=== PATIENT | female | born 1980 | race Caucasian/White ===

== ENCOUNTER 2017-10-07 18:41 | Emergency (ER) | payer OTHER, MEDICAID, SELFPAY | END 2017-10-08 01:43 | disposition short-term general hospital (02) | PROVIDERS: Emergency Provider Emergency Medicine; Family Provider Family Medicine; PCP Family Medicine; Visit Provider Emergency Medicine | DX: R56.9 Unspecified convulsions (principal) | CPT/HCPCS: 36415; 70450; 80053; 80305; 80320; 80329; 81003; 81025; 83690; 85025; 96365; 96375; 99058; 99284; G0480; J1953; J2060 ==

== ENCOUNTER 2017-11-05 18:47 | Emergency (ER) | payer OTHER, MEDICAID, SELFPAY ==
[2017-11-05 18:56] VITALS: BP 123/79; PULSE 79; RESP 15; TEMP 37.1; O2SAT 98; BMI 30.9
--- NOTE | 2017-11-05 19:34 | ED.SOB ---
HPI - SOB/Dyspnea General Chief Complaint: Shortness of Breath/Dyspnea Stated Complaint: thinks she has a blood clot Time Seen by Provider: 11/05/17 18:50 Source: patient Mode of arrival: ambulatory Limitations: no limitations History of Present Illness 37-year-old female sent in by her primary care doctor for having an elevated D-dimer. Patient states that she went to go see her primary care doctor because she has had bilateral lower extremity swelling with the right greater than left. She also states that for the past couple days she has felt more ???winded ???than in the past. She does state that she was recently discharged from [facility] where she was diagnosed with ???dystonia ???and is placed on an anti Parkinson's medication. Patient states she did have a airplane ride 2 months ago. Denies any chest pain. States she can take a deep breath but states she feels like she needs to take a breath more often. Has not tried anything at home for it. States she received a phone call from her primary care provider office today with the results of the blood test from yesterday and was told to come to the emergency department. Related Data Home Medications Medication Instructions Recorded Confirmed omeprazole 40 mg PO QDAY #0 10/12/16 11/05/17 clonazepam 1 mg PO BID 11/05/17 11/05/17 trihexyphenidyl 2 mg PO BID 11/05/17 11/05/17 Previous Rx's Medication Instructions Recorded furosemide 20 mg PO DAILY #10 tab 11/05/17 Allergies Allergy/AdvReac Type Severity Reaction Status Date / Time Gadolinium-Containing Allergy Unknown Verified 11/05/17 20:34 Contrast Medi Sulfa (Sulfonamide Allergy Unknown Verified 11/05/17 20:33 Antibiotics) [SULFA (SULFONAMIDE ANTIBIOTICS)] Review of Systems Constitutional Denies chills, Denies fever(s), Denies lethargy and Denies weakness Cardiovascular Denies chest pain, Denies irregular heart rhythm, Denies lightheadedness, Denies palpitations, Reports dyspnea, Reports dyspnea on exertion and Denies orthopnea Respiratory Denies chest congestion, Denies cough, Denies pain on inspiration, Denies pain with cough, Reports dyspnea, Reports dyspnea on exertion and Denies wheezing Gastrointestinal Gastrointestinal: Denies abdominal pain, Denies change in bowel habits, Denies diarrhea, Denies nausea and Denies vomiting Genitourinary Denies hematuria, Denies flank pain, Denies urinary incontinence and Denies urinary urgency Musculoskeletal Denies back pain, Denies joint swelling, Denies muscle cramps, Denies muscle weakness, Denies numbness and Denies tingling Comments: Bilateral lower extremity swelling right greater than left Integumentary/Breasts Denies pruritus, Denies erythema, Denies rash and Denies wounds Neurologic Denies numbness, Denies tingling and Denies weakness Endocrine Denies palpitations Hematologic/Lymphatic Denies easy bruising Allergic/Immunologic Denies wheezing [facility] Social History Smoking Status: Former smoker MDM - SOB/Dyspnea MDM Narrative Medical decision making narrative: Workup here in the emergency department was negative for bilateral DVT and also negative for pulmonary embolism. Patient is not hypoxic. He is in no respiratory distress. I did inform the patient of the incidental findings of lung nodules on her CT scan informed her that she needed to follow with her primary doctor regarding further workup for this. She expressed understanding. Does have of bilateral lower extremity swelling. Will start patient on Lasix to see if this does not improve her symptoms. She was instructed that she needed to follow up with her primary care doctor for further workup and treatment. She was given return precautions. She expressed understanding and agreement with plan Lab Data Attestation: I reviewed the patient's lab results. Result diagrams: 11/05/17 20:11 11/05/17 20:11 Lab Results 11/05/17 11/05/17 11/05/17 Range/Units 20:11 20:11 20:11 WBC 6.3 (4.5-11.0) X10^3/uL RBC 4.18 (4.0-5.2) X10^6/uL Hgb 11.9 L (12.0-16.0) g/dL Hct 34.6 L (36-46) % MCV 82.7 (80-100) fL MCH 28.4 (26-34) PG MCHC 34.3 (30-36) % RDW 16.3 H (11.6-14.8) % Plt Count 276 (150-400) X10^3/uL Neut % (Auto) 63.5 (50-75) % Lymph % (Auto) 27.7 (25-40) % [place] % (Auto) 6.0 (3-14) % Eos % (Auto) 2.2 (2-4) % Baso % (Auto) 0.6 (0-2) % Neut # (Auto) 4000 (6128-5335) /uL PT 10.9 (10.1-12.7) SECONDS INR 1.0 (0.9-1.3) APTT 35 (26.4-36.2) SECONDS Sodium 139 (137-145) mmol/L Potassium 3.6 (3.4-5.1) mmol/L Chloride 103.0 (98-107) mmol/L Carbon Dioxide 25.0 (22-32) mmol/L BUN 6.0 L (7-17) mg/dL Creatinine 0.60 (0.52-1.04) mg/dL Estimated GFR > 60.0 (>60) mL/min BUN/Creatinine Ratio 10.0 (6-22) Glucose 92 (70-100) mg/dL Calcium 9.1 (8.4-10.2) mg/dL Total Bilirubin 0.4 (0.2-1.3) mg/dL AST 60 H (14-36) IU/L ALT 61 H (9-52) IU/L Alkaline Phosphatase 66 (38-126) U/L Total Creatine Kinase 82 (30-135) U/L Troponin I < 0.012 (0.01-0.034) ng/mL B-Natriuretic Peptide 12.2 L (<100) Total Protein 7.6 (6.3-8.2) g/dL Albumin 4.2 (3.5-5.0) g/dL Globulin 3.4 (1.7-4.1) g/dL Albumin/Globulin Ratio 1.2 (1.0-2.8) Lipase 54 (23-300) U/L Imaging Data Lower extremity ultrasound: Radiologist's impression: PROCEDURE: US PERIPH VENOUS LOW EXTREM BI INDICATIONS: 37 year-old female with lower extremity edema. TECHNIQUE: Real-time imaging, as well as color and pulse Doppler interrogation, were performed of the deep veins of both legs from the inguinal ligament to the popliteal fossa. COMPARISON: None. FINDINGS: The deep veins are normally compressible, and free of intraluminal thrombus. Color and pulse Doppler demonstrate normal phasic intravascular flow. There is normal augmentation response to distal compression maneuver. IMPRESSION: No sonographic evidence for lower extremity deep venous thrombosis. Dictated by: Sabino Coreas M.D. on 11/05/2017 at 20:10 CT scan - chest: Radiologist's impression: PROCEDURE: CT ANGIO CHEST PE PROTOCOL INDICATIONS: 37 year-old female with shortness of breath and elevated d-dimer level. TECHNIQUE: After the administration of intravenous contrast, 2 mm thick sections acquired from the pulmonary apices to the posterior costophrenic angles. 3-dimensional maximum intensity projection (MIP) coronal and sagittal reformats were then acquired through the thorax. For radiation dose reduction, the following was used: automated exposure control, adjustment of mA and/or kV according to patient size. COMPARISON: [facility], CT, KUB - CT ([facility]), 01/17/2014, 0:39. FINDINGS: Image quality: Excellent. Pulmonary arteries: Pulmonary arteries are normal in size, and demonstrate no intraluminal filling defects to suggest central pulmonary embolism. Lungs and pleura: No acute airspace opacities. On image 41, 3 mm lateral left lower lobe nodule is unchanged since 2014, reassuring for benignity. On image 36, 3 mm subpleural lingular nodule is also unchanged. On image 29, 6 mm nodule in the superior segment of the left lower lobe is noted. On image 31, 6 mm lateral right lower lobe nodule is also present. No pleural effusions or pneumothorax. Central and peripheral airways are patent. Mediastinum: Heart size is normal, without pericardial effusion. No mediastinal or hilar adenopathy. Thoracic aorta is normal in caliber and enhancement. Esophagus is normal in caliber, without hiatal hernia. Bones and chest wall: No suspicious bony lesions. Ribs and thoracic spine appear intact throughout. Thyroid gland is normal in size. No axillary or supraclavicular adenopathy. Abdomen: Visualized upper abdominal solid organs appear normal in the early arterial phase of enhancement. IMPRESSION: 1. No evidence for central pulmonary embolism. No acute pulmonary disease. 2. Several 3 mm inferior left lung nodules are unchanged since 2013, reassuring for benignity. More superior bilateral 6 mm nodules were not included on prior abdominal scan images for direct comparison, and are therefore indeterminate. Following the revised Fleischner society guidelines outlined below, consider 12 month followup noncontrast chest CT if patient has risk factors for lung neoplasm. Fleischner Society criteria for SOLID lung nodule followup. Nodule size (mm)Low-risk patientHigh-risk patient<6 (single or multiple)No routine followup.Optional CT at 12 months. 6-8 (single or multiple)CT at 6-12 months, then optional CT at 18-24 mo.CT at 6-12 months, then CT at 18-24 months. >8 (single)CT, PET-CT, or biopsy at 3 months. Same as for low-risk pts. >8 (multiple)CT at 3-6 months, then optional CT at 18-24 mo.CT at 3-6 months, then CT at 18-24 months. Dictated by: Sabino Coreas M.D. on 11/05/2017 at 21:51 ECG Data Attestation: I personally reviewed and interpreted this ECG as follows: Prior ECG tracings: not available for review Interpretation: 1932 hr Sinus rhythm Ventricular rate of 70 Normal axis Normal intervals Normal QRS Normal QTC No ST T wave changes Course Orders Ordered: ED Orders 11/05/17 19:32 EKG-12 Lead Stat 11/05/17 19:43 CT angio chest PE protocol Stat US periph venous low extrem bi Stat 11/05/17 20:11 B Type Natriuretic Peptide Stat Complete Blood Count AUTO DIFF Stat Comprehensive Metabolic Panel Stat Lipase Stat Partial Thromboplastin Time Stat Prothrombin Time INR Stat Troponin with CK Cardiac Panel Stat Discontinued Medications Sodium Chloride (Normal Saline 0.9%) 1,000 mls @ 1,000 mls/hr IV BOLUS ONE Stop: 11/05/17 20:41 Last Infusion: 11/05/17 22:00 Dose: 0 mls/hr Admin: 11/05/17 20:45 Dose: 1,000 mls/hr Last Vital Signs Temp 98.8 F 11/05/17 18:56 Pulse 83 11/05/17 22:46 Resp 16 11/05/17 22:46 BP 117/67 11/05/17 22:46 Pulse Ox 99 11/05/17 22:46 Discharge Plan Departure Patient Disposition: Home, Self-Care Clinical Impression: Bilateral edema of lower extremity, Lung nodule Discharge Date/Time: 11/05/17 22:55 Instructions: DI for Lymphedema Activity Restrictions/Additional Instructions: Recommend that you contact your primary care doctor for a follow-up regarding your symptoms that you had today. You will also need to contact your primary doctor to discuss follow-up of the lung nodule that was seen on the CT scan today. Return to the emergency department for any new or worsening symptoms Prescriptions: New furosemide 20 mg tablet 20 mg PO DAILY Qty: 10 RF: 0 No Action omeprazole 40 MG capsule,delayed release(DR/EC) 40 mg PO QDAY Qty: 0 RF: 0 clonazepam 1 mg Tablet 1 mg PO BID RF: 0 trihexyphenidyl 2 mg Tablet 2 mg PO BID RF: 0
--- NOTE | 2017-11-05 19:43 | DI.CT.S_ITS ---
PROCEDURE: CT ANGIO CHEST PE PROTOCOL INDICATIONS: 37 year-old female with shortness of breath and elevated d-dimer level. TECHNIQUE: After the administration of intravenous contrast, 2 mm thick sections acquired from the pulmonary apices to the posterior costophrenic angles. 3-dimensional maximum intensity projection (MIP) coronal and sagittal reformats were then acquired through the thorax. For radiation dose reduction, the following was used: automated exposure control, adjustment of mA and/or kV according to patient size. COMPARISON: [facility], CT, KUB - CT ([facility]), 01/17/2014, 0:39. FINDINGS: Image quality: Excellent. Pulmonary arteries: Pulmonary arteries are normal in size, and demonstrate no intraluminal filling defects to suggest central pulmonary embolism. Lungs and pleura: No acute airspace opacities. On image 41, 3 mm lateral left lower lobe nodule is unchanged since 2013, reassuring for benignity. On image 36, 3 mm subpleural lingular nodule is also unchanged. On image 29, 6 mm nodule in the superior segment of the left lower lobe is noted. On image 31, 6 mm lateral right lower lobe nodule is also present. No pleural effusions or pneumothorax. Central and peripheral airways are patent. Mediastinum: Heart size is normal, without pericardial effusion. No mediastinal or hilar adenopathy. Thoracic aorta is normal in caliber and enhancement. Esophagus is normal in caliber, without hiatal hernia. Bones and chest wall: No suspicious bony lesions. Ribs and thoracic spine appear intact throughout. Thyroid gland is normal in size. No axillary or supraclavicular adenopathy. Abdomen: Visualized upper abdominal solid organs appear normal in the early arterial phase of enhancement. IMPRESSION: 1. No evidence for central pulmonary embolism. No acute pulmonary disease. 2. Several 3 mm inferior left lung nodules are unchanged since 2013, reassuring for benignity. More superior bilateral 6 mm nodules were not included on prior abdominal scan images for direct comparison, and are therefore indeterminate. Following the revised Fleischner society guidelines outlined below, consider 12 month followup noncontrast chest CT if patient has risk factors for lung neoplasm. Fleischner Society criteria for SOLID lung nodule followup. Nodule size (mm)Low-risk patientHigh-risk patient<6 (single or multiple)No routine followup.Optional CT at 12 months. 6-8 (single or multiple)CT at 6-12 months, then optional CT at 18-24 mo.CT at 6-12 months, then CT at 18-24 months. >8 (single)CT, PET-CT, or biopsy at 3 months. Same as for low-risk pts. >8 (multiple)CT at 3-6 months, then optional CT at 18-24 mo.CT at 3-6 months, then CT at 18-24 months. Dictated by: Sabino Coreas M.D. on 11/05/2017 at 21:51 Approved by: Sabino Coreas M.D. on 11/05/2017 at 22:02
--- NOTE | 2017-11-05 19:43 | DI.US.S_ITS ---
PROCEDURE: US PERIPH VENOUS LOW EXTREM BI INDICATIONS: 37 year-old female with lower extremity edema. TECHNIQUE: Real-time imaging, as well as color and pulse Doppler interrogation, were performed of the deep veins of both legs from the inguinal ligament to the popliteal fossa. COMPARISON: None. FINDINGS: The deep veins are normally compressible, and free of intraluminal thrombus. Color and pulse Doppler demonstrate normal phasic intravascular flow. There is normal augmentation response to distal compression maneuver. IMPRESSION: No sonographic evidence for lower extremity deep venous thrombosis. Dictated by: Sabino Coreas M.D. on 11/05/2017 at 20:10 Approved by: Sabino Coreas M.D. on 11/05/2017 at 20:11
[2017-11-05 19:51] VITALS: BP 135/81; PULSE 71; O2SAT 98
[2017-11-05 20:30] LABS: Add Manual Diff / Slide Review NO; Basophils Percent Auto 0.6 % (0-2); Eosinophils Percent Auto 2.2 % (2-4); Hematocrit 34.6 % (36-46); Hemoglobin 11.9 g/dL (12.0-16.0); Lymphocytes Percent Auto 27.7 % (25-40); Mean Corpuscular HGB Conc 34.3 % (30-36); Mean Corpuscular Hemoglobin 28.4 PG (26-34); Mean Corpuscular Volume 82.7 fL (80-100); Neutrophils Absolute Auto 4000 /uL (3000-5900); Neutrophils Percent Auto 63.5 % (50-75); Platelet Count 276 X10^3/uL (150-400); Red Blood Cell Count 4.18 X10^6/uL (4.0-5.2); Red Cell Distribution Width 16.3 % (11.6-14.8); White Blood Cell Count 6.3 X10^3/uL (4.5-11.0)
[2017-11-05 20:42] LABS: Prothrombin Time 10.9 SECONDS (10.1-12.7)
[2017-11-05 20:45] LABS: Alanine Aminotransferase 61 IU/L (9-52); Albumin 4.2 g/dL (3.5-5.0); Albumin Globulin Ratio 1.2 (1.0-2.8); Alkaline Phosphatase 66 U/L (38-126); Aspartate Aminotransferase 60 IU/L (14-36); Bilirubin Total 0.4 mg/dL (0.2-1.3); Calcium 9.1 mg/dL (8.4-10.2); Creatine Kinase 82 U/L (30-135); Estimated Glomerular Filt Rate > 60.0 mL/min (>60); Globulin 3.4 g/dL (1.7-4.1); Glucose 92 mg/dL (70-100); HEMOLYSIS < 15 (0-50); Lipase 54 U/L (23-300); Potassium 3.6 mmol/L (3.4-5.1); Sodium 139 mmol/L (137-145); Total Protein 7.6 g/dL (6.3-8.2)
[2017-11-05] MEDS: SODIUM CHLORIDE 0.9% 1,000 ML 1000 ML IV (20:45)
[2017-11-05 20:49] LABS: PTT Partial Thromboplastin Tim 35 SECONDS (26.4-36.2)
[2017-11-05 20:50] LABS: B Type Natriuretic Peptide 12.2 (<100)
[2017-11-05 20:57] LABS: Troponin I < 0.012 ng/mL (0.01-0.034)
[2017-11-05 21:49] VITALS: BP 109/65; PULSE 89; RESP 16; O2SAT 100
[2017-11-05 22:46] VITALS: BP 117/67; PULSE 83; RESP 16; O2SAT 99
== END 2017-11-05 22:55 | disposition home or self-care (01) ==
PROVIDERS: Emergency Provider Emergency Medicine; Family Provider Family Medicine; PCP Family Medicine
DX: R60.0 Localized edema (principal); R91.1 Solitary pulmonary nodule
CPT/HCPCS: 36591; 71275; 80053; 81003; 81025; 82550; 82553; 83690; 83880; 84484; 85025; 85610; 85730; 93005; 93970; 99283; 99285

== ENCOUNTER 2018-01-13 10:45 | Emergency (ER) | payer OTHER, MEDICAID, SELFPAY ==
[2018-01-13 10:52] VITALS: BP 132/83; PULSE 85; RESP 15; TEMP 36.7; O2SAT 99; BMI 34.3
[2018-01-13 11:05] VITALS: BP 138/96; PULSE 83; RESP 16; O2SAT 99
--- NOTE | 2018-01-13 11:13 | ED.FEVER ---
HPI - Fever General Chief Complaint: Chest Pain Stated Complaint: fever for a month Time Seen by Provider: 01/13/18 11:06 Source: patient Mode of arrival: ambulatory Limitations: no limitations History of Present Illness HPI Narrative: Patient is a 37-year-old female with multiple vague complaints. She says that she has had fever off and on for the last 1 month. She was diagnosed with Parkinson's she was started on Trihexyphenidyl, she was doing well then her neurologist increase her dose to double. At which point she started having low-grade fevers initially of 100 but they have spiked to 104. She is currently afebrile in the ED. She has just weakness. She denies cough she denies abdominal pain nausea vomiting sore throat headache neck pain a or urinary symptoms MD complaint: fever Onset (ago): month(s) (1) Related Data Home Medications Medication Instructions Recorded Confirmed omeprazole 40 mg PO QDAY #0 10/12/16 01/13/18 clonazepam 1 mg PO BID 11/05/17 01/13/18 trihexyphenidyl 2 mg PO TID 11/05/17 01/13/18 diclofenac sodium 20 mg 01/13/18 Previous Rx's Medication Instructions Recorded furosemide 20 mg PO DAILY #10 tab 11/05/17 Allergies Allergy/AdvReac Type Severity Reaction Status Date / Time Gadolinium-Containing Allergy Unknown Verified 01/13/18 10:51 Contrast Medi Sulfa (Sulfonamide Allergy Unknown Verified 01/13/18 10:51 Antibiotics) [SULFA (SULFONAMIDE ANTIBIOTICS)] Review of Systems Review of Systems All systems reviewed & are unremarkable except as noted in HPI and below Constitutional Denies body ache(s), Reports fatigue, Reports fever(s) and Denies headache(s) Eyes Denies itchy eyes and Denies eye pain ENT Ears, Nose, Mouth, and Throat: Denies headache(s) and Reports hoarseness (For 1 year after EGD unchanged today) Cardiovascular Denies chest pain, Denies irregular heart rhythm, Denies lightheadedness, Denies palpitations, Denies dyspnea, Denies dyspnea on exertion and Denies orthopnea Respiratory Denies cough, Denies dyspnea, Denies dyspnea on exertion and Denies wheezing Gastrointestinal Gastrointestinal: Denies abdominal pain, Denies change in bowel habits, Denies diarrhea, Denies nausea and Denies vomiting Musculoskeletal Denies back pain, Denies muscle weakness, Denies numbness and Denies tingling Integumentary/Breasts Denies pruritus, Denies erythema, Denies rash and Denies wounds Neurologic Denies headache(s), Denies numbness and Denies tingling Endocrine Reports fatigue and Denies palpitations Allergic/Immunologic Denies itchy eyes and Denies wheezing [facility] Medical History Parkinsons disease (Acute) Social History Smoking Status: Former smoker Exam Initial Vital Signs Initial Vital Signs: Vital Signs Temperature 98.1 F 01/13/18 10:52 Pulse Rate 85 01/13/18 10:52 Respiratory Rate 15 01/13/18 10:52 Blood Pressure 132/83 H 01/13/18 10:52 Pulse Oximetry 99 01/13/18 10:52 GENERAL: [Well-appearing, well-nourished] and in [no acute] distress. HEENT: Head atraumatic,EOMI, pupils reactive, face symmetric, [moist] mucous membranes CARDIOVASCULAR: Regular rate and rhythm without murmurs, rubs or gallops. RESPIRATORY: Breath sounds equal bilaterally, no wheezes rales or rhonchi. ABDOMEN: Soft, nontender. Normoactive bowel sounds all 4 quadrants. No guarding or rebound. : No CVA tenderness EXTREMITIES: Normal range of motion, no clubbing or edema. Neurovascularly intact. Left leg is noted to be weak he says this is also chronic she walks with a cane. Is not any worse today. NEUROLOGICAL: Alert and oriented x4.Normal gait and speech. Cranial nerves II through XII grossly intact. SKIN: Warm, dry, no laceration, no petechiae, no rashes or lesions. Course Orders Ordered: ED Orders 01/13/18 11:00 Complete Blood Count AUTO DIFF Stat Comprehensive Metabolic Panel Stat Lactate (Lactic Acid) Stat Procalcitonin Stat 01/13/18 11:15 XR chest 2V Stat 01/13/18 11:21 D Dimer Stat 01/13/18 11:50 Blood Culture Stat Discontinued Medications Sodium Chloride (Normal Saline 0.9%) 1,000 mls @ 1,000 mls/hr IV CONT ADE Last Infusion: 01/13/18 13:45 Dose: 0 mls/hr Admin: 01/13/18 11:40 Dose: 1,000 mls/hr Vital Signs - 8 hr 01/13/18 10:52 01/13/18 11:05 01/13/18 12:00 Temperature 98.1 F Pulse Rate 85 83 78 Respiratory Rate 15 16 15 Blood Pressure 132/83 H Blood Pressure [Left Arm] 138/96 H 125/72 H Pulse Oximetry 99 99 100 01/13/18 12:39 01/13/18 13:00 01/13/18 14:04 Temperature Pulse Rate 67 73 74 Respiratory Rate 16 17 17 Blood Pressure 124/64 H Blood Pressure [Left Arm] 124/74 H 128/66 H 124/64 H Pulse Oximetry 98 100 100 MDM - Fever Medical Records Attestation: I reviewed the patient's medical records. Lab Data Attestation: I reviewed the patient's lab results. Result diagrams: 01/13/18 11:00 01/13/18 11:00 Lab Results 01/13/18 01/13/18 01/13/18 Range/Units 11:00 11:00 11:00 WBC 6.1 (4.5-11.0) X10^3/uL RBC 4.27 (4.0-5.2) X10^6/uL Hgb 12.5 (12.0-16.0) g/dL Hct 36.1 (36-46) % MCV 84.5 (80-100) fL MCH 29.2 (26-34) PG MCHC 34.5 (30-36) % RDW 14.5 (11.6-14.8) % Plt Count 311 (150-400) X10^3/uL Neut % (Auto) 69.5 (50-75) % Lymph % (Auto) 24.5 L (25-40) % [place] % (Auto) 4.7 (3-14) % Eos % (Auto) 0.8 L (2-4) % Baso % (Auto) 0.5 (0-2) % Neut # (Auto) 4300 (8136-3265) /uL D-Dimer (<230) ng/mL Sodium 144 (137-145) mmol/L Potassium 3.4 (3.4-5.1) mmol/L Chloride 105 (98-107) mmol/L Carbon Dioxide 27 (22-32) mmol/L BUN 8 (7-17) mg/dL Creatinine 0.60 (0.52-1.04) mg/dL Estimated GFR > 60.0 (>60) mL/min BUN/Creatinine Ratio 13.3 (6-22) Glucose 94 (70-100) mg/dL Lactate (0.7-2.1) mmol/L Calcium 9.3 (8.4-10.2) mg/dL Total Bilirubin 0.4 (0.2-1.3) mg/dL AST 20 (14-36) IU/L ALT 17 (9-52) IU/L Alkaline Phosphatase 64 (38-126) U/L Total Protein 7.5 (6.3-8.2) g/dL Albumin 4.3 (3.5-5.0) g/dL Globulin 3.2 (1.7-4.1) g/dL Albumin/Globulin Ratio 1.3 (1.0-2.8) Procalcitonin < 0.05 (<0.5) ng/mL 01/13/18 01/13/18 Range/Units 11:00 11:21 WBC (4.5-11.0) X10^3/uL RBC (4.0-5.2) X10^6/uL Hgb (12.0-16.0) g/dL Hct (36-46) % MCV (80-100) fL MCH (26-34) PG MCHC (30-36) % RDW (11.6-14.8) % Plt Count (150-400) X10^3/uL Neut % (Auto) (50-75) % Lymph % (Auto) (25-40) % [place] % (Auto) (3-14) % Eos % (Auto) (2-4) % Baso % (Auto) (0-2) % Neut # (Auto) (5232-2738) /uL D-Dimer 201 (<230) ng/mL Sodium (137-145) mmol/L Potassium (3.4-5.1) mmol/L Chloride (98-107) mmol/L Carbon Dioxide (22-32) mmol/L BUN (7-17) mg/dL Creatinine (0.52-1.04) mg/dL Estimated GFR (>60) mL/min BUN/Creatinine Ratio (6-22) Glucose (70-100) mg/dL Lactate 0.8 (0.7-2.1) mmol/L Calcium (8.4-10.2) mg/dL Total Bilirubin (0.2-1.3) mg/dL AST (14-36) IU/L ALT (9-52) IU/L Alkaline Phosphatase (38-126) U/L Total Protein (6.3-8.2) g/dL Albumin (3.5-5.0) g/dL Globulin (1.7-4.1) g/dL Albumin/Globulin Ratio (1.0-2.8) Procalcitonin (<0.5) ng/mL POC negative POC UA-negative MDM Narrative Medical decision making narrative: No source of infection has been found. She was actually seen and worked up for C back in October. Her D-dimer today is negative I do not think DVT or PE is the cause of her ongoing fever. This is a possible drug fever. Trihexyphenidyl can cause hyperthermia. She says that her symptoms started as soon as her dose was increased. This clinically make sense. I recommend that she decrease her dose back to 1 pill twice a day and see if that helps her fevers. We also discussed how to taper off a if she feels the need but is not recommended at this time. I discussed all findings with the patient, Education has been performed regarding treatment plan, diagnosis, warning signs and symptoms and all concerns have been addressed. Verbally agree with and understood all of the above. Discharge Plan Departure Patient Disposition: Home, Self-Care Clinical Impression: Fever Discharge Date/Time: 01/13/18 14:05 Interventions: ED Discharge Assessment Last Done: 01/13/18 14:04 Instructions: DI for Adverse Drug Reaction -- Other Activity Restrictions/Additional Instructions: *You have been diagnosed with fever *What to do: No infectious source is found. This is possibly related to her medication *Continue to take medications as directed Trihexphenidyl 2mg twice a day, do not stop abruptly *Follow up with your primary care provider in 2-3 days *Return to ER if you should have persistent fever more than 100.4, or any new, worsening or concerning symptoms Prescriptions: No Action omeprazole 40 MG capsule,delayed release(DR/EC) 40 mg PO QDAY Qty: 0 RF: 0 clonazepam 1 mg Tablet 1 mg PO BID RF: 0 trihexyphenidyl 2 mg Tablet 2 mg PO TID RF: 0 furosemide 20 mg tablet 20 mg PO DAILY Qty: 10 RF: 0 diclofenac sodium 20 mg RF: 0 Referrals: Ignacio Stern MD [Primary Care Provider] -
--- NOTE | 2018-01-13 11:15 | DI.RAD.S_ITS ---
PROCEDURE: XR CHEST 2V INDICATIONS: fever for 1 month TECHNIQUE: 2 views of the chest were acquired. COMPARISON: [facility], , CHEST 1 VIEW, 06/07/2017, 9:05. [facility], , CHEST FOR PICC PLACEMENT, 03/10/2017, 15:01. CT from 11/05/2017. FINDINGS: Surgical changes and devices: Right PICC has been removed. Lungs and pleura: No pleural effusions or pneumothorax. Lungs are clear. Mediastinum: Mediastinal contours are normal. Heart size is normal. Bones and chest wall: No suspicious bony abnormalities. Soft tissues appear unremarkable. IMPRESSION: No radiographic evidence of acute cardiopulmonary pathology. Dictated by: Anderson Whiteside M.D. on 01/13/2018 at 11:53 Approved by: Anderson Whiteside M.D. on 01/13/2018 at 11:54
[2018-01-13 11:27] LABS: Add Manual Diff / Slide Review NO; Basophils Percent Auto 0.5 % (0-2); Eosinophils Percent Auto 0.8 % (2-4); Hematocrit 36.1 % (36-46); Hemoglobin 12.5 g/dL (12.0-16.0); Lymphocytes Percent Auto 24.5 % (25-40); Mean Corpuscular HGB Conc 34.5 % (30-36); Mean Corpuscular Hemoglobin 29.2 PG (26-34); Mean Corpuscular Volume 84.5 fL (80-100); Monocytes Percent Auto 4.7 % (3-14); Neutrophils Absolute Auto 4300 /uL (3000-5900); Neutrophils Percent Auto 69.5 % (50-75); Platelet Count 311 X10^3/uL (150-400); Red Blood Cell Count 4.27 X10^6/uL (4.0-5.2); Red Cell Distribution Width 14.5 % (11.6-14.8); White Blood Cell Count 6.1 X10^3/uL (4.5-11.0)
[2018-01-13 11:33] LABS: Alanine Aminotransferase 17 IU/L (9-52); Albumin 4.3 g/dL (3.5-5.0); Albumin Globulin Ratio 1.3 (1.0-2.8); Alkaline Phosphatase 64 U/L (38-126); Aspartate Aminotransferase 20 IU/L (14-36); BUN Creatinine Ratio 13.3 (6-22); Bilirubin Total 0.4 mg/dL (0.2-1.3); Blood Urea Nitrogen 8 mg/dL (7-17); Calcium 9.3 mg/dL (8.4-10.2); Carbon Dioxide 27 mmol/L (22-32); Chloride 105 mmol/L (98-107); Estimated Glomerular Filt Rate > 60.0 mL/min (>60); Globulin 3.2 g/dL (1.7-4.1); Glucose 94 mg/dL (70-100); HEMOLYSIS < 15 (0-50); Lactate (Lactic Acid) 0.8 mmol/L (0.7-2.1); Potassium 3.4 mmol/L (3.4-5.1); Sodium 144 mmol/L (137-145); Total Protein 7.5 g/dL (6.3-8.2)
[2018-01-13] MEDS: SODIUM CHLORIDE 0.9% 1,000 ML 1000 ML IV (11:40)
[2018-01-13 12:00] VITALS: BP 125/72; PULSE 78; RESP 15; O2SAT 100
[2018-01-13 12:00] LABS: Procalcitonin < 0.05 ng/mL (<0.5)
[2018-01-13 12:39] VITALS: BP 124/74; PULSE 67; RESP 16; O2SAT 98
[2018-01-13 12:41] LABS: D Dimer 201 ng/mL (<230)
[2018-01-13 13:00] VITALS: BP 128/66; PULSE 73; RESP 17; O2SAT 100
[2018-01-13 14:04] VITALS: BP 124/64; PULSE 74; PULSE 81; RESP 16; RESP 17; O2SAT 100
== END 2018-01-13 14:05 | disposition home or self-care (01) ==
PROVIDERS: Emergency Provider Emergency Medicine; Family Provider Family Medicine; PCP Family Medicine
DX: R50.9 Fever, unspecified (principal); R07.89 Other chest pain
CPT/HCPCS: 36591; 71046; 80053; 81003; 81025; 83605; 84145; 85025; 85379; 87040; 93005; 96360; 96361; 99284; 99285

== ENCOUNTER 2018-06-09 18:28 | Emergency (ER) | payer OTHER, MEDICAID, SELFPAY ==
[2018-06-09 18:39] VITALS: BP 157/87; PULSE 90; RESP 20; TEMP 36.8; O2SAT 100; BMI 37.8
--- NOTE | 2018-06-09 18:50 | DI.CT.S_ITS ---
PROCEDURE: CT SOFT TISSUE NECK W CON INDICATIONS: R. maxillary, mastoid, facial pain s/p tooth extractions TECHNIQUE: After the administration of intravenous contrast, 3.0 mm axial sections acquired from the sella to the aortic arch. Additional oblique axial 3.0 mm sections acquired through the pharynx. 3 mm thick coronal and sagittal reformats were generated. For radiation dose reduction, the following was used: automated exposure control. COMPARISON: [facility], CT, HEAD WITHOUT CONTRAST, 10/07/2017, 19:07. FINDINGS: Image quality: Excellent. Lymph nodes: No enlarged lymph nodes seen throughout the neck. Vessels: Visualized vasculature appears patent. Neck spaces: The oropharynx, nasopharynx, and pharynx demonstrate no mucosal lesions. The vocal cords, false vocal cords, pyriform sinuses, epiglottis, vallecula, and tongue base all appear normal. Extramucosal spaces appear unremarkable. Glands: The parotid and submandibular glands appear normal. Thyroid gland is normal. Miscellaneous: Visualized brain and orbits appear normal. Lung apices appear clear. Superficial soft tissues appear normal. Bones: Mild cortical lucency in the maxilla on the right. There is mild to moderate degenerative disc disease in cervical spine. Mastoids appear unremarkable. There is complete opacification of the right maxillary sinus. There is marked mucosal thickening in the right maxillary sinus and abnormal enhancement in the maxillary sinus. IMPRESSION: 1. Mild cortical lucency in the maxilla on the right. Cannot rule out osteomyelitis. 2. Complete opacification of the right maxillary sinus with abnormal enhancement which could represent severe sinusitis or abscess. Recommend ENT consultation. Dictated by: Sarah Kirby M.D. on 06/09/2018 at 20:18 Approved by: Sarah Kirby M.D. on 06/09/2018 at 20:25
--- NOTE | 2018-06-09 19:01 | ED.DENTAL ---
HPI - Dental/Oral <Liudmila Hope PA-C - Last Filed: 06/09/18 22:17> General Chief complaint: Dental/Oral Stated complaint: STATES INFECTION Time Seen by Provider: 06/09/18 18:32 Source: patient Mode of arrival: ambulatory Limitations: no limitations History of Present Illness HPI Narrative: this 38-year-old female states she was sent over by her dentist due to worsening facial pain, swelling and fevers following dental extractions. She had 7 teeth extracted 12 days ago. She states that a few days later, she began developing jaw pain and fevers. highest temperature at home was 102 yesterday. She states that today she has been taking acetaminophen consistently and fever is staying down. She states that she has been on 2 antibiotics including amoxicillin and azithromycin most recently without improvement. She states no specific abscess was found, and she had facial x-rays apparently that were normal. She states that her face has been puffy on the right side and felt tingly on and off. She States that she had some right earache and also sinus pain. The earache was worse yesterday, sinus and ear symptoms are better after she used a nasal rinse yesterday. She states that she has been unable to fully open her mouth since the procedure. She is tolerating fluids cannot chew normal foods. She apparently had some lab work by EMS including a lactate that was 2.9, so was sent here. She has not had any recent cold symptoms or cough. She denies any dyspnea for wheeze. She has not had any GI symptoms. 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 She takes medication regularly for this. Related Data Home Medications Medication Instructions Recorded Confirmed omeprazole 40 mg PO QDAY #0 10/12/16 01/13/18 clonazepam 1 mg PO BID 11/05/17 01/13/18 trihexyphenidyl 2 mg PO TID 11/05/17 01/13/18 diclofenac sodium 20 mg 01/13/18 Previous Rx's Medication Instructions Recorded furosemide 20 mg PO DAILY #10 tab 11/05/17 amoxicillin-pot clavulanate 1 tab PO Q12H #20 tab 12/13/18 meloxicam 7.5 mg PO DAILY #20 tab 06/09/18 Allergies Allergy/AdvReac Type Severity Reaction Status Date / Time Gadolinium-Containing Allergy Unknown Verified 01/13/18 10:51 Contrast Medi Sulfa (Sulfonamide Allergy Unknown Verified 01/13/18 10:51 Antibiotics) [SULFA (SULFONAMIDE ANTIBIOTICS)] Review of Systems <Liudmila Hope PA-C - Last Filed: 06/09/18 22:17> Review of Systems All systems reviewed & are unremarkable except as noted in HPI and below Exam <Liudmila Hope PA-C - Last Filed: 06/09/18 22:17> Narrative Exam Narrative: GENERAL APPEARANCE: Patient sitting comfortably, in no distress. voice is hoarse HEAD: Moderate right maxillary tenderness, minimal over the mandible and frontal areas. Perhaps slight effusion over the right side of the face versus left. EYES: PERRL, EOMI. EARS: Normal auditory canals, TMS intact with normal light reflexes. Tender over the right mastoid ORAL CAVITY: Normal oropharynx, gums and dental extraction area are not erythematous, edematous or draining. THROAT: Clear. NECK/THYROID: Neck supple, full range of motion, no cervical lymphadenopathy. LUNGS: Clear to auscultation bilaterally, no cough on exam. HEART: RRR without murmur, nl S1, S2, no S3 or S4. NEUROLOGIC: The patient is alert and oriented, facial sensation to touch is grossly intact MUSCULOSKELETAL: Unable to fully extend the jaw secondary to tenderness Initial Vital Signs Initial Vital Signs: Vital Signs Temperature 98.3 F 06/09/18 18:39 Pulse Rate 90 06/09/18 18:39 Respiratory Rate 20 06/09/18 18:39 Blood Pressure 157/87 H 06/09/18 18:39 Pulse Oximetry 100 06/09/18 18:39 <Chriss Kearns DO - Last Filed: 06/09/18 22:44> Initial Vital Signs Initial Vital Signs: Vital Signs Temperature 98.3 F 06/09/18 18:39 Pulse Rate 90 06/09/18 18:39 Respiratory Rate 20 06/09/18 18:39 Blood Pressure 157/87 H 06/09/18 18:39 Pulse Oximetry 100 06/09/18 18:39 Course <CIRILO Nichols Last Filed: 06/09/18 22:17> Additional Information: patient is feeling significantly improved after Toradol. Lab findings reviewed, no elevated white count or elevated lactate. Her tooth extraction site do not appear infected currently. CT findings are consistent with maxillary sinusitis. Discussed certainly she could have a bone or other more serious infection related to recent dental work, however the antibiotics that she has taken also would likely not treat sinus infection. Reviewed evaluation and findings with Dr. Kearns who agrees a trial of Augmentin is reasonable. Advised patient that she needs close follow-up, and if worse or not improving may need repeat testing and Ear Nose and Throat evaluation. She is agreeable and will call her PCP 1st thing in the morning to arrange recheck, preferably by Wednesday. 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 She has to stay here for the evening due to no ferries running and was also given her routine doses of muscle relaxants and clonazepam that she takes for her movement disorder prior to departure. Orders Ordered: ED Orders 06/09/18 18:50 CT soft tissue neck w con Stat 06/09/18 19:01 Blood Culture Stat Complete Blood Count AUTO DIFF Stat Comprehensive Metabolic Panel Stat Lactate (Lactic Acid) Stat Discontinued Medications Amoxicillin/Clavulanate Potassium (Augmentin 875-125 Mg) 1 tab PO NOW ONE Stop: 06/09/18 20:37 Last Admin: 06/09/18 21:03 Dose: 1 tab Baclofen (Lioresal) 20 mg PO NOW ONE Stop: 06/09/18 20:42 Last Admin: 06/09/18 21:03 Dose: 20 mg Clonazepam (Klonopin) 1 mg PO NOW ONE Stop: 06/09/18 20:42 Last Admin: 06/09/18 21:03 Dose: 1 mg Sodium Chloride (Normal Saline 0.9%) 1,000 mls @ 1,000 mls/hr IV BOLUS ONE Stop: 06/09/18 19:49 Last Infusion: 06/09/18 20:31 Dose: 0 mls/hr Admin: 06/09/18 19:27 Dose: 1,000 mls/hr Ketorolac Tromethamine (Toradol) 30 mg IV NOW ONE Stop: 06/09/18 18:51 Last Admin: 06/09/18 19:27 Dose: 30 mg Methocarbamol (Robaxin) 1,000 mg PO NOW ONE Stop: 06/09/18 20:42 Last Admin: 06/09/18 21:03 Dose: 1,000 mg Vital Signs - 8 hr 06/09/18 18:39 06/09/18 21:03 Temperature 98.3 F Pulse Rate 90 68 Respiratory Rate 20 15 Blood Pressure 157/87 H Blood Pressure [Left Arm] 127/84 Pulse Oximetry 100 100 <Chriss Kearns DO - Last Filed: 06/09/18 22:44> Orders Ordered: ED Orders 06/09/18 18:50 CT soft tissue neck w con Stat 06/09/18 19:01 Blood Culture Stat Complete Blood Count AUTO DIFF Stat Comprehensive Metabolic Panel Stat Lactate (Lactic Acid) Stat Discontinued Medications Amoxicillin/Clavulanate Potassium (Augmentin 875-125 Mg) 1 tab PO NOW ONE Stop: 06/09/18 20:37 Last Admin: 06/09/18 21:03 Dose: 1 tab Baclofen (Lioresal) 20 mg PO NOW ONE Stop: 06/09/18 20:42 Last Admin: 06/09/18 21:03 Dose: 20 mg Clonazepam (Klonopin) 1 mg PO NOW ONE Stop: 06/09/18 20:42 Last Admin: 06/09/18 21:03 Dose: 1 mg Sodium Chloride (Normal Saline 0.9%) 1,000 mls @ 1,000 mls/hr IV BOLUS ONE Stop: 06/09/18 19:49 Last Infusion: 06/09/18 20:31 Dose: 0 mls/hr Admin: 06/09/18 19:27 Dose: 1,000 mls/hr Ketorolac Tromethamine (Toradol) 30 mg IV NOW ONE Stop: 06/09/18 18:51 Last Admin: 06/09/18 19:27 Dose: 30 mg Methocarbamol (Robaxin) 1,000 mg PO NOW ONE Stop: 06/09/18 20:42 Last Admin: 06/09/18 21:03 Dose: 1,000 mg Vital Signs - 8 hr 06/09/18 18:39 06/09/18 21:03 Temperature 98.3 F Pulse Rate 90 68 Respiratory Rate 20 15 Blood Pressure 157/87 H Blood Pressure [Left Arm] 127/84 Pulse Oximetry 100 100 MDM - Dental/Oral <Liudmila Hope PA-C - Last Filed: 06/09/18 22:17> Lab Data Attestation: I reviewed the patient's lab results. Result diagrams: 06/09/18 19:06/09/18 19:01 Lab Results 06/09/18 06/09/18 06/09/18 Range/Units 19: 19: 19:01 WBC 8.5 (4.5-11.0) X10^3/uL RBC 4.60 (4.0-5.2) X10^6/uL Hgb 12.7 (12.0-16.0) g/dL Hct 37.5 (36-46) % MCV 81.5 (80-100) fL MCH 27.5 (26-34) PG MCHC 33.8 (30-36) % RDW 15.1 H (11.6-14.8) % Plt Count 333 (150-400) X10^3/uL Neut % (Auto) 74.0 (50-75) % Lymph % (Auto) 20.4 L (25-40) % Wood % (Auto) 4.1 (3-14) % Eos % (Auto) 0.8 L (2-4) % Baso % (Auto) 0.7 (0-2) % Neut # (Auto) 6300 (9347-3307) /uL Sodium 144 (137-145) mmol/L Potassium 3.4 (3.4-5.1) mmol/L Chloride 103 (98-107) mmol/L Carbon Dioxide 26 (22-32) mmol/L BUN 8 (7-17) mg/dL Creatinine 0.60 (0.52-1.04) mg/dL Estimated GFR > 60.0 (>60) mL/min BUN/Creatinine Ratio 13.3 (6-22) Glucose 103 H (70-100) mg/dL Lactate 1.3 (0.7-2.1) mmol/L Calcium 9.5 (8.4-10.2) mg/dL Total Bilirubin 0.2 (0.2-1.3) mg/dL AST 23 (14-36) IU/L ALT 25 (9-52) IU/L Alkaline Phosphatase 62 (38-126) U/L Total Protein 8.4 H (6.3-8.2) g/dL Albumin 4.7 (3.5-5.0) g/dL Globulin 3.7 (1.7-4.1) g/dL Albumin/Globulin Ratio 1.3 (1.0-2.8) Imaging Data neck CT: Radiologist's impression: [address] [address] [address] Scan Report Signed Patient: Janki Man LMR#: [id number] : 1980Acct:[id number] Age/Sex: 38 / FDate of Service: 06/09/18 Loc: ED Accession Number: [id number] Procedure: CT soft tissue neck w con Ordering Provider: Liudmila Hope P.A-C PROCEDURE: CT SOFT TISSUE NECK W CON INDICATIONS: R. maxillary, mastoid, facial pain s/p tooth extractions TECHNIQUE: After the administration of intravenous contrast, 3.0 mm axial sections acquired from the sella to the aortic arch. Additional oblique axial 3.0 mm sections acquired through the pharynx. 3 mm thick coronal and sagittal reformats were generated. For radiation dose reduction, the following was used: automated exposure control. COMPARISON: [facility], CT, HEAD WITHOUT CONTRAST, 10/07/2017, 19:07. FINDINGS: Image quality: Excellent. Lymph nodes: No enlarged lymph nodes seen throughout the neck. Vessels: Visualized vasculature appears patent. Neck spaces: The oropharynx, nasopharynx, and pharynx demonstrate no mucosal lesions. The vocal cords, false vocal cords, pyriform sinuses, epiglottis, vallecula, and tongue base all appear normal. Extramucosal spaces appear unremarkable. Glands: The parotid and submandibular glands appear normal. Thyroid gland is normal. Miscellaneous: Visualized brain and orbits appear normal. Lung apices appear clear. Superficial soft tissues appear normal. Bones: Mild cortical lucency in the maxilla on the right. There is mild to moderate degenerative disc disease in cervical spine. Mastoids appear unremarkable. There is complete opacification of the right maxillary sinus. There is marked mucosal thickening in the right maxillary sinus and abnormal enhancement in the maxillary sinus. IMPRESSION: 1. Mild cortical lucency in the maxilla on the right. Cannot rule out osteomyelitis. 2. Complete opacification of the right maxillary sinus with abnormal enhancement which could represent severe sinusitis or abscess. Recommend ENT consultation. Dictated by: Sarah Kirby M.D. on 06/09/2018 at 20:18 Approved by: Sarah Kirby M.D. on 06/09/2018 at 20:25 <Chriss Kearns DO - Last Filed: 06/09/18 22:44> Lab Data Lab Results 06/09/18 06/09/18 06/09/18 Range/Units 19:01 19:01 19:01 WBC 8.5 (4.5-11.0) X10^3/uL RBC 4.60 (4.0-5.2) X10^6/uL Hgb 12.7 (12.0-16.0) g/dL Hct 37.5 (36-46) % MCV 81.5 (80-100) fL MCH 27.5 (26-34) PG MCHC 33.8 (30-36) % RDW 15.1 H (11.6-14.8) % Plt Count 333 (150-400) X10^3/uL Neut % (Auto) 74.0 (50-75) % Lymph % (Auto) 20.4 L (25-40) % Wood % (Auto) 4.1 (3-14) % Eos % (Auto) 0.8 L (2-4) % Baso % (Auto) 0.7 (0-2) % Neut # (Auto) 6300 (8006-3208) /uL Sodium 144 (137-145) mmol/L Potassium 3.4 (3.4-5.1) mmol/L Chloride 103 (98-107) mmol/L Carbon Dioxide 26 (22-32) mmol/L BUN 8 (7-17) mg/dL Creatinine 0.60 (0.52-1.04) mg/dL Estimated GFR > 60.0 (>60) mL/min BUN/Creatinine Ratio 13.3 (6-22) Glucose 103 H (70-100) mg/dL Lactate 1.3 (0.7-2.1) mmol/L Calcium 9.5 (8.4-10.2) mg/dL Total Bilirubin 0.2 (0.2-1.3) mg/dL AST 23 (14-36) IU/L ALT 25 (9-52) IU/L Alkaline Phosphatase 62 (38-126) U/L Total Protein 8.4 H (6.3-8.2) g/dL Albumin 4.7 (3.5-5.0) g/dL Globulin 3.7 (1.7-4.1) g/dL Albumin/Globulin Ratio 1.3 (1.0-2.8) Discharge Plan Departure Patient Disposition: Home Clinical Impression: Sinusitis Discharge Date/Time: 06/09/18 21:42 Interventions: ED Discharge Assessment Last Done: 06/09/18 21:29 Instructions: DI for Sinusitis Activity Restrictions/Additional Instructions: Please return as we talked about if you have acutely worsening symptoms. Your labwork does not show any abnormality today (your white count and lactate are normal here), but your CT scan shows what is most likely a severe sinus infection in the right cheek area (maxilla) where you are hurting and swollen. On your exam today your tooth socket and gums actually do not look inflamed. This infection may or may not be related to the dental work you had, however the antibiotics that you had taken previously would not typically treat a sinus infection, so we have changed to Augmentin tonight. Please day habilitation supervisor your prescription when the pharmacy opens tomorrow and take the 2nd dose. I have also sent in a once daily anti-inflammatory, meloxicam for you to try, as this may cause less stomach upset than ibuprofen. You can continue Tylenol and your other pain medicine as needed with this. Please be sure to call Dr. Zapien's office 1st thing in the morning and let them know that you were seen here and we want you to follow up closely to make sure that you are getting better and make sure that you do not need further testing for a more severe infection such as a bone infection. You may need a referral to an distance learning administrator if you are not improving Prescriptions: New meloxicam 7.5 mg tablet 7.5 mg PO DAILY Qty: 20 RF: 0 amoxicillin-pot clavulanate 875-125 mg tablet 1 tab PO Q12H Qty: 20 RF: 0 No Action omeprazole 40 MG capsule,delayed release(DR/EC) 40 mg PO QDAY Qty: 0 RF: 0 clonazepam 1 mg Tablet 1 mg PO BID RF: 0 trihexyphenidyl 2 mg Tablet 2 mg PO TID RF: 0 furosemide 20 mg tablet 20 mg PO DAILY Qty: 10 RF: 0 diclofenac sodium 20 mg RF: 0 Referrals: Eliseo Zapien MD [Physician] - <Chriss Kearns DO - Last Filed: 06/09/18 22:44> Cosign ED Attending Marcio Attestation: I was available for consultation during this patient's emergency department encounter
[2018-06-09 19:09] LABS: Add Manual Diff / Slide Review NO; Basophils Percent Auto 0.7 % (0-2); Eosinophils Percent Auto 0.8 % (2-4); Hematocrit 37.5 % (36-46); Hemoglobin 12.7 g/dL (12.0-16.0); Lymphocytes Percent Auto 20.4 % (25-40); Mean Corpuscular HGB Conc 33.8 % (30-36); Mean Corpuscular Hemoglobin 27.5 PG (26-34); Mean Corpuscular Volume 81.5 fL (80-100); Monocytes Percent Auto 4.1 % (3-14); Neutrophils Absolute Auto 6300 /uL (1500-7000); Platelet Count 333 X10^3/uL (150-400); Red Cell Distribution Width 15.1 % (11.6-14.8); White Blood Cell Count 8.5 X10^3/uL (4.5-11.0)
--- NOTE | 2018-06-09 19:09 | ED_ITS ---
HPI - Dental/Oral <Liudmila Hope PA-C - Last Filed: 06/09/18 22:17> General Chief complaint: Dental/Oral Stated complaint: STATES INFECTION Time Seen by Provider: 06/09/18 18:32 Source: patient Mode of arrival: ambulatory Limitations: no limitations History of Present Illness HPI Narrative: this 38-year-old female states she was sent over by her dentist due to worsening facial pain, swelling and fevers following dental extractions. She had 7 teeth extracted 12 days ago. She states that a few days later, she began developing jaw pain and fevers. highest temperature at home was 102 yesterday. She states that today she has been taking acetaminophen consistently and fever is staying down. She states that she has been on 2 antibiotics including amoxicillin and azithromycin most recently without improvement. She states no specific abscess was found, and she had facial x- rays apparently that were normal. She states that her face has been puffy on the right side and felt tingly on and off. She States that she had some right earache and also sinus pain. The earache was worse yesterday, sinus and ear symptoms are better after she used a nasal rinse yesterday. She states that she has been unable to fully open her mouth since the procedure. She is tolerating fluids cannot chew normal foods. She apparently had some lab work by EMS including a lactate that was 2.9, so was sent here. She has not had any recent cold symptoms or cough. She denies any dyspnea for wheeze. She has not had any GI symptoms. 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 She takes medication regularly for this. Related Data Home Medications Medication Instructions Recorded Confirmed omeprazole 40 mg PO QDAY #0 10/12/16 01/13/18 clonazepam 1 mg PO BID 11/05/17 01/13/18 trihexyphenidyl 2 mg PO TID 11/05/17 01/13/18 diclofenac sodium 20 mg 01/13/18 Previous Rx's Medication Instructions Recorded furosemide 20 mg PO DAILY #10 tab 11/05/17 amoxicillin-pot clavulanate 1 tab PO Q12H #20 tab 12/13/18 meloxicam 7.5 mg PO DAILY #20 tab 06/09/18 Allergies Allergy/AdvReac Type Severity Reaction Status Date / Time Gadolinium-Containing Allergy Unknown Verified 01/13/18 10:51 Contrast Medi Sulfa (Sulfonamide Allergy Unknown Verified 01/13/18 10:51 Antibiotics) [SULFA (SULFONAMIDE ANTIBIOTICS)] Review of Systems <Liudmila Hope PA-C - Last Filed: 06/09/18 22:17> Review of Systems All systems reviewed & are unremarkable except as noted in HPI and below Exam <Liudmila Hope PA-C - Last Filed: 06/09/18 22:17> Narrative Exam Narrative: GENERAL APPEARANCE: Patient sitting comfortably, in no distress. voice is hoarse HEAD: Moderate right maxillary tenderness, minimal over the mandible and frontal areas. Perhaps slight effusion over the right side of the face versus left. EYES: PERRL, EOMI. EARS: Normal auditory canals, TMS intact with normal light reflexes. Tender over the right mastoid ORAL CAVITY: Normal oropharynx, gums and dental extraction area are not erythematous, edematous or draining. THROAT: Clear. NECK/THYROID: Neck supple, full range of motion, no cervical lymphadenopathy. LUNGS: Clear to auscultation bilaterally, no cough on exam. HEART: RRR without murmur, nl S1, S2, no S3 or S4. NEUROLOGIC: The patient is alert and oriented, facial sensation to touch is grossly intact MUSCULOSKELETAL: Unable to fully extend the jaw secondary to tenderness Initial Vital Signs Initial Vital Signs: Vital Signs Temperature 98.3 F 06/09/18 18:39 Pulse Rate 90 06/09/18 18:39 Respiratory Rate 20 06/09/18 18:39 Blood Pressure 157/87 H 06/09/18 18:39 Pulse Oximetry 100 06/09/18 18:39 <Chriss Kearns DO - Last Filed: 06/09/18 22:44> Initial Vital Signs Initial Vital Signs: Vital Signs Temperature 98.3 F 06/09/18 18:39 Pulse Rate 90 06/09/18 18:39 Respiratory Rate 20 06/09/18 18:39 Blood Pressure 157/87 H 06/09/18 18:39 Pulse Oximetry 100 06/09/18 18:39 Course <CIRILO Nichols Last Filed: 06/09/18 22:17> Additional Information: patient is feeling significantly improved after Toradol. Lab findings reviewed, no elevated white count or elevated lactate. Her tooth extraction site do not appear infected currently. CT findings are consistent with maxillary sinusitis. Discussed certainly she could have a bone or other more serious infection related to recent dental work, however the antibiotics that she has taken also would likely not treat sinus infection. Reviewed evaluation and findings with Dr. Kearns who agrees a trial of Augmentin is reasonable. Advised patient that she needs close follow-up, and if worse or not improving may need repeat testing and Ear Nose and Throat evaluation. She is agreeable and will call her PCP 1st thing in the morning to arrange recheck, preferably by Wednesday. She was given 1st dose of antibiotic tonight and will cook pickled meat prescription in the morning. She has to stay here for the evening due to no ferries running and was also given her routine doses of muscle relaxants and clonazepam that she takes for her movement disorder prior to departure. Orders Ordered: ED Orders 06/09/18 18:50 CT soft tissue neck w con Stat 06/09/18 19:01 Blood Culture Stat Complete Blood Count AUTO DIFF Stat Comprehensive Metabolic Panel Stat Lactate (Lactic Acid) Stat Discontinued Medications Amoxicillin/Clavulanate Potassium (Augmentin 875-125 Mg) 1 tab PO NOW ONE Stop: 06/09/18 20:37 Last Admin: 06/09/18 21:03 Dose: 1 tab Baclofen (Lioresal) 20 mg PO NOW ONE Stop: 06/09/18 20:42 Last Admin: 06/09/18 21:03 Dose: 20 mg Clonazepam (Klonopin) 1 mg PO NOW ONE Stop: 06/09/18 20:42 Last Admin: 06/09/18 21:03 Dose: 1 mg Sodium Chloride (Normal Saline 0.9%) 1,000 mls @ 1,000 mls/hr IV BOLUS ONE Stop: 06/09/18 19:49 Last Infusion: 06/09/18 20:31 Dose: 0 mls/hr Admin: 06/09/18 19:27 Dose: 1,000 mls/hr Ketorolac Tromethamine (Toradol) 30 mg IV NOW ONE Stop: 06/09/18 18:51 Last Admin: 06/09/18 19:27 Dose: 30 mg Methocarbamol (Robaxin) 1,000 mg PO NOW ONE Stop: 06/09/18 20:42 Last Admin: 06/09/18 21:03 Dose: 1,000 mg Vital Signs - 8 hr 06/09/18 18:39 06/09/18 21:03 Temperature 98.3 F Pulse Rate 90 68 Respiratory Rate 20 15 Blood Pressure 157/87 H Blood Pressure [Left Arm] 127/84 Pulse Oximetry 100 100 <Chriss Kearns DO - Last Filed: 06/09/18 22:44> Orders Ordered: ED Orders 06/09/18 18:50 CT soft tissue neck w con Stat 06/09/18 19:01 Blood Culture Stat Complete Blood Count AUTO DIFF Stat Comprehensive Metabolic Panel Stat Lactate (Lactic Acid) Stat Discontinued Medications Amoxicillin/Clavulanate Potassium (Augmentin 875-125 Mg) 1 tab PO NOW ONE Stop: 06/09/18 20:37 Last Admin: 06/09/18 21:03 Dose: 1 tab Baclofen (Lioresal) 20 mg PO NOW ONE Stop: 06/09/18 20:42 Last Admin: 06/09/18 21:03 Dose: 20 mg Clonazepam (Klonopin) 1 mg PO NOW ONE Stop: 06/09/18 20:42 Last Admin: 06/09/18 21:03 Dose: 1 mg Sodium Chloride (Normal Saline 0.9%) 1,000 mls @ 1,000 mls/hr IV BOLUS ONE Stop: 06/09/18 19:49 Last Infusion: 06/09/18 20:31 Dose: 0 mls/hr Admin: 06/09/18 19:27 Dose: 1,000 mls/hr Ketorolac Tromethamine (Toradol) 30 mg IV NOW ONE Stop: 06/09/18 18:51 Last Admin: 06/09/18 19:27 Dose: 30 mg Methocarbamol (Robaxin) 1,000 mg PO NOW ONE Stop: 06/09/18 20:42 Last Admin: 06/09/18 21:03 Dose: 1,000 mg Vital Signs - 8 hr 06/09/18 18:39 06/09/18 21:03 Temperature 98.3 F Pulse Rate 90 68 Respiratory Rate 20 15 Blood Pressure 157/87 H Blood Pressure [Left Arm] 127/84 Pulse Oximetry 100 100 MDM - Dental/Oral <Liudmila Hope PA-C - Last Filed: 06/09/18 22:17> Lab Data Attestation: I reviewed the patient's lab results. Result diagrams: 06/09/18 19:06/09/18 19:01 Lab Results 06/09/18 06/09/18 06/09/18 Range/Units 19: 19: 19:01 WBC 8.5 (4.5-11.0) X10^3/uL RBC 4.60 (4.0-5.2) X10^6/uL Hgb 12.7 (12.0-16.0) g/dL Hct 37.5 (36-46) % MCV 81.5 (80-100) fL MCH 27.5 (26-34) PG MCHC 33.8 (30-36) % RDW 15.1 H (11.6-14.8) % Plt Count 333 (150-400) X10^3/uL Neut % (Auto) 74.0 (50-75) % Lymph % (Auto) 20.4 L (25-40) % Bent % (Auto) 4.1 (3-14) % Eos % (Auto) 0.8 L (2-4) % Baso % (Auto) 0.7 (0-2) % Neut # (Auto) 6300 (2633-0715) /uL Sodium 144 (137-145) mmol/L Potassium 3.4 (3.4-5.1) mmol/L Chloride 103 (98-107) mmol/L Carbon Dioxide 26 (22-32) mmol/L BUN 8 (7-17) mg/dL Creatinine 0.60 (0.52-1.04) mg/dL Estimated GFR > 60.0 (>60) mL/min BUN/Creatinine Ratio 13.3 (6-22) Glucose 103 H (70-100) mg/dL Lactate 1.3 (0.7-2.1) mmol/L Calcium 9.5 (8.4-10.2) mg/dL Total Bilirubin 0.2 (0.2-1.3) mg/dL AST 23 (14-36) IU/L ALT 25 (9-52) IU/L Alkaline Phosphatase 62 (38-126) U/L Total Protein 8.4 H (6.3-8.2) g/dL Albumin 4.7 (3.5-5.0) g/dL Globulin 3.7 (1.7-4.1) g/dL Albumin/Globulin Ratio 1.3 (1.0-2.8) Imaging Data neck CT: Radiologist's impression: [address] [address] [address] Scan Report Signed Patient: Janki Man LMR#: [id number] : 1980Acct:[id number] Age/Sex: 38 / FDate of Service: 06/09/18 Loc: ED Accession Number: [id number] Procedure: CT soft tissue neck w con Ordering Provider: Liudmila Hope P.A-C PROCEDURE: CT SOFT TISSUE NECK W CON INDICATIONS: R. maxillary, mastoid, facial pain s/p tooth extractions TECHNIQUE: After the administration of intravenous contrast, 3.0 mm axial sections acquired from the sella to the aortic arch. Additional oblique axial 3.0 mm sections acquired through the pharynx. 3 mm thick coronal and sagittal reformats were generated. For radiation dose reduction, the following was used: automated exposure control. COMPARISON: [facility], CT, HEAD WITHOUT CONTRAST, 10/07/2017, 19:07. FINDINGS: Image quality: Excellent. Lymph nodes: No enlarged lymph nodes seen throughout the neck. Vessels: Visualized vasculature appears patent. Neck spaces: The oropharynx, nasopharynx, and pharynx demonstrate no mucosal lesions. The vocal cords, false vocal cords, pyriform sinuses, epiglottis, vallecula, and tongue base all appear normal. Extramucosal spaces appear unremarkable. Glands: The parotid and submandibular glands appear normal. Thyroid gland is normal. Miscellaneous: Visualized brain and orbits appear normal. Lung apices appear clear. Superficial soft tissues appear normal. Bones: Mild cortical lucency in the maxilla on the right. There is mild to moderate degenerative disc disease in cervical spine. Mastoids appear unremarkable. There is complete opacification of the right maxillary sinus. There is marked mucosal thickening in the right maxillary sinus and abnormal enhancement in the maxillary sinus. IMPRESSION: 1. Mild cortical lucency in the maxilla on the right. Cannot rule out osteomyelitis. 2. Complete opacification of the right maxillary sinus with abnormal enhancement which could represent severe sinusitis or abscess. Recommend ENT consultation. Dictated by: Sarah Kirby M.D. on 06/09/2018 at 20:18 Approved by: Sarah Kirby M.D. on 06/09/2018 at 20:25 <Chriss Kearns DO - Last Filed: 06/09/18 22:44> Lab Data Lab Results 06/09/18 06/09/18 06/09/18 Range/Units 19:01 19:01 19:01 WBC 8.5 (4.5-11.0) X10^3/uL RBC 4.60 (4.0-5.2) X10^6/uL Hgb 12.7 (12.0-16.0) g/dL Hct 37.5 (36-46) % MCV 81.5 (80-100) fL MCH 27.5 (26-34) PG MCHC 33.8 (30-36) % RDW 15.1 H (11.6-14.8) % Plt Count 333 (150-400) X10^3/uL Neut % (Auto) 74.0 (50-75) % Lymph % (Auto) 20.4 L (25-40) % Bent % (Auto) 4.1 (3-14) % Eos % (Auto) 0.8 L (2-4) % Baso % (Auto) 0.7 (0-2) % Neut # (Auto) 6300 (3651-2333) /uL Sodium 144 (137-145) mmol/L Potassium 3.4 (3.4-5.1) mmol/L Chloride 103 (98-107) mmol/L Carbon Dioxide 26 (22-32) mmol/L BUN 8 (7-17) mg/dL Creatinine 0.60 (0.52-1.04) mg/dL Estimated GFR > 60.0 (>60) mL/min BUN/Creatinine Ratio 13.3 (6-22) Glucose 103 H (70-100) mg/dL Lactate 1.3 (0.7-2.1) mmol/L Calcium 9.5 (8.4-10.2) mg/dL Total Bilirubin 0.2 (0.2-1.3) mg/dL AST 23 (14-36) IU/L ALT 25 (9-52) IU/L Alkaline Phosphatase 62 (38-126) U/L Total Protein 8.4 H (6.3-8.2) g/dL Albumin 4.7 (3.5-5.0) g/dL Globulin 3.7 (1.7-4.1) g/dL Albumin/Globulin Ratio 1.3 (1.0-2.8) Discharge Plan Departure Patient Disposition: Home Clinical Impression: Sinusitis Discharge Date/Time: 06/09/18 21:42 Interventions: ED Discharge Assessment Last Done: 06/09/18 21:29 Instructions: DI for Sinusitis Activity Restrictions/Additional Instructions: Please return as we talked about if you have acutely worsening symptoms. Your labwork does not show any abnormality today (your white count and lactate are normal here), but your CT scan shows what is most likely a severe sinus infection in the right cheek area (maxilla) where you are hurting and swollen. On your exam today your tooth socket and gums actually do not look inflamed. This infection may or may not be related to the dental work you had, however the antibiotics that you had taken previously would not typically treat a sinus infection, so we have changed to Augmentin tonight. Please cook pickled meat your prescription when the pharmacy opens tomorrow and take the 2nd dose. I have also sent in a once daily anti-inflammatory, meloxicam for you to try, as this may cause less stomach upset than ibuprofen. You can continue Tylenol and your other pain medicine as needed with this. Please be sure to call Dr. Zapien's office 1st thing in the morning and let them know that you were seen here and we want you to follow up closely to make sure that you are getting better and make sure that you do not need further testing for a more severe infection such as a bone infection. You may need a referral to an research neuropsychologist if you are not improving Prescriptions: New meloxicam 7.5 mg tablet 7.5 mg PO DAILY Qty: 20 RF: 0 amoxicillin-pot clavulanate 875-125 mg tablet 1 tab PO Q12H Qty: 20 RF: 0 No Action omeprazole 40 MG capsule,delayed release(DR/EC) 40 mg PO QDAY Qty: 0 RF: 0 clonazepam 1 mg Tablet 1 mg PO BID RF: 0 trihexyphenidyl 2 mg Tablet 2 mg PO TID RF: 0 furosemide 20 mg tablet 20 mg PO DAILY Qty: 10 RF: 0 diclofenac sodium 20 mg RF: 0 Referrals: Eliseo Zapien MD [Physician] - <Chriss Kearns DO - Last Filed: 06/09/18 22:44> Cosign ED Attending Marcio Attestation: I was available for consultation during this patient's emergency department encounter
[2018-06-09 19:20] LABS: Lactate (Lactic Acid) 1.3 mmol/L (0.7-2.1)
[2018-06-09] MEDS: SODIUM CHLORIDE 0.9% 1,000 ML 1000 ML IV (19:27)
[2018-06-09] MEDS: KETOROLAC 60 MG/2 ML VIAL 30 MG IV (19:27)
[2018-06-09 19:31] LABS: Alanine Aminotransferase 25 IU/L (9-52); Albumin 4.7 g/dL (3.5-5.0); Albumin Globulin Ratio 1.3 (1.0-2.8); Alkaline Phosphatase 62 U/L (38-126); Aspartate Aminotransferase 23 IU/L (14-36); BUN Creatinine Ratio 13.3 (6-22); Bilirubin Total 0.2 mg/dL (0.2-1.3); Blood Urea Nitrogen 8 mg/dL (7-17); Calcium 9.5 mg/dL (8.4-10.2); Carbon Dioxide 26 mmol/L (22-32); Chloride 103 mmol/L (98-107); Estimated Glomerular Filt Rate > 60.0 mL/min (>60); Globulin 3.7 g/dL (1.7-4.1); Glucose 103 mg/dL (70-100); HEMOLYSIS < 15 (0-50); Potassium 3.4 mmol/L (3.4-5.1); Sodium 144 mmol/L (137-145); Total Protein 8.4 g/dL (6.3-8.2)
[2018-06-09 21:03] VITALS: BP 127/84; PULSE 68; RESP 15; O2SAT 100
[2018-06-09] MEDS: METHOCARBAMOL 500 MG TABLET 1000 MG PO (21:03)
[2018-06-09] MEDS: clonazePAM 0.5 MG TABLET 1 MG PO (21:03)
[2018-06-09] MEDS: AMOXICILLIN/CLAV 875/125 MG 1 TAB PO (21:03)
[2018-06-09] MEDS: BACLOFEN 10 MG TABLET 20 MG PO (21:03)
== END 2018-06-09 21:42 | disposition home or self-care (01) ==
PROVIDERS: Emergency Provider Internal Medicine; Family Provider Family Medicine; PCP Family Medicine
DX: J32.9 Chronic sinusitis, unspecified (principal)
CPT/HCPCS: 36591; 70491; 80053; 83605; 85025; 87040; 96361; 96374; 99283; 99285; J1885; Q9967

== ENCOUNTER 2019-02-13 16:36 | Emergency (ER) | payer OTHER, MEDICAID, SELFPAY ==
[2019-02-13 16:59] VITALS: BP 131/80; PULSE 113; RESP 16; TEMP 36.5; O2SAT 97
--- NOTE | 2019-02-13 18:44 | DI.RAD.S_ITS ---
PROCEDURE: XR LUMBAR SPINE 2-3V INDICATIONS: pain TECHNIQUE: 3 views of the lumbar spine were acquired. COMPARISON: [facility], , L-SPINE MINIMUM 4 VIEWS, 09/17/2011, 13:45. FINDINGS: Bones: 5 [id number] vertebrae are present. Moderate L4-L5 degenerative disc disease. Mild L1-L2, L2-L3, L3-L4 and L5-S1 degenerative disc disease. Mild convex left curvature. There is normal bony alignment. No vertebral body compression fractures. No suspicious bony lesions. Soft tissues: Overlying bowel gas pattern is normal. No suspicious soft tissue calcifications. IMPRESSION: No fracture. No acute osseous lesion. If symptoms and/or clinical suspicion for pathology persists, evaluation with MRI may be helpful for further assessment. Dictated by: Karina Sanabria MD, PhD on 02/13/2019 at 19:50 Approved by: Karina Sanabria MD, PhD on 02/13/2019 at 19:51
--- NOTE | 2019-02-13 18:44 | DI.RAD.S_ITS ---
PROCEDURE: XR THORACIC SPINE 3V INDICATIONS: pain TECHNIQUE: 3 views of the thoracic spine were acquired. COMPARISON: None. FINDINGS: Bones: No fractures or dislocations mild multilevel degenerative disc disease.. No suspicious bony lesions. 12 pairs of ribs are noted, and appear intact where visualized. Soft tissues: No paravertebral stripe thickening. IMPRESSION: No fracture. No acute osseous lesion. If symptoms and/or clinical suspicion for pathology persists, evaluation with MRI may be helpful for further assessment. Dictated by: Karina Sanabria MD, PhD on 02/13/2019 at 19:48 Approved by: Karnia Sanabria MD, PhD on 02/13/2019 at 19:50
[2019-02-13 18:45] VITALS: BP 127/53; PULSE 108; RESP 22; TEMP 36.6; O2SAT 99
[2019-02-13] MEDS: HYDROCODONE/ACET 5/325 TABLET 1 TAB PO ×2 (19:16→20:47)
[2019-02-13] MEDS: KETOROLAC 60 MG/2 ML VIAL IM (19:18)
[2019-02-13] MEDS: CYCLOBENZAPRINE 10 MG TABLET PO (19:20)
[2019-02-13] MEDS: LIDOCAINE PATCH 1 EACH ADH..PATCH TOP (20:48)
--- NOTE | 2019-02-13 21:11 | ED.BACK ---
HPI - Back Pain/Injury <LORRI Lyles - Last Filed: 02/13/19 21:28> General Chief Complaint: Back Pain/Injury Stated Complaint: SENT BY DOCTOR POSSIBLE COMP FRACTURE OF SPINE Time Seen by Provider: 02/13/19 18:33 Source: patient Mode of arrival: ambulatory Limitations: no limitations History of Present Illness HPI Narrative: The patient is a 38-year-old female former smoker with history of movement disorder who presents with a chief complaint of back pain. She states it started she was standing and turned to 1 side. She felt sudden onset of back pain and spasms at her bra line. She states her PCP was concerned about a compression fracture. She denies any trauma, falls. She denies any incontinence of bowel, incontinence of bladder, numbness tingling or saddle anesthesia. She denies any fevers or personal history of cancer. She has not taken anything today for the pain. She states yesterday she took Robaxin. . She also tried ibuprofen. This was not helpful. She denies any dysuria urgency or frequency. She states that the pain stays at her bra line. Related Data Home Medications Medication Instructions Recorded Confirmed omeprazole 40 mg PO QDAY #0 10/12/16 01/13/18 clonazepam 1 mg PO BID 11/05/17 01/13/18 trihexyphenidyl 2 mg PO TID 11/05/17 01/13/18 diclofenac sodium 20 mg 01/13/18 Previous Rx's Medication Instructions Recorded furosemide 20 mg PO DAILY #10 tab 11/05/17 amoxicillin-pot clavulanate 1 tab PO Q12H #20 tab 06/09/18 meloxicam 7.5 mg PO DAILY #20 tab 06/09/18 cyclobenzaprine 10 mg PO TID PRN #30 tab 02/13/19 hydrocodone-acetaminophen 1 tab PO Q4-6H PRN #7 tab 02/13/19 ketorolac 10 mg PO TID #14 tab 02/13/19 Allergies Allergy/AdvReac Type Severity Reaction Status Date / Time Gadolinium-Containing Allergy Unknown Verified 01/13/18 10:51 Contrast Medi Sulfa (Sulfonamide Allergy Unknown Verified 01/13/18 10:51 Antibiotics) [SULFA (SULFONAMIDE ANTIBIOTICS)] Review of Systems <LORRI Lyles - Last Filed: 02/13/19 21:28> Review of Systems GENERAL: Denies chills, fatigue, malaise, fever, sweats. HEENT: Denies sinus pain, ear pain, sore throat, difficulty swallowing, dizziness. RESPIRATORY: Denies dyspnea, cough, wheezing, hemoptysis, sputum. CARDIOVASCULAR: Denies chest pain, palpitations, orthopnea, edema, GASTROINTESTINAL: Denies nausea, vomiting, abdominal pain, diarrhea, constipation, melena. : Denies dysuria, frequency, incontinence, hematuria, urinary retention. MUSCULOSKELETAL: See HPI SKIN: Denies rash, skin lesions, or other NEUROLOGIC: Denies weakness, headache, numbness, change in speech, confusion, seizures, incoordination. PSYCHIATRIC: No concerning psychosocial issues. 12 point review of systems is negative except for those stated above PFSH <LORRI Lyles - Last Filed: 02/13/19 21:28> Medical History Movement disorder (Chronic) Vocal cord paralysis (Chronic) Social History Smoking Status: Former smoker Social History Smoking Status: Former smoker Exam <LORRI Lyles - Last Filed: 02/13/19 21:28> Narrative Exam Narrative: GENERAL: This is a well-nourished, well-developed patient, appears uncomfortable. Stiff gait. HEAD: Atraumatic. Normocephalic. No temporal or scalp tenderness. EYES: Pupils equal round and reactive. Extraocular motions intact. No scleral icterus. No injection or drainage. ENT: Nose without bleeding, purulent drainage or septal hematoma. Throat without erythema, tonsillar hypertrophy or exudate. Uvula midline. Airway patent. NECK: Trachea midline. No JVD or lymphadenopathy. Supple, nontender, no meningeal signs. CARDIOVASCULAR: Regular rate and rhythm RESPIRATORY: Clear to auscultation. Breath sounds equal bilaterally. No wheezes, rales, or rhonchi. No cough. No increased respiratory effort. No accessory muscle use. GASTROINTESTINAL: Abdomen soft, non-tender, nondistended. No hepato-splenomegaly, or palpable masses. No guarding. Active bowel sounds all 4 quadrants. EXTREMITIES: No clubbing, cyanosis, or edema. No joint tenderness, effusion, or edema noted. BACK: no pain to C-spine palpation. Pain to T and L-spine palpation of midline. Pain to bilateral paraspinal muscle palpation of thoracic spine. NEURO: AOx3. Stable gait. Strength is equal upper and lower extremities bilaterally. No gross cranial nerve deficit. SKIN: No visible rash erythema ecchymosis on back. Initial Vital Signs Initial Vital Signs: Vital Signs Temperature 97.7 F 02/13/19 16:59 Pulse Rate 113 H 02/13/19 16:59 Respiratory Rate 16 02/13/19 16:59 Blood Pressure 131/80 02/13/19 16:59 Pulse Oximetry 97 02/13/19 16:59 <Arash Zhang DO - Last Filed: 02/14/19 01:15> Initial Vital Signs Initial Vital Signs: Vital Signs Temperature 97.7 F 02/13/19 16:59 Pulse Rate 113 H 02/13/19 16:59 Respiratory Rate 16 02/13/19 16:59 Blood Pressure 131/80 02/13/19 16:59 Pulse Oximetry 97 02/13/19 16:59 Course <LORRI Lyles - Last Filed: 02/13/19 21:28> Orders Ordered: ED Orders 02/13/19 18:44 XR lumbar spine 2-3V Stat XR thoracic spine 3V Stat Discontinued Medications Hydrocodone Bitart/Acetaminophen (Tyrone 5/325) 1 tab PO NOW ONE Stop: 02/13/19 18:56 Last Admin: 02/13/19 19:16 Dose: 1 tab Hydrocodone Bitart/Acetaminophen (Tyrone 5/325) 1 tab PO NOW ONE Stop: 02/13/19 20:29 Last Admin: 02/13/19 20:47 Dose: 1 tab Hydrocodone Bitart/Acetaminophen (Vicodin Prepack) 1 bottle MISC SEEINSTR ONE Stop: 02/13/19 21:24 Last Admin: 02/13/19 21:45 Dose: 1 bottle Cyclobenzaprine HCl (Flexeril) 10 mg PO NOW ONE Stop: 02/13/19 18:45 Last Admin: 02/13/19 19:20 Dose: 10 mg Cyclobenzaprine HCl (Flexeril 10 Mg Prepack) 1 bottle MISC SEEINSTR ONE Stop: 02/13/19 21:24 Last Admin: 02/13/19 21:45 Dose: 1 bottle Ketorolac Tromethamine (Toradol) 60 mg IM NOW ONE Stop: 02/13/19 18:45 Last Admin: 02/13/19 19:18 Dose: 60 mg Lidocaine (Lidoderm) 1 each TOP NOW ONE Stop: 02/13/19 20:29 Last Admin: 02/13/19 20:48 Dose: 1 each Vital Signs - 8 hr 02/13/19 18:45 02/13/19 22:02 Temperature 97.9 F 98.7 F Pulse Rate 108 H 79 Respiratory Rate 22 18 Blood Pressure 138/80 Blood Pressure [Right Arm] 127/53 L Pulse Oximetry 99 99 <Arash Zhang DO - Last Filed: 02/14/19 01:15> Orders Ordered: ED Orders 02/13/19 18:44 XR lumbar spine 2-3V Stat XR thoracic spine 3V Stat Discontinued Medications Hydrocodone Bitart/Acetaminophen (Tyrone 5/325) 1 tab PO NOW ONE Stop: 02/13/19 18:56 Last Admin: 02/13/19 19:16 Dose: 1 tab Hydrocodone Bitart/Acetaminophen (Tyrone 5/325) 1 tab PO NOW ONE Stop: 02/13/19 20:29 Last Admin: 02/13/19 20:47 Dose: 1 tab Hydrocodone Bitart/Acetaminophen (Vicodin Prepack) 1 bottle MISC SEEINSTR ONE Stop: 02/13/19 21:24 Last Admin: 02/13/19 21:45 Dose: 1 bottle Cyclobenzaprine HCl (Flexeril) 10 mg PO NOW ONE Stop: 02/13/19 18:45 Last Admin: 02/13/19 19:20 Dose: 10 mg Cyclobenzaprine HCl (Flexeril 10 Mg Prepack) 1 bottle MISC SEEINSTR ONE Stop: 02/13/19 21:24 Last Admin: 02/13/19 21:45 Dose: 1 bottle Ketorolac Tromethamine (Toradol) 60 mg IM NOW ONE Stop: 02/13/19 18:45 Last Admin: 02/13/19 19:18 Dose: 60 mg Lidocaine (Lidoderm) 1 each TOP NOW ONE Stop: 02/13/19 20:29 Last Admin: 02/13/19 20:48 Dose: 1 each Vital Signs - 8 hr 02/13/19 18:45 02/13/19 22:02 Temperature 97.9 F 98.7 F Pulse Rate 108 H 79 Respiratory Rate 22 18 Blood Pressure 138/80 Blood Pressure [Right Arm] 127/53 L Pulse Oximetry 99 99 MDM - Back Pain/Injury <LORRI Lyles - Last Filed: 02/13/19 21:28> Lab Data Point of Care Testing Test Results Negative Urine Dip Bedside Urine Glucose Negative Bedside Urine Bilirubin - Negative Bedside Urine Ketone +/- 5 Urine Specific [place] 1.025 Bedside Urine Occult Blood - Negative Bedside Urine pH 6.0 Bedside Urine Protein +/- 15 Bedside Urine Urobilinogen - Negative Bedside Urine Nitrite - Negative Bedside Urine Leukocytes - Negative Esterase Imaging Data Lumbar spine x-ray: Radiologist's impression: [address] [address] XRay Report Signed Patient: Janki Man LMR#: [id number] : 1980Acct:[id number] Age/Sex: 38 / FDate of Service: 02/13/19 Loc: ED Accession Number: [id number] Procedure: XR lumbar spine 2-3V Ordering Provider: Alisha Rucker PROCEDURE: XR LUMBAR SPINE 2-3V INDICATIONS: pain TECHNIQUE: 3 views of the lumbar spine were acquired. COMPARISON: [facility], , L-SPINE MINIMUM 4 VIEWS, 09/17/2011, 13:45. FINDINGS: Bones: 5 [id number] vertebrae are present. Moderate L4-L5 degenerative disc disease. Mild L1-L2, L2-L3, L3-L4 and L5-S1 degenerative disc disease. Mild convex left curvature. There is normal bony alignment. No vertebral body compression fractures. No suspicious bony lesions. Soft tissues: Overlying bowel gas pattern is normal. No suspicious soft tissue calcifications. IMPRESSION: No fracture. No acute osseous lesion. If symptoms and/or clinical suspicion for pathology persists, evaluation with MRI may be helpful for further assessment. Dictated by: Karina Sanabria MD, PhD on 02/13/2019 at 19:50 Approved by: Karina Sanabria MD, PhD on 02/13/2019 at 19:51 Thoracic spine x-ray: Radiologist's impression: Janki Man 38 F [address] [address] XRay Report Signed Patient: Janki Man LMR#: [id number] : 1980Acct:[id number] Age/Sex: 38 / FDate of Service: 02/13/19 Loc: ED Accession Number: [id number] Procedure: XR thoracic spine 3V Ordering Provider: Alisha Rucker- PROCEDURE: XR THORACIC SPINE 3V INDICATIONS: pain TECHNIQUE: 3 views of the thoracic spine were acquired. COMPARISON: None. FINDINGS: Bones: No fractures or dislocations mild multilevel degenerative disc disease.. No suspicious bony lesions. 12 pairs of ribs are noted, and appear intact where visualized. Soft tissues: No paravertebral stripe thickening. IMPRESSION: No fracture. No acute osseous lesion. If symptoms and/or clinical suspicion for pathology persists, evaluation with MRI may be helpful for further assessment. Dictated by: Karina Sanabria MD, PhD on 02/13/2019 at 19:48 Approved by: Karina Sanabria MD, PhD on 02/13/2019 at 19:50 [facility] Narrative Medical decision making narrative: The patient is a 38-year-old female who presents with chief complaint of sudden onset back pain. It is worsened by movement. Her PCP was reportedly concerned about compression fracture, but she has benign lumbar and thoracic spinal x-rays. She has no acute neurological compromise with no reported incontinence bowel, incontinence of bladder saddle anesthesia. She is stable gait. She was given pain medications in the emergency department including Toradol, lidocaine patch, cyclobenzaprine and Tyrone. She has a negative urinalysis. She has a negative test. The patient feels much improved throughout her stay in the emergency department. I discharged her prescriptions of Tyrone, Flexeril and Toradol. We discussed at length that Tyrone can be constipating and sedating. Discussed Flexeril can be sedating. Did discuss not combining ketorolac with any other anti-inflammatory such as Aleve ibuprofen etc. Patient states understanding of return precautions including incontinence of bowel, incontinence of bladder saddle anesthesia. Discussed follow-up with PCP as well. No questions or concerns upon discharge. <Arash Zhang DO - Last Filed: 02/14/19 01:15> Lab Data Point of Care Testing Test Results Negative Urine Dip Bedside Urine Glucose Negative Bedside Urine Bilirubin - Negative Bedside Urine Ketone +/- 5 Urine Specific [place] 1.025 Bedside Urine Occult Blood - Negative Bedside Urine pH 6.0 Bedside Urine Protein +/- 15 Bedside Urine Urobilinogen - Negative Bedside Urine Nitrite - Negative Bedside Urine Leukocytes - Negative Esterase Discharge Plan Departure Patient Disposition: Home Clinical Impression: Acute thoracic back pain Qualifiers: Back pain laterality: bilateral Qualified Code(s): M54.6 - Pain in thoracic spine Discharge Date/Time: 02/13/19 22:03 Interventions: ED Discharge Assessment Last Done: 02/13/19 22:02 Instructions: DI for Back Spasm, DI for Back Strain or Sprain, DI for Thoracic Back Pain Activity Restrictions/Additional Instructions: Your x-rays show no acute fractures. I have given you pain medications as well as muscle relaxers. Do not combine the cyclobenzaprine with your methocarbamol. Be aware that Tyrone can be constipating and sedating. Do not combine sedating agents such as clonazepam, Tyrone etc. Monitor for any acute neurological changes such as incontinence of bowel, incontinence of bladder or groin numbness. Please be evaluated in the emergency department if these occur. Please come back to the ER if you have any acute concerns. Prescriptions: New cyclobenzaprine 10 mg tablet 10 mg PO TID PRN (Reason: muscle spasm) Qty: 30 RF: 0 hydrocodone-acetaminophen 5-325 mg tablet 1 tab PO Q4-6H PRN (Reason: pain) Qty: 7 RF: 0 ketorolac 10 mg tablet 10 mg PO TID Qty: 14 RF: 0 No Action omeprazole 40 MG capsule,delayed release(DR/EC) 40 mg PO QDAY Qty: 0 RF: 0 clonazepam 1 mg Tablet 1 mg PO BID RF: 0 trihexyphenidyl 2 mg Tablet 2 mg PO TID RF: 0 furosemide 20 mg tablet 20 mg PO DAILY Qty: 10 RF: 0 diclofenac sodium 20 mg RF: 0 meloxicam 7.5 mg tablet 7.5 mg PO DAILY Qty: 20 RF: 0 amoxicillin-pot clavulanate 875-125 mg tablet 1 tab PO Q12H Qty: 20 RF: 0 Referrals: Ignacio Stern MD [Primary Care Provider] - <DO Silvia Avila Last Filed: 02/14/19 01:15> Cosign ED Attending Cosignature Attestation: I was immediately available in the department for consultation. Documentation has been reviewed. I agree with assessment and plan.
--- NOTE | 2019-02-13 21:15 | ED_ITS ---
HPI - Back Pain/Injury <LORRI Lyles - Last Filed: 02/13/19 21:28> General Chief Complaint: Back Pain/Injury Stated Complaint: SENT BY DOCTOR POSSIBLE COMP FRACTURE OF SPINE Time Seen by Provider: 02/13/19 18:33 Source: patient Mode of arrival: ambulatory Limitations: no limitations History of Present Illness HPI Narrative: The patient is a 38-year-old female former smoker with history of movement disorder who presents with a chief complaint of back pain. She states it started she was standing and turned to 1 side. She felt sudden onset of back pain and spasms at her bra line. She states her PCP was concerned about a compression fracture. She denies any trauma, falls. She denies any incontinence of bowel, incontinence of bladder, numbness tingling or saddle anesthesia. She denies any fevers or personal history of cancer. She has not taken anything today for the pain. She states yesterday she took Robaxin. . She also tried ibuprofen. This was not helpful. She denies any dysuria urgency or frequency. She states that the pain stays at her bra line. Related Data Home Medications Medication Instructions Recorded Confirmed omeprazole 40 mg PO QDAY #0 10/12/16 01/13/18 clonazepam 1 mg PO BID 11/05/17 01/13/18 trihexyphenidyl 2 mg PO TID 11/05/17 01/13/18 diclofenac sodium 20 mg 01/13/18 Previous Rx's Medication Instructions Recorded furosemide 20 mg PO DAILY #10 tab 11/05/17 amoxicillin-pot clavulanate 1 tab PO Q12H #20 tab 06/09/18 meloxicam 7.5 mg PO DAILY #20 tab 06/09/18 cyclobenzaprine 10 mg PO TID PRN #30 tab 02/13/19 hydrocodone-acetaminophen 1 tab PO Q4-6H PRN #7 tab 02/13/19 ketorolac 10 mg PO TID #14 tab 02/13/19 Allergies Allergy/AdvReac Type Severity Reaction Status Date / Time Gadolinium-Containing Allergy Unknown Verified 01/13/18 10:51 Contrast Medi Sulfa (Sulfonamide Allergy Unknown Verified 01/13/18 10:51 Antibiotics) [SULFA (SULFONAMIDE ANTIBIOTICS)] Review of Systems <LORRI Lyles - Last Filed: 02/13/19 21:28> Review of Systems GENERAL: Denies chills, fatigue, malaise, fever, sweats. HEENT: Denies sinus pain, ear pain, sore throat, difficulty swallowing, dizziness. RESPIRATORY: Denies dyspnea, cough, wheezing, hemoptysis, sputum. CARDIOVASCULAR: Denies chest pain, palpitations, orthopnea, edema, GASTROINTESTINAL: Denies nausea, vomiting, abdominal pain, diarrhea, constipation, melena. : Denies dysuria, frequency, incontinence, hematuria, urinary retention. MUSCULOSKELETAL: See HPI SKIN: Denies rash, skin lesions, or other NEUROLOGIC: Denies weakness, headache, numbness, change in speech, confusion, seizures, incoordination. PSYCHIATRIC: No concerning psychosocial issues. 12 point review of systems is negative except for those stated above PFSH <LORRI Lyles - Last Filed: 02/13/19 21:28> Medical History Movement disorder (Chronic) Vocal cord paralysis (Chronic) Social History Smoking Status: Former smoker Social History Smoking Status: Former smoker Exam <LORRI Lyles - Last Filed: 02/13/19 21:28> Narrative Exam Narrative: GENERAL: This is a well-nourished, well-developed patient, appears uncomfortable. Stiff gait. HEAD: Atraumatic. Normocephalic. No temporal or scalp tenderness. EYES: Pupils equal round and reactive. Extraocular motions intact. No scleral icterus. No injection or drainage. ENT: Nose without bleeding, purulent drainage or septal hematoma. Throat without erythema, tonsillar hypertrophy or exudate. Uvula midline. Airway patent. NECK: Trachea midline. No JVD or lymphadenopathy. Supple, nontender, no meningeal signs. CARDIOVASCULAR: Regular rate and rhythm RESPIRATORY: Clear to auscultation. Breath sounds equal bilaterally. No wheezes, rales, or rhonchi. No cough. No increased respiratory effort. No accessory muscle use. GASTROINTESTINAL: Abdomen soft, non-tender, nondistended. No hepato- splenomegaly, or palpable masses. No guarding. Active bowel sounds all 4 quadrants. EXTREMITIES: No clubbing, cyanosis, or edema. No joint tenderness, effusion, or edema noted. BACK: no pain to C-spine palpation. Pain to T and L-spine palpation of midline. Pain to bilateral paraspinal muscle palpation of thoracic spine. NEURO: AOx3. Stable gait. Strength is equal upper and lower extremities bilaterally. No gross cranial nerve deficit. SKIN: No visible rash erythema ecchymosis on back. Initial Vital Signs Initial Vital Signs: Vital Signs Temperature 97.7 F 02/13/19 16:59 Pulse Rate 113 H 02/13/19 16:59 Respiratory Rate 16 02/13/19 16:59 Blood Pressure 131/80 02/13/19 16:59 Pulse Oximetry 97 02/13/19 16:59 <Arash Zhang DO - Last Filed: 02/14/19 01:15> Initial Vital Signs Initial Vital Signs: Vital Signs Temperature 97.7 F 02/13/19 16:59 Pulse Rate 113 H 02/13/19 16:59 Respiratory Rate 16 02/13/19 16:59 Blood Pressure 131/80 02/13/19 16:59 Pulse Oximetry 97 02/13/19 16:59 Course <LORRI Lyles - Last Filed: 02/13/19 21:28> Orders Ordered: ED Orders 02/13/19 18:44 XR lumbar spine 2-3V Stat XR thoracic spine 3V Stat Discontinued Medications Hydrocodone Bitart/Acetaminophen (Morrison 5/325) 1 tab PO NOW ONE Stop: 02/13/19 18:56 Last Admin: 02/13/19 19:16 Dose: 1 tab Hydrocodone Bitart/Acetaminophen (Morrison 5/325) 1 tab PO NOW ONE Stop: 02/13/19 20:29 Last Admin: 02/13/19 20:47 Dose: 1 tab Hydrocodone Bitart/Acetaminophen (Vicodin Prepack) 1 bottle MISC SEEINSTR ONE Stop: 02/13/19 21:24 Last Admin: 02/13/19 21:45 Dose: 1 bottle Cyclobenzaprine HCl (Flexeril) 10 mg PO NOW ONE Stop: 02/13/19 18:45 Last Admin: 02/13/19 19:20 Dose: 10 mg Cyclobenzaprine HCl (Flexeril 10 Mg Prepack) 1 bottle MISC SEEINSTR ONE Stop: 02/13/19 21:24 Last Admin: 02/13/19 21:45 Dose: 1 bottle Ketorolac Tromethamine (Toradol) 60 mg IM NOW ONE Stop: 02/13/19 18:45 Last Admin: 02/13/19 19:18 Dose: 60 mg Lidocaine (Lidoderm) 1 each TOP NOW ONE Stop: 02/13/19 20:29 Last Admin: 02/13/19 20:48 Dose: 1 each Vital Signs - 8 hr 02/13/19 18:45 02/13/19 22:02 Temperature 97.9 F 98.7 F Pulse Rate 108 H 79 Respiratory Rate 22 18 Blood Pressure 138/80 Blood Pressure [Right Arm] 127/53 L Pulse Oximetry 99 99 <Arash Zhang DO - Last Filed: 02/14/19 01:15> Orders Ordered: ED Orders 02/13/19 18:44 XR lumbar spine 2-3V Stat XR thoracic spine 3V Stat Discontinued Medications Hydrocodone Bitart/Acetaminophen (Morrison 5/325) 1 tab PO NOW ONE Stop: 02/13/19 18:56 Last Admin: 02/13/19 19:16 Dose: 1 tab Hydrocodone Bitart/Acetaminophen (Morrison 5/325) 1 tab PO NOW ONE Stop: 02/13/19 20:29 Last Admin: 02/13/19 20:47 Dose: 1 tab Hydrocodone Bitart/Acetaminophen (Vicodin Prepack) 1 bottle MISC SEEINSTR ONE Stop: 02/13/19 21:24 Last Admin: 02/13/19 21:45 Dose: 1 bottle Cyclobenzaprine HCl (Flexeril) 10 mg PO NOW ONE Stop: 02/13/19 18:45 Last Admin: 02/13/19 19:20 Dose: 10 mg Cyclobenzaprine HCl (Flexeril 10 Mg Prepack) 1 bottle MISC SEEINSTR ONE Stop: 02/13/19 21:24 Last Admin: 02/13/19 21:45 Dose: 1 bottle Ketorolac Tromethamine (Toradol) 60 mg IM NOW ONE Stop: 02/13/19 18:45 Last Admin: 02/13/19 19:18 Dose: 60 mg Lidocaine (Lidoderm) 1 each TOP NOW ONE Stop: 02/13/19 20:29 Last Admin: 02/13/19 20:48 Dose: 1 each Vital Signs - 8 hr 02/13/19 18:45 02/13/19 22:02 Temperature 97.9 F 98.7 F Pulse Rate 108 H 79 Respiratory Rate 22 18 Blood Pressure 138/80 Blood Pressure [Right Arm] 127/53 L Pulse Oximetry 99 99 MDM - Back Pain/Injury <LORRI Lyles - Last Filed: 02/13/19 21:28> Lab Data Point of Care Testing Test Results Negative Urine Dip Bedside Urine Glucose Negative Bedside Urine Bilirubin - Negative Bedside Urine Ketone +/- 5 Urine Specific [place] 1.025 Bedside Urine Occult Blood - Negative Bedside Urine pH 6.0 Bedside Urine Protein +/- 15 Bedside Urine Urobilinogen - Negative Bedside Urine Nitrite - Negative Bedside Urine Leukocytes - Negative Esterase Imaging Data Lumbar spine x-ray: Radiologist's impression: [address] [address] XRay Report Signed Patient: Janki Man LMR#: [id number] : 1980Acct:[id number] Age/Sex: 38 / FDate of Service: 02/13/19 Loc: ED Accession Number: [id number] Procedure: XR lumbar spine 2-3V Ordering Provider: Alisha Rucker PROCEDURE: XR LUMBAR SPINE 2-3V INDICATIONS: pain TECHNIQUE: 3 views of the lumbar spine were acquired. COMPARISON: [facility], , L-SPINE MINIMUM 4 VIEWS, 09/17/2011, 13:45. FINDINGS: Bones: 5 [id number] vertebrae are present. Moderate L4-L5 degenerative disc disease. Mild L1-L2, L2-L3, L3-L4 and L5-S1 degenerative disc disease. Mild convex left curvature. There is normal bony alignment. No vertebral body compression fractures. No suspicious bony lesions. Soft tissues: Overlying bowel gas pattern is normal. No suspicious soft tissue calcifications. IMPRESSION: No fracture. No acute osseous lesion. If symptoms and/or clinical suspicion for pathology persists, evaluation with MRI may be helpful for further assessment. Dictated by: Karina Sanabria MD, PhD on 02/13/2019 at 19:50 Approved by: Karina Sanabria MD, PhD on 02/13/2019 at 19:51 Thoracic spine x-ray: Radiologist's impression: Janki Man 38 F [address] [address] XRay Report Signed Patient: Janki Man LMR#: [id number] : 1980Acct:[id number] Age/Sex: 38 / FDate of Service: 02/13/19 Loc: ED Accession Number: [id number] Procedure: XR thoracic spine 3V Ordering Provider: Alisha Rucker- PROCEDURE: XR THORACIC SPINE 3V INDICATIONS: pain TECHNIQUE: 3 views of the thoracic spine were acquired. COMPARISON: None. FINDINGS: Bones: No fractures or dislocations mild multilevel degenerative disc disease.. No suspicious bony lesions. 12 pairs of ribs are noted, and appear intact where visualized. Soft tissues: No paravertebral stripe thickening. IMPRESSION: No fracture. No acute osseous lesion. If symptoms and/or clinical suspicion for pathology persists, evaluation with MRI may be helpful for further assessment. Dictated by: Karina Sanabria MD, PhD on 02/13/2019 at 19:48 Approved by: Karina Sanabria MD, PhD on 02/13/2019 at 19:50 [facility] Narrative Medical decision making narrative: The patient is a 38-year-old female who presents with chief complaint of sudden onset back pain. It is worsened by movement. Her PCP was reportedly concerned about compression fracture, but she has benign lumbar and thoracic spinal x-rays. She has no acute neurological compromise with no reported incontinence bowel, incontinence of bladder saddle anesthesia. She is stable gait. She was given pain medications in the emergency department including Toradol, lidocaine patch, cyclobenzaprine and Morrison. She has a negative urinalysis. She has a negative test. The patient feels much improved throughout her stay in the emergency department. I discharged her prescriptions of Morrison, Flexeril and Toradol. We discussed at length that Morrison can be constipating and sedating. Discussed Flexeril can be sedating. Did discuss not combining ketorolac with any other anti-inflammatory such as Aleve ibuprofen etc. Patient states understanding of return precautions including incontinence of bowel, incontinence of bladder saddle anesthesia. Discussed follow-up with PCP as well. No questions or concerns upon discharge. <Arash Zhang DO - Last Filed: 02/14/19 01:15> Lab Data Point of Care Testing Test Results Negative Urine Dip Bedside Urine Glucose Negative Bedside Urine Bilirubin - Negative Bedside Urine Ketone +/- 5 Urine Specific [place] 1.025 Bedside Urine Occult Blood - Negative Bedside Urine pH 6.0 Bedside Urine Protein +/- 15 Bedside Urine Urobilinogen - Negative Bedside Urine Nitrite - Negative Bedside Urine Leukocytes - Negative Esterase Discharge Plan Departure Patient Disposition: Home Clinical Impression: Acute thoracic back pain Qualifiers: Back pain laterality: bilateral Qualified Code(s): M54.6 - Pain in thoracic spine Discharge Date/Time: 02/13/19 22:03 Interventions: ED Discharge Assessment Last Done: 02/13/19 22:02 Instructions: DI for Back Spasm, DI for Back Strain or Sprain, DI for Thoracic Back Pain Activity Restrictions/Additional Instructions: Your x-rays show no acute fractures. I have given you pain medications as well as muscle relaxers. Do not combine the cyclobenzaprine with your methocarbamol. Be aware that Morrison can be constipating and sedating. Do not combine sedating agents such as clonazepam, Morrison etc. Monitor for any acute neurological changes such as incontinence of bowel, incontinence of bladder or groin numbness. Please be evaluated in the emergency department if these occur. Please come back to the ER if you have any acute concerns. Prescriptions: New cyclobenzaprine 10 mg tablet 10 mg PO TID PRN (Reason: muscle spasm) Qty: 30 RF: 0 hydrocodone-acetaminophen 5-325 mg tablet 1 tab PO Q4-6H PRN (Reason: pain) Qty: 7 RF: 0 ketorolac 10 mg tablet 10 mg PO TID Qty: 14 RF: 0 No Action omeprazole 40 MG capsule,delayed release(DR/EC) 40 mg PO QDAY Qty: 0 RF: 0 clonazepam 1 mg Tablet 1 mg PO BID RF: 0 trihexyphenidyl 2 mg Tablet 2 mg PO TID RF: 0 furosemide 20 mg tablet 20 mg PO DAILY Qty: 10 RF: 0 diclofenac sodium 20 mg RF: 0 meloxicam 7.5 mg tablet 7.5 mg PO DAILY Qty: 20 RF: 0 amoxicillin-pot clavulanate 875-125 mg tablet 1 tab PO Q12H Qty: 20 RF: 0 Referrals: Ignacio Stern MD [Primary Care Provider] - <DO Silvia Avila Last Filed: 02/14/19 01:15> Cosign ED Attending Cosignature Attestation: I was immediately available in the department for consultation. Documentation has been reviewed. I agree with ass essment and plan.
[2019-02-13] MEDS: CYCLOBENZAPRINE 10 MG PREPACK 1 BOTTLE MISC (21:45)
[2019-02-13] MEDS: HYDROCODONE/ACET 5/325 PREPACK 1 BOTTLE MISC (21:45)
[2019-02-13 22:02] VITALS: BP 138/80; PULSE 79; RESP 18; TEMP 37.1; O2SAT 99
== END 2019-02-13 22:03 | disposition home or self-care (01) ==
PROVIDERS: Emergency Provider Nurse Practitioner Family; Family Provider Family Medicine; PCP Family Medicine
DX: M54.6 Pain in thoracic spine (principal)
CPT/HCPCS: 72072; 72100; 81003; 81025; 96372; 99283; 99284; J1885

== ENCOUNTER 2019-03-17 09:06 | Observation (INO) | payer OTHER, MEDICAID, SELFPAY ==
[2019-03-17] VITALS (7 sets, daily range): BP systolic 114–133; BP diastolic 64–85; PULSE 72–102; RESP 16–20; TEMP 36.4–36.9; O2SAT 98–100; BMI 18.0
--- NOTE | 2019-03-17 09:56 | ED.URI ---
HPI - URI/Sore Throat General Chief Complaint: Upper Respiratory Symptoms Stated Complaint: cant swallow/drink water Time Seen by Provider: 03/17/19 09:11 Source: patient Mode of arrival: Ambulatory Limitations: no limitations History of Present Illness HPI Narrative: 38-year-old female smoker with complicated medical history presents with difficulty swallowing liquids for about the past week or so. She states that she has developed complex neurologic symptoms in the aftermath of a surgical procedure in November of 2016. She was sedated and had an endoscopy and upon waking she initially was told that she just had a paralyzed vocal cord but then developed other neurologic symptoms including occasional difficulty with swallowing and initially some difficulty with ambulation. She has been referred to, and continues to see a neurologist at [facility] and is on anti Parkinson's meds. She denies fever or chills nor pain with swallowing. She has had no runny nose or cough. She denies any other neurologic symptoms such as blurred vision, new trouble with speech or weakness of her extremities. MD Complaint: other Onset (ago): day(s) Duration: constant Severity: mild Relieving factors: nothing Exacerbating factors: nothing Associated symptoms: denies other symptoms Related Data Home Medications Medication Instructions Recorded Confirmed clonazepam 1 mg PO TID 11/05/17 03/17/19 carbidopa-levodopa 1 tab PO QID 03/17/19 03/17/19 carbidopa-levodopa 1 tab PO TID 03/17/19 03/17/19 fluconazole 150 mg PO Q OTHER DAY 03/17/19 03/17/19 Allergies Allergy/AdvReac Type Severity Reaction Status Date / Time Gadolinium-Containing Allergy Unknown Verified 01/13/18 10:51 Contrast Medi Sulfa (Sulfonamide Allergy Unknown Verified 01/13/18 10:51 Antibiotics) [SULFA (SULFONAMIDE ANTIBIOTICS)] Review of Systems Constitutional Constitutional: Denies chills, Denies fatigue, Denies fever(s), Denies frequent falls, Denies lethargy and Denies weakness Eyes Eyes: Denies change in vision, Denies eye discharge, Denies irritation and Denies loss of vision ENT Ears, Nose, Mouth, and Throat: Denies change in voice, Denies dizziness, Denies neck pain, Denies sore throat and Denies throat swelling Cardiovascular Cardiovascular: Denies chest pain, Denies irregular heart rhythm, Denies lightheadedness, Denies palpitations, Denies dyspnea, Denies dyspnea on exertion and Denies orthopnea Respiratory Respiratory: Denies cough, Denies dyspnea, Denies dyspnea on exertion and Denies wheezing Gastrointestinal Gastrointestinal: Denies abdominal pain, Denies change in bowel habits, Denies diarrhea, Denies nausea and Denies vomiting Genitourinary Genitourinary: Denies hematuria, Denies flank pain, Denies urinary incontinence and Denies urinary urgency Musculoskeletal Musculoskeletal: Denies back pain, Denies muscle weakness, Denies neck pain, Denies numbness and Denies tingling Integumentary/Breasts Skin/Breast: Denies pruritus, Denies erythema, Denies rash and Denies wounds Neurologic Neurologic: Denies behavioral changes, Denies confusion, Denies dizziness, Denies frequent falls, Denies loss of vision, Denies numbness, Denies tingling and Denies weakness Comments: trouble swallowing liquids Psychiatric Psychiatric: Denies anxiety, Denies behavioral changes, Denies confusion, Denies depression, Denies homicidal ideation and Denies suicidal ideation Endocrine Endocrine: Denies fatigue, Denies flushing and Denies palpitations Hematologic/Lymphatic Hematologic/Lymphatic: Denies easy bruising Allergic/Immunologic Allergic/Immunologic: Denies urticaria, Denies throat swelling and Denies wheezing [facility] Medical History Movement disorder (Chronic) Vocal cord paralysis (Chronic) Social History Smoking Status: Former smoker Social History Smoking Status: Former smoker Exam Narrative Exam Narrative: [id number] old patient appears stated age. Well-nourished, well-developed patient, in mild distress. GCS 15, weak voice is chronic for her HEAD: Atraumatic. Normocephalic. EYES: Pupils equal round and reactive. Extraocular motions intact. No scleral icterus. No injection or drainage. ENT: Nose without bleeding, purulent drainage. Throat without erythema, tonsillar hypertrophy or exudate. Airway patent. NECK: Trachea midline. Non tender CARDIOVASCULAR: Regular rate and rhythm without murmurs, gallops, or rubs. RESPIRATORY: Clear to auscultation. Breath sounds equal bilaterally. No wheezes, rales, or rhonchi. GASTROINTESTINAL: Abdomen soft, non-tender, nondistended. EXTREMITIES: No edema or joint tenderness. BACK: Nontender without deformity or crepitance. No flank tenderness. NEURO: AOx3. SKIN: No rash or erythema of visible areas NIH Stroke Scale 1a. LOC: Patient is alert and keenly responsive (0) 1b. LOC Questions: Patient answers both LOC questions accurately (0) 1c. LOC Commands: Patient performs both tasks correctly (0) 2. Best Gaze: Normal (0) 3. Visual: No visual loss (0) 4. Facial palsy: Normal symmetrical movements (0) 5. Motor arm: No drift (0) 6. Motor leg: No drift (0) 7. Limb ataxia: Absent (0) 8. Sensory: Normal (0) 9. Best language: No aphasia; normal (0) 10. Dysarthria: Normal (0) 11. Extinction and inattention: No abnormality (0) NIHSS: 0 Initial Vital Signs Initial Vital Signs: Vital Signs Temperature 97.6 F 03/17/19 09:21 Pulse Rate 102 H 03/17/19 09:21 Respiratory Rate 16 03/17/19 09:21 Blood Pressure 133/80 03/17/19 09:21 Pulse Oximetry 99 03/17/19 09:21 Course Orders Ordered: ED Orders 03/17/19 08:50 Basic Metabolic Panel Stat Complete Blood Count AUTO DIFF Stat Discontinued Medications Sodium Chloride (Normal Saline 0.9%) 1,000 mls @ 1,000 mls/hr IV BOLUS ONE Stop: 03/17/19 10:22 Last Infusion: 03/17/19 11:47 Dose: 0 mls/hr Documented by: Admin: 03/17/19 10:24 Dose: 1,000 mls/hr Documented by: DEBBIE Consultations Consultation #1: call to neurology at , no significant concern from neuro perspective, no recommended therapies call to ENT (David) whom will see patient and likely scope - no significant findings. Would recommend swallow study by speech call to hospitalist whom will see patient Time: 09:29 Vital Signs Vital signs: Vital Signs - 8 hr 03/17/19 09:21 03/17/19 10:28 03/17/19 10:35 Temperature 97.6 F Pulse Rate 102 H 73 72 Respiratory Rate 16 20 16 Blood Pressure 133/80 Blood Pressure [Right Arm] 117/81 114/64 Pulse Oximetry 99 100 100 03/17/19 11:00 03/17/19 11:58 Temperature Pulse Rate 78 82 Respiratory Rate 16 18 Blood Pressure Blood Pressure [Right Arm] 121/78 117/71 Pulse Oximetry 100 100 MDM - URI/Sore Throat Lab Data Result diagrams: 03/17/19 08:50 03/17/19 08:50 Labs: Lab Results 03/17/19 03/17/19 Range/Units 08:50 08:50 WBC 6.7 (4.5-11.0) X10^3/uL RBC 4.35 (4.0-5.2) X10^6/uL Hgb 12.7 (12.0-16.0) g/dL Hct 36.3 (36-46) % MCV 83.4 (80-100) fL MCH 29.1 (26-34) PG MCHC 34.9 (30-36) % RDW 15.4 H (11.6-14.8) % Plt Count 299 (150-400) X10^3/uL Neut % (Auto) 65.6 (50-75) % Lymph % (Auto) 27.7 (25-40) % Baxter % (Auto) 4.7 (3-14) % Eos % (Auto) 0.8 L (2-4) % Baso % (Auto) 1.2 (0-2) % Neut # (Auto) 4400 (4918-3434) /uL Lymph # (Auto) 1900 (1534-9397) /uL Baxter # (Auto) 300 (0-900) /uL Eos # (Auto) 100 (0-450) /uL Baso # (Auto) 100 (0-100) /uL Sodium 139 (137-145) mmol/L Potassium 3.9 (3.4-5.1) mmol/L Chloride 105 (98-107) mmol/L Carbon Dioxide 24 (22-32) mmol/L BUN 10 (7-17) mg/dL Creatinine 0.60 (0.52-1.04) mg/dL Estimated GFR > 60.0 (>60) mL/min BUN/Creatinine Ratio 16.7 (6-22) Glucose 93 (70-100) mg/dL Calcium 9.3 (8.4-10.2) mg/dL Point of Care Testing Rapid Strep A Negative Urine Dip Bedside Urine Glucose Negative Bedside Urine Bilirubin - Negative Bedside Urine Ketone - Negative Urine Specific [place] 1.010 Bedside Urine Occult Blood +/- Bedside Urine pH 7.0 Bedside Urine Protein - Negative Bedside Urine Urobilinogen - Negative Bedside Urine Nitrite - Negative Bedside Urine Leukocytes - Negative Esterase MDM Narrative Medical decision making narrative: 38F with history of neurologic problems since a surgery a few years ago. She's had a history of vocal cord paralysis and 1-2 episodes of trouble swallowing which required intellectual property paralegal IV and even TPN once. Symptoms started 1 week ago and are in the absence of other neurologic symptoms. Patient will require hospitalization for further evaluation and stabilization of her condition, IV hydration and long-term plan. There is no indication for transfer at this point in time. Discharge Plan Departure Patient Disposition: Admitted as Observation Clinical Impression: Acute dehydration Dysphagia Qualifiers: Dysphagia type: unspecified Qualified Code(s): R13.10 - Dysphagia, unspecified Admit Date/Time: 03/17/19 12:42 Admit Provider: Mg Alfred
[2019-03-17 10:02] LABS: Add Manual Diff / Slide Review NO; Basophils Absolute Auto 100 /uL (0-100); Basophils Percent Auto 1.2 % (0-2); Eosinophils Absolute Auto 100 /uL (0-450); Eosinophils Percent Auto 0.8 % (2-4); Hematocrit 36.3 % (36-46); Hemoglobin 12.7 g/dL (12.0-16.0); Lymphocytes Absolute Auto 1900 /uL (1100-4500); Lymphocytes Percent Auto 27.7 % (25-40); Mean Corpuscular HGB Conc 34.9 % (30-36); Mean Corpuscular Hemoglobin 29.1 PG (26-34); Mean Corpuscular Volume 83.4 fL (80-100); Monocytes Absolute Auto 300 /uL (0-900); Monocytes Percent Auto 4.7 % (3-14); Neutrophils Absolute Auto 4400 /uL (1500-7000); Neutrophils Percent Auto 65.6 % (50-75); Platelet Count 299 X10^3/uL (150-400); Red Blood Cell Count 4.35 X10^6/uL (4.0-5.2); Red Cell Distribution Width 15.4 % (11.6-14.8); White Blood Cell Count 6.7 X10^3/uL (4.5-11.0)
[2019-03-17 10:08] LABS: BUN Creatinine Ratio 16.7 (6-22); Blood Urea Nitrogen 10 mg/dL (7-17); Calcium 9.3 mg/dL (8.4-10.2); Carbon Dioxide 24 mmol/L (22-32); Chloride 105 mmol/L (98-107); Estimated Glomerular Filt Rate > 60.0 mL/min (>60); Glucose 93 mg/dL (70-100); HEMOLYSIS < 15 (0-50); Potassium 3.9 mmol/L (3.4-5.1); Sodium 139 mmol/L (137-145)
[2019-03-17] MEDS: SODIUM CHLORIDE 0.9% 1,000 ML 1000 ML IV (10:24)
--- NOTE | 2019-03-17 12:13 | PC.NURSE ---
used elastic cling due to pt adhesive allergy.
--- NOTE | 2019-03-17 12:29 | PC.NURSE ---
Dr. Hernandez at bedside. Pt had a scope. swallow study not complete. pt is npo
--- NOTE | 2019-03-17 15:28 | PC.NURSE ---
Admission Pt admitted to hospital. Admission diagnosis is inability to swallow water. Throughout admission, she was able to swallow her saliva, did not need to spit throughout entire admission process. PIV in [facility]. Pt has belongings with her. Has wallet, phone, keys and a bracelet. Declines to put anything in the safe.
--- NOTE | 2019-03-17 15:59 | ST.IPCSEOM ---
Visit Care Team Role Provider Type Eliseo Zapien MD Primary Care Provider Physician Specialty: Family Practice Address: [address] [place] [address], [id number] Email: formerly [email or web address] Arash Zhang DO Emergency Provider Physician Specialty: Emergency Medicine Address: [address] [place] [address], [id number] Email: [email or web address] Alfred DO Admit Provider Physician Attending Provider Specialty: Internal Medicine Address: [address] [place] [address], [id number] Email: [email or web address] Past Medical History (Last Reviewed 03/17/19 @ 09:58 by Arash Zhang DO) Movement disorder (Chronic Medical) Vocal cord paralysis (Chronic Medical) 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 She reports she has had difficulty swallowing for the last few days. She also has a medical history significant for other neuro symptoms which she says began following an edoscopy a few years ago. These include aphonia, throat spasms, difficulty ambulating. She is followed by a neurologist at [facility] and is on anti-parkinson's meds. She also reports a history significant for aspiration pneumonia and placement of a PICC line with TPN for 7 months. She was not able to recall any previous recommendations from speech therapist related to swallowing impairments. Patient was seen by ENT prior to this. No notes available at this time, but patient reports told her that her vocal cords are not paralyzed (as she has been told previously), but do not fully adduct. Subjective Observations Alert, oriented, cooperative. No family members present in room. Voice is aphonic, speaking in whisper. Evaluation Liquids Trialed Ice Chips,Thin Solids Trialed Puree,Dysphagia Mechanical Administration Type Tea Spoon Oral Impairment WNL Oral Phase Comments Patient wears dentures. Oral mucosa moist and oral cavity clean of debris. Education provided regarding oral care to decrease risk of aspiration pneumonia. No oral phase impairments observed. Pharyngeal Phase Comments Patient was able to perform saliva swallow without difficulty. Hyolaryngeal elevation present on palpation . Velum elevates on phonation. Able to clear her throat on command. Cough is weak, consistent with aphonia. Patient consumed multiple ice chips, sips of water, apple sauce and diced peaches without overt signs of aspiration. No coughing observed. Patient made occasional grimacing faces and stated it feels stuck once while pointing to her chest, but later saying the sensation passed. She is currently on medication for GERD. Findings Impressions No overt s/sx of dysphagia observed during clinical swallow evaluation. Patient is a good candidate for an outpatient Modified Barium Swallow Study. She presents with concern for developing aspiration pneumonia given she has experienced this in the past; however, at the present time, her swallowing impairments do not urgently warrant instrumental assessment. She verbalized understanding of my recommendations to consume soft diet with thin liquids and implement safe swallow strategies - one sip/bite at a time, upright posture, double swallow as needed. She verbalized agreement with the plan to resume oral intake for nutrition/hydration and follow-up as an outpatient for MBSS as soon as possible to guide plan of care. Diet Recommendations Liquids Order Thin Diet Order Dysphagia Mechanical Medication Recommendations As Tolerated Aspiration Precautions Recommended Precautions Upright at 90 Degrees,Small Bites/Sips,Double Swallow Treatment Plan Placement Recommendations after Home Discharge Therapy Recommendations Outpatient MBSS upon d/c
[2019-03-17] MEDS: DEXTROSE 5%-0.45% NS 1,000 ML 50 ML IV (16:10)
[2019-03-17] MEDS: CARBIDOPA-LEVODOPA 25/100 TABLET 1 EACH PO (16:14)
[2019-03-17] MEDS: CARBIDOPA-LEVODOPA ER 50/200 TABLET 1 EACH PO (16:14)
[2019-03-17] MEDS: clonazePAM 0.5 MG TABLET 1 MG PO (16:16)
--- NOTE | 2019-03-17 16:44 | P.HP_ITS ---
History of Present Illness History of Present Illness Date Patient Seen: 03/17/19 Time Patient Seen: 13:30 Chief complaint: cant swallow/drink water Narrative: Ms Man is a 38-year-old female with past medical history vocal cord paralysis after upper endoscopy reported in November 2016, she has a complex neurological history and was started on Sinemet for possible dopamine responsive symptoms. She follows with a neurologist at [facility]. She reported to the emergency room today with difficulty swallowing liquids for the past week. In the past she was made NPO and was on parenteral nutrition for a period of time until her symptoms improved. She reports her symptoms are previous but less severe than before. She reports a sensation of food getting stuck in the middle of her throat approximately, eventually after a few seconds the food will pass however it seems to be stuck there for a brief period of time. She denies any recent fevers, chills, nasal congestion, runny nose, cough, chest pain, shortness of breath. In the emergency room ENT was consulted who performed an endoscopy which revealed no acute findings except for mild vocal cord dysf unction. Patient was admitted to observation status for possible speech eval and swallow study. Patient History Medical History Movement disorder (Chronic) Vocal cord paralysis (Chronic) Social History (Reviewed 02/13/19 @ 21:12 by MARILYN [facility]EN[facility]) Smoking Status: Former smoker Family & Social History Social History: household members significant other,children Prior Living Arrangements House Safety & Behavioral: Feels Safe in Current Yes Environment Been Physically Hurt or No Threatened By a Person Suicidal Ideation Description None Tobacco & Substance use: Tobacco type cigarettes Smoking Status Former smoker alcohol intake current alcohol intake frequency holiday/special occasion Substance Use Type other Meds Home Medications and Allergies Home Medications Medication Instructions Recorded Confirmed Type clonazepam 1 mg PO TID 11/05/17 03/17/19 History carbidopa-levodopa 1 tab PO QID 03/17/19 03/17/19 History carbidopa-levodopa 1 tab PO TID 03/17/19 03/17/19 History fluconazole 150 mg PO Q OTHER DAY 03/17/19 03/17/19 History omeprazole 60 mg PO QPM 03/17/19 03/17/19 History Allergies Allergy/AdvReac Type Severity Reaction Status Date / Time Gadolinium-Containing Allergy Unknown Verified 01/13/18 10:51 Contrast Medi Sulfa (Sulfonamide Allergy Unknown Verified 01/13/18 10:51 Antibiotics) [SULFA (SULFONAMIDE ANTIBIOTICS)] Review of Systems Review of Systems Narrative: All other systems reviewed with the patient and are negative unless otherwise stated. Exam Vital Signs (past 8 hours): - 03/17/19 09:21 03/17/19 10:28 03/17/19 10:35 Temperature 97.6 F Pulse Rate 102 H 73 72 Respiratory Rate 16 20 16 Blood Pressure 133/80 Blood Pressure [Right Arm] 117/81 114/64 Pulse Oximetry 99 100 100 03/17/19 11:00 03/17/19 11:58 03/17/19 13:50 Temperature 98.5 F Pulse Rate 78 82 77 Respiratory Rate 16 18 16 Blood Pressure 119/85 Blood Pressure [Right Arm] 121/78 117/71 Pulse Oximetry 100 100 100 03/17/19 16:36 Temperature Pulse Rate Respiratory Rate Blood Pressure Blood Pressure [Right Arm] Pulse Oximetry 98 Oxygen Delivery Method Room Air Oxygen Flow Rate 0 Narrative Exam Narrative: GENERAL APPEARANCE: Well developed, well nourished, in no acute distress. Hoarse voice. SKIN: Inspection of the skin reveals no rashes, ulcerations or petechiae. HEENT: The sclerae were anicteric and conjunctivae were pink and moist. Extraocular movements were intact and pupils were equal, round with normal accommodation. External inspection of the ears and nose showed no scars, lesions, or masses. Lips, teeth, and gums showed normal mucosa. The oral mucosa, hard and soft palate, tongue and posterior pharynx were unremarkable. NECK: Supple and symmetric. There was no thyroid enlargement, and no tenderness, or masses were felt. CHEST: Normal AP diameter and normal contour without any kyphoscoliosis. LUNGS: Auscultation of the lungs revealed no wheezes, rhonchi, or rales. CARDIOVASCULAR: There was a regular rate and rhythm without any murmurs, gallops, rubs. Peripheral pulses were 2+ and symmetric. ABDOMEN: Soft and nontender with normal bowel sounds. No ascites was noted. MUSCULOSKELETAL: There was no tenderness or effusions noted. Muscle strength and tone were normal. EXTREMITIES: No cyanosis, clubbing or edema. NEUROLOGIC: Alert and oriented x 3. Normal affect. Gait was normal. Strength is +5/5 in the Upper Extremities and Lower Extremities Bilaterally. Sensation to touch was normal. Objective Labs Result Diagrams: 03/17/19 08:50 03/17/19 08:50 Labs: Laboratory Results - last 24 hr 03/17/19 03/17/19 08:50 08:50 WBC 6.7 RBC 4.35 Hgb 12.7 Hct 36.3 MCV 83.4 MCH 29.1 MCHC 34.9 RDW 15.4 H Plt Count 299 Neut % (Auto) 65.6 Lymph % (Auto) 27.7 [place] % (Auto) 4.7 Eos % (Auto) 0.8 L Baso % (Auto) 1.2 Neut # (Auto) 4400 Lymph # (Auto) 1900 [place] # (Auto) 300 Eos # (Auto) 100 Baso # (Auto) 100 Sodium 139 Potassium 3.9 Chloride 105 Carbon Dioxide 24 BUN 10 Creatinine 0.60 Estimated GFR > 60.0 BUN/Creatinine Ratio 16.7 Glucose 93 Calcium 9.3 Assessment & Plan Assessment & Plan narrative: Ms Man is a 38-year-old female with past medical history vocal cord paralysis after upper endoscopy reported in November 2016, she has a complex neurological history and was started on Sinemet for possible dopamine responsive symptoms who was admitted for dysphagia. She is tolerating her secretions well, and we will have a speech therapist evaluate her today for further recommendations. 1. Dysphagia -may be related to her dopamine responsive condition as treated by neurologist. I am unclear as to what this condition exactly is, however we will continue her Sinemet at this time. I will attempt to reach her neurologist at [facility] if possible on the weekend. -speech eval and treat -NPO pending above evaluation -continue Sinemet if able -follow-up further ENT recommendations - continue home omeprazole Dispo: admit to observation Code: full DVT: ambulatory, order HSQ
--- NOTE | 2019-03-17 20:26 | P.DS_ITS ---
History of Present Illness History of Present Illness Chief complaint: cant swallow/drink water Narrative: Ms Man is a 38-year-old female with past medical history vocal cord paralysis after upper endoscopy reported in November 2016, she has a complex neurological history and was started on Sinemet for possible dopamine responsive symptoms. She follows with a neurologist at [facility]. She reported to the emergency room today with difficulty swallowing liquids for the past week. In the past she was made NPO and was on parenteral nutrition for a period of time until her symptoms improved. She reports her symptoms are previous but less severe than before. She reports a sensation of food getting stuck in the middle of her throat approximately, eventually after a few seconds the food will pass however it seems to be stuck there for a brief period of time. She denies any recent fevers, chills, nasal congestion, runny nose, cough, chest pain, shortness of breath. In the emergency room ENT was consulted who performed an endoscopy which revealed no acute findings except for mild vocal cord dysfu nction. Patient was admitted to observation status for possible speech eval and swallow study. Discharge Providers Provider Date of admission: 03/17/19 12:42 Discharge Date: 03/17/19 Primary care physician: Eliseo Zapien MD Consults: 03/17/19 14:20 Consult to Speech Therapy Evaluate & Treat Comment: Physician Instructions: Evaluate and treat 03/17/19 14:32 Consult to Dietitian, Adult Routine Comment: Reason For Exam: trouble swallowing, poor PO intake for last few da Discharge provider: Mg Alfred DO Summary Hospital Course Hospital Course: Ms Man is a 38-year-old female with past medical history vocal cord paralysis after upper endoscopy reported in November 2016, she has a complex neurological history and was started on Sinemet for possible dopamine responsive symptoms who was admitted for dysphagia. She is tolerating her secretions well. She had a speech therapy evaluation shortly after admission and she tolerated p.o. intake at bedside. Her electrolytes were grossly unremar kable and she was tolerating some p.o. intake so she was discharged home. She was ordered for a modified barium swallow per speech therapy recommendations which can be done as an outpatient given the fact that she is tolerating p.o. intake at this time. I recommend that she follow up with her neurologist at [facility] and with ENT as an outpatient. 1. Dysphagia -may be related to her dopamine responsive condition as treated by neurologist. I am unclear as to what this condition exactly is, however we will continue her Sinemet at this time. She was able to tolerate thin liquids and a p.o. diet after speech evaluation. 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 She should follow up with her neurologist at [facility] as noted above. Status at Discharge Cognitive/behavioral status at discharge: oriented Functional status at discharge: independent ambulation Overall status at discharge: patient is progressing back to baseline Exam Vital Signs (past 8 hours): - 03/17/19 13:50 03/17/19 16:36 Temperature 98.5 F Pulse Rate 77 Respiratory Rate 16 Blood Pressure 119/85 Pulse Oximetry 100 98 Oxygen Delivery Method Room Air Oxygen Flow Rate 0 Narrative Exam Narrative: GENERAL APPEARANCE: Well developed, well nourished, in no acute distress. SKIN: Inspection of the skin reveals no rashes, ulcerations or petechiae. HEENT: The sclerae were anicteric and conjunctivae were pink and moist. Extraocular movements were intact and pupils were equal, round with normal accommodation. External inspection of the ears and nose showed no scars, lesions, or masses. Lips, teeth, and gums showed normal mucosa. The oral mucosa, hard and soft palate, tongue and posterior pharynx were unremarkable. NECK: Supple and symmetric. There was no thyroid enlargement, and no tenderness, or masses were felt. CHEST: Normal AP diameter and normal contour without any kyphoscoliosis. LUNGS: Auscultation of the lungs revealed no wheezes, rhonchi, or rales. CARDIOVASCULAR: There was a regular rate and rhythm without any murmurs, gallops, rubs. Peripheral pulses were 2+ and symmetric. ABDOMEN: Soft and nontender with normal bowel sounds. No ascites was noted. MUSCULOSKELETAL: There was no tenderness or effusions noted. Muscle strength and tone were normal. EXTREMITIES: No cyanosis, clubbing or edema. NEUROLOGIC: Alert and oriented x 3. Normal affect. Gait was normal. Strength is +5/5 in the Upper Extremities and Lower Extremities Bilaterally. Sensation to touch was normal. Objective Labs Result Diagrams: 03/17/19 08:50 03/17/19 08:50 Labs: Laboratory Results - last 24 hr 03/17/19 03/17/19 08:50 08:50 WBC 6.7 RBC 4.35 Hgb 12.7 Hct 36.3 MCV 83.4 MCH 29.1 MCHC 34.9 RDW 15.4 H Plt Count 299 Neut % (Auto) 65.6 Lymph % (Auto) 27.7 [place] % (Auto) 4.7 Eos % (Auto) 0.8 L Baso % (Auto) 1.2 Neut # (Auto) 4400 Lymph # (Auto) 1900 [place] # (Auto) 300 Eos # (Auto) 100 Baso # (Auto) 100 Sodium 139 Potassium 3.9 Chloride 105 Carbon Dioxide 24 BUN 10 Creatinine 0.60 Estimated GFR > 60.0 BUN/Creatinine Ratio 16.7 Glucose 93 Calcium 9.3 Discharge Plan Discharge Plan Patient Disposition: Home Discharge comment: You were briefly admitted to the hospital for trouble swallowing. Your evaluated by speech therapist and tolerated a modified diet. I have ordered an outpatient swallow evaluation. You should follow up with your primary care provider as well as your neurologist at [facility] for possible further management. Discharge Med Rec/Prescriptions Prescriptions: Continued clonazepam 1 mg Tablet 1 mg PO TID RF: 0 carbidopa-levodopa 50-200 mg tablet extended release 1 tab PO QID RF: 0 carbidopa-levodopa 25-100 mg tablet 1 tab PO TID RF: 0 fluconazole 150 mg tablet 150 mg PO Q OTHER DAY RF: 0 omeprazole 20 mg Tablet,Delayed Release (Dr/Ec) 60 mg PO QPM RF: 0 Other Ambulatory Orders: [place] barium swallow modified (Routine) Timeframe: 3 Days Facility: [facility] - Location: Radiology Ordered By: Mg Alfred Follow up/Referrals: Neel Hernandez MD [Physician] - (seen inpatient, passed swallow eval as inpatient. For outpatient MBS) Eliseo Zapien MD [Primary Care Provider] - Provider Discharge Instructions Diet comment: Dysphagia mechanical, thin liquids Activity: As tolerated Discharge Data Primary Care Provider: Eliseo Zapien Attending Provider: Mg Alfred Admit Date/Time: 03/17/19 12:42 Discharges patient from system. Discharge Date/Time: 03/17/19 17:51
--- NOTE | 2019-03-17 22:10 | CONS_ITS ---
DATE OF SERVICE: 03/17/2019 OTOLARYNGOLOGY CONSULTATION/PROCEDURE NOTE CHIEF COMPLAINT: Acute dysphagia. HISTORY OF PRESENT ILLNESS: A 38-year-old female with a history of indistinct neurologic injury versus disorder beginning following, possibly, EGD to evaluate reflux in 2017. Evidently vocal cord paralysis identified at some point, or possibly intermittently. Evidently has been seen by Dr. Chacorta Brown with [facility] and then followed more long-term with Dr. Goldy Andrea at [facility]. No surgical intervention offered for the voice. She has been maintained on parkinsonian medications, with some benefit. Voice has remained hoarse, but over the last 1-2 weeks, she has had several episodes of acute dysphagia, with solids or liquids, where it seems to hang up at the base of her throat/upper chest, and eventually pass after 30 seconds or more. In between, she has been able to swallow liquids and solids, no pain at any point, no airway issues at any point. No laryngoscopy over the past year, perhaps, but no outside records are available. There is a history of right maxillary sinus disease, confirmed by neck CT scan 06/09/2018; some intermittent right cheek discomfort, she feels less important than her other issues. Past Medical History, Medications, Allergies, Social History, Review of Systems, Family History, reviewed in the nursing notes and from the ER physician's History and Physical. PHYSICAL EXAMINATION: VITAL SIGNS: On the chart. GENERAL APPEARANCE: Well-developed, well-nourished female in no acute distress, with significantly hoarse voice, somewhat breathy, but no stridor. She is tolerating secretions well. HEAD: Normocephalic, atraumatic. EARS: External ears are normal. Ear canals are clear. Normal tympanic membrane, and clear middle ears. NOSE: External nose is normal. Nose is patent bilaterally, healthy mucosa. No masses, no inflammation. ORAL CAVITY/OROPHARYNX: Normal tongue, soft palate and posterior pharynx, hyperactive gag reflex, unable to perform indirect nasopharyngoscopy or laryngoscopy. NECK: Soft and nontender. No masses. No obvious thyroid hypertrophy. PROCEDURE: Flexible laryngoscopy. INDICATIONS: As above, intolerant of mirror examination. FINDINGS: A normal right nasal cavity, nasopharynx status post adenoidectomy, normal base of tongue and vallecula. Vocal cords are symmetrically mobile, excellent ABduction, adequate ADduction, but cords seem to shorten symmetrically with speech, and there is an obvious glottic gap. No inflammation, no pooling of secretions, no masses. COMPLICATIONS: None. ASSESSMENT: 1. Acute episodic dysphagia, in light of neurologic disorder, seemingly beginning following EGD, 2016. 2. Bilateral vocal cord paresis, but definite symmetric mobility, most difficulty with effective ADduction, but no masses, no pooling of secretions. PLAN: As discussed with the patient and ER physician, Dr. Arash Zhang, I recommend swallow study, with Speech Therapy present, to assess her current swallowing ability, as there is the possibility that muscle spasm or intermittent weakness is at fault; however, she has evidently required long-term IV fluids in the past for dysphagia that progressed. I do not see an obvious anatomic issue, at least from the level of the cords superiorly. The patient and Dr. Zhang agree with the plan, understand, and are appreciative. Janki Man - CHRIS/eliel/bertha doc#: [id number]/job#: [id number] dd: 03/17/2019 15:46:00 dt: 03/17/2019 21:22:00 DICTATING MD/COPIES TO: Neel Hernandez MD; GOLDY ANDREA MD; Eliseo Zapien MD COPIES MNE: FELECIA SHARMA
--- NOTE | 2019-03-24 12:37 | PC.NURSE ---
late entry: dextrose stop time 03/17 2016
== END 2019-03-17 17:51 | disposition home or self-care (01) ==
LOC: ED 12:37 → AC 12:43
PROVIDERS: Admitting Provider Internal Medicine; Emergency Provider Emergency Medicine; PCP Family Medicine; Visit Provider Internal Medicine
DX: R13.10 Dysphagia, unspecified (principal); J38.00 Paralysis of vocal cords and larynx, unspecified
CPT/HCPCS: 36591; 80048; 81003; 85025; 87880; 92610; 96360; 96361; 99283; 99284; G0378

== ENCOUNTER → 2019-03-24 09:42 | Outpatient (CLI) | payer OTHER, MEDICAID, SELFPAY ==
[2019-03-17 14:00] VITALS: BMI 18.0
--- NOTE | 2019-03-24 | DI.RAD.S_ITS ---
PROCEDURE: XR THORACIC SPINE 3V INDICATIONS: ACUTE MIDLINE THORACIC BACK PAIN TECHNIQUE: 3 views of the thoracic spine were acquired. COMPARISON: [facility], , XR THORACIC SPINE 3V, 02/13/2019, 19:08. FINDINGS: Bones: No fracture. Multilevel degenerative endplate sclerosis and spurring. Diffuse facet arthropathy. Soft tissues: No paravertebral stripe thickening. IMPRESSION: No fracture Dictated by: Cody Patten M.D. on 03/24/2019 at 17:21 Approved by: Cody Patten M.D. on 03/24/2019 at 17:22
== END ==
PROVIDERS: PCP Family Medicine; Visit Provider Family Medicine
DX: M54.6 Pain in thoracic spine (principal)
CPT/HCPCS: 72072

== ENCOUNTER 2019-03-27 17:35 | Emergency (ER) | payer OTHER, MEDICAID, SELFPAY ==
[2019-03-17 14:00] VITALS: BMI 18.0
[2019-03-27 17:50] VITALS: BP 127/84; PULSE 98; RESP 22; TEMP 36.7; O2SAT 100
[2019-03-27 19:16] LABS: Add Manual Diff / Slide Review NO; Basophils Absolute Auto 0 /uL (0-100); Basophils Percent Auto 0.7 % (0-2); Eosinophils Absolute Auto 100 /uL (0-450); Eosinophils Percent Auto 0.8 % (2-4); Hematocrit 40.5 % (36-46); Hemoglobin 13.6 g/dL (12.0-16.0); Lymphocytes Absolute Auto 2100 /uL (1100-4500); Lymphocytes Percent Auto 31.1 % (25-40); Mean Corpuscular HGB Conc 33.4 % (30-36); Mean Corpuscular Hemoglobin 28.5 PG (26-34); Mean Corpuscular Volume 85.4 fL (80-100); Monocytes Absolute Auto 400 /uL (0-900); Monocytes Percent Auto 5.5 % (3-14); Neutrophils Absolute Auto 4200 /uL (1500-7000); Neutrophils Percent Auto 61.9 % (50-75); Platelet Count 321 X10^3/uL (150-400); Red Blood Cell Count 4.75 X10^6/uL (4.0-5.2); Red Cell Distribution Width 15.6 % (11.6-14.8); White Blood Cell Count 6.9 X10^3/uL (4.5-11.0)
[2019-03-27 19:29] LABS: BUN Creatinine Ratio 11.4 (6-22); Blood Urea Nitrogen 8 mg/dL (7-17); Calcium 9.6 mg/dL (8.4-10.2); Carbon Dioxide 28 mmol/L (22-32); Chloride 102 mmol/L (98-107); Estimated Glomerular Filt Rate > 60.0 mL/min (>60); Glucose 86 mg/dL (70-100); HEMOLYSIS < 15 (0-50); Potassium 3.6 mmol/L (3.4-5.1); Sodium 138 mmol/L (137-145)
[2019-03-27 19:31] LABS: Ketones (Beta-Hydroxybutyrate) 0.48 mmol/L (<0.27)
--- NOTE | 2019-03-27 19:45 | PC.NURSE ---
swallow study done, no issues with apple sauce, scant cough with water
--- NOTE | 2019-03-27 20:05 | ED_ITS ---
HPI - Recheck/Abnormal Lab/Rx General Chief Complaint: Recheck/Abnormal Lab/Rx Stated Complaint: Dehydration Time Seen by Provider: 03/27/19 17:59 Source: patient Mode of arrival: Ambulatory Limitations: no limitations History of Present Illness HPI narrative: 38-year-old female former smoker with extensive, difficult to diagnose episodes of dysphagia over the past few years. She has seen multiple specialists in [facility] as well as [place] and is currently being cared for by Neurology and ENT at the . Patient was sent to us at the request of her primary care provider for evaluation and the possibility of a PICC line for ongoing hydration and swallow study. Patient was recently admitted under very similar circumstances and after a short stay was able to tolerate oral hydration without difficulty, she had evaluation by ENT which was unremarkable and an extensive evaluation by speech with a plan for how to eat and drink. She states she has had difficulty with water, but can tolerate apple sauce ok. She states she hasn't urinated in days. Related Data Home Medications Medication Instructions Recorded Confirmed clonazepam 1 mg PO TID 11/05/17 03/27/19 carbidopa-levodopa 1 tab PO QID 03/17/19 03/27/19 carbidopa-levodopa 1 tab PO TID 03/17/19 03/27/19 omeprazole 60 mg PO QPM 03/17/19 03/17/19 Allergies Allergy/AdvReac Type Severity Reaction Status Date / Time Gadolinium-Containing Allergy Unknown Verified 03/27/19 17:54 Contrast Medi Sulfa (Sulfonamide Allergy Unknown Verified 03/27/19 17:54 Antibiotics) [SULFA (SULFONAMIDE ANTIBIOTICS)] adhesive AdvReac Intermediate Blister Verified 03/27/19 17:54 Review of Systems Constitutional Constitutional: Denies chills, Denies fatigue, Denies fever(s), Denies frequent falls, Denies lethargy and Reports weakness Eyes Eyes: Denies change in vision, Denies eye discharge, Denies irritation and Denies loss of vision ENT Ears, Nose, Mouth, and Throat: Denies change in voice, Denies dizziness, Reports dry mouth, Denies neck pain, Denies sore throat and Denies throat swelling Cardiovascular Cardiovascular: Denies chest pain, Denies irregular heart rhythm, Denies lightheadedness, Denies palpitations, Denies dyspnea, Denies dyspnea on exertion and Denies orthopnea Respiratory Respiratory: Denies cough, Denies dyspnea, Denies dyspnea on exertion and Denies wheezing Gastrointestinal Gastrointestinal: Denies abdominal pain, Denies change in bowel habits, Denies diarrhea, Denies nausea and Denies vomiting Genitourinary Genitourinary: Denies hematuria, Denies flank pain, Denies urinary incontinence and Denies urinary urgency Musculoskeletal Musculoskeletal: Denies back pain, Denies muscle weakness, Denies neck pain, Denies numbness and Denies tingling Integumentary/Breasts Skin/Breast: Denies pruritus, Denies erythema, Denies rash and Denies wounds Neurologic Neurologic: Denies behavioral changes, Denies confusion, Denies dizziness, Denies frequent falls, Denies loss of vision, Denies numbness, Denies tingling and Reports weakness Psychiatric Psychiatric: Denies anxiety, Denies behavioral changes, Denies confusion, Denies depression, Denies homicidal ideation and Denies suicidal ideation Endocrine Endocrine: Denies fatigue, Denies flushing and Denies palpitations Hematologic/Lymphatic Hematologic/Lymphatic: Denies easy bruising Allergic/Immunologic Allergic/Immunologic: Denies urticaria, Denies throat swelling and Denies wheezing [facility] Social History household members: significant other and children Smoking Status: Former smoker alcohol intake: current Exam Narrative Exam Narrative: GENERAL: [38] year old patient appears stated age. Well- nourished, well-developed patient, in mild distress. Hoarse voice is her baseline HEAD: Atraumatic. Normocephalic. EYES: Pupils equal round and reactive. Extraocular motions intact. No scleral icterus. No injection or drainage. ENT: Moist mucous membranes Nose without bleeding, purulent drainage. Throat without erythema, tonsillar hypertrophy or exudate. Airway patent. NECK: Trachea midline. Non tender CARDIOVASCULAR: Regular rate and rhythm without murmurs, gallops, or rubs. RESPIRATORY: Clear to auscultation. Breath sounds equal bilaterally. No wheezes, rales, or rhonchi. GASTROINTESTINAL: Abdomen soft, non-tender, nondistended. EXTREMITIES: No edema or joint tenderness. BACK: Nontender without deformity or crepitance. No flank tenderness. NEURO: AOx3. SKIN: No rash or erythema of visible areas Initial Vital Signs Initial Vital Signs: Vital Signs Temperature 98.1 F 03/27/19 17:50 Pulse Rate 98 H 03/27/19 17:50 Respiratory Rate 22 03/27/19 17:50 Blood Pressure 127/84 03/27/19 17:50 Pulse Oximetry 100 03/27/19 17:50 Course Orders Ordered: ED Orders 03/27/19 19:00 Basic Metabolic Panel Stat Complete Blood Count AUTO DIFF Stat Ketones (Beta-Hydroxybutyrate) Stat Reevaluation(s) Reevaluation #1: patient able to drink water with bedside swallow screen. 200mL urine in bladder on bladder scan. Vital Signs Vital signs: Vital Signs - 8 hr 03/27/19 17:50 Temperature 98.1 F Pulse Rate 98 H Respiratory Rate 22 Blood Pressure 127/84 Pulse Oximetry 100 MDM - Recheck/Abnormal Lab/Rx Lab Data Result diagrams: 03/27/19 19:00 03/27/19 19:00 Labs: Lab Results 03/27/19 03/27/19 Range/Units 19:00 19:00 WBC 6.9 (4.5-11.0) X10^3/uL RBC 4.75 (4.0-5.2) X10^6/uL Hgb 13.6 (12.0-16.0) g/dL Hct 40.5 (36-46) % MCV 85.4 (80-100) fL MCH 28.5 (26-34) PG MCHC 33.4 (30-36) % RDW 15.6 H (11.6-14.8) % Plt Count 321 (150-400) X10^3/uL Neut % (Auto) 61.9 (50-75) % Lymph % (Auto) 31.1 (25-40) % [place] % (Auto) 5.5 (3-14) % Eos % (Auto) 0.8 L (2-4) % Baso % (Auto) 0.7 (0-2) % Neut # (Auto) 4200 (8531-6701) /uL Lymph # (Auto) 2100 (8688-2012) /uL [place] # (Auto) 400 (0-900) /uL Eos # (Auto) 100 (0-450) /uL Baso # (Auto) 0 (0-100) /uL Sodium 138 (137-145) mmol/L Potassium 3.6 (3.4-5.1) mmol/L Chloride 102 (98-107) mmol/L Carbon Dioxide 28 (22-32) mmol/L BUN 8 (7-17) mg/dL Creatinine 0.70 (0.52-1.04) mg/dL Estimated GFR > 60.0 (>60) mL/min BUN/Creatinine Ratio 11.4 (6-22) Glucose 86 (70-100) mg/dL Calcium 9.6 (8.4-10.2) mg/dL Ketones 0.48 H (<0.27) mmol/L MDM Narrative Medical decision making narrative: 38-year-old female with chronic episodes of dysphagia has seen multiple layering allergists and neurologists and is currently managed at the [facility]. She has recently been admitted and had appropriate evaluation by speech therapy and follow-up plan. She was sent here today because she has had increased trouble with swallowing in the absence of fever, chills or pain over the past few days. She is able to keep sips of coconut water down and applesauce. Her primary care provider sent her for evaluation. She has a very reassuring exam with moist mucous membranes, stable vital signs and no significant lab abnormalities. Patient given lilia ssurance and encouragement to follow up with her doctors in [place]. At this point time there is no indication for a PICC line as she can tolerate oral hydration. Discharge Plan Departure Patient Disposition: Home Clinical Impression: Dysphagia Qualifiers: Dysphagia type: unspecified Qualified Code(s): R13.10 - Dysphagia, unspecified Discharge Date/Time: 03/27/19 20:19 Instructions: DI for Esophageal Dysphagia Activity Restrictions/Additional Instructions: *You have been diagnosed with [chronic dysphagia] *What to do: * continue to take medications as directed *Follow up with your primary care provider in 2-3 days, call for an appointment. Let them know you were seen in the Emergency Department and that we ask that you be seen in follow up *Return to ER if you should have any new, worsening or concerning symptoms Prescriptions: No Action clonazepam 1 mg Tablet 1 mg PO TID RF: 0 carbidopa-levodopa 50-200 mg tablet extended release 1 tab PO QID RF: 0 carbidopa-levodopa 25-100 mg tablet 1 tab PO TID RF: 0 omeprazole 20 mg Tablet,Delayed Release (Dr/Ec) 60 mg PO QPM RF: 0 Referrals: Eliseo Zapien MD [Primary Care Provider] -
== END 2019-03-27 20:19 | disposition home or self-care (01) ==
PROVIDERS: Emergency Provider Emergency Medicine; PCP Family Medicine
DX: R13.10 Dysphagia, unspecified (principal)
CPT/HCPCS: 36415; 51798; 80048; 82009; 85025; 99283

== ENCOUNTER → 2019-04-07 10:33 | Outpatient (CLI) | payer OTHER, MEDICAID, SELFPAY ==
[2019-03-17 14:00] VITALS: BMI 18.0
[2019-04-07 11:52] LABS: BUN Creatinine Ratio 21.7 (6-22); Blood Urea Nitrogen 13 mg/dL (7-17); Calcium 9.5 mg/dL (8.4-10.2); Carbon Dioxide 27 mmol/L (22-32); Chloride 103 mmol/L (98-107); Estimated Glomerular Filt Rate > 60.0 mL/min (>60); Glucose 88 mg/dL (70-100); HEMOLYSIS < 15 (0-50); Magnesium 1.9 mg/dL (1.6-2.3); Potassium 3.5 mmol/L (3.4-5.1); Sodium 141 mmol/L (137-145)
== END ==
PROVIDERS: PCP Family Medicine; Visit Provider Surgery
DX: E86.0 Dehydration (principal); R13.10 Dysphagia, unspecified
CPT/HCPCS: 36415; 80048; 83735; 84100

== ENCOUNTER 2019-04-12 10:51 | Inpatient (IN) | payer OTHER, MEDICAID, SELFPAY ==
[2019-03-17 14:00] VITALS: BMI 18.0
[2019-04-12] VITALS (16 sets, daily range): BP systolic 100–150; BP diastolic 61–90; PULSE 76–95; RESP 10–16; TEMP 36.1–36.6; O2SAT 88–100; BMI 36.0
[2019-04-12] MEDS: LACTATED RINGERS 1,000 ML 100 ML IV (11:43)
--- NOTE | 2019-04-12 12:17 | PM.PREOP ---
Pre-operative Note Interval Note History & Physical reviewed/Exam performed by Physician: Yes Changes to H&P: No H&P completed within 30 days and has changed as indicated here:: Risks and benefits of laparoscopic possible open gastrostomy tube placement, possible esophagogastroduodenoscopy. The risks and benefits of the procedure were discussed including risk of airway or esophageal compromise requiring further procedures including possible tracheostomy, possibly EGD. Risk of bleeding, infection, damage to nearby structures, G-tube leak, need for additional procedures, electrolyte disturbances, risk of cardiac arrest, risk of .
[2019-04-12 12:30] LABS: Alanine Aminotransferase 11 IU/L (9-52); Albumin 4.4 g/dL (3.5-5.0); Albumin Globulin Ratio 1.3 (1.0-2.8); Alkaline Phosphatase 65 U/L (38-126); Aspartate Aminotransferase 22 IU/L (14-36); BUN Creatinine Ratio 13.3 (6-22); Bilirubin Total 0.6 mg/dL (0.2-1.3); Blood Urea Nitrogen 8 mg/dL (7-17); Calcium 9.3 mg/dL (8.4-10.2); Carbon Dioxide 27 mmol/L (22-32); Chloride 103 mmol/L (98-107); Estimated Glomerular Filt Rate > 60.0 mL/min (>60); Globulin 3.3 g/dL (1.7-4.1); Glucose 92 mg/dL (70-100); HEMOLYSIS < 15 (0-50); Magnesium 1.9 mg/dL (1.6-2.3); Phosphorous 2.5 mg/dL (2.5-4.5); Potassium 3.4 mmol/L (3.4-5.1); Sodium 138 mmol/L (137-145); Total Protein 7.7 g/dL (6.3-8.2)
[2019-04-12] MEDS: PIPERACILLIN-TAZO 3.375 GM/50 ML FROZ.PIGGY IV (12:50)
--- NOTE | 2019-04-12 13:20 | SUR.OPER ---
Prone on padded OR bed, head in foam head support, gel chest rolls, gel pad under knees, pillow under lower legs, toes free of pressure, arms secured on padded arm boards at <90 degrees abduction. Safety belt at thigh.
[2019-04-12] MEDS: BUPIVACAINE 0.25% W/ EPI 30 ML VIAL INJ (13:36)
[2019-04-12] MEDS: LACTATED RINGERS 1,000 ML 42 ML IV (14:42)
--- NOTE | 2019-04-12 15:17 | SUR.PHASEI ---
Rx given for pain by Dr. Jha upon arrival to PACU; facial grimace, moving in bed, very drowsy, doesn't open eyes to voice. O2 sats went down to 88%, put on O2 at 3LNP.
--- NOTE | 2019-04-12 15:30 | SUR.PHASEI ---
Sleeping, stirring intermittently; no grimace, occasional slight cough. O2 decreased to 1LNP.
--- NOTE | 2019-04-12 15:38 | SUR.PHASEI ---
Arousing intermittently, mostly sleeping. Report called to floor. Resp unlabored, skin warm and dry
[2019-04-12] MEDS: fentaNYL 100 MCG/2 ML INJ 50 MCG IV ×2 (15:45→16:02)
--- NOTE | 2019-04-12 15:53 | P.OP_ITS ---
Operative Date/Time/Diagnoses Date of procedure: 04/12/19 Time of procedure: 15:53 Pre-op diagnosis: Malnutrition, dysphagia, need for feeding access Post-op diagnosis: same Procedure & Clinicians Procedure: Laparoscopic gastrostomy tube placement Same procedure as scheduled: Yes Indications: Malnutrition secondary to dysphagia Surgeon: Tika Newby It Help Desk Associate: Howard Manzo Anesthesia Type: General Operative Notes Findings: Good apposition of stomach to abdominal wall; no leak on insufflation of stomach through G tube at end of case Closure Type: primary Specimen(s): none sent Prosthetic devices, grafts, tissues, transplants, or devices: JULIO Gastrostomy tube Estimated Blood Loss (mL): 5 Blood products transfused: none Procedure in detail: The patient was brought into the operating room, placed supine on the operating table, and sequential compression devices were placed on both legs and turned on. Appropriate perioperative antibiotics were given. General anesthesia was induced and the patient was intubated without incident. The abdomen was prepped and draped in sterile fashion. Time-out was conducted. The abdominal wall was marked for an appropriate position for the G-tube away f rom the ribs on the left upper abdominal wall. Local anesthetic was injected just superior to the umbilicus using 0.25% Marcaine with epi. A 1cm vertical incision was made just superior to the umbilicus. The umbilical stalk was grasped and elevated. A Veress needle was then placed through the fascia at this site. Position of the Veress needle was verified using a saline drop test. The abdomen was then insufflated to 15 mm Hg. A 5 mm optical port was then placed at this site, and the Veress needle was removed. I put a 5 mm camera in and took a look around. There was no injury from port placement. Two additional ports under direct vision were then placed in the right mid abdomen after injection of local anesthetic. The stomach was then evaluated, and an appropriate position along the greater curve toward the antrum was chosen. Stomach was elevated towards the abdominal wall, and with desufflation down to 4 mm Hg were able to get good apposition of the stomach up to the abdominal wall at the proposed site of the G-tube. I then placed 4 Prolene stay sutures at this site by pushing a 1. Prolene suture on a CTX needle through the abdominal wall and then passing it through the muscular layers of the stomach and then passing the needle back through the anterior abdominal wall at the G-tube site. Each of the 4 stay sutures was pulled through the abdominal wall the appropriate position for the G-tube. A 3 0 PDS suture was used to make a pursestring at the site of the proposed G-tube position. I then used cautery to make a gastrotomy in the center of the pursestring. I verify the position of the gastrotomy using a Jennifer grasper to show that I was intraluminal. I then made a stab incision at the center of the proposed G-tube site on the abdominal wall and passed a tonsil clamp through the skin and subcutaneous tissue and spread an opening through the abdominal wall for the G-tube to pass. I then passed the G-tube through the abdominal wall at this site and through the gastrotomy into the stomach. 10 cc of sterile saline was used to fill the balloon of the G-tube. The pursestring suture was then tied. The stay sutures were then pulled up and tied with the stomach snugly against the abdominal wall. The flange was then pushed down until the hash joby between 4 and 6 was showing. An 0 silk tie was placed at this site and secured. Steri strips were used to cover each of the suture sites from the trans abdominal wall sutures. The G tube was tested with saline flush and air flush. No bubbling of fluid was seen coming from the gastrotomy. The stomach puffed with air when air insufflation was performed. The G tube was then connected to a Johnson bag for drainage and a 4x4 dressing was applied and secured with tape. The patient was extubated and transferred to PACU in stable condition. Needle sponge and instrument counts were correct x 2 at the end of the case. Complications: none Post-operative Condition: stable Disposition: PACU
--- NOTE | 2019-04-12 15:55 | SUR.PHASEI ---
States I need to cough; pillow given, shown how to splint abdomen. Able to do weak cough, sounds like she needs to clear her throat.
--- NOTE | 2019-04-12 16:09 | SUR.PHASEI ---
3402 Dr. Newby spoke to patient, questions answered.
--- NOTE | 2019-04-12 16:14 | SUR.PHASEI ---
Report given to Keith Ashton RN. VSS, pt resting quietly. Will medicate for pain control
[2019-04-12] MEDS: hydrOXYzine 50 MG/ML INJ 25 MG IM (16:20)
--- NOTE | 2019-04-12 16:54 | DIET.PN ---
Dietary Progress Note Assess: Ms Man is S/P gastrosotmy tube placement r/t severe dysphagia. Her intake has been ~1100 laurie x last 5 d per report. EER: Noted in full dietary note. Nutrition DX: Severe acute PCM r/t dx dysphagia aeb energy intake < 50% EER >5d, weight loss > 5% in 1 mo, dx dysphagia w/ recent feeding tube placement. Intervention: Jevity 1.2 @ 70 ml/hr Provides Kcal: 2016 laurie @ ~31 laurie/kg (nutritional weight) Pro: 93 g pro Fluid: 2256 Start w/ 20 ml/hr titrating 10 ml/hr q 4 hr until goal 150 ml free water flushes q 4 hr (37.5 ml/hr) Check gastric residuals q 4 hr when intiating. Hold feed if residual > 500ml Monitor Mag, Pot, Phos for refeed
[2019-04-12 16:59] LABS: BUN Creatinine Ratio 11.4 (6-22); Blood Urea Nitrogen 8 mg/dL (7-17); Calcium 9.1 mg/dL (8.4-10.2); Carbon Dioxide 27 mmol/L (22-32); Chloride 102 mmol/L (98-107); Estimated Glomerular Filt Rate > 60.0 mL/min (>60); Glucose 115 mg/dL (70-100); Phosphorous 2.9 mg/dL (2.5-4.5); Potassium 3.7 mmol/L (3.4-5.1); Sodium 139 mmol/L (137-145)
[2019-04-12] MEDS: LACTATED RINGERS 1,000 ML 125 ML IV (17:00)
[2019-04-12] MEDS: MORPHINE 2 MG/ML INJ IV ×3 (17:10→21:10)
[2019-04-12] MEDS: THIAMINE 100 MG in DEXTROSE 5 % IN WATER 50 ML 204 ML IV (18:14)
[2019-04-12] MEDS: CARBIDOPA-LEVODOPA ER 50/200 TABLET 1 EACH PO ×2 (18:14→21:06)
[2019-04-12] MEDS: KETOROLAC 15 MG/ML VIAL IV (19:00)
[2019-04-12] MEDS: CARBIDOPA-LEVODOPA 25/100 TABLET 1 EACH PO (21:06)
[2019-04-12] MEDS: clonazePAM 0.5 MG TABLET 1 MG PO (21:11)
[2019-04-12] MEDS: PANTOPRAZOLE 40 MG VIAL IV (21:16)
[2019-04-13] VITALS (9 sets, daily range): BP systolic 106–117; BP diastolic 56–72; PULSE 79–97; RESP 16; TEMP 36.1–36.8; O2SAT 94–98
[2019-04-13] MEDS: LACTATED RINGERS 1,000 ML 125 ML IV (00:34)
[2019-04-13] MEDS: ACETAMINOPHEN 325 MG TABLET 650 MG PO ×4 (00:34→17:55)
[2019-04-13] MEDS: KETOROLAC 15 MG/ML VIAL IV ×2 (00:35→09:31)
[2019-04-13] MEDS: MORPHINE 2 MG/ML INJ IV ×3 (00:35→13:07)
[2019-04-13 05:07] LABS: Add Manual Diff / Slide Review NO; Basophils Absolute Auto 0 /uL (0-100); Basophils Percent Auto 0.2 % (0-2); Eosinophils Absolute Auto 0 /uL (0-450); Hematocrit 37.8 % (36-46); Hemoglobin 12.7 g/dL (12.0-16.0); Lymphocytes Absolute Auto 500 /uL (1100-4500); Lymphocytes Percent Auto 4.3 % (25-40); Mean Corpuscular HGB Conc 33.7 % (30-36); Mean Corpuscular Hemoglobin 28.6 PG (26-34); Mean Corpuscular Volume 84.9 fL (80-100); Monocytes Absolute Auto 200 /uL (0-900); Monocytes Percent Auto 1.4 % (3-14); Neutrophils Absolute Auto 11500 /uL (1500-7000); Neutrophils Percent Auto 94.1 % (50-75); Platelet Count 314 X10^3/uL (150-400); Red Blood Cell Count 4.45 X10^6/uL (4.0-5.2); Red Cell Distribution Width 15.2 % (11.6-14.8); White Blood Cell Count 12.3 X10^3/uL (4.5-11.0)
[2019-04-13 05:18] LABS: Blood Urea Nitrogen 8 mg/dL (7-17); Calcium 8.9 mg/dL (8.4-10.2); Carbon Dioxide 24 mmol/L (22-32); Chloride 105 mmol/L (98-107); Estimated Glomerular Filt Rate > 60.0 mL/min (>60); Glucose 122 mg/dL (70-100); HEMOLYSIS < 15 (0-50); Magnesium 1.9 mg/dL (1.6-2.3); Potassium 3.8 mmol/L (3.4-5.1); Sodium 137 mmol/L (137-145)
[2019-04-13] MEDS: clonazePAM 0.5 MG TABLET 1 MG PO ×3 (05:48→17:55)
[2019-04-13] MEDS: CARBIDOPA-LEVODOPA 25/100 TABLET 1 EACH PO ×3 (05:49→17:56)
[2019-04-13] MEDS: CARBIDOPA-LEVODOPA ER 50/200 TABLET 1 EACH PO ×4 (05:49→20:42)
--- NOTE | 2019-04-13 06:20 | PC.NURSE ---
Pt POD 1 s/p gastrostomy tube placement. Pt reports pain 4-7/10 at abdomen. On scheduled IV Morphine q2hrs. Held 0300 dose as pt was sleeping. No signs of oversedation. Pt reports she slept well in comparison to past month. Pt gastrostomy attached to segundo bag. 10cc output overnight, appearing light green in color. Pt with dysphagia r/t Parkinson's hx, meds crushed in applesauce. Pt to start tube feed today. Needs education regarding care of tube and how to administer feedings. Pt using call light appropriately, no attempts to get OOB unassisted.
--- NOTE | 2019-04-13 07:57 | PC.NURSE ---
Patient resting in bed during bedside report. Morphine 0700 not given, patient was allowed to sleep per night RN. Will resume scheduled dosing at 0900
[2019-04-13] MEDS: PANTOPRAZOLE 40 MG VIAL IV ×2 (09:32→20:41)
[2019-04-13] MEDS: MORPHINE 4 MG/ML INJ IV ×3 (09:33→20:41)
[2019-04-13] MEDS: ENOXAPARIN 40 MG/0.4 ML SYRINGE SUBCUT (09:34)
--- NOTE | 2019-04-13 09:58 | P.PN_ITS ---
Subjective Subjective Date Patient Seen: 04/13/19 Time Patient Seen: 09:58 Interval history: No acute events overnight. Pt c/o pain at G tube site, improving with pain meds overnight. Exam Vital Signs (past 8 hours): - 04/13/19 05:45 04/13/19 08:00 Temperature 97.7 F 97 F L Pulse Rate 96 H 95 H Respiratory Rate 16 16 Blood Pressure 112/64 117/65 Pulse Oximetry 95 96 Oxygen Delivery Method Room Air Oxygen Flow Rate 0 Narrative Exam Narrative: GENERAL: Resting in bed, no distress, alert and comfortable HENT: Normocephalic, atraumatic. Hearing intact. Oral mucosa is pink and moist. CARDIOVASCULAR: Regular rate. No pedal edema. RESPIRATORY: Normal respiratory rate, breathing comfortably on room air. GASTROINTESTINAL: Abdomen soft and non-distended; G tube site dressing intact; small amount of sanguinous drainage on underlying gauze; G tube with thick serous output. Capped during rounds and drain bag placed in the trash. Laparoscopic port sites c/d/i/a GENITALURINARY: No flank tenderness. SKIN: Warm, dry, soft, appropriate color for ethnicity. No other lesions, rashes, or wounds. PSYCH: Appropriate affect and mood. Objective Labs Result Diagrams: 04/13/19 05:00 04/13/19 05:00 Labs: Laboratory Results - last 24 hr 04/12/19 04/12/19 04/13/19 12:05 16:20 05:00 WBC 12.3 H RBC 4.45 Hgb 12.7 Hct 37.8 MCV 84.9 MCH 28.6 MCHC 33.7 RDW 15.2 H Plt Count 314 Neut % (Auto) 94.1 H Lymph % (Auto) 4.3 L [place] % (Auto) 1.4 L Eos % (Auto) 0.0 L Baso % (Auto) 0.2 Neut # (Auto) 53922 H Lymph # (Auto) 500 L [place] # (Auto) 200 Eos # (Auto) 0 Baso # (Auto) 0 Sodium 138 139 Potassium 3.4 3.7 Chloride 103 102 Carbon Dioxide 27 27 BUN 8 8 Creatinine 0.60 0.70 Estimated GFR > 60.0 > 60.0 BUN/Creatinine Ratio 13.3 11.4 Glucose 92 115 H Calcium 9.3 9.1 Phosphorus 2.5 2.9 Magnesium 1.9 2.0 Total Bilirubin 0.6 AST 22 ALT 11 Alkaline Phosphatase 65 Total Protein 7.7 Albumin 4.4 Globulin 3.3 Albumin/Globulin Ratio 1.3 04/13/19 05:00 WBC RBC Hgb Hct MCV MCH MCHC RDW Plt Count Neut % (Auto) Lymph % (Auto) [place] % (Auto) Eos % (Auto) Baso % (Auto) Neut # (Auto) Lymph # (Auto) [place] # (Auto) Eos # (Auto) Baso # (Auto) Sodium 137 Potassium 3.8 Chloride 105 Carbon Dioxide 24 BUN 8 Creatinine 0.50 L Estimated GFR > 60.0 BUN/Creatinine Ratio 16.0 Glucose 122 H Calcium 8.9 Phosphorus 3.0 Magnesium 1.9 Total Bilirubin AST ALT Alkaline Phosphatase Total Protein Albumin Globulin Albumin/Globulin Ratio Assessment & Plan Assessment and plan (1) Gastrostomy tube in place: Problem details: G tube was capped today. We will start trickle tube feeds this afternoon. Current visit: Yes Status: Acute (2) Malnutrition: Problem details: We will check electrolytes 4 hours after starting tube feeds, and replete as needed Current visit: Yes Status: Acute (3) Dehydration, mild: Problem details: Corrected. Urine output greater than 1 L in the past 24 hours. Creatinine and BUN are normal. Current visit: No Status: Acute (4) Dysphagia: Problem details: Chronic. Patient will take p.o. liquids and pudding consistency as tolerated. Qualifiers: Dysphagia type: unspecified Qualified Code(s): R13.10 - Dysphagia, unspecified Current visit: No Status: Acute Quality VTE Deep Vein Thrombosis/Pulmonary Embolism Present on Admission: No
--- NOTE | 2019-04-13 10:56 | CM.DANOTE ---
DCP: Case received, EMR reviewed and met with patient. Introduced self and role. Was able to meet with patient to obtain her baseline health status and history, as well as her current activity level. DCP assessment/template, completed with information currently available. Patient is a 39 year old female who admitted yesterday to the care of the surgical team. PCP: Dr. Zapien. Payer: confirmed: [facility] [place]/Medicaid. Patient came to the hospital via family vehicle for a surgical procedure. She had a laparoscopic gastrotomy with tube placement. Patient has had history of malnutrition secondary to dysphagia. Met with patient in her room. Patient stated, This problem started when I had my endoscopy, since I had GERD, and I woke up with all of these IV lines, and I haven't been the same since. She mentioned she sometimes chokes on water, can tolerate cocunut water because it's thicker, and was able to take in some ensure, but not much. She stated, this has been going on since about 2017. Confirmed that patient lives with her spouse, Nino. She has two children, one is 14, the other 17. She stated that she has been chronically weak, had 4 level home, is mostly downstairs. She also has a pillowcase maker through [employer] who had mentioned [facility] coming, for she will need continued teaching regarding the feeding tube. Discussed with Sulma in team rounds, dietary, who stated, she will probably be here until Wednesday, for she will need to be monitored on the feedings, and that her and the team will have available the type of feeding she will need. Discussed having home health to see patient at discharge to monitor, continue to teach, as well as assess. P: DCP to continue to follow. Anticipate that patient will be here for several days. She will need [facility] nursing, will need face to face signed before discharge. Elda Beard RN/Allergy And Immunology Specialist
--- NOTE | 2019-04-13 11:28 | PC.NURSE ---
Addendum entered by Mariposa Perrin R.N. 04/13/19 14:16: Patient reports pain is still at a 7 after administration of 2 mg IV Morphine and PO Tylenol 650mg given at 1245. Patient grimaces and holds stomach, denies cramping, N/V, describes pain as being achy and sharp, exacerbated with conversation with friend, possibly she overexerted herself per patient. Suggested repositioning. Will follow up with PRN medication and reassess. Addendum entered by Mariposa Perrin R.N. 04/13/19 14:04: G Tube feed rate increased to 30ml/hr (10cc/hr increase until desired 70cc/hr is reached) per fruit pitter's notes. Patient tolerating well. Addendum entered by Mariposa Perrin R.N. 04/13/19 13:02: G Tube feeing started per physician orders. Patient tolerated well. Denies further needs at this time. Original Note: Patient A/O x4 Pt ambulated to bathroom with 1 person assist and FWW. Patient denied SOB, chest pain, dizziness, abdominal pain or tenderness with light palipitation, N/V. Lung sounds clear bilaterally, RR even and non-labored. Mild edema noted in bilaterally feet, SCD's reapplied. G tube is observed, dressing is CDI, abdominal incisions x 3 are clean, free of redness, streaking or purulent drainage. Patient ate a small amount of breakfast c/o acid reflux s/s post consumption, denied N/V. Patient denies further needs at this time. Denies pain in abdomen following morning administration of IV Morphine 4mg, and IV Toradol 15mg, will continue to monitor.
[2019-04-13 15:25] LABS: BUN Creatinine Ratio 13.3 (6-22); Blood Urea Nitrogen 8 mg/dL (7-17); Calcium 8.8 mg/dL (8.4-10.2); Carbon Dioxide 28 mmol/L (22-32); Chloride 103 mmol/L (98-107); Estimated Glomerular Filt Rate > 60.0 mL/min (>60); Glucose 130 mg/dL (70-100); HEMOLYSIS < 15 (0-50); Magnesium 1.8 mg/dL (1.6-2.3); Phosphorous 2.4 mg/dL (2.5-4.5); Potassium 3.4 mmol/L (3.4-5.1); Sodium 137 mmol/L (137-145)
[2019-04-13] MEDS: MAGNESIUM SULFATE 2 GM/50 ML PIGGYBACK IV (16:06)
[2019-04-13] MEDS: POTASSIUM CHLORIDE 20 MEQ/15 ML UDC 40 MEQ PO (16:06)
[2019-04-13] MEDS: THIAMINE 100 MG in DEXTROSE 5 % IN WATER 50 ML 204 ML IV (16:34)
[2019-04-13] MEDS: POTASSIUM PHOSPHATE 15 MMOL in DEXTROSE 5% IN WATER 250 ML 63.75 ML IV (17:55)
[2019-04-13 22:15] LABS: BUN Creatinine Ratio 11.7 (6-22); Blood Urea Nitrogen 7 mg/dL (7-17); Calcium 8.6 mg/dL (8.4-10.2); Carbon Dioxide 29 mmol/L (22-32); Chloride 105 mmol/L (98-107); Estimated Glomerular Filt Rate > 60.0 mL/min (>60); Glucose 118 mg/dL (70-100); HEMOLYSIS < 15 (0-50); Magnesium 2.3 mg/dL (1.6-2.3); Phosphorous 2.9 mg/dL (2.5-4.5); Potassium 4.2 mmol/L (3.4-5.1); Sodium 139 mmol/L (137-145)
[2019-04-14] VITALS (8 sets, daily range): BP systolic 96–142; BP diastolic 56–73; PULSE 77–88; RESP 14–19; TEMP 36.6–37.1; O2SAT 96–98
[2019-04-14] MEDS: ACETAMINOPHEN 325 MG TABLET 650 MG PO ×3 (00:13→18:08)
[2019-04-14] MEDS: KETOROLAC 15 MG/ML VIAL IV ×3 (00:16→19:47)
--- NOTE | 2019-04-14 04:59 | PC.NURSE ---
Pt alert and oriented x4. Denies nausea, endorses feeling minimal bloating. No diarrhea. Bowel tones active, pt denies passing flatus. GVR checked at MN with 10cc, rechecked GVR at 0200 to assess tolerance of TF and appropriate for rate increase. At that time GVR is 0cc. TF rate increased to 50cc/hr. If pt con't to tolerate TF will increase rate to 60cc at 0600. Goal rate 70cc/hr. Feeding with Jevity 1.2 Gtube site with CDI gauze and paper tape. 3 surgical sites without s/s infection, surgical glue noted. Pt reports abd pain 01/04, pain medication given per order. BG AC/HS, BG checked at 0300 122. R forearm PIV patent. CIVF of LR @ 80cc/hr. Pt able to take small whole pills with applesauce. Con't to provide education regarding self care of tube feed, s/s to monitor and report. SCDs on, 2+ BLE. Pt ambu to BR with SBA. Bed alarm on overnight due to IV pain meds and time of day.
[2019-04-14] MEDS: MORPHINE 4 MG/ML INJ IV (05:13)
[2019-04-14] MEDS: clonazePAM 0.5 MG TABLET 1 MG PO ×3 (05:13→18:08)
[2019-04-14] MEDS: LACTATED RINGERS 1,000 ML 80 ML IV (05:18)
[2019-04-14] MEDS: CARBIDOPA-LEVODOPA ER 50/200 TABLET 1 EACH PO ×4 (05:19→21:30)
[2019-04-14 05:25] LABS: Add Manual Diff / Slide Review NO; Basophils Absolute Auto 0 /uL (0-100); Basophils Percent Auto 0.4 % (0-2); Eosinophils Absolute Auto 0 /uL (0-450); Eosinophils Percent Auto 0.1 % (2-4); Hematocrit 32.8 % (36-46); Hemoglobin 11.1 g/dL (12.0-16.0); Lymphocytes Absolute Auto 1900 /uL (1100-4500); Lymphocytes Percent Auto 21.1 % (25-40); Mean Corpuscular HGB Conc 33.9 % (30-36); Mean Corpuscular Volume 85.4 fL (80-100); Monocytes Absolute Auto 600 /uL (0-900); Monocytes Percent Auto 6.6 % (3-14); Neutrophils Absolute Auto 6600 /uL (1500-7000); Neutrophils Percent Auto 71.8 % (50-75); Platelet Count 277 X10^3/uL (150-400); Red Blood Cell Count 3.85 X10^6/uL (4.0-5.2); Red Cell Distribution Width 15.3 % (11.6-14.8); White Blood Cell Count 9.1 X10^3/uL (4.5-11.0)
[2019-04-14 05:33] LABS: Blood Urea Nitrogen 9 mg/dL (7-17); Calcium 8.5 mg/dL (8.4-10.2); Carbon Dioxide 31 mmol/L (22-32); Chloride 106 mmol/L (98-107); Estimated Glomerular Filt Rate > 60.0 mL/min (>60); Glucose 100 mg/dL (70-100); HEMOLYSIS < 15 (0-50); Magnesium 2.2 mg/dL (1.6-2.3); Phosphorous 2.7 mg/dL (2.5-4.5); Potassium 4.3 mmol/L (3.4-5.1); Sodium 140 mmol/L (137-145)
[2019-04-14] MEDS: CARBIDOPA-LEVODOPA 25/100 TABLET 1 EACH PO ×3 (06:18→18:15)
--- NOTE | 2019-04-14 07:01 | PM.PN.1 ---
Subjective Subjective Date Patient Seen: 04/13/19 Time Patient Seen: 09:58 Interval history: No acute events overnight. Pt c/o pain at G tube site, improved with pain meds. Tolerating PO and tube feeds. Exam Vital Signs (past 8 hours): - 04/14/19 00:20 04/14/19 05:12 Temperature 98.4 F 98.5 F Pulse Rate 77 77 Respiratory Rate 16 16 Blood Pressure 96/62 103/56 L Pulse Oximetry 96 97 Oxygen Delivery Method Room Air Oxygen Flow Rate 0 Narrative Exam Narrative: GENERAL: Resting in bed, no distress, alert and comfortable HENT: Normocephalic, atraumatic. Hearing intact. Oral mucosa is pink and moist. CARDIOVASCULAR: Regular rate. No pedal edema. RESPIRATORY: Normal respiratory rate, breathing comfortably on room air. GASTROINTESTINAL: Abdomen soft and non-distended; G tube site dressing intact; small amount of sanguinous drainage on underlying gauze; G tube in place without leakage; tube feeds running. Laparoscopic port sites c/d/i/a GENITALURINARY: No flank tenderness. SKIN: Warm, dry, soft, appropriate color for ethnicity. No other lesions, rashes, or wounds. PSYCH: Appropriate affect and mood. Objective Labs Result Diagrams: 04/14/19 04:55 04/14/19 04:55 Labs: Laboratory Results - last 24 hr 04/13/19 04/13/19 04/14/19 15:04 22:00 04:55 WBC 9.1 RBC 3.85 L Hgb 11.1 L Hct 32.8 L MCV 85.4 MCH 29.0 MCHC 33.9 RDW 15.3 H Plt Count 277 Neut % (Auto) 71.8 D Lymph % (Auto) 21.1 L Craven % (Auto) 6.6 Eos % (Auto) 0.1 L Baso % (Auto) 0.4 Neut # (Auto) 6600 Lymph # (Auto) 1900 Craven # (Auto) 600 Eos # (Auto) 0 Baso # (Auto) 0 Sodium 137 139 Potassium 3.4 4.2 Chloride 103 105 Carbon Dioxide 28 29 BUN 8 7 Creatinine 0.60 0.60 Estimated GFR > 60.0 > 60.0 BUN/Creatinine Ratio 13.3 11.7 Glucose 130 H 118 H Calcium 8.8 8.6 Phosphorus 2.4 L 2.9 Magnesium 1.8 2.3 04/14/19 04:55 WBC RBC Hgb Hct MCV MCH MCHC RDW Plt Count Neut % (Auto) Lymph % (Auto) Craven % (Auto) Eos % (Auto) Baso % (Auto) Neut # (Auto) Lymph # (Auto) Craven # (Auto) Eos # (Auto) Baso # (Auto) Sodium 140 Potassium 4.3 Chloride 106 Carbon Dioxide 31 BUN 9 Creatinine 0.60 Estimated GFR > 60.0 BUN/Creatinine Ratio 15.0 Glucose 100 Calcium 8.5 Phosphorus 2.7 Magnesium 2.2 Assessment & Plan Assessment and plan (1) Malnutrition: Problem details: We will check electrolytes again today, but expect they will remain normal as she has been stable on the last two checks. Current visit: Yes Status: Acute (2) Gastrostomy tube in place: Problem details: Tube feeds running at goal; well tolerated Will start teaching for self feeding today. Current visit: Yes Status: Acute (3) Dysphagia: Problem details: Chronic. Patient will take p.o. liquids and pudding consistency as tolerated. Qualifiers: Dysphagia type: unspecified Qualified Code(s): R13.10 - Dysphagia, unspecified Current visit: No Status: Acute Assessment & Plan narrative: Plan: Ambulate as tolerated PO as tolerated G tube teaching for home use Dispo planning for home tube feeds per RD Dispo pending pain controlled on PO pain meds, tube feeding teaching is complete, tube feeds are at goal, and electrolytes are stable without repletion for 24 hours Tube feeding plan per RD: Intervention: Jevity 1.2 @ 70 ml/hr Provides Kcal: 2016 laurie @ ~31 laurie/kg (nutritional weight) Pro: 93 g pro Fluid: 2256 Start w/ 20 ml/hr titrating 10 ml/hr q 4 hr until goal 150 ml free water flushes q 4 hr (37.5 ml/hr) Check gastric residuals q 4 hr when intiating. Hold feed if residual > 500ml Monitor Mag, Pot, Phos for refeed Quality VTE Deep Vein Thrombosis/Pulmonary Embolism Present on Admission: No
[2019-04-14] MEDS: DOCUSATE ORAL LIQUID 100 MG/10 ML UDC PO ×2 (09:37→19:40)
[2019-04-14] MEDS: THIAMINE 100 MG in DEXTROSE 5 % IN WATER 50 ML 204 ML IV (09:37)
[2019-04-14] MEDS: OXYCODONE 5 MG/5 ML ORAL SOLUTION PO ×3 (09:37→18:19)
[2019-04-14] MEDS: PANTOPRAZOLE 40 MG VIAL IV ×2 (09:38→19:41)
[2019-04-14] MEDS: ENOXAPARIN 40 MG/0.4 ML SYRINGE SUBCUT (09:38)
--- NOTE | 2019-04-14 11:06 | PC.NURSE ---
Addendum entered by Hali Drake R.N. 04/14/19 14:48: Addendum entered by Hali Drake R.N. 04/14/19 14:21: Plan according to Beck Operator Sulma, We will be giving pt bolus 5 x a day of 330ml of jevity 1.2 and 1800cc of water flush 5 x a day. The times will be 0700, 1000, 1330, 1600, and 1930. Pt tolerated first bolus well. Original Note: PTs G tube site wnl, feedings infusing at 70cc/hr. Pt is not having any loose stools or nausea, vomiting. Residual amount 10cc at 1000. She is swallowing juice and full liquids well. She did have a little trouble with some water. Will continue to watch patients swallow. Sitting up in the chair now and ambulating in room.
--- NOTE | 2019-04-14 11:18 | PM.CHAP ---
Good visit with patient. Shared openly re difficulties with health and future. Prayer and encouragement.
--- NOTE | 2019-04-14 13:30 | DIET.PN ---
Addendum entered by Sulma Elizondo 04/14/19 15:37: Discharge Paperwork Copy: General Information: All tube feeding formulas, like milk, will support the growth of germs. Therefore handle all formulas as cleanly as possible and keep open formula in the refrigerator. Most people require additional water. If you are thirsty take extra fluid, either through the tube or, if able, by drinking it. Formulas with fiber should be given at room temperature and generally room temperature formulas are more comfortable. Formula should be administered slowly with Maximum: 1) for bolus feedings 360ml (1 ? cups) over ? hour (Bolus feedings are administered with a syringe of by gravity drip) Keep head up during feeding and for about a ? hour after the feeding. If you feel uncomfortably full, slow or stop feeding temporarily. Estimated Daily Nutritional Needs for maintenance Calories: 2200 laurie @ 25cal/kg Protein: 124 grams @ 1.3g/kg Water: 2800 @ 30ml/kg Type & Amount of Tube Feeding recommended: Jevity 1.2 (or similar fiber containing formula that provides 1.2 calories per ml) Total daily: Bolus 330 ml w/ 180ml flushes 5 x/day (7am, 10am, 2pm, 4pm, and 7:30pm to avoid interaction with levodopa meds) Approximately 7 cans per day bolus. Extra water: approx. 500 ml daily Rinse tube before/after each feeding. Provides: Calories: 2016 kcal Protein: 93 g *You can skip one feeding for each 400 calories you eat. If you run out of formula, you can use one bottle Ensure Enlive per feed, short term. Dietitians: Jessica Suarez, MS RDN and Sulma Elizondo, MS RDN [phone] Original Note: Dietary Progress Note Completed first instruction and bolus feed for Ms Man s/p gastrostomy tube placement r/t severe dysphagia covering technique, safety, and sanitation. Pt is tolerating TF at goal rate, now switching to home routine of bolus gravity feeds of Jevity 1.2 @ 330mL c 180 mL flushes 5x/d at 700, 1000, 1400, 1600, and 1930. Pt has some PO intake of food and fluid in addition to PEG feeds. Pt received gravity bolus of 120mL formula c 60mL flush, experienced some stomach cramping, will titrate boluses to goal between now and tomorrow as tolerated. Pt currently taking carbidopa/levodopa @ 500, 1200, 1800, 2100. Will take care to space feeds to avoid drug-nutrient interactions as this medication competes 1:1 for absorption with dietary amino acids. EER: 2200 kcal (25kcal/kg), 124g PRO (1.3g/kg), 2800mL (30mL/kg) Nutrition DX: Severe acute PCM r/t dx dysphagia aeb energy intake < 50% EER >5d, weight loss > 5% in 1 mo, dx dysphagia w/ recent feeding tube placement. Intervention: Jevity 1.2 gravity bolus feeds using 60mL syringe @ 330mL c 180mL flushes 5x/d at 700, 1000, 1400, 1600, and 1930. Provides Kcal: 2016 laurie @ ~31 laurie/kg (nutritional weight) Pro: 93 g pro Fluid: 2256 We began feed @ 1330, 120mL formula plus 60mL flush. Please increase to goal rate as follows and as tolerated: 1600: 180mL formula plus 120mL flush 1930: 240mL formula plus 180mL flush 700: 330mL formula plus 180mL flush Please ensure pt comfort with self feeding and home health arranges formula prior to d/c.
[2019-04-14 15:30] LABS: BUN Creatinine Ratio 13.3 (6-22); Blood Urea Nitrogen 8 mg/dL (7-17); Calcium 8.5 mg/dL (8.4-10.2); Carbon Dioxide 31 mmol/L (22-32); Chloride 103 mmol/L (98-107); Estimated Glomerular Filt Rate > 60.0 mL/min (>60); Glucose 87 mg/dL (70-100); HEMOLYSIS < 15 (0-50); Magnesium 1.9 mg/dL (1.6-2.3); Phosphorous 2.7 mg/dL (2.5-4.5); Potassium 3.8 mmol/L (3.4-5.1); Sodium 140 mmol/L (137-145)
--- NOTE | 2019-04-14 15:48 | CM.DPC ---
Addendum entered by Vy Ortiz LPN 04/14/19 16:10: Pt says she her will be working on day of d/c but she has other extended family members who live on [place] and she will alert someone to be here to take her home on Wednesday. Original Note: DCP: continued: Case received, EMR reviewed and spoke with Aly MATTHEWS. Liliya explained that HH RN only follows in partnership with an enteral company and they work often with [facility]. Liliya says they can work with [employer] /Medicaid to obtain the needed authorization and had been alerted by the social insurance analyst at the [facility] on [place] to expect this referral. Called [facility] and spoke with Vanessa. She confirmed that it is the infusion/enteral companies who provide the needed tube feed supplies and overall management and often do so in partnership with HH RN, especially in case of the [facility]. She said a nurse would be set up to come to the hospital this weekend to open pt to service and set up a plan. She stated that a family or other contact would be needed to meet IS at the [facility] on a monthly basis or at their office to belt picker the needed supplies and otherwise support would be over the phone. Have discussed all this now with Dr. Newby, service restorer emergency Sulma Elizondo and pt. (Pt says she has history of working with [facility] in past for IV antibiotics at home and this is her vendor of choice.) Discussed plan for day of d/c. Dr. Newby stated pt needed more time to make sure she can handle the current formula put together today by Sulma in her discussion this afternoon with Dr. Newby. P: is for home on Wednesday with expectation that all is in place with [facility] and Aly MATTHEWS. Have faxed needed clinical to both now. Face/Face is completed and HH RN order is in place. Will be following up this weekend. CARLOS Lal is updated re the expected d/c plan for Tuesday 04/17
[2019-04-14] MEDS: POTASSIUM CHLORIDE 20 MEQ/15 ML UDC PO (19:40)
[2019-04-14] MEDS: MAGNESIUM SULFATE 2 GM/50 ML PIGGYBACK IV (19:40)
[2019-04-14] MEDS: diphenhydrAMINE 50 MG/ML VIAL 25 MG IV (21:34)
[2019-04-15] MEDS: OXYCODONE 5 MG/5 ML ORAL SOLUTION PO ×5 (00:33→20:49)
[2019-04-15] MEDS: ACETAMINOPHEN 325 MG TABLET 650 MG PO ×4 (00:34→18:27)
[2019-04-15] MEDS: KETOROLAC 15 MG/ML VIAL IV ×2 (01:11→17:04)
[2019-04-15] MEDS: SODIUM CHLORIDE 0.9% FLUSH 10 ML IV ×3 (01:12→20:49)
[2019-04-15 02:57] VITALS: BP 117/70; PULSE 77; RESP 18; TEMP 36.3; O2SAT 98
[2019-04-15] MEDS: diphenhydrAMINE 50 MG/ML VIAL 25 MG IV ×4 (03:01→22:55)
[2019-04-15] MEDS: clonazePAM 0.5 MG TABLET 1 MG PO ×3 (05:07→18:30)
[2019-04-15] MEDS: CARBIDOPA-LEVODOPA ER 50/200 TABLET 1 EACH PO ×4 (05:08→21:15)
[2019-04-15] MEDS: CARBIDOPA-LEVODOPA 25/100 TABLET 1 EACH PO ×3 (05:08→18:28)
[2019-04-15 05:40] LABS: Blood Urea Nitrogen 6 mg/dL (7-17); Calcium 8.5 mg/dL (8.4-10.2); Carbon Dioxide 29 mmol/L (22-32); Chloride 104 mmol/L (98-107); Estimated Glomerular Filt Rate > 60.0 mL/min (>60); Glucose 81 mg/dL (70-100); HEMOLYSIS < 15 (0-50); Magnesium 2.2 mg/dL (1.6-2.3); Phosphorous 3.1 mg/dL (2.5-4.5); Potassium 3.7 mmol/L (3.4-5.1); Sodium 139 mmol/L (137-145)
[2019-04-15 08:00] VITALS: BP 103/44; PULSE 77; RESP 16; TEMP 36.5; O2SAT 98
--- NOTE | 2019-04-15 08:17 | PM.PN.1 ---
Subjective Subjective Date Patient Seen: 04/15/19 Time Patient Seen: 08:17 Interval history: Pt developed a rash on her right side and mid abdominal wall, likely contact dermatitis from Dermabond. Otherwise doing well with tube feeds. Passing flatus. No stool. Exam Vital Signs (past 8 hours): - 04/15/19 02:57 Temperature 97.3 F L Pulse Rate 77 Respiratory Rate 18 Blood Pressure 117/70 Pulse Oximetry 98 Oxygen Delivery Method Room Air Oxygen Flow Rate 0 Narrative Exam Narrative: Exam Narrative: GENERAL: Resting in bed, no distress, alert and comfortable HENT: Normocephalic, atraumatic. Hearing intact. Oral mucosa is pink and moist. CARDIOVASCULAR: Regular rate. No pedal edema. RESPIRATORY: Normal respiratory rate, breathing comfortably on room air. GASTROINTESTINAL: Abdomen soft and non-distended; G tube site dressing intact; small amount of sanguinous drainage on underlying gauze; G tube in place without leakage Laparoscopic port sites c/d/i/a; + surrounding petechial rash c/w reaction to Dermabond GENITALURINARY: No flank tenderness. SKIN: Warm, dry, soft, appropriate color for ethnicity. No other lesions, rashes, or wounds. PSYCH: Appropriate affect and mood. Objective Labs Result Diagrams: 04/14/19 04:55 04/15/19 05:11 Labs: Laboratory Results - last 24 hr 04/14/19 04/15/19 15:07 05:11 Sodium 140 139 Potassium 3.8 3.7 Chloride 103 104 Carbon Dioxide 31 29 BUN 8 6 L Creatinine 0.60 0.60 Estimated GFR > 60.0 > 60.0 BUN/Creatinine Ratio 13.3 10.0 Glucose 87 81 Calcium 8.5 8.5 Phosphorus 2.7 3.1 Magnesium 1.9 2.2 Assessment & Plan Assessment and plan (1) Malnutrition: Problem details: Electrolytes stable Current visit: Yes Status: Acute (2) Gastrostomy tube in place: Problem details: Bolus tube feeding at goal. Continue teaching today. Dispo planning for Wednesday. Current visit: Yes Status: Acute (3) Dysphagia: Problem details: Chronic. Patient will take p.o. liquids and pudding consistency as tolerated. Qualifiers: Dysphagia type: unspecified Qualified Code(s): R13.10 - Dysphagia, unspecified Current visit: No Status: Acute Assessment & Plan narrative: Plan: Ambulate as tolerated PO as tolerated G tube teaching for home use Dispo planning for home bolus feeds set up for Wednesday Remove skin glue with vaseline, and cover sites with a bandaid. Quality VTE Deep Vein Thrombosis/Pulmonary Embolism Present on Admission: No
[2019-04-15] MEDS: DOCUSATE ORAL LIQUID 100 MG/10 ML UDC PO ×2 (08:27→20:47)
[2019-04-15] MEDS: ENOXAPARIN 40 MG/0.4 ML SYRINGE SUBCUT (08:27)
[2019-04-15] MEDS: PANTOPRAZOLE 40 MG VIAL IV ×2 (08:27→20:48)
[2019-04-15] MEDS: THIAMINE 100 MG in DEXTROSE 5 % IN WATER 50 ML 204 ML IV (08:28)
[2019-04-15] MEDS: NEOMYCIN/POLYMYXIN/BACITRA UD OINT 1 EACH TOP (08:28)
[2019-04-15 12:00] VITALS: BP 134/75; PULSE 78; RESP 16; TEMP 36.3; O2SAT 97
--- NOTE | 2019-04-15 12:45 | PC.NURSE ---
Pt had her tube feed bolus at 1020, She tolerated 330ml of Jevity 1.2 through her tube with a 180cc bolus of free water. Site is cdi. Pt has a rash to her torso and arms. Dr. Valencia thinks it might be the glue from closing her incisions up. Applied neosporin to area's to try and soften glue up and will try to get some of that off of small incisions x3. Pt also has a rash where betadine scrub used before surgery to put G tube in. Pt given benadryl IV and somewhat helpful. Pt is up independently in room, voiding but o bm.
--- NOTE | 2019-04-15 13:34 | CM.DPC ---
DCP: continued: Update received from [facility]: Shameka. The intake and teach process will occur tomorrow/Wednesday about [address]. [address] Eliseo Zapien PCP would be the following provider. Pt is updated. Dr. Newby was here earlier, she notes abdominal rash with ? of reaction to glue used in the surgical process. P: remains home on Wednesday with Aly MATTHEWS RN and [facility] following the tube feed process.
[2019-04-15 16:25] VITALS: BP 114/68; PULSE 87; RESP 20; TEMP 36.9; O2SAT 97
[2019-04-15 19:55] VITALS: BP 107/64; PULSE 89; RESP 18; TEMP 36.7; O2SAT 98
[2019-04-15 23:20] VITALS: BP 115/58; PULSE 80; RESP 16; TEMP 36.5; O2SAT 98
[2019-04-16] MEDS: ACETAMINOPHEN 325 MG TABLET 650 MG PO ×4 (01:13→18:11)
[2019-04-16] MEDS: KETOROLAC 15 MG/ML VIAL IV ×3 (01:14→20:10)
[2019-04-16] MEDS: SODIUM CHLORIDE 0.9% FLUSH 10 ML IV ×3 (01:19→22:00)
[2019-04-16 03:00] VITALS: BP 93/54; PULSE 71; RESP 16; TEMP 36.7; O2SAT 96
[2019-04-16] MEDS: CARBIDOPA-LEVODOPA 25/100 TABLET 1 EACH PO ×3 (05:06→18:09)
[2019-04-16] MEDS: clonazePAM 0.5 MG TABLET 1 MG PO ×3 (05:07→18:11)
[2019-04-16] MEDS: CARBIDOPA-LEVODOPA ER 50/200 TABLET 1 EACH PO ×4 (05:07→22:02)
[2019-04-16] MEDS: OXYCODONE 5 MG/5 ML ORAL SOLUTION PO ×4 (05:09→22:25)
[2019-04-16 06:09] LABS: HEMOLYSIS < 15 (0-50); Potassium 4.5 mmol/L (3.4-5.1)
[2019-04-16 06:10] LABS: Blood Urea Nitrogen 12 mg/dL (7-17); Calcium 8.8 mg/dL (8.4-10.2); Carbon Dioxide 31 mmol/L (22-32); Chloride 101 mmol/L (98-107); Estimated Glomerular Filt Rate > 60.0 mL/min (>60); Glucose 76 mg/dL (70-100); Magnesium 2.2 mg/dL (1.6-2.3); Phosphorous 3.4 mg/dL (2.5-4.5); Sodium 139 mmol/L (137-145)
[2019-04-16 08:00] VITALS: BP 127/72; PULSE 88; RESP 16; TEMP 36.2; O2SAT 98
[2019-04-16] MEDS: THIAMINE 100 MG in DEXTROSE 5 % IN WATER 50 ML 204 ML IV (08:58)
[2019-04-16] MEDS: diphenhydrAMINE 50 MG/ML VIAL 25 MG IV ×2 (08:58→20:10)
[2019-04-16] MEDS: ENOXAPARIN 40 MG/0.4 ML SYRINGE SUBCUT (08:58)
[2019-04-16] MEDS: PANTOPRAZOLE 40 MG VIAL IV ×2 (08:59→21:59)
[2019-04-16 12:00] VITALS: BP 135/78; PULSE 75; RESP 19; TEMP 36.6; O2SAT 99
--- NOTE | 2019-04-16 12:25 | P.PN_ITS ---
Subjective Subjective Date Patient Seen: 04/16/19 Time Patient Seen: 12:26 Interval history: The patient complains of abdominal pain. She is not sure if it is better worse are about the same. Exam Vital Signs (past 8 hours): - 04/16/19 08:00 Temperature 97.1 F L Pulse Rate 88 Respiratory Rate 16 Blood Pressure 127/72 Pulse Oximetry 98 Oxygen Delivery Method Room Air Oxygen Flow Rate 0 Narrative Exam Narrative: Cooperative no apparent distress. Lungs are clear no rales or rhonchi. Heart regular rate and rhythm without murmur gallop. Abdomen is soft. Patient winces and even the slightest touch so it is difficult to tell if she is terribly tender or not. There is no guarding however and no obvious tenderness with palpation. She does have redness around the incisions and appears to have had a reaction to the material used not only at the port sites but also tape elsewhere. Objective Labs Result Diagrams: 04/14/19 04:55 04/16/19 05:29 Labs: Laboratory Results - last 24 hr 04/16/19 05:29 Sodium 139 Potassium 4.5 Chloride 101 Carbon Dioxide 31 BUN 12 Creatinine 0.60 Estimated GFR > 60.0 BUN/Creatinine Ratio 20.0 Glucose 76 Calcium 8.8 Phosphorus 3.4 Magnesium 2.2 Assessment & Plan Post-op Postoperative Procedures: Procedures Operation Date: 04/12/19 11:45 Actual Procedures Side Surgeon p Laparoscopic gastrostomy tube placement Tika Newby MD Postoperative status narrative: Doing all right. Scheduled to be discharged [facility]. Supplies have been delivered. We will give her a topical steroid. Postoperative plan narrative: Shower. Quality VTE Deep Vein Thrombosis/Pulmonary Embolism Present on Admission: No
[2019-04-16] MEDS: TRIAMCINOLONE 0.025% CREAM 1 APPLIC TOP ×3 (13:33→17:29)
[2019-04-16] MEDS: DOCUSATE ORAL LIQUID 100 MG/10 ML UDC PO ×2 (13:33→21:59)
[2019-04-16 16:28] VITALS: BP 114/71; PULSE 84; RESP 18; TEMP 36.2; O2SAT 98
[2019-04-16 20:18] VITALS: BP 130/71; PULSE 87; RESP 17; TEMP 36.6; O2SAT 98
[2019-04-17] MEDS: ACETAMINOPHEN 325 MG TABLET 650 MG PO ×2 (00:10→05:12)
[2019-04-17 01:30] VITALS: BP 109/67; PULSE 83; RESP 16; TEMP 37.1; O2SAT 95
[2019-04-17] MEDS: clonazePAM 0.5 MG TABLET 1 MG PO ×2 (05:11→12:07)
[2019-04-17] MEDS: CARBIDOPA-LEVODOPA 25/100 TABLET 1 EACH PO ×2 (05:11→12:07)
[2019-04-17] MEDS: CARBIDOPA-LEVODOPA ER 50/200 TABLET 1 EACH PO ×2 (05:11→12:07)
[2019-04-17] MEDS: OXYCODONE 5 MG/5 ML ORAL SOLUTION PO ×2 (05:16→09:20)
[2019-04-17] MEDS: KETOROLAC 15 MG/ML VIAL IV (05:17)
[2019-04-17 05:31] LABS: BUN Creatinine Ratio 26.7 (6-22); Blood Urea Nitrogen 16 mg/dL (7-17); Calcium 9.1 mg/dL (8.4-10.2); Carbon Dioxide 30 mmol/L (22-32); Chloride 101 mmol/L (98-107); Estimated Glomerular Filt Rate > 60.0 mL/min (>60); Glucose 84 mg/dL (70-100); HEMOLYSIS < 15 (0-50); Phosphorous 3.6 mg/dL (2.5-4.5); Potassium 4.1 mmol/L (3.4-5.1); Sodium 137 mmol/L (137-145)
[2019-04-17 06:27] VITALS: BP 120/65; PULSE 89; RESP 16; TEMP 36.9; O2SAT 96
[2019-04-17 08:00] VITALS: BP 124/71; PULSE 90; RESP 16; TEMP 36.6; O2SAT 97
[2019-04-17] MEDS: PANTOPRAZOLE 40 MG VIAL IV (09:21)
[2019-04-17] MEDS: SODIUM CHLORIDE 0.9% FLUSH 10 ML IV (09:21)
[2019-04-17] MEDS: ENOXAPARIN 40 MG/0.4 ML SYRINGE SUBCUT (09:23)
[2019-04-17] MEDS: DOCUSATE ORAL LIQUID 100 MG/10 ML UDC PO (09:23)
[2019-04-17] MEDS: THIAMINE 100 MG in DEXTROSE 5 % IN WATER 50 ML 204 ML IV (09:24)
--- NOTE | 2019-04-17 10:43 | PC.NURSE ---
Addendum entered by Isa Salgado R.N. 04/17/19 14:45: Went over dc meds and instructions with patient, questions answered. Rx for pain meds taken to [facility]. Pt taken via [place] to vehicle driven by father, patient had all belongings. Addendum entered by Isa Salgado R.N. 04/17/19 12:47: Patient did not want the 1000 and 1200 bolus tube feeds, had oatmeal and then soup for lunch. Wanting to wait to get home and get into her routine. [id number]. Original Note: Patient alert, oriented, c/o abdominal pain 12/05 given 5mg oxycodone per patient request. Patient administered her own bolus feed and water flush through G tube, tolerated well. Ate 50% of her oat meal.
[2019-04-17 11:54] VITALS: BP 113/62; PULSE 88; RESP 14; TEMP 37.1; O2SAT 97
[2019-04-17] MEDS: OXYCODONE 5 MG/5 ML ORAL SOLUTION 10 MG PO (13:45)
--- NOTE | 2019-04-17 19:00 | P.DS_ITS ---
History of Present Illness History of Present Illness Chief complaint: [id number] Discharge Providers Provider Date of admission: 04/12/19 10:51 Discharge Date: 04/17/19 Primary care physician: Eliseo Zapien MD Consults: 04/12/19 15:43 Consult to Discharge Planning Routine Comment: 04/12/19 15:51 Consult to Dietitian, Adult Stat Comment: NEED TUBE FEEDS 04/13; WATCH FOR REFEEDING SYND Reason For Exam: SEVERE MALNUTRITION; NEW G TUBE PLACED 04/1204/12/19 16:59 Consult to Respiratory Therapy Evaluate & Treat Comment: patient with dysphonia and movement disorder Physician Instructions: Evaluate and treat post laparoscopic G-Tube 04/14/19 15:41 Consult to Home Health Routine Comment: Reason For Exam: Home Health instructor physical education provider: Howard Manzo MD Summary Hospital Course Discharge Diagnosis: One severe dysphagia cause unclear Gastroesophageal reflux disease. Allergic reaction to a topical agent (acute talk buccal dermatitis due to allerg y) Anemia of unknown cause. Appears to be chronic. Hospital Course: Patient was brought in for a laparoscopic gastrostomy tube which was placed the day of admission. She required recovery time and setup time to obtain the necessary materials to be discharged with. Status at Discharge Cognitive/behavioral status at discharge: oriented Functional status at discharge: independent ambulation Overall status at discharge: patient is progressing back to baseline Exam Vital Signs (past 8 hours): - 04/17/19 11:54 Temperature 98.8 F Pulse Rate 88 Respiratory Rate 14 Blood Pressure 113/62 Pulse Oximetry 97 Oxygen Delivery Method Room Air Oxygen Flow Rate 0 Narrative Exam Narrative: Patient's abdomen is protuberant soft. No cellulitis. Had a reaction to something on the skin of her abdominal wall. Was treated with Benadryl and with triamcinolone. Gastrostomy site without cellulitis. Objective Labs Result Diagrams: 04/14/19 04:55 04/17/19 05:08 Labs: Laboratory Results - last 24 hr 04/17/19 05:08 Sodium 137 Potassium 4.1 Chloride 101 Carbon Dioxide 30 BUN 16 Creatinine 0.60 Estimated GFR > 60.0 BUN/Creatinine Ratio 26.7 H Glucose 84 Calcium 9.1 Phosphorus 3.6 Magnesium 2.0 Discharge Plan Discharge Plan Patient Disposition: Home Health Service Transfer to: [facility] Discharge comment: Take pain medication only as needed. You may take Tylenol or ibuprofen as needed to reduce the need for narcotic pain meds. Take a stool softener such as Docusate unless you are having loose stool. Call on Wednesday to make a follow up appointment with [facility] to be seen in 1-2 weeks after discharge from the hospital. Tube feeding information from the Registered Dietitian: General Information: All tube feeding formulas, like milk, will support the growth of germs. Therefore handle all formulas as cleanly as possible and keep open formula in the refrigerator. Most people require additional water. If you are thirsty take extra fluid, either through the tube or, if able, by drinking it. Formulas with fiber should be given at room temperature and generally room temperature formulas are more comfortable. Formula should be administered slowly with Maximum: 1)for bolus feedings 360ml (1 ? cups) over ? hour (Bolus feedings are administered with a syringe or by gravity drip) Keep head up during feeding and for about a ? hour after the feeding. If you feel uncomfortably full, slow or stop feeding temporarily. Estimated Daily Nutritional Needs for maintenance Calories: 2200 laurie @ 25cal/kg Protein: 124 grams @ 1.3g/kg Water: 2800 @ 30ml/kg Type & Amount of Tube Feeding recommended: Jevity 1.2 (or similar fiber containing formula that provides 1.2 calories per ml) Total daily: Bolus 330 ml w/ 180ml flushes 5 x/day (7am, 10am, 2pm, 4pm, and 7:30pm to avoid interaction with levodopa meds) Approximately 7 cans per day bolus. Extra water: approx. 500 ml daily Rinse tube before/after each feeding. Provides:Calories: 2016 kcal Protein: 93 g *You can skip one feeding for each 400 calories you eat. If you run out of formula, you can use one bottle Ensure Enlive per feed, short term. Dietitians: Jessica Suarez, MS RDN and Sulma Elizondo, MS RDN [phone] Discharge Med Rec/Prescriptions Prescriptions: New docusate sodium 50 mg/5 mL Liquid 100 mg PO BID Qty: 200 RF: 0 oxycodone 5 mg/5 mL Solution 5 mg PO Q4HR MDD 30mL PRN (Reason: Pain, Moderate (4-6)) Qty: 150 RF: 0 oxycodone 5 mg tablet 5 mg PO Q4H PRN (Reason: painful procedure) Qty: 20 RF: 0 triamcinolone acetonide 0.025 % cream 1 applictn TOP BID Qty: 15 RF: 1 Continued clonazepam 1 mg Tablet 1 mg PO TID RF: 0 carbidopa-levodopa 50-200 mg tablet extended release 1 tab PO QID RF: 0 carbidopa-levodopa 25-100 mg tablet 1 tab PO TID RF: 0 omeprazole 20 mg Tablet,Delayed Release (Dr/Ec) 60 mg PO QPM RF: 0 Follow up/Referrals: Eliseo Zapien MD [Primary Care Provider] - Provider Discharge Instructions Diet: Diet as Tolerated Diet comment: Follow dietitian instructions as above. Activity: Take frequent walks. Avoid heavy lifting/straining. Keep tube site clean and dry. Skin/Wound/Dressing Care Report to your healthcare provider any signs of infection, such as:: chills, fever, night sweats, increased pain, unusual drainage and unusual redness Dressing: Keep a dry dressing over your tube site. If the steri strips come off, you may remove them. Keep the skin glue in place at the laparoscopic sites until it falls off on its own. Visit Report/Discharge Packet Instructions: DI for Laparoscopy, Oxycodone Stand Alone Forms: Surgery Discharge Discharge Data Primary Care Provider: Eliseo Zapien Discharges patient from system. Discharge Date/Time: 04/17/19 14:46 Quality VTE Deep Vein Thrombosis/Pulmonary Embolism Present on Admission: No
--- NOTE | 2019-04-18 09:31 | CM.DPC ---
DCP Cont: Faxed discharge summary to [facility] at fax # [phone]. Fax confirmation scanned in. Daija Dexter, Care Manager [employer]
== END 2019-04-17 14:46 | disposition home health service (06) | DRG 421 ==
LOC: OR 12:55 → AC 12:56
PROVIDERS: Admitting Provider Surgery; PCP Family Medicine; Visit Provider Surgery
PROC: 0DH63UZ Insertion of Feeding Device into Stomach, Percutaneous Approach (ICD-10-PCS; principal; 2019-04-12 11:45)
DX: E46 Unspecified protein-calorie malnutrition (principal); Z68.37 Body mass index [BMI] 37.0-37.9, adult; E86.0 Dehydration; J38.00 Paralysis of vocal cords and larynx, unspecified; R13.10 Dysphagia, unspecified; K21.9 Gastro-esophageal reflux disease without esophagitis; G25.9 Extrapyramidal and movement disorder, unspecified; Z87.891 Personal history of nicotine dependence; L25.8 Unspecified contact dermatitis due to other agents
CPT/HCPCS: 36415; 43246; 80048; 80053; 82962; 83735; 84100; 85025; 94760; 94762; C9113; J0330; J1100; J1200; J1650; J1885; J2250; J2270; J2405; J2543; J2704; J3010; J3410

== ENCOUNTER 2019-05-01 14:03 | Emergency (ER) | payer OTHER, MEDICAID, SELFPAY ==
[2019-04-12 18:33] VITALS: BMI 36.0
[2019-05-01 14:21] VITALS: BP 108/74; PULSE 88; RESP 20; TEMP 36.6; O2SAT 98
--- NOTE | 2019-05-01 16:46 | DI.RAD.S_ITS ---
PROCEDURE: XR ACUTE ABDOMEN SERIES INDICATIONS: L abdominal pain, fever, s/p gastric tube insertion TECHNIQUE: One view chest and two views of the abdomen were acquired. COMPARISON: None. FINDINGS: Surgical changes and devices: A gastrostomy tube is projected over the gastric fundus. Chest: Lungs are clear. Heart size is normal. No pleural effusions. No pneumoperitoneum. Abdomen: Bowel gas pattern is normal. No suspicious calcifications. Visualized solid organ contours appear normal. Bones: No suspicious bony lesions. IMPRESSION: No acute cardiopulmonary findings. No acute intra-abdominal findings. Dictated by: Nina Schrader M.D. on 05/01/2019 at 17:28 Approved by: Nina Schrader M.D. on 05/01/2019 at 17:29
[2019-05-01 17:38] LABS: Add Manual Diff / Slide Review NO; Basophils Absolute Auto 100 /uL (0-100); Basophils Percent Auto 0.7 % (0-2); Eosinophils Absolute Auto 100 /uL (0-450); Hematocrit 36.9 % (36-46); Hemoglobin 12.4 g/dL (12.0-16.0); Lymphocytes Absolute Auto 1700 /uL (1100-4500); Lymphocytes Percent Auto 24.5 % (25-40); Mean Corpuscular HGB Conc 33.6 % (30-36); Mean Corpuscular Volume 86.5 fL (80-100); Monocytes Absolute Auto 400 /uL (0-900); Monocytes Percent Auto 5.1 % (3-14); Neutrophils Absolute Auto 4700 /uL (1500-7000); Neutrophils Percent Auto 68.7 % (50-75); Platelet Count 352 X10^3/uL (150-400); Red Blood Cell Count 4.27 X10^6/uL (4.0-5.2); Red Cell Distribution Width 15.5 % (11.6-14.8); White Blood Cell Count 6.9 X10^3/uL (4.5-11.0)
[2019-05-01 17:50] LABS: Alanine Aminotransferase 6 IU/L (<35); Albumin 4.7 g/dL (3.5-5.0); Albumin Globulin Ratio 1.4 (1.0-2.8); Alkaline Phosphatase 73 U/L (38-126); Aspartate Aminotransferase 26 IU/L (14-36); Bilirubin Total 0.5 mg/dL (0.2-1.3); Blood Urea Nitrogen 15 mg/dL (7-17); Calcium 9.8 mg/dL (8.4-10.2); Carbon Dioxide 26 mmol/L (22-32); Chloride 104 mmol/L (98-107); Estimated Glomerular Filt Rate > 60.0 mL/min (>60); Globulin 3.4 g/dL (1.7-4.1); Glucose 86 mg/dL (70-100); HEMOLYSIS < 15 (0-50); Lipase 108 U/L (23-300); Potassium 3.8 mmol/L (3.4-5.1); Sodium 140 mmol/L (137-145); Total Protein 8.1 g/dL (6.3-8.2)
[2019-05-01 17:53] LABS: Lactate (Lactic Acid) 0.7 mmol/L (0.7-2.1)
--- NOTE | 2019-05-01 17:56 | ED_ITS ---
HPI - Fever <RENAE Emanuel - Last Filed: 05/01/19 23:45> General Chief Complaint: Fever Stated Complaint: feeding tube antibiotics and getting worse Time Seen by Provider: 05/01/19 16:24 Source: patient Mode of arrival: Ambulatory Limitations: no limitations History of Present Illness HPI Narrative: This is a stat 39-year-old female, formal smoker, history of recent gastric tube in placement, presents to ED with chief complain of left- sided abdominal pain with fever and post-surgical skin infection. Patient reports she had gastric feeding tube in placed on 04/12/[address] Saldaña and discharged to home about 2 weeks ago. Then, she developed skin infection around gastric to and had started on Keflex 4 days ago. Patient had fever at home few days ago as T-max is 102 which has improved and has been running around at 99.5. Patient is no longer taking oxycodone post surgically and is currently taking alternating Tylenol and Motrin for pain. Patient reports to feeding has been going well without difficulty. She denies urinary symptoms such as urinary frequency, urgency, dysuria. Patient denies constipation or diarrhea. Patient's skin infection has been improving and noticed significantly decreased drainage from the site without increasing redness or warmth. Gastric tube was inplaced due to dysphagia since 2017 for food and liquid. Patient was referred to [facility] Emergency room by her primary care physician Dr. Zapien for possible IV antibiotic medications. Related Data Home Medications Medication Instructions Recorded Confirmed clonazepam 1 mg PO TID 11/05/17 05/01/19 carbidopa-levodopa 1 tab PO QID 03/17/19 05/01/19 carbidopa-levodopa 1 tab PO TID 03/17/19 05/01/19 omeprazole 60 mg PO QPM 03/17/19 05/01/19 cephalexin 500 mg PO TID 05/01/19 05/01/19 Previous Rx's Medication Instructions Recorded docusate sodium 100 mg PO BID #200 ml 04/15/19 oxycodone 5 mg PO Q4HR PRN #150 ml MDD 30mL 04/15/19 oxycodone 5 mg PO Q4H PRN #20 tab 04/17/19 triamcinolone acetonide 1 applictn TOP BID #15 gram 04/17/19 tramadol 50 mg PO Q12H PRN #7 tab 05/01/19 Allergies Allergy/AdvReac Type Severity Reaction Status Date / Time Gadolinium-Containing Allergy Unknown Verified 04/12/19 11:41 Contrast Medi Sulfa (Sulfonamide Allergy Unknown Verified 04/12/19 11:41 Antibiotics) [SULFA (SULFONAMIDE ANTIBIOTICS)] adhesive AdvReac Intermediate Blister Verified 04/12/19 11:41 Review of Systems <RENAE Emanuel - Last Filed: 05/01/19 23:45> Review of Systems Narrative: General: See HPI HEENT: Denies sinus pain, ear pain, sore throat, difficulty swallowing, dizziness. Respiratory: Denies dyspnea, cough, wheezing, hemoptysis, sputum. Cardiovascular: Denies chest pain, palpitations, orthopnea, edema. Gastrointestinal: See HPI : Denies dysuria, frequency, incontinence, hematuria, urinary retention. Musculoskeletal: Denies weakness, joint pain or bony pain. Skin: See HPI Neurologic: Denies weakness, headache, numbness, change in speech, confusion, seizures, incoordination. Psychiatric: No concerning psychosocial issues. 12-point review of systems is negative except for those stated above. Patient History <RENAE Emanuel - Last Filed: 05/01/19 23:45> Medical History Dysphagia (Acute) GERD (gastroesophageal reflux disease) (Acute) Movement disorder (Chronic) Vocal cord paralysis (Chronic) Social History household members: significant other and children Smoking Status: Former smoker alcohol intake: current alcohol intake frequency: holidays/special occasions only Substance Use Type: does not use and other Exam <RENAE Emanuel - Last Filed: 05/01/19 23:45> Narrative Exam Narrative: GEN: Alert, oriented x 3, well appearing and nourished, and in no acute distress. Head: Normal cephalic, atraumatic. No scalp or temporal tenderness, palpable mass or rash. EYES: Pupils are equal, round, and reactive to light and accommodation. Extraocular muscles are intact bilaterally. There is no subconjunctival hemorrhage, exudate and sclera non-icteric. ENT: Bilateral auditory canals and tympanic membranes clear. Hearing grossly intact. Nose without bleeding, purulent discharge or deviation. Facial sinuses nontender to palpate. Mucous membrane moist, no mucosal lesion. Throat without erythema, tonsillar hypertrophy or exudate. Uvula in midline, airway patent. Horse voice which is not new. Neck: Trachea in midline. No JVD, non-tender without lymphadenopathy. No masses or thyroid megaly. Supple, non-tender and no meningeal signs. CARDIAC: Normal regular rate and rhythm without murmurs, gallops, or rubs. No chest wall tenderness. No peripheral edema, cyanosis or pallor. Capillary refill is less than 2 seconds. RESPIRATORY: Lungs are clear to auscultate bilaterally. No cough, wheezes, rales, or rhonchi. No stridor, respiratory distress, increase work of elvira thing, or accessary muscle used. ABD: G-Tube in left mid abdomen. Abdomen soft, tender to palpate left-sided to gastric tube. Abdomen non-distended. No guarding or rebound tenderness to palpate. Bowel sounds are normal in all 4 quadrants. There is no palpable masses or organomegaly. EXT: Full painless ROM of all extremities with no loss of sensation, strength, effusion or edema. SKIN: Warm, dry, normal color for patient. No purulent discharge or warmth tp touch but with mild erythema around the G-tube. Mild fading ecchymosis/yellow discoloration on L side abdomen near the G-Tube. BACK: Nontender without deformity or crepitance. No flank tenderness. NEUROLOGICAL: Alert and oriented to place, time and person. Sensation and motor function intact bilaterally. No facial droops, dysphasia. PSYCHIATRIC: Good judgement and reason, without hallucinations, abnormal affect or abnormal behaviors during the examination. Patient is not suicidal. Initial Vital Signs Initial Vital Signs: Vital Signs Temperature 97.9 F 05/01/19 14:21 Pulse Rate 88 05/01/19 14:21 Respiratory Rate 20 05/01/19 14:21 Blood Pressure 108/74 05/01/19 14:21 Pulse Oximetry 98 05/01/19 14:21 <Anais Edmonds MD - Last Filed: 05/03/19 04:40> Initial Vital Signs Initial Vital Signs: Vital Signs Temperature 97.9 F 05/01/19 14:21 Pulse Rate 88 05/01/19 14:21 Respiratory Rate 20 05/01/19 14:21 Blood Pressure 108/74 05/01/19 14:21 Pulse Oximetry 98 05/01/19 14:21 Scores <RENAE Emanuel - Last Filed: 05/01/19 23:45> GCS Ariel coma scale eye opening: Spontaneous Ariel coma scale verbal response: Orientated Ariel coma scale motor response: Obey commands Ariel coma scale total score: 15 Course <RENAE Emanuel - Last Filed: 05/01/19 23:45> Orders Ordered: Discontinued Medications Tramadol HCl (Ultram) 50 mg PO NOW ONE Stop: 05/01/19 18:36 Last Admin: 05/01/19 19:29 Dose: 50 mg Documented by: COLTEN Consultations Consultation #1: Dr. Forman- continue with the current antibiotic medication. No CT test is needed at this time. F/u with Dr. Saldaña on with return precautions Time: 19:00 Vital Signs Vital signs: Vital Signs - 8 hr 05/01/19 18:12 05/01/19 19:25 Temperature 98.6 F Pulse Rate 75 69 Respiratory Rate 12 16 Blood Pressure 129/78 Blood Pressure [Right Arm] 124/75 Pulse Oximetry 99 99 <Anais Edmonds MD - Last Filed: 05/03/19 04:40> Orders Ordered: Discontinued Medications Tramadol HCl (Ultram) 50 mg PO NOW ONE Stop: 05/01/19 18:36 Last Admin: 05/01/19 19:29 Dose: 50 mg Documented by: COLTEN Vital Signs Vital signs: Vital Signs - 8 hr 05/01/19 18:12 05/01/19 19:25 Temperature 98.6 F Pulse Rate 75 69 Respiratory Rate 12 16 Blood Pressure 129/78 Blood Pressure [Right Arm] 124/75 Pulse Oximetry 99 99 MDM - Fever <RENAE Emanuel - Last Filed: 05/01/19 23:45> Differential Diagnosis Differential diagnosis: Likely cellulitis, sepsis and other (G-Tube complication , peritonitis) Medical Records Attestation: I reviewed the patient's medical records. Lab Data Attestation: I reviewed the patient's lab results. Result diagrams: 05/01/19 17:30 05/01/19 17:30 Labs: Lab Results 05/01/19 05/01/19 05/01/19 Range/Units 17:30 17:30 17:30 WBC 6.9 (4.5-11.0) X10^3/uL RBC 4.27 (4.0-5.2) X10^6/uL Hgb 12.4 (12.0-16.0) g/dL Hct 36.9 (36-46) % MCV 86.5 (80-100) fL MCH 29.0 (26-34) PG MCHC 33.6 (30-36) % RDW 15.5 H (11.6-14.8) % Plt Count 352 (150-400) X10^3/uL Neut % (Auto) 68.7 (50-75) % Lymph % (Auto) 24.5 L (25-40) % Stephens % (Auto) 5.1 (3-14) % Eos % (Auto) 1.0 L (2-4) % Baso % (Auto) 0.7 (0-2) % Neut # (Auto) 4700 (3846-8440) /uL Lymph # (Auto) 1700 (7118-1841) /uL Stephens # (Auto) 400 (0-900) /uL Eos # (Auto) 100 (0-450) /uL Baso # (Auto) 100 (0-100) /uL Sodium 140 (137-145) mmol/L Potassium 3.8 (3.4-5.1) mmol/L Chloride 104 (98-107) mmol/L Carbon Dioxide 26 (22-32) mmol/L BUN 15 (7-17) mg/dL Creatinine 0.60 (0.52-1.04) mg/dL Estimated GFR > 60.0 (>60) mL/min BUN/Creatinine Ratio 25.0 H (6-22) Glucose 86 (70-100) mg/dL Lactate (0.7-2.1) mmol/L Calcium 9.8 (8.4-10.2) mg/dL Total Bilirubin 0.5 (0.2-1.3) mg/dL AST 26 (14-36) IU/L ALT 6 (<35) IU/L Alkaline Phosphatase 73 (38-126) U/L Total Protein 8.1 (6.3-8.2) g/dL Albumin 4.7 (3.5-5.0) g/dL Globulin 3.4 (1.7-4.1) g/dL Albumin/Globulin Ratio 1.4 (1.0-2.8) Lipase 108 (23-300) U/L Procalcitonin < 0.05 (<0.5) ng/mL 05/01/19 Range/Units 17:35 WBC (4.5-11.0) X10^3/uL RBC (4.0-5.2) X10^6/uL Hgb (12.0-16.0) g/dL Hct (36-46) % MCV (80-100) fL MCH (26-34) PG MCHC (30-36) % RDW (11.6-14.8) % Plt Count (150-400) X10^3/uL Neut % (Auto) (50-75) % Lymph % (Auto) (25-40) % Stephens % (Auto) (3-14) % Eos % (Auto) (2-4) % Baso % (Auto) (0-2) % Neut # (Auto) (0845-6830) /uL Lymph # (Auto) (6278-6044) /uL Stephens # (Auto) (0-900) /uL Eos # (Auto) (0-450) /uL Baso # (Auto) (0-100) /uL Sodium (137-145) mmol/L Potassium (3.4-5.1) mmol/L Chloride (98-107) mmol/L Carbon Dioxide (22-32) mmol/L BUN (7-17) mg/dL Creatinine (0.52-1.04) mg/dL Estimated GFR (>60) mL/min BUN/Creatinine Ratio (6-22) Glucose (70-100) mg/dL Lactate 0.7 (0.7-2.1) mmol/L Calcium (8.4-10.2) mg/dL Total Bilirubin (0.2-1.3) mg/dL AST (14-36) IU/L ALT (<35) IU/L Alkaline Phosphatase (38-126) U/L Total Protein (6.3-8.2) g/dL Albumin (3.5-5.0) g/dL Globulin (1.7-4.1) g/dL Albumin/Globulin Ratio (1.0-2.8) Lipase (23-300) U/L Procalcitonin (<0.5) ng/mL Imaging Data XR-AAS: Radiologist's impression: [address] [address] XRay Report Signed Patient: Janki Man LMR#: [id number] : 1980Acct:[id number] Age/Sex: 39 / FDate of Service: 05/01/19 Loc: ED Accession Number: [id number] Procedure: XR acute abdomen series Ordering Provider: Layo Cornell PROCEDURE: XR ACUTE ABDOMEN SERIES INDICATIONS: L abdominal pain, fever, s/p gastric tube insertion TECHNIQUE: One view chest and two views of the abdomen were acquired. COMPARISON: None. FINDINGS: Surgical changes and devices: A gastrostomy tube is projected over the gastric fundus. Chest: Lungs are clear. Heart size is normal. No pleural effusions. No pneumoperitoneum. Abdomen: Bowel gas pattern is normal. No suspicious calcifications. Visualized solid organ contours appear normal. Bones: No suspicious bony lesions. IMPRESSION: No acute cardiopulmonary findings. No acute intra-abdominal findings. Dictated by: Nina Schrader M.D. on 05/01/2019 at 17:28 Approved by: Nina Schrader M.D. on 05/01/2019 at 17:29 [facility] Narrative Medical decision making narrative: This is a 39-year-old female from [facility] presents to ED after she was referred by her primary care physician Dr. Zapien. Patient had G-tube in placed on 04/12/2019 successfully and discharged to home about 2 weeks ago. Then, patient developed skin infection around the G- tube and has been taking Keflex for last 4 days. Patient reports skin around the G-tube has been improved. Patient had fever but it has improved and now is running about 99.5 degree with taking Tylenol and Motrin for abdominal discomfort. Patient not currently taking narcotic medication. Patient reports abdominal pain left to his gastric to and physical exam exhibited tender to palpate without guarding, distension, rigid abdomen. Acute abdominal series was obtained with no acute findings. Patient's blood test shows no leukocytosis, shift to left. Lactate and procalcitonin was normal. Wound culture was obtained from abdomen around the gastric tube. Chemistry test was unremarkable. There is no obvious signs of infection. Dr. Forman was consulted and advised to have patient complete the full course of antibiotic medication since patient has been seeing improvement surgical skin site. Patient's abdominal pain is likely due to surgical intervention and new gastric tube insertion. Abdominal CT scan was not suggested at this time. Patient reports she has been doing well with tube feeding. Patient has a follow-up appointment with Dr. Newby in 3 days and advised to keep this appointment. Patient was medicated tramadol before discharged to home and provided a few doses for outpatient use. Patient verbalized understanding and agrees with the treatment plan and return precautions were discussed. <Anais Edmonds MD - Last Filed: 05/03/19 04:40> Lab Data Labs: Lab Results 05/01/19 05/01/19 05/01/19 Range/Units 17:30 17:30 17:30 WBC 6.9 (4.5-11.0) X10^3/uL RBC 4.27 (4.0-5.2) X10^6/uL Hgb 12.4 (12.0-16.0) g/dL Hct 36.9 (36-46) % MCV 86.5 (80-100) fL MCH 29.0 (26-34) PG MCHC 33.6 (30-36) % RDW 15.5 H (11.6-14.8) % Plt Count 352 (150-400) X10^3/uL Neut % (Auto) 68.7 (50-75) % Lymph % (Auto) 24.5 L (25-40) % Stephens % (Auto) 5.1 (3-14) % Eos % (Auto) 1.0 L (2-4) % Baso % (Auto) 0.7 (0-2) % Neut # (Auto) 4700 (9117-0678) /uL Lymph # (Auto) 1700 (4823-2881) /uL Stephens # (Auto) 400 (0-900) /uL Eos # (Auto) 100 (0-450) /uL Baso # (Auto) 100 (0-100) /uL Sodium 140 (137-145) mmol/L Potassium 3.8 (3.4-5.1) mmol/L Chloride 104 (98-107) mmol/L Carbon Dioxide 26 (22-32) mmol/L BUN 15 (7-17) mg/dL Creatinine 0.60 (0.52-1.04) mg/dL Estimated GFR > 60.0 (>60) mL/min BUN/Creatinine Ratio 25.0 H (6-22) Glucose 86 (70-100) mg/dL Lactate (0.7-2.1) mmol/L Calcium 9.8 (8.4-10.2) mg/dL Total Bilirubin 0.5 (0.2-1.3) mg/dL AST 26 (14-36) IU/L ALT 6 (<35) IU/L Alkaline Phosphatase 73 (38-126) U/L Total Protein 8.1 (6.3-8.2) g/dL Albumin 4.7 (3.5-5.0) g/dL Globulin 3.4 (1.7-4.1) g/dL Albumin/Globulin Ratio 1.4 (1.0-2.8) Lipase 108 (23-300) U/L Procalcitonin < 0.05 (<0.5) ng/mL 05/01/19 Range/Units 17:35 WBC (4.5-11.0) X10^3/uL RBC (4.0-5.2) X10^6/uL Hgb (12.0-16.0) g/dL Hct (36-46) % MCV (80-100) fL MCH (26-34) PG MCHC (30-36) % RDW (11.6-14.8) % Plt Count (150-400) X10^3/uL Neut % (Auto) (50-75) % Lymph % (Auto) (25-40) % Stephens % (Auto) (3-14) % Eos % (Auto) (2-4) % Baso % (Auto) (0-2) % Neut # (Auto) (3379-1101) /uL Lymph # (Auto) (1173-7822) /uL Stephens # (Auto) (0-900) /uL Eos # (Auto) (0-450) /uL Baso # (Auto) (0-100) /uL Sodium (137-145) mmol/L Potassium (3.4-5.1) mmol/L Chloride (98-107) mmol/L Carbon Dioxide (22-32) mmol/L BUN (7-17) mg/dL Creatinine (0.52-1.04) mg/dL Estimated GFR (>60) mL/min BUN/Creatinine Ratio (6-22) Glucose (70-100) mg/dL Lactate 0.7 (0.7-2.1) mmol/L Calcium (8.4-10.2) mg/dL Total Bilirubin (0.2-1.3) mg/dL AST (14-36) IU/L ALT (<35) IU/L Alkaline Phosphatase (38-126) U/L Total Protein (6.3-8.2) g/dL Albumin (3.5-5.0) g/dL Globulin (1.7-4.1) g/dL Albumin/Globulin Ratio (1.0-2.8) Lipase (23-300) U/L Procalcitonin (<0.5) ng/mL Discharge Plan Departure Patient Disposition: Home Clinical Impression: Gastrostomy tube in place, Skin infection at gastrostomy tube site, History of surgery for acute abdominal pain Discharge Date/Time: 05/01/19 19:00 Instructions: DI for Abdominal Pain-Adult, DI for Surgical Site Infection Activity Restrictions/Additional Instructions: You have been diagnosed with [surgical sites skin infection and left-sided abdominal pain, s/p G tube inplacement on 04/12/19 and possible fever. The blood test today for WBC, lactate, procalcitonin were all within normal. Abdominal and chest x-ray shows no acute findings. You were medicated with tramadol while in the ED for the pain.]. What to do: *Take your medications as directed. Please continue to use Tylenol and Motrin for discomfort and use tramadol for severe pain as needed. Please continue to take Keflex and complete the course. *Follow up with your primary care provider in 2-3 days, call for an appointment. Let them know you were seen in the ED and that we asked you to be seen in follow up. Please follow up with Dr. Saldaña as scheduled on . *Return to ED if you have any new, worsening, or concerning symptoms, such as [i ncreasing fever, worsening pain, problem with the gastric tube, chest pain, breathing difficulty, feeling like fainting, or any acute concerns.]. Prescriptions: New tramadol 50 mg tablet 50 mg PO Q12H PRN (Reason: pain) Qty: 7 RF: 0 No Action docusate sodium 50 mg/5 mL Liquid 100 mg PO BID Qty: 200 RF: 0 oxycodone 5 mg/5 mL Solution 5 mg PO Q4HR MDD 30mL PRN (Reason: Pain, Moderate (4-6)) Qty: 150 RF: 0 oxycodone 5 mg tablet 5 mg PO Q4H PRN (Reason: painful procedure) Qty: 20 RF: 0 triamcinolone acetonide 0.025 % cream 1 applictn TOP BID Qty: 15 RF: 1 cephalexin 500 mg capsule 500 mg PO TID RF: 0 clonazepam 1 mg Tablet 1 mg PO TID RF: 0 carbidopa-levodopa 50-200 mg tablet extended release 1 tab PO QID RF: 0 carbidopa-levodopa 25-100 mg tablet 1 tab PO TID RF: 0 omeprazole 20 mg Tablet,Delayed Release (Dr/Ec) 60 mg PO QPM RF: 0 Referrals: Eliseo Zapien MD [Primary Care Provider] -
[2019-05-01 18:07] LABS: Procalcitonin < 0.05 ng/mL (<0.5)
[2019-05-01 18:12] VITALS: BP 124/75; PULSE 75; RESP 12; TEMP 37; O2SAT 99
[2019-05-01 19:25] VITALS: BP 129/78; PULSE 69; RESP 16; O2SAT 99
[2019-05-01] MEDS: TRAMADOL 50 MG TABLET PO (19:29)
== END 2019-05-01 19:00 | disposition home or self-care (01) ==
PROVIDERS: Emergency Provider Nurse Practitioner Family; PCP Family Medicine
DX: K94.22 Gastrostomy infection (principal); Z98.890 Other specified postprocedural states; R50.9 Fever, unspecified; R10.9 Unspecified abdominal pain
CPT/HCPCS: 74022; 80053; 83605; 83690; 84145; 85025; 87070; 87075; 87077; 87147; 87186; 87205; 99282; 99284

== ENCOUNTER 2019-05-28 13:57 | Emergency (ER) | payer OTHER, MEDICAID, SELFPAY ==
[2019-05-11 11:25] VITALS: BMI 36.0
[2019-05-28 14:13] VITALS: BP 110/70; PULSE 93; RESP 16; TEMP 36.8; O2SAT 98
[2019-05-28 14:51] LABS: Add Manual Diff / Slide Review NO; Basophils Absolute Auto 0 /uL (0-100); Basophils Percent Auto 0.6 % (0-2); Eosinophils Absolute Auto 0 /uL (0-450); Eosinophils Percent Auto 0.5 % (2-4); Hematocrit 37.2 % (36-46); Hemoglobin 12.6 g/dL (12.0-16.0); Lymphocytes Absolute Auto 1800 /uL (1100-4500); Lymphocytes Percent Auto 26.3 % (25-40); Mean Corpuscular HGB Conc 33.9 % (30-36); Mean Corpuscular Volume 85.4 fL (80-100); Monocytes Absolute Auto 300 /uL (0-900); Monocytes Percent Auto 4.5 % (3-14); Neutrophils Absolute Auto 4700 /uL (1500-7000); Neutrophils Percent Auto 68.1 % (50-75); Platelet Count 327 X10^3/uL (150-400); Red Blood Cell Count 4.36 X10^6/uL (4.0-5.2); Red Cell Distribution Width 14.5 % (11.6-14.8)
[2019-05-28 15:02] LABS: Albumin 4.7 g/dL (3.5-5.0); Albumin Globulin Ratio 1.4 (1.0-2.8); Alkaline Phosphatase 74 U/L (38-126); Aspartate Aminotransferase 21 IU/L (14-36); BUN Creatinine Ratio 15.7 (6-22); Bilirubin Total 0.5 mg/dL (0.2-1.3); Blood Urea Nitrogen 11 mg/dL (7-17); Calcium 9.4 mg/dL (8.4-10.2); Carbon Dioxide 26 mmol/L (22-32); Chloride 104 mmol/L (98-107); Estimated Glomerular Filt Rate > 60.0 mL/min (>60); Globulin 3.3 g/dL (1.7-4.1); Glucose 85 mg/dL (70-100); HEMOLYSIS < 15 (0-50); Potassium 3.7 mmol/L (3.4-5.1); Sodium 140 mmol/L (137-145)
[2019-05-28 15:03] LABS: Lactate (Lactic Acid) 0.9 mmol/L (0.7-2.1)
[2019-05-28 15:07] LABS: Alanine Aminotransferase < 4 IU/L (<35)
[2019-05-28] MEDS: MORPHINE 4 MG/ML INJ IV ×2 (15:28→15:53)
[2019-05-28] MEDS: ONDANSETRON 4 MG/2 ML INJ IV (15:28)
[2019-05-28] MEDS: SODIUM CHLORIDE 0.9% 1,000 ML 150 ML IV (15:28)
[2019-05-28 15:32] LABS: Procalcitonin < 0.05 ng/mL (<0.5)
[2019-05-28 15:51] VITALS: BP 109/61; PULSE 75; RESP 18; O2SAT 100
--- NOTE | 2019-05-28 15:54 | DI.CT.S_ITS ---
PROCEDURE: CT ABDOMEN PELVIS W CON INDICATIONS: pain around g tube site TECHNIQUE: After the administration of intravenous contrast, 5 mm thick sections acquired from the diaphragm to the symphysis. 5 mm coronal and sagittal reformats were acquired. For radiation dose reduction, the following was used: automated exposure control, adjustment of mA and/or kV according to patient size. COMPARISON: None. FINDINGS: Image quality: Excellent. ABDOMEN: Lung bases: Lung bases are clear. Heart size is normal. Solid organs: Liver is normal in size and enhancement. Gallbladder is unremarkable. Biliary system is non dilated. Pancreas enhances normally. Spleen is normal in size and enhancement. No adrenal nodules. Kidneys demonstrate normal size and enhancement, without hydronephrosis. Peritoneum and bowel: The stomach is decompressed. A gastrostomy tube is present within the anterior gastric fundus. No pneumoperitoneum or free fluid is visualized near the gastrostomy site. No fat stranding or other findings to suggest inflammatory changes are present. Bowel loops demonstrate normal wall thickness and caliber. The appendix is thin walled. No free fluid or air. Nodes and vessels: No retroperitoneal or mesenteric adenopathy by size criteria. Aorta and inferior vena cava are normal in size. Miscellaneous: No ventral hernias. PELVIS: Genitourinary: Bladder wall thickness is normal. The uterus and ovaries are grossly unremarkable. Miscellaneous: No inguinal hernias or adenopathy. Bones: No suspicious bony lesions. No vertebral body compression fractures. IMPRESSION: 1. No acute intra-abdominal findings. Specifically, no findings to suggest inflammatory changes, abscess, or pneumoperitoneum around the gastrostomy site. 2. Normal appendix. Dictated by: Nina Schrader M.D. on 05/28/2019 at 15:23 Approved by: Nina Schrader M.D. on 05/28/2019 at 15:27
[2019-05-28 15:58] LABS: Amorphous Sediment Urine 1+; Bacteria Urine Occasional (0-1); Culture Indicated Urine Specimen Cultured; Mucus Urine 3+ (Negative); RBC Urine 0-1/HPF (0-5/HPF); Squamous Epithelial Cell Urine 1-5 /HPF (0-5/HPF); WBC Urine 1-5/HPF (0-5/HPF)
[2019-05-28] MEDS: CYCLOBENZAPRINE 10 MG TABLET PO (17:08)
[2019-05-28] MEDS: CYCLOBENZAPRINE 10 MG PREPACK 1 BOTTLE MISC (18:30)
--- NOTE | 2019-05-28 18:31 | ED_ITS ---
HPI - Abdominal Pain <Alisha GannonMARILYN rodriguez-BC - Last Filed: 05/28/19 18:43> General Chief Complaint: Abdominal Pain Stated Complaint: Fever, Bleeding, pain around feeding tube Time Seen by Provider: 05/28/19 14:43 Source: patient Mode of arrival: Ambulatory Limitations: no limitations History of Present Illness HPI narrative: The patient is a 39-year-old female former smoker with history of dysphagia, GERD, malnutrition who presents with a chief complaint of concern about a gastrotomy tube. She states that she has been having fevers up to 101, pain around her G-tube site. She states that her fevers were this morning. She was treated for postoperative infection recently, but currently denies any redness or drainage. She does state that there was bleeding from her G-tube a few days ago. She states that she is having muscle spasms around her G-tube. She states that she called the surgeon on-call, was told to come to the emergency department. Tube was placed on 04/12/2019. She denies any dysuria urgency or frequency. She denies any possibility of . Related Data Home Medications Medication Instructions Recorded Confirmed clonazepam 1 mg PO TID 11/05/17 05/11/19 carbidopa-levodopa 1 tab PO QID 03/17/19 05/11/19 carbidopa-levodopa 1 tab PO TID 03/17/19 05/11/19 omeprazole 60 mg PO QPM 03/17/19 05/11/19 cephalexin 500 mg PO TID 05/01/19 05/11/19 Previous Rx's Medication Instructions Recorded docusate sodium 100 mg PO BID #200 ml 04/15/19 oxycodone 5 mg PO Q4HR PRN #150 ml MDD 30mL 04/15/19 oxycodone 5 mg PO Q4H PRN #20 tab 04/17/19 triamcinolone acetonide 1 applictn TOP BID #15 gram 04/17/19 tramadol 50 mg PO Q12H PRN #7 tab 05/01/19 tramadol 50 mg tablet 50 mg PO Q6H PRN #60 tab MDD 6 05/11/19 cyclobenzaprine 10 mg PO TID PRN #14 tab 05/28/19 Allergies Allergy/AdvReac Type Severity Reaction Status Date / Time Gadolinium-Containing Allergy Unknown Verified 05/11/19 10:44 Contrast Medi Sulfa (Sulfonamide Allergy Unknown Verified 05/11/19 10:44 Antibiotics) [SULFA (SULFONAMIDE ANTIBIOTICS)] adhesive AdvReac Intermediate Blister Verified 05/11/19 10:44 Review of Systems <LORRI Lyles - Last Filed: 05/28/19 18:43> Review of Systems Narrative: GENERAL: See HPI HEENT: Denies sinus pain, ear pain, sore throat, difficulty swallowing, dizziness. RESPIRATORY: Denies dyspnea, cough, wheezing, hemoptysis, sputum. CARDIOVASCULAR: Denies chest pain, palpitations, orthopnea, edema, GASTROINTESTINAL: See HPI : Denies dysuria, frequency, incontinence, hematuria, urinary retention. MUSCULOSKELETAL: denies weakness, joint pain, or bony pain SKIN: Denies rash, skin lesions, or other NEUROLOGIC: Denies weakness, headache, numbness, change in speech, confusion, seizures, incoordination. PSYCHIATRIC: No concerning psychosocial issues. 12 point review of systems is negative except for those stated above Patient History <LORRI Lyles - Last Filed: 05/28/19 18:43> Medical History Dysphagia (Acute) Gastrostomy tube in place (Acute) GERD (gastroesophageal reflux disease) (Acute) Movement disorder (Chronic) Vocal cord paralysis (Chronic) Surgical History Gastrostomy in place (Acute) Social History household members: significant other and children Smoking Status: Former smoker alcohol intake: current alcohol intake frequency: holidays/special occasions only Substance Use Type: does not use and other Exam <LORRI Lyles - Last Filed: 05/28/19 18:43> Narrative Exam Narrative: GENERAL: This is a well-nourished, well-developed patient, appears uncomfortable HEAD: Atraumatic. Normocephalic. No temporal or scalp tenderness. EYES: Pupils equal round and reactive. Extraocular motions intact. No scleral icterus. No injection or drainage. ENT: Nose without bleeding, purulent drainage or septal hematoma. Throat without erythema, tonsillar hypertrophy or exudate. Uvula midline. Airway patent. NECK: Trachea midline. No JVD or lymphadenopathy. Supple, nontender, no meningeal signs. CARDIOVASCULAR: Regular rate and rhythm without murmurs, gallops, or rubs. RESPIRATORY: Clear to auscultation. Breath sounds equal bilaterally. No wheezes, rales, or rhonchi. No cough. No increased respiratory effort. No accessory muscle use. GASTROINTESTINAL: Abdomen soft, G-tube in place, nondistended. No hepato- splenomegaly, or palpable masses. No guarding. Active bowel sounds all 4 quadrants. Pain to palpation around G-tube. No palpable abnormality. G-tube site is without erythema, without swelling, without drainage. EXTREMITIES: No clubbing, cyanosis, or edema. No joint tenderness, effusion, or edema noted. BACK: Nontender without deformity or crepitance. No flank tenderness. NEURO: AOx3. SKIN: No rash or erythema on visible skin. See abdominal exam Initial Vital Signs Initial Vital Signs: Vital Signs Temperature 98.3 F 05/28/19 14:13 Pulse Rate 93 H 05/28/19 14:13 Respiratory Rate 16 05/28/19 14:13 Blood Pressure 110/70 05/28/19 14:13 Pulse Oximetry 98 05/28/19 14:13 <Shaye Jones DO - Last Filed: 05/28/19 18:59> Initial Vital Signs Initial Vital Signs: Vital Signs Temperature 98.3 F 05/28/19 14:13 Pulse Rate 93 H 05/28/19 14:13 Respiratory Rate 16 05/28/19 14:13 Blood Pressure 110/70 05/28/19 14:13 Pulse Oximetry 98 05/28/19 14:13 Scores <LORRI Lyles - Last Filed: 05/28/19 18:43> GCS Ariel coma scale eye opening: Spontaneous Ariel coma scale verbal response: Orientated [place] coma scale motor response: Obey commands Ariel coma scale total score: 15 Course <LORRI Lyles - Last Filed: 05/28/19 18:43> Orders Ordered: ED Orders 05/28/19 14:37 Complete Blood Count AUTO DIFF Stat Comprehensive Metabolic Panel Stat Lactate (Lactic Acid) Stat Procalcitonin Stat 05/28/19 14:51 Blood Culture Stat 05/28/19 15:20 Urine Culture Stat Urine Microscopic Stat 05/28/19 15:54 CT abdomen pelvis w con Stat Discontinued Medications Cyclobenzaprine HCl (Flexeril) 10 mg PO NOW ONE Stop: 05/28/19 17:02 Last Admin: 05/28/19 17:08 Dose: 10 mg Documented by: SUJATHA Cyclobenzaprine HCl (Flexeril 10 Mg Prepack) 1 bottle MISC SEEINSTR ONE Stop: 05/28/19 18:16 Last Admin: 05/28/19 18:30 Dose: 1 bottle Documented by: BURAK Sodium Chloride (Normal Saline 0.9%) 1,000 mls @ 150 mls/hr IV CONT ADE Last Admin: 05/28/19 15:28 Dose: 150 mls/hr Documented by: SUJATHA Morphine Sulfate (Morphine) 4 mg IV NOW ONE Stop: 05/28/19 15:10 Last Admin: 05/28/19 15:28 Dose: 4 mg Documented by: SUJATHA Morphine Sulfate (Morphine) 4 mg IV NOW ONE Stop: 05/28/19 15:47 Last Admin: 05/28/19 15:53 Dose: 4 mg Documented by: COLTEN Ondansetron HCl (Zofran) 4 mg IV NOW ONE Stop: 05/28/19 15:10 Last Admin: 05/28/19 15:28 Dose: 4 mg Documented by: SUJATHA Reevaluation(s) Reevaluation #1: Discussed plan for CT with patient. Time: 16:00 Reevaluation #2: I discussed possibility Flexeril trial. Patient states improvement after Flexeril and request prescription. Patient states that she will stay in town and try to follow up with her surgeons tomorrow Time: 18:20 Consultations Consultation #1: Spoke with Dr. Lozada regarding patient's labs, presentation in the emergency department. He suggests CT abdomen with contrast. Time: 15:00 Consultation #2: I spoke with Dr. Lozada again regarding patient's CT results. States that the patient does not need to be admitted to the hospital at this time given her afebrile status the emergency department, is normal lab work, normal imaging. Discussed possibility of Flexeril trial given complaint muscle spasm. Time: 16:00 Vital Signs Vital signs: Vital Signs - 8 hr 05/28/19 14:13 05/28/19 15:51 05/28/19 18:34 Temperature 98.3 F 98.7 F Pulse Rate 93 H 75 74 Respiratory Rate 16 18 16 Blood Pressure 110/70 110/78 Blood Pressure [Left Arm] 109/61 Pulse Oximetry 98 100 97 <Shaye Jones, DO - Last Filed: 05/28/19 18:59> Orders Ordered: ED Orders 05/28/19 14:37 Complete Blood Count AUTO DIFF Stat Comprehensive Metabolic Panel Stat Lactate (Lactic Acid) Stat Procalcitonin Stat 05/28/19 14:51 Blood Culture Stat 05/28/19 15:20 Urine Culture Stat Urine Microscopic Stat 05/28/19 15:54 CT abdomen pelvis w con Stat Discontinued Medications Cyclobenzaprine HCl (Flexeril) 10 mg PO NOW ONE Stop: 05/28/19 17:02 Last Admin: 05/28/19 17:08 Dose: 10 mg Documented by: SUJATHA Cyclobenzaprine HCl (Flexeril 10 Mg Prepack) 1 bottle MISC SEEINSTR ONE Stop: 05/28/19 18:16 Last Admin: 05/28/19 18:30 Dose: 1 bottle Documented by: BURAK Sodium Chloride (Normal Saline 0.9%) 1,000 mls @ 150 mls/hr IV CONT ADE Last Admin: 05/28/19 15:28 Dose: 150 mls/hr Documented by: SUJATHA Morphine Sulfate (Morphine) 4 mg IV NOW ONE Stop: 05/28/19 15:10 Last Admin: 05/28/19 15:28 Dose: 4 mg Documented by: SUJATHA Morphine Sulfate (Morphine) 4 mg IV NOW ONE Stop: 05/28/19 15:47 Last Admin: 05/28/19 15:53 Dose: 4 mg Documented by: COLTEN Ondansetron HCl (Zofran) 4 mg IV NOW ONE Stop: 05/28/19 15:10 Last Admin: 05/28/19 15:28 Dose: 4 mg Documented by: SUJATHA Vital Signs Vital signs: Vital Signs - 8 hr 05/28/19 14:13 05/28/19 15:51 05/28/19 18:34 Temperature 98.3 F 98.7 F Pulse Rate 93 H 75 74 Respiratory Rate 16 18 16 Blood Pressure 110/70 110/78 Blood Pressure [Left Arm] 109/61 Pulse Oximetry 98 100 97 MDM - Abdominal Pain <Alisha Rucker, STAFF NURSE ANESTHETIST-BC - Last Filed: 05/28/19 18:43> Lab Data Result diagrams: 05/28/19 14:37 05/28/19 14:37 Labs: Lab Results 05/28/19 05/28/19 05/28/19 Range/Units 14:37 14:37 14:37 WBC 7.0 (4.5-11.0) X10^3/uL RBC 4.36 (4.0-5.2) X10^6/uL Hgb 12.6 (12.0-16.0) g/dL Hct 37.2 (36-46) % MCV 85.4 (80-100) fL MCH 29.0 (26-34) PG MCHC 33.9 (30-36) % RDW 14.5 (11.6-14.8) % Plt Count 327 (150-400) X10^3/uL Neut % (Auto) 68.1 (50-75) % Lymph % (Auto) 26.3 (25-40) % [place] % (Auto) 4.5 (3-14) % Eos % (Auto) 0.5 L (2-4) % Baso % (Auto) 0.6 (0-2) % Neut # (Auto) 4700 (2627-5538) /uL Lymph # (Auto) 1800 (0268-0349) /uL [place] # (Auto) 300 (0-900) /uL Eos # (Auto) 0 (0-450) /uL Baso # (Auto) 0 (0-100) /uL Sodium 140 (137-145) mmol/L Potassium 3.7 (3.4-5.1) mmol/L Chloride 104 (98-107) mmol/L Carbon Dioxide 26 (22-32) mmol/L BUN 11 (7-17) mg/dL Creatinine 0.70 (0.52-1.04) mg/dL Estimated GFR > 60.0 (>60) mL/min BUN/Creatinine Ratio 15.7 (6-22) Glucose 85 (70-100) mg/dL Lactate (0.7-2.1) mmol/L Calcium 9.4 (8.4-10.2) mg/dL Total Bilirubin 0.5 (0.2-1.3) mg/dL AST 21 (14-36) IU/L ALT < 4 (<35) IU/L Alkaline Phosphatase 74 (38-126) U/L Total Protein 8.0 (6.3-8.2) g/dL Albumin 4.7 (3.5-5.0) g/dL Globulin 3.3 (1.7-4.1) g/dL Albumin/Globulin Ratio 1.4 (1.0-2.8) Procalcitonin < 0.05 (<0.5) ng/mL Urine RBC (0-5/HPF) Urine WBC (0-5/HPF) Ur Squamous Epith Cells (0-5/HPF) Amorphous Sediment Urine Bacteria (None) Urine Mucus (Negative) Ur Culture Indicated? 05/28/19 05/28/19 Range/Units 14:37 15:20 WBC (4.5-11.0) X10^3/uL RBC (4.0-5.2) X10^6/uL Hgb (12.0-16.0) g/dL Hct (36-46) % MCV (80-100) fL MCH (26-34) PG MCHC (30-36) % RDW (11.6-14.8) % Plt Count (150-400) X10^3/uL Neut % (Auto) (50-75) % Lymph % (Auto) (25-40) % [place] % (Auto) (3-14) % Eos % (Auto) (2-4) % Baso % (Auto) (0-2) % Neut # (Auto) (9864-6862) /uL Lymph # (Auto) (5672-9240) /uL [place] # (Auto) (0-900) /uL Eos # (Auto) (0-450) /uL Baso # (Auto) (0-100) /uL Sodium (137-145) mmol/L Potassium (3.4-5.1) mmol/L Chloride (98-107) mmol/L Carbon Dioxide (22-32) mmol/L BUN (7-17) mg/dL Creatinine (0.52-1.04) mg/dL Estimated GFR (>60) mL/min BUN/Creatinine Ratio (6-22) Glucose (70-100) mg/dL Lactate 0.9 (0.7-2.1) mmol/L Calcium (8.4-10.2) mg/dL Total Bilirubin (0.2-1.3) mg/dL AST (14-36) IU/L ALT (<35) IU/L Alkaline Phosphatase (38-126) U/L Total Protein (6.3-8.2) g/dL Albumin (3.5-5.0) g/dL Globulin (1.7-4.1) g/dL Albumin/Globulin Ratio (1.0-2.8) Procalcitonin (<0.5) ng/mL Urine RBC 0-1/hpf (0-5/HPF) Urine WBC 1-5/hpf (0-5/HPF) Ur Squamous Epith Cells 1-5 /hpf (0-5/HPF) Amorphous Sediment 1+ Urine Bacteria Occasional (0-1) (None) Urine Mucus 3+ H (Negative) Ur Culture Indicated? Specimen cultured Point of care testing: Point of Care Testing Test Results Negative Urine Dip Bedside Urine Glucose Negative Bedside Urine Bilirubin - Negative Bedside Urine Ketone + 15 Urine Specific [place] 1.030 Bedside Urine Occult Blood ++ Bedside Urine pH 6.0 Bedside Urine Protein + 30 Bedside Urine Urobilinogen +/- 1mg Bedside Urine Nitrite - Negative Bedside Urine Leukocytes - Negative Esterase Imaging Data CT scan - abdomen: Radiologist's impression: [place] [address] CT Scan Report Signed Patient: Janki Man LMR#: [id number] : 1980Acct:[id number] Age/Sex: 39 / FDate of Service: 05/28/19 Loc: ED Accession Number: [id number] Procedure: CT abdomen pelvis w con Ordering Provider: Alisha Rucker-BC PROCEDURE: CT ABDOMEN PELVIS W CON INDICATIONS: pain around g tube site TECHNIQUE: After the administration of intravenous contrast, 5 mm thick sections acquired from the diaphragm to the symphysis. 5 mm coronal and sagittal reformats were acquired. For radiation dose reduction, the following was used: automated exposure control, adjustment of mA and/or kV according to patient size. COMPARISON: None. FINDINGS: Image quality: Excellent. ABDOMEN: Lung bases: Lung bases are clear. Heart size is normal. Solid organs: Liver is normal in size and enhancement. Gallbladder is unremarkable. Biliary system is non dilated. Pancreas enhances normally. Spleen is normal in size and enhancement. No adrenal nodules. Kidneys demonstrate normal size and enhance ment, without hydronephrosis. Peritoneum and bowel: The stomach is decompressed. A gastrostomy tube is present within the anterior gastric fundus. No pneumoperitoneum or free fluid is visualized near the gastrostomy site. No fat stranding or other findings to suggest inflammatory changes are present. Bowel loops demonstrate normal wall thickness and caliber. The appendix is thin walled. No free fluid or air. Nodes and vessels: No retroperitoneal or mesenteric adenopathy by size cri teria. Aorta and inferior vena cava are normal in size. Miscellaneous: No ventral hernias. PELVIS: Genitourinary: Bladder wall thickness is normal. The uterus and ovaries are grossly unremarkable. Miscellaneous: No inguinal hernias or adenopathy. Bones: No suspicious bony lesions. No vertebral body compression fractures. IMPRESSION: 1. No acute intra-abdominal findings. Specifically, no findings to suggest inflammatory changes, abscess, or pneumoperitoneum around the gastrostomy site. 2. Normal appendix. Dictated by: Nina Schrader M.D. on 05/28/2019 at 15:23 Approved by: Nina Schrader M.D. on 05/28/2019 at 15:27 MDM Narrative Medical decision making narrative: The patient is a 39-year-old female who presents with a chief complaint of pain around her G-tube site. She has complained of fevers at home, but is afebrile in the emergency department. She is no leukocytosis, overall benign labs. She does complain of pain and muscle spasm around her G-tube site, but has no visual abnormality. I spoke with surgery who recommended a CT abdomen pelvis with contrast. This was taken and showed to have no acute abnormality. Discussed with surgery again, who encourag ed follow-up with her surgeon tomorrow. Patient did respond well to Flexeril, so I gave her small prescription. Patient states understanding of follow-up as well as return precautions and has no questions or concerns upon discharge. <Shaye Jones, DO - Last Filed: 05/28/19 18:59> Lab Data Labs: Lab Results 05/28/19 05/28/19 05/28/19 Range/Units 14:37 14:37 14:37 WBC 7.0 (4.5-11.0) X10^3/uL RBC 4.36 (4.0-5.2) X10^6/uL Hgb 12.6 (12.0-16.0) g/dL Hct 37.2 (36-46) % MCV 85.4 (80-100) fL MCH 29.0 (26-34) PG MCHC 33.9 (30-36) % RDW 14.5 (11.6-14.8) % Plt Count 327 (150-400) X10^3/uL Neut % (Auto) 68.1 (50-75) % Lymph % (Auto) 26.3 (25-40) % [place] % (Auto) 4.5 (3-14) % Eos % (Auto) 0.5 L (2-4) % Baso % (Auto) 0.6 (0-2) % Neut # (Auto) 4700 (5270-4990) /uL Lymph # (Auto) 1800 (9927-0890) /uL [place] # (Auto) 300 (0-900) /uL Eos # (Auto) 0 (0-450) /uL Baso # (Auto) 0 (0-100) /uL Sodium 140 (137-145) mmol/L Potassium 3.7 (3.4-5.1) mmol/L Chloride 104 (98-107) mmol/L Carbon Dioxide 26 (22-32) mmol/L BUN 11 (7-17) mg/dL Creatinine 0.70 (0.52-1.04) mg/dL Estimated GFR > 60.0 (>60) mL/min BUN/Creatinine Ratio 15.7 (6-22) Glucose 85 (70-100) mg/dL Lactate (0.7-2.1) mmol/L Calcium 9.4 (8.4-10.2) mg/dL Total Bilirubin 0.5 (0.2-1.3) mg/dL AST 21 (14-36) IU/L ALT < 4 (<35) IU/L Alkaline Phosphatase 74 (38-126) U/L Total Protein 8.0 (6.3-8.2) g/dL Albumin 4.7 (3.5-5.0) g/dL Globulin 3.3 (1.7-4.1) g/dL Albumin/Globulin Ratio 1.4 (1.0-2.8) Procalcitonin < 0.05 (<0.5) ng/mL Urine RBC (0-5/HPF) Urine WBC (0-5/HPF) Ur Squamous Epith Cells (0-5/HPF) Amorphous Sediment Urine Bacteria (None) Urine Mucus (Negative) Ur Culture Indicated? 05/28/19 05/28/19 Range/Units 14:37 15:20 WBC (4.5-11.0) X10^3/uL RBC (4.0-5.2) X10^6/uL Hgb (12.0-16.0) g/dL Hct (36-46) % MCV (80-100) fL MCH (26-34) PG MCHC (30-36) % RDW (11.6-14.8) % Plt Count (150-400) X10^3/uL Neut % (Auto) (50-75) % Lymph % (Auto) (25-40) % [place] % (Auto) (3-14) % Eos % (Auto) (2-4) % Baso % (Auto) (0-2) % Neut # (Auto) (1828-8383) /uL Lymph # (Auto) (1268-1334) /uL [place] # (Auto) (0-900) /uL Eos # (Auto) (0-450) /uL Baso # (Auto) (0-100) /uL Sodium (137-145) mmol/L Potassium (3.4-5.1) mmol/L Chloride (98-107) mmol/L Carbon Dioxide (22-32) mmol/L BUN (7-17) mg/dL Creatinine (0.52-1.04) mg/dL Estimated GFR (>60) mL/min BUN/Creatinine Ratio (6-22) Glucose (70-100) mg/dL Lactate 0.9 (0.7-2.1) mmol/L Calcium (8.4-10.2) mg/dL Total Bilirubin (0.2-1.3) mg/dL AST (14-36) IU/L ALT (<35) IU/L Alkaline Phosphatase (38-126) U/L Total Protein (6.3-8.2) g/dL Albumin (3.5-5.0) g/dL Globulin (1.7-4.1) g/dL Albumin/Globulin Ratio (1.0-2.8) Procalcitonin (<0.5) ng/mL Urine RBC 0-1/hpf (0-5/HPF) Urine WBC 1-5/hpf (0-5/HPF) Ur Squamous Epith Cells 1-5 /hpf (0-5/HPF) Amorphous Sediment 1+ Urine Bacteria Occasional (0-1) (None) Urine Mucus 3+ H (Negative) Ur Culture Indicated? Specimen cultured Point of care testing: Point of Care Testing Test Results Negative Urine Dip Bedside Urine Glucose Negative Bedside Urine Bilirubin - Negative Bedside Urine Ketone + 15 Urine Specific [place] 1.030 Bedside Urine Occult Blood ++ Bedside Urine pH 6.0 Bedside Urine Protein + 30 Bedside Urine Urobilinogen +/- 1mg Bedside Urine Nitrite - Negative Bedside Urine Leukocytes - Negative Esterase Discharge Plan Departure Patient Disposition: Home Clinical Impression: Gastrostomy tube in place, Muscle spasm Discharge Date/Time: 05/28/19 18:34 Instructions: DI for Abdominal Pain-Adult, DI for Muscle Spasm Activity Restrictions/Additional Instructions: Today we did imaging and lab work to check your G-tube. Everything that we have found is reassuring. I have discussed your labs and imaging results with Dr. Lozada. A muscle relaxer appears to have reduce the spasm in your stomach, so I have given you a small prescription. Be aware this can be sedating. Please follow up with Dr. Newby as soon as possible. I also suggest follow-up with primary care provider. Please come back to the emergency department for any acute concerns Prescriptions: New cyclobenzaprine 10 mg tablet 10 mg PO TID PRN (Reason: muscle spasm) Qty: 14 RF: 0 No Action tramadol 50 mg tablet 50 mg PO Q6H MDD 6 PRN (Reason: pain) Qty: 60 RF: 0 docusate sodium 50 mg/5 mL Liquid 100 mg PO BID Qty: 200 RF: 0 oxycodone 5 mg/5 mL Solution 5 mg PO Q4HR MDD 30mL PRN (Reason: Pain, Moderate (4-6)) Qty: 150 RF: 0 oxycodone 5 mg tablet 5 mg PO Q4H PRN (Reason: painful procedure) Qty: 20 RF: 0 triamcinolone acetonide 0.025 % cream 1 applictn TOP BID Qty: 15 RF: 1 cephalexin 500 mg capsule 500 mg PO TID RF: 0 tramadol 50 mg tablet 50 mg PO Q12H PRN (Reason: pain) Qty: 7 RF: 0 clonazepam 1 mg Tablet 1 mg PO TID RF: 0 carbidopa-levodopa 50-200 mg tablet extended release 1 tab PO QID RF: 0 carbidopa-levodopa 25-100 mg tablet 1 tab PO TID RF: 0 omeprazole 20 mg Tablet,Delayed Release (Dr/Ec) 60 mg PO QPM RF: 0 Referrals: Eliseo Zapien MD [Primary Care Provider] -
[2019-05-28 18:34] VITALS: BP 110/78; PULSE 74; RESP 16; TEMP 37.1; O2SAT 97
== END 2019-05-28 18:34 | disposition home or self-care (01) ==
PROVIDERS: Emergency Medicine; Emergency Provider Nurse Practitioner Family; PCP Family Medicine
DX: M62.838 Other muscle spasm (principal); Z93.1 Gastrostomy status; T85.848A Pain due to other internal prosthetic devices, implants and grafts, initial encounter
CPT/HCPCS: 36415; 74177; 80053; 81003; 81015; 81025; 83605; 84145; 85025; 87040; 87086; 96374; 96375; 99283; 99284; J2270; J2405

== ENCOUNTER 2019-07-05 18:03 | Emergency (ER) | payer OTHER, MEDICAID, SELFPAY ==
[2019-05-29 13:32] VITALS: BMI 36.0
[2019-07-05 18:22] VITALS: BP 132/85; PULSE 101; RESP 20; TEMP 37.2; O2SAT 96; BMI 37.7
--- NOTE | 2019-07-05 18:42 | ED.NEUROSD ---
HPI - Neuro Symptoms/Deficit General Chief Complaint: Neuro Symptoms/Deficit Stated Complaint: possibly having seizures Time Seen by Provider: 07/05/19 18:33 Source: patient Mode of arrival: Family Vehicle Limitations: no limitations History of Present Illness HPI Narrative: Patient is a 39-year-old female here for evaluation of potential seizures. Patient has had ?movement disorder ?issues in the past. She has seen by a neurologist at [facility]. Has had a EEG. She states that she is not currently on any seizure medications. She states she has been diagnosed with ?dystonia ?she has also been seen by movement specialist. She is on medications for these to include clonazepam and carbidopa/levodopa. She has not had any change in her medications recently. She states that this morning she had an episode where she describes as ?blacking out? she states that she was somewhat confused afterwards however shortly after ?regaining consciousness ?she was able to dial her father's number on her cellphone. There is no loss of bowel or bladder. She is unsure how long the symptoms lasted. After she talk with her father her brother came over to check on her. They contacted her neurologist at [facility] who recommended she come to the emergency department. Just prior to my interview patient states that she thought she had another ?episode ?. She states that she was confused afterwards but knew that I was talking with her. Again no loss of bowel or bladder. Related Data Home Medications Medication Instructions Recorded Confirmed clonazepam 1 mg PO TID 11/05/17 06/06/19 carbidopa-levodopa 1 tab PO QID 03/17/19 06/06/19 carbidopa-levodopa 1 tab PO TID 03/17/19 06/06/19 omeprazole 60 mg PO QPM 03/17/19 06/06/19 cephalexin 500 mg PO TID 05/01/19 06/06/19 Previous Rx's Medication Instructions Recorded docusate sodium 100 mg PO BID #200 ml 04/15/19 oxycodone 5 mg PO Q4HR PRN #150 ml MDD 30mL 04/15/19 oxycodone 5 mg PO Q4H PRN #20 tab 04/17/19 triamcinolone acetonide 1 applictn TOP BID #15 gram 04/17/19 tramadol 50 mg PO Q12H PRN #7 tab 05/01/19 tramadol 50 mg tablet 50 mg PO Q6H PRN #60 tab MDD 6 05/11/19 cyclobenzaprine 10 mg PO TID PRN #14 tab 05/28/19 cyclobenzaprine 10 mg tablet 10 mg PO BID PRN #20 tab 06/06/19 tramadol 50 mg tablet 50 mg PO Q8H PRN #60 tab 06/06/19 Allergies Allergy/AdvReac Type Severity Reaction Status Date / Time Gadolinium-Containing Allergy Unknown Verified 06/06/19 09:40 Contrast Medi Sulfa (Sulfonamide Allergy Unknown Verified 06/06/19 09:40 Antibiotics) [SULFA (SULFONAMIDE ANTIBIOTICS)] adhesive AdvReac Intermediate Blister Verified 06/06/19 09:40 Review of Systems Constitutional Constitutional: Denies fever(s), Denies headache(s) and Reports weakness ENT Ears, Nose, Mouth, and Throat: Denies headache(s) Cardiovascular Cardiovascular: Denies chest pain and Denies dyspnea Respiratory Respiratory: Denies dyspnea Gastrointestinal Gastrointestinal: Denies abdominal pain Genitourinary Genitourinary: Denies dysuria Musculoskeletal Musculoskeletal: Denies myalgias, Denies arthralgias and Denies tingling Integumentary/Breasts Skin/Breast: Denies lesions and Denies rash Neurologic Neurologic: Reports abnormal movements, Denies abnormal speech, Reports behavioral changes, Reports confusion, Denies headache(s), Denies radicular pain, Reports convulsions, Denies tingling, Reports tremor(s) and Reports weakness Psychiatric Psychiatric: Denies anxiety, Reports behavioral changes and Reports confusion Hematologic/Lymphatic Hematologic/Lymphatic: Denies easy bleeding and Denies easy bruising Patient History Medical History Dysphagia (Acute) Gastrostomy tube in place (Acute) GERD (gastroesophageal reflux disease) (Acute) History of gastrostomy tube placement (Inactive) Movement disorder (Chronic) Vocal cord paralysis (Chronic) Social History household members: significant other and children Smoking Status: Former smoker alcohol intake: current Smoking Status: Former smoker alcohol intake frequency: holidays/special occasions only Substance Use Type: does not use and other Exam Initial Vital Signs Initial Vital Signs: Vital Signs Temperature 98.9 F 07/05/19 18:22 Pulse Rate 101 H 07/05/19 18:22 Respiratory Rate 20 07/05/19 18:22 Blood Pressure 132/85 07/05/19 18:22 Pulse Oximetry 96 07/05/19 18:22 Const General: cooperative, comfortable, well developed and well groomed Limitations: altered mental status [facility] Head: normal to inspection and normocephalic Resp Effort & Inspection: normal respiratory effort Auscultation: clear to auscultation bilaterally Cardio Rate: regular rate Rhythm: regular rhythm GI Inspection: non-distended Palpation: soft Skin Lesions: no lesions Rashes: no rashes Neuro General: alert, awake and oriented x3 Cranial Nerves: CN's II-XI intact bilaterally Cognition: normal cognition Speech: speech normal Gait: normal gait Motor: muscle tone normal throughout Sensory Exam: no sensory deficits noted Extrem General: normal to inspection, capillary refill normal and No edema Psych Appearance: grossly normal and well kempt Scores GCS Ariel coma scale eye opening: Spontaneous Ariel coma scale motor response: Obey commands Course Orders Ordered: ED Orders 07/05/19 18:50 Basic Metabolic Panel Stat Complete Blood Count AUTO DIFF Stat Test Serum,Qual Stat Prolactin Stat Discontinued Medications Sodium Chloride (Normal Saline 0.9%) 1,000 mls @ 1,000 mls/hr IV BOLUS ONE Stop: 07/05/19 19:41 Last Infusion: 07/05/19 20:40 Dose: 0 mls/hr Documented by: Admin: 07/05/19 18:56 Dose: 1,000 mls/hr Documented by: MARCY Lorazepam (Ativan) 1 mg IV NOW ONE Stop: 07/05/19 18:43 Last Admin: 07/05/19 18:58 Dose: 1 mg Documented by: MARCY Vital Signs Vital signs: Vital Signs - 8 hr 07/05/19 18:22 07/05/19 19:26 07/05/19 20:30 Temperature 98.9 F Pulse Rate 101 H 94 H 94 H Respiratory Rate 20 16 18 Blood Pressure 132/85 Blood Pressure [Left Arm] 128/70 121/65 Pulse Oximetry 96 95 99 MDM - Neuro Symptoms/Deficit Medical Records Attestation: I reviewed the patient's medical records. Lab Data Attestation: I reviewed the patient's lab results. Result diagrams: 07/05/19 18:50 07/05/19 18:50 Labs: Lab Results 07/05/19 07/05/19 07/05/19 Range/Units 18:50 18:50 18:50 WBC 10.1 (4.5-11.0) X10^3/uL RBC 4.54 (4.0-5.2) X10^6/uL Hgb 13.0 (12.0-16.0) g/dL Hct 37.9 (36-46) % MCV 83.4 (80-100) fL MCH 28.6 (26-34) PG MCHC 34.3 (30-36) % RDW 14.6 (11.6-14.8) % Plt Count 334 (150-400) X10^3/uL Neut % (Auto) 70.6 (50-75) % Lymph % (Auto) 22.5 L (25-40) % [place] % (Auto) 5.6 (3-14) % Eos % (Auto) 0.6 L (2-4) % Baso % (Auto) 0.7 (0-2) % Neut # (Auto) 7200 H (3286-1015) /uL Lymph # (Auto) 2300 (3338-0967) /uL [place] # (Auto) 600 (0-900) /uL Eos # (Auto) 100 (0-450) /uL Baso # (Auto) 100 (0-100) /uL Sodium 139 (137-145) mmol/L Potassium 3.7 (3.4-5.1) mmol/L Chloride 103 (98-107) mmol/L Carbon Dioxide 26 (22-32) mmol/L BUN 10 (7-17) mg/dL Creatinine 0.60 (0.52-1.04) mg/dL Estimated GFR > 60.0 (>60) mL/min BUN/Creatinine Ratio 16.7 (6-22) Glucose 109 H (70-100) mg/dL Calcium 9.7 (8.4-10.2) mg/dL Prolactin 80.4 H (3.0-18.6) ng/mL Serum , Qual Negative (Negative) MDM Narrative Medical decision making narrative: The ?episode ?the patient had just prior to my interview with her was not consistent with a seizure. She did have some shaking movements but was alert and oriented almost immediately after the episode stopped. Patient's labs unremarkable. I did discuss the case with Dr. Carrillo on-call for Neurology at [facility] who was able to review the patient's note. He stated that the patient's EEG was not consistent with seizures. They were more concerned about dystonia potentially psychogenic issues. Agree that her episodes today are not consistent with a seizure. Dr. carrillo recommended not making any changes to her medications. He did recommend that she follow-up with her regular neurologist. I discussed this with the patient. She expressed understanding and agreement with this. She was very calm and agreeable with this plan. We discussed return precautions and follow-up instructions. She was informed that she should not drive until cleared by her neurologist. Discharge Plan Departure Patient Disposition: Home Clinical Impression: Movement disorder Discharge Date/Time: 07/05/19 20:35 Activity Restrictions/Additional Instructions: Like we discussed I recommend that you continue all of your medications as directed. Contact your neurologist for a follow-up. No driving into your cleared by your neurologist. Return to the emergency department for any new or worsening symptoms Prescriptions: No Action tramadol 50 mg tablet 50 mg PO Q6H MDD 6 PRN (Reason: pain) Qty: 60 RF: 0 tramadol 50 mg tablet 50 mg PO Q8H PRN (Reason: pain) Qty: 60 RF: 0 cyclobenzaprine 10 mg tablet 10 mg PO BID PRN (Reason: abdominal wall muscle spasm) Qty: 20 RF: 0 docusate sodium 50 mg/5 mL Liquid 100 mg PO BID Qty: 200 RF: 0 oxycodone 5 mg/5 mL Solution 5 mg PO Q4HR MDD 30mL PRN (Reason: Pain, Moderate (4-6)) Qty: 150 RF: 0 oxycodone 5 mg tablet 5 mg PO Q4H PRN (Reason: painful procedure) Qty: 20 RF: 0 triamcinolone acetonide 0.025 % cream 1 applictn TOP BID Qty: 15 RF: 1 cephalexin 500 mg capsule 500 mg PO TID RF: 0 tramadol 50 mg tablet 50 mg PO Q12H PRN (Reason: pain) Qty: 7 RF: 0 clonazepam 1 mg Tablet 1 mg PO TID RF: 0 carbidopa-levodopa 50-200 mg tablet extended release 1 tab PO QID RF: 0 carbidopa-levodopa 25-100 mg tablet 1 tab PO TID RF: 0 omeprazole 20 mg Tablet,Delayed Release (Dr/Ec) 60 mg PO QPM RF: 0 cyclobenzaprine 10 mg tablet 10 mg PO TID PRN (Reason: muscle spasm) Qty: 14 RF: 0 Referrals: Eliseo Nuñez MD [Primary Care Provider] -
[2019-07-05] MEDS: SODIUM CHLORIDE 0.9% 1,000 ML 1000 ML IV (18:56)
[2019-07-05 18:58] LABS: Add Manual Diff / Slide Review NO; Basophils Absolute Auto 100 /uL (0-100); Basophils Percent Auto 0.7 % (0-2); Eosinophils Absolute Auto 100 /uL (0-450); Eosinophils Percent Auto 0.6 % (2-4); Hematocrit 37.9 % (36-46); Lymphocytes Absolute Auto 2300 /uL (1100-4500); Lymphocytes Percent Auto 22.5 % (25-40); Mean Corpuscular HGB Conc 34.3 % (30-36); Mean Corpuscular Hemoglobin 28.6 PG (26-34); Mean Corpuscular Volume 83.4 fL (80-100); Monocytes Absolute Auto 600 /uL (0-900); Monocytes Percent Auto 5.6 % (3-14); Neutrophils Absolute Auto 7200 /uL (1500-7000); Neutrophils Percent Auto 70.6 % (50-75); Platelet Count 334 X10^3/uL (150-400); Red Blood Cell Count 4.54 X10^6/uL (4.0-5.2); Red Cell Distribution Width 14.6 % (11.6-14.8); White Blood Cell Count 10.1 X10^3/uL (4.5-11.0)
[2019-07-05] MEDS: LORazepam 2 MG/ML INJ 1 MG IV (18:58)
[2019-07-05 19:08] LABS: BUN Creatinine Ratio 16.7 (6-22); Blood Urea Nitrogen 10 mg/dL (7-17); Calcium 9.7 mg/dL (8.4-10.2); Carbon Dioxide 26 mmol/L (22-32); Chloride 103 mmol/L (98-107); Estimated Glomerular Filt Rate > 60.0 mL/min (>60); Glucose 109 mg/dL (70-100); HEMOLYSIS < 15 (0-50); Potassium 3.7 mmol/L (3.4-5.1); Sodium 139 mmol/L (137-145)
[2019-07-05 19:22] LABS: Pregnancy Test Serum,Qual Negative (Negative)
[2019-07-05 19:25] LABS: Prolactin 80.4 ng/mL (3.0-18.6)
--- NOTE | 2019-07-05 19:25 | PC.NURSE ---
Patient reports she had an episode today where she was lying on her couch and watching a show. She woke up at the end of the show an hour later on the ground. She also reports a second similar episode this evening. Does not know what happened if she passed out, had a seizure, or just a severe episode of her distonia.
[2019-07-05 19:26] VITALS: BP 128/70; PULSE 94; RESP 16; O2SAT 95
[2019-07-05 20:30] VITALS: BP 121/65; PULSE 94; RESP 18; O2SAT 99
== END 2019-07-05 20:35 | disposition home or self-care (01) ==
PROVIDERS: Emergency Provider Emergency Medicine; Family Provider Family Medicine; PCP Family Medicine
DX: G25.9 Extrapyramidal and movement disorder, unspecified (principal)
CPT/HCPCS: 36415; 80048; 84146; 84703; 85025; 96361; 96374; 99284; J2060

== ENCOUNTER 2019-07-10 14:09 | Emergency (ER) | payer OTHER, MEDICAID, SELFPAY ==
[2019-05-29 13:32] VITALS: BMI 36.0
[2019-07-10 14:24] VITALS: BP 124/86; PULSE 104; RESP 13; TEMP 36.6; O2SAT 98
--- NOTE | 2019-07-10 14:39 | DI.US.S_ITS ---
PROCEDURE: US ABDOMEN LIMITED INDICATIONS: PAIN AT FEEDING TUBE REMOVAL SITE TECHNIQUE: Real-time scanning was performed of the abdominal wall in the region of the recently removed gastric tube and area of pain, with image documentation. COMPARISON: [facility], CT, CT ABDOMEN PELVIS W CON, 05/28/2019, 16:01. FINDINGS: No fluid collection or significant edema in the region of pain. IMPRESSION: Negative exam. No fluid collection in the region of pain near the site of gastric tube removal. If symptoms persist followup ultrasound or CT abdomen could be performed. Dictated by: Quentin Streeter M.D. on 07/10/2019 at 15:29 Approved by: Quentin Streeter M.D. on 07/10/2019 at 15:33
[2019-07-10] MEDS: ONDANSETRON 4 MG ODT SL (14:46)
[2019-07-10] MEDS: TRAMADOL 50 MG TABLET PO (14:46)
[2019-07-10 14:54] LABS: Add Manual Diff / Slide Review NO; Basophils Absolute Auto 100 /uL (0-100); Basophils Percent Auto 0.8 % (0-2); Eosinophils Absolute Auto 0 /uL (0-450); Eosinophils Percent Auto 0.5 % (2-4); Hematocrit 40.8 % (36-46); Hemoglobin 13.8 g/dL (12.0-16.0); Lymphocytes Absolute Auto 1800 /uL (1100-4500); Lymphocytes Percent Auto 23.3 % (25-40); Mean Corpuscular HGB Conc 33.9 % (30-36); Mean Corpuscular Hemoglobin 28.6 PG (26-34); Mean Corpuscular Volume 84.3 fL (80-100); Monocytes Absolute Auto 400 /uL (0-900); Monocytes Percent Auto 4.6 % (3-14); Neutrophils Absolute Auto 5600 /uL (1500-7000); Neutrophils Percent Auto 70.8 % (50-75); Platelet Count 355 X10^3/uL (150-400); Red Blood Cell Count 4.84 X10^6/uL (4.0-5.2); Red Cell Distribution Width 14.8 % (11.6-14.8); White Blood Cell Count 7.9 X10^3/uL (4.5-11.0)
[2019-07-10 15:12] LABS: Alanine Aminotransferase 5 IU/L (<35); Albumin 4.8 g/dL (3.5-5.0); Albumin Globulin Ratio 1.3 (1.0-2.8); Alkaline Phosphatase 79 U/L (38-126); Aspartate Aminotransferase 21 IU/L (14-36); Bilirubin Total 0.7 mg/dL (0.2-1.3); Blood Urea Nitrogen 12 mg/dL (7-17); Carbon Dioxide 27 mmol/L (22-32); Chloride 100 mmol/L (98-107); Estimated Glomerular Filt Rate > 60.0 mL/min (>60); Globulin 3.8 g/dL (1.7-4.1); Glucose 97 mg/dL (70-100); HEMOLYSIS < 15 (0-50); Potassium 3.7 mmol/L (3.4-5.1); Sodium 138 mmol/L (137-145); Total Protein 8.6 g/dL (6.3-8.2)
[2019-07-10] MEDS: LIDOCAINE PATCH 1 EACH ADH..PATCH TOP (16:56)
[2019-07-10 17:11] VITALS: PULSE 91; RESP 14; O2SAT 98
--- NOTE | 2019-07-10 18:10 | ED.ABDPAIN ---
HPI - Abdominal Pain <Alisha RuckerCARLOSP-BC - Last Filed: 07/10/19 18:18> General Chief Complaint: Abdominal Pain Stated Complaint: feeding tube site pain Time Seen by Provider: 07/10/19 14:21 Source: patient and family Mode of arrival: Ambulatory Limitations: no limitations History of Present Illness HPI narrative: The patient is a 39-year-old female former smoker with history of neurologic disorder and gastric tube removal who presents with chief complaint of pain at her G-tube site. She had her gastrotomy tube for 6 weeks and had it removed on 05/30/2019. She had of follow-up on 06/06/2019. She states that she had a referral to Pain Management, but they will not see years old later omari joint injections. She denies any fevers nausea vomiting or diarrhea. She is eating and drinking well. She states that yesterday she had swelling and redness at her G-tube site. She states that it got better. She states that she has not taken anything for pain other than Flexeril yesterday. Related Data Home Medications Medication Instructions Recorded Confirmed clonazepam 1 mg PO QID 11/05/17 07/10/19 carbidopa-levodopa 1 tab PO QID 03/17/19 07/10/19 carbidopa-levodopa 1 tab PO TID 03/17/19 07/10/19 omeprazole 60 mg PO QPM 03/17/19 06/06/19 cephalexin 500 mg PO TID 05/01/19 06/06/19 clobetasol 1 applic TOPICAL DIRECTED 07/10/19 07/10/19 Previous Rx's Medication Instructions Recorded docusate sodium 100 mg PO BID #200 ml 04/15/19 triamcinolone acetonide 1 applictn TOP BID #15 gram 04/17/19 cyclobenzaprine 10 mg PO TID PRN #14 tab 05/28/19 tramadol 50 mg tablet 50 mg PO Q8H PRN #60 tab 06/06/19 lidocaine 1 patch TOP DAILY #15 each 07/10/19 Allergies Allergy/AdvReac Type Severity Reaction Status Date / Time Gadolinium-Containing Allergy Unknown Verified 06/06/19 09:40 Contrast Medi Sulfa (Sulfonamide Allergy Unknown Verified 06/06/19 09:40 Antibiotics) [SULFA (SULFONAMIDE ANTIBIOTICS)] adhesive AdvReac Intermediate Blister Verified 06/06/19 09:40 Review of Systems <LORRI Lyles - Last Filed: 07/10/19 18:18> Review of Systems Narrative: GENERAL: Denies chills, fatigue, malaise, fever, sweats. HEENT: Denies sinus pain, ear pain, sore throat, difficulty swallowing, dizziness. RESPIRATORY: Denies dyspnea, cough, wheezing, hemoptysis, sputum. CARDIOVASCULAR: Denies chest pain, palpitations, orthopnea, edema, GASTROINTESTINAL: See HPI : Denies dysuria, frequency, incontinence, hematuria, urinary retention. MUSCULOSKELETAL: denies weakness, joint pain, or bony pain SKIN: See HPI NEUROLOGIC: Denies weakness, headache, numbness, change in speech, confusion, seizures, incoordination. PSYCHIATRIC: No concerning psychosocial issues. 12 point review of systems is negative except for those stated above Patient History <LORRI Lyles - Last Filed: 07/10/19 18:18> Medical History Dysphagia (Acute) Gastrostomy tube in place (Acute) GERD (gastroesophageal reflux disease) (Acute) History of gastrostomy tube placement (Inactive) Movement disorder (Chronic) Vocal cord paralysis (Chronic) Social History household members: significant other and children Smoking Status: Former smoker alcohol intake: current Smoking Status: Former smoker alcohol intake frequency: holidays/special occasions only Substance Use Type: does not use and other Exam <LORRI Lyles - Last Filed: 07/10/19 18:18> Narrative Exam Narrative: GENERAL: This is a well-nourished, well-developed patient, in no acute distress HEAD: Atraumatic. Normocephalic. No temporal or scalp tenderness. EYES: Pupils equal round and reactive. Extraocular motions intact. No scleral icterus. No injection or drainage. ENT: Nose without bleeding, purulent drainage or septal hematoma. Throat without erythema, tonsillar hypertrophy or exudate. Uvula midline. Airway patent. NECK: Trachea midline. No JVD or lymphadenopathy. Supple, nontender, no meningeal signs. CARDIOVASCULAR: Regular rate and rhythm RESPIRATORY: No cough. No increased respiratory effort. No accessory muscle use. GASTROINTESTINAL: Abdomen soft, diffusely tender to palpation, nondistended. No hepato-splenomegaly, or palpable masses. Active bowel sounds all 4 quadrants. No guarding. EXTREMITIES: No clubbing, cyanosis, or edema. No joint tenderness, effusion, or edema noted. BACK: Nontender without deformity or crepitance. No flank tenderness. NEURO: AOx3. Interactive. Age appropriate. SKIN: Postoperative changes noted on abdomen. No erythema, no drainage, no swelling. Initial Vital Signs Initial Vital Signs: Vital Signs Temperature 97.8 F 07/10/19 14:24 Pulse Rate 104 H 07/10/19 14:24 Respiratory Rate 13 07/10/19 14:24 Blood Pressure 124/86 07/10/19 14:24 Pulse Oximetry 98 07/10/19 14:24 <Shaye Jones DO - Last Filed: 07/11/19 09:06> Initial Vital Signs Initial Vital Signs: Vital Signs Temperature 97.8 F 07/10/19 14:24 Pulse Rate 104 H 07/10/19 14:24 Respiratory Rate 13 07/10/19 14:24 Blood Pressure 124/86 07/10/19 14:24 Pulse Oximetry 98 07/10/19 14:24 Course <LORRI Lyles - Last Filed: 07/10/19 18:18> Orders Ordered: Discontinued Medications Lidocaine (Lidoderm) 1 each TOP NOW ONE Stop: 07/10/19 16:28 Last Admin: 07/10/19 16:56 Dose: 1 each Documented by: COLTEN Ondansetron HCl (Zofran Odt) 4 mg SL NOW ONE Stop: 07/10/19 14:40 Last Admin: 07/10/19 14:46 Dose: 4 mg Documented by: COLTEN Tramadol HCl (Ultram) 50 mg PO NOW ONE Stop: 07/10/19 14:40 Last Admin: 07/10/19 14:46 Dose: 50 mg Documented by: COLTEN Vital Signs Vital signs: Vital Signs - 8 hr 07/10/19 14:24 07/10/19 17:11 Temperature 97.8 F Pulse Rate 104 H 91 H Respiratory Rate 13 14 Blood Pressure 124/86 Pulse Oximetry 98 98 <Shaye Jones DO - Last Filed: 07/11/19 09:06> Orders Ordered: Discontinued Medications Lidocaine (Lidoderm) 1 each TOP NOW ONE Stop: 07/10/19 16:28 Last Admin: 07/10/19 16:56 Dose: 1 each Documented by: COLTEN Ondansetron HCl (Zofran Odt) 4 mg SL NOW ONE Stop: 07/10/19 14:40 Last Admin: 07/10/19 14:46 Dose: 4 mg Documented by: COLTEN Tramadol HCl (Ultram) 50 mg PO NOW ONE Stop: 07/10/19 14:40 Last Admin: 07/10/19 14:46 Dose: 50 mg Documented by: COLTEN Vital Signs Vital signs: Vital Signs - 8 hr 07/10/19 14:24 07/10/19 17:11 Temperature 97.8 F Pulse Rate 104 H 91 H Respiratory Rate 13 14 Blood Pressure 124/86 Pulse Oximetry 98 98 MDM - Abdominal Pain <MARILYN Lyles- - Last Filed: 07/10/19 18:18> Lab Data Result diagrams: 07/10/19 14:47 07/10/19 14:47 Labs: Lab Results 07/10/19 07/10/19 Range/Units 14:47 14:47 WBC 7.9 (4.5-11.0) X10^3/uL RBC 4.84 (4.0-5.2) X10^6/uL Hgb 13.8 (12.0-16.0) g/dL Hct 40.8 (36-46) % MCV 84.3 (80-100) fL MCH 28.6 (26-34) PG MCHC 33.9 (30-36) % RDW 14.8 (11.6-14.8) % Plt Count 355 (150-400) X10^3/uL Neut % (Auto) 70.8 (50-75) % Lymph % (Auto) 23.3 L (25-40) % [place] % (Auto) 4.6 (3-14) % Eos % (Auto) 0.5 L (2-4) % Baso % (Auto) 0.8 (0-2) % Neut # (Auto) 5600 (8978-1490) /uL Lymph # (Auto) 1800 (9252-1129) /uL [place] # (Auto) 400 (0-900) /uL Eos # (Auto) 0 (0-450) /uL Baso # (Auto) 100 (0-100) /uL Sodium 138 (137-145) mmol/L Potassium 3.7 (3.4-5.1) mmol/L Chloride 100 (98-107) mmol/L Carbon Dioxide 27 (22-32) mmol/L BUN 12 (7-17) mg/dL Creatinine 0.60 (0.52-1.04) mg/dL Estimated GFR > 60.0 (>60) mL/min BUN/Creatinine Ratio 20.0 (6-22) Glucose 97 (70-100) mg/dL Calcium 10.0 (8.4-10.2) mg/dL Total Bilirubin 0.7 (0.2-1.3) mg/dL AST 21 (14-36) IU/L ALT 5 (<35) IU/L Alkaline Phosphatase 79 (38-126) U/L Total Protein 8.6 H (6.3-8.2) g/dL Albumin 4.8 (3.5-5.0) g/dL Globulin 3.8 (1.7-4.1) g/dL Albumin/Globulin Ratio 1.3 (1.0-2.8) Imaging Data US - abdomen: Radiologist's Impression: [address] [place] [id number] Ultrasound Report Signed Patient: Janki Man LMR#: [id number] : 1980Acct:[id number] Age/Sex: 39 / FDate of Service: 07/10/19 Loc: ED Accession Number: [id number] Procedure: US abdomen limited Ordering Provider: Alisha Rucker PROCEDURE: US ABDOMEN LIMITED INDICATIONS: PAIN AT FEEDING TUBE REMOVAL SITE TECHNIQUE: Real-time scanning was performed of the abdominal wall in the region of the recently removed gastric tube and area of pain, with image documentation. COMPARISON: [facility], CT, CT ABDOMEN PELVIS W CON, 05/28/2019, 16:01. FINDINGS: No fluid collection or significant edema in the region of pain. IMPRESSION: Negative exam. No fluid collection in the region of pain near the site of gastric tube removal. If symptoms persist followup ultrasound or CT abdomen could be performed. Dictated by: Quentin Streeter M.D. on 07/10/2019 at 15:29 Approved by: Quentin Streeter M.D. on 07/10/2019 at 15:33 [facility] Narrative Medical decision making narrative: The patient is a 39-year-old female who presents with a chief complaint of pain at this site of her removed gastric tube. She has no signs of systemic illness, is afebrile tolerating p.o. food and fluids well at home. Lab work shows no leukocytosis, no acute abnormalities, no anemia. She is afebrile on exam. She has no acute visual abnormalities on exam, no palpable abnormalities on her abdomen. Given her repeat CT scans at this location, I did obtain an ultrasound which showed no acute abnormalities of the area. Given the patient's history, I did speak with Dr. Lozada regarding the patient's presentation, lab work, imaging. Discussed that there are no clear indications for an abdominal CT at this point time, the patient should follow-up with her primary care provider as well as her surgeon in clinic. I discussed at length with the patient this plan, and she is in accordance with plan of care. I discussed at length return precautions including fever with abdominal pain, inability keep down fluids etc.. Discussed trial of lidocaine patches and prescription sent in. Patient states understanding return precautions as well as follow-up care and has no questions or concerns upon discharge. <Shaye Jones, - Last Filed: 07/11/19 09:06> Lab Data Labs: Lab Results 07/10/19 07/10/19 Range/Units 14:47 14:47 WBC 7.9 (4.5-11.0) X10^3/uL RBC 4.84 (4.0-5.2) X10^6/uL Hgb 13.8 (12.0-16.0) g/dL Hct 40.8 (36-46) % MCV 84.3 (80-100) fL MCH 28.6 (26-34) PG MCHC 33.9 (30-36) % RDW 14.8 (11.6-14.8) % Plt Count 355 (150-400) X10^3/uL Neut % (Auto) 70.8 (50-75) % Lymph % (Auto) 23.3 L (25-40) % [place] % (Auto) 4.6 (3-14) % Eos % (Auto) 0.5 L (2-4) % Baso % (Auto) 0.8 (0-2) % Neut # (Auto) 5600 (2726-3537) /uL Lymph # (Auto) 1800 (8199-0512) /uL [place] # (Auto) 400 (0-900) /uL Eos # (Auto) 0 (0-450) /uL Baso # (Auto) 100 (0-100) /uL Sodium 138 (137-145) mmol/L Potassium 3.7 (3.4-5.1) mmol/L Chloride 100 (98-107) mmol/L Carbon Dioxide 27 (22-32) mmol/L BUN 12 (7-17) mg/dL Creatinine 0.60 (0.52-1.04) mg/dL Estimated GFR > 60.0 (>60) mL/min BUN/Creatinine Ratio 20.0 (6-22) Glucose 97 (70-100) mg/dL Calcium 10.0 (8.4-10.2) mg/dL Total Bilirubin 0.7 (0.2-1.3) mg/dL AST 21 (14-36) IU/L ALT 5 (<35) IU/L Alkaline Phosphatase 79 (38-126) U/L Total Protein 8.6 H (6.3-8.2) g/dL Albumin 4.8 (3.5-5.0) g/dL Globulin 3.8 (1.7-4.1) g/dL Albumin/Globulin Ratio 1.3 (1.0-2.8) Discharge Plan Departure Patient Disposition: Home Clinical Impression: Abdominal wall pain Discharge Date/Time: 07/10/19 17:10 Instructions: DI for Abdominal Pain-Adult Activity Restrictions/Additional Instructions: Today your lab work and imaging came back with no acute abnormalities. You are not anemic, have no elevated white blood cell count and no evidence of abscess I spoke with the surgeon on-call about her lab and imaging reports. Please follow-up with primary care provider in the next few days as well as your surgeon in clinic I've sent a prescription of lidocaine patches to [facility]. Please come back to emergency department for any acute concerns such as fever with abdominal pain chest pain shortness of breath etc. Prescriptions: New lidocaine 5 % adhesive patch,medicated 1 patch TOP DAILY Qty: 15 RF: 0 No Action tramadol 50 mg tablet 50 mg PO Q8H PRN (Reason: pain) Qty: 60 RF: 0 docusate sodium 50 mg/5 mL Liquid 100 mg PO BID Qty: 200 RF: 0 triamcinolone acetonide 0.025 % cream 1 applictn TOP BID Qty: 15 RF: 1 cephalexin 500 mg capsule 500 mg PO TID RF: 0 clonazepam 1 mg Tablet 1 mg PO QID RF: 0 carbidopa-levodopa 50-200 mg tablet extended release 1 tab PO QID RF: 0 carbidopa-levodopa 25-100 mg tablet 1 tab PO TID RF: 0 omeprazole 20 mg Tablet,Delayed Release (Dr/Ec) 60 mg PO QPM RF: 0 cyclobenzaprine 10 mg tablet 10 mg PO TID PRN (Reason: muscle spasm) Qty: 14 RF: 0 clobetasol 0.05 % ointment 1 applic TOPICAL DIRECTED RF: 0 Referrals: [facility] [Provider Group] Eliseo Nuñez MD [Primary Care Provider] -
== END 2019-07-10 17:10 | disposition home or self-care (01) ==
PROVIDERS: Emergency Provider Nurse Practitioner Family; Family Provider Family Medicine; PCP Family Medicine
DX: R10.9 Unspecified abdominal pain (principal); Z93.1 Gastrostomy status
CPT/HCPCS: 36415; 76705; 80053; 85025; 99283; 99284

== ENCOUNTER 2019-07-28 15:14 | Observation (INO) | payer OTHER, MEDICAID, SELFPAY ==
[2019-05-29 13:32] VITALS: BMI 36.0
[2019-07-27] VITALS (17 sets, daily range): BP systolic 110–144; BP diastolic 66–86; PULSE 65–102; RESP 13–20; TEMP 35.7–36.8; O2SAT 95–100; BMI 33.3
--- NOTE | 2019-07-27 14:36 | SUR.OPER ---
Supine on padded OR bed, head on pillow, arms secured on padded arm boards at <90 degrees abduction, legs uncrossed, safety belt at thigh, tape over blanket over lower legs.
[2019-07-27] MEDS: CEFAZOLIN 2 GM/100 ML FROZ.PIGGY IV (15:20)
[2019-07-27] MEDS: BUPIVACAINE LIPOSOME 266 MG/20 ML VIAL INJ (15:40)
[2019-07-27] MEDS: BUPIVACAINE 0.25% W/ EPI 30 ML VIAL INJ (15:40)
[2019-07-27] MEDS: [UNRECOGNIZED DRUG - OTHER] 10 ML TOP (16:01)
[2019-07-27] MEDS: fentaNYL 100 MCG/2 ML INJ IV (16:32)
[2019-07-27] MEDS: LORazepam 2 MG/ML INJ 0.25 MG IV (16:35)
--- NOTE | 2019-07-27 16:40 | PM.OP.1 ---
Operative Date/Time/Diagnoses Date of procedure: 07/27/19 Time of procedure: 16:40 Pre-op diagnosis: retained foreign body, abdominal wall sutures Post-op diagnosis: same Procedure & Clinicians Procedure: Removal of retained foreign body, abdominal wall sutures Same procedure as scheduled: Yes Indications: Abdominal wall pain Surgeon: Tika Newby Click Yes if Unassisted: Yes Anesthesia Type: General Operative Notes Findings: Four prolene sutures in the abdominal wall of the left upper quadrant Closure Type: primary Specimen(s): none sent Prosthetic devices, grafts, tissues, transplants, or devices: The patient was brought into the operating room and placed supine on the OR table. Sequential compression devices were placed on both legs and turned on. Appropriate perioperative antibiotics were given prior to the start of surgery. General anesthesia was induced the patient was intubated with an LMA. The abdomen was prepped and draped in sterile fashion with betadine. Surgical time-out was conducted. Local anesthetic was injected under the skin at the site of her prior G tube. There was a transverse skin incision present from the attempted suture removal in [facility]. A vertical incision was then made from the middle of the transverse incision for 4cm. I dissected through the dermis and fat down to the fascia. Four prolene sutures were identified and removed. 40mL of Marcaine were injected in the fascia, and 20mL of Exparel were injected in the fascia, subcutaneous and fat tissue. The subcutaneous fat was closed in layers using vicryl suture. The skin was closed with running 4-0 Monocryl suture, and the skin edges were sealed with steri strips. A 4x4 dressing was then placed over the steri strips and secured with Tegaderm. The patient was awakened from anesthesia and extubated. Needle, sponge and instrument counts were correct at the end of the procedure. Estimated Blood Loss (mL): 1 Blood products transfused: none Complications: none Post-operative Condition: stable Disposition: PACU Plan for aftercare: transfer to acute care for post op pain management
[2019-07-27] MEDS: fentaNYL 100 MCG/2 ML INJ 50 MCG IV (16:45)
[2019-07-27] MEDS: LORazepam 2 MG/ML INJ 0.5 MG IV (16:46)
[2019-07-27] MEDS: HYDROMORPHONE 0.5 MG INJ IV (16:59)
[2019-07-27] MEDS: clonazePAM 0.5 MG TABLET 1 MG PO ×2 (18:13→21:18)
[2019-07-27] MEDS: CARBIDOPA-LEVODOPA ER 50/200 TABLET 1 EACH PO ×2 (18:13→21:18)
[2019-07-27] MEDS: CARBIDOPA-LEVODOPA 25/100 TABLET 1 EACH PO (18:14)
[2019-07-27] MEDS: INFLUENZA VACCINE 0.5 ML SYRINGE IM (18:34)
[2019-07-27] MEDS: OXYCODONE/ACETAMINOPHEN 5/325 TABLET 1 TAB PO (20:04)
[2019-07-28] MEDS: OXYCODONE/ACETAMINOPHEN 5/325 TABLET 1 TAB PO ×4 (00:15→14:47)
[2019-07-28 04:02] VITALS: BP 117/65; PULSE 80; RESP 18; TEMP 36.7; O2SAT 96
[2019-07-28] MEDS: CARBIDOPA-LEVODOPA ER 50/200 TABLET 1 EACH PO ×2 (05:02→12:09)
[2019-07-28] MEDS: CARBIDOPA-LEVODOPA 25/100 TABLET 1 EACH PO ×2 (05:13→12:12)
[2019-07-28 07:50] VITALS: BP 110/72; PULSE 89; RESP 16; TEMP 36.3; O2SAT 98
[2019-07-28] MEDS: ENOXAPARIN 40 MG/0.4 ML SYRINGE SUBCUT (08:10)
[2019-07-28] MEDS: clonazePAM 0.5 MG TABLET 1 MG PO ×2 (08:10→14:05)
[2019-07-28] MEDS: SODIUM CHLORIDE 0.9% FLUSH 10 ML IV (08:11)
[2019-07-28 11:11] VITALS: BP 101/69; PULSE 91; RESP 16; TEMP 37.1; O2SAT 97
--- NOTE | 2019-07-28 13:38 | CM.DANOTE ---
DCP assessment: EMR Reviewed: Patient is a 39 yr old female who was seen by Dr. Newby for transabdominal suture removal done in the OR due to increased pain. Sutures are from previously needed G-tube. Patient will be D/C home today with patients spouse when medically stable. patient Lives with her Nino in [facility] and will set up follow up wound care check with Dr. Saldana office for two weeks from now. CM/RN attempted to meet with patient but patient was in the OR at time of CM visit. CM department will follow up as needed if Further D/C planning is needed. I: bennett and Medicaid Plan: According to H&P D/C plan is home with family when medically stable. no identified D/C planning needs noted at this time. Cm department will follow to assist with any new D/C planning needs that might arise. Kristin Buchanan RN Discharge Planning/Care Management CM Discharge Assessment Start: 07/28/19 13:34 Freq: Status: Active Protocol: Document 07/28/19 13:35 HS (Rec: 07/28/19 13:38 HS [id number]) Discharge Planning Assessment Assigned Dermatologist Managing Partner Kristin Buchanan RN DPOA/Assigned Designee Name Nino Ross () Contact Information [phone] Advance Directives? No Advance Directives on File No History Provided By Patient,Medical Record Has Patient been admitted in last 30 No days? Prior Living Arrangements House Household Members significant other,children Type of transporation used prior to Relies on Others admit Independent with ADL's Yes Is patient alert and oriented? Yes Caregiver for Another No Discharge Plan Home Transportation Arrangement Family Referrals Initiated None needed Whiteboard Updated in Patient Room with Yes name and ext. # of Dermatologist Managing Partner Review Status In Process Next Review Type Continued Stay Review
--- NOTE | 2019-07-28 14:00 | PC.NURSE ---
Tramadol script hand delivered to [facility] pharmacy due to late ETA at patient home pharmacy on [facility].
--- NOTE | 2019-07-28 14:22 | PC.NURSE ---
Day Shift Patient alert and oriented. Dressing site CDI. Pain tolerable with PO meds given in applesauce, pt ambulating and taking in PO intake without NV. Patient agreeable to discharge when ride arrives this afternoon. Care is ongoing.
[2019-07-28 16:10] VITALS: BP 116/77; PULSE 90; RESP 18; TEMP 36.4; O2SAT 98
--- NOTE | 2019-07-28 17:08 | PC.NURSE ---
Pt discharged off acute care floor via wheelchair with friend. 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 All belongings with patient. Denies further questions/or needs. Ice bag filled. Dressing to abd remains c/d/i.
== END 2019-07-28 17:10 | disposition home or self-care (01) ==
LOC: OR 15:48 → AC 15:48
PROVIDERS: Admitting Provider Surgery; Family Provider Family Medicine; PCP Family Medicine; Visit Provider Surgery
PROC: (CPT 15851; principal; 2019-07-27 14:00)
DX: Z48.02 Encounter for removal of sutures (principal); Z23 Encounter for immunization; T85.692A Other mechanical complication of permanent sutures, initial encounter; T85.848A Pain due to other internal prosthetic devices, implants and grafts, initial encounter; K21.9 Gastro-esophageal reflux disease without esophagitis; G25.9 Extrapyramidal and movement disorder, unspecified; R10.9 Unspecified abdominal pain; R13.10 Dysphagia, unspecified
CPT/HCPCS: 15851; 90471; 90656; 99214; G0378; C9290; J0690; J1170; J1650; J2060; J2250; J2704; J3010; Q2038

== ENCOUNTER 2019-09-18 18:08 | Emergency (ER) | payer OTHER, MEDICAID, SELFPAY ==
[2019-07-27 17:59] VITALS: BMI 33.3
[2019-09-18 18:15] VITALS: BP 127/77; PULSE 96; RESP 16; TEMP 36.8; O2SAT 100
--- NOTE | 2019-09-18 18:34 | DI.RAD.S_ITS ---
PROCEDURE: XR CHEST 1V INDICATIONS: SOB, cough, fever TECHNIQUE: One view of the chest was acquired. COMPARISON: [facility], CR, XR CHEST 2V, 01/13/2018, 11:04. FINDINGS: Surgical changes and devices: None. Lungs and pleura: Lungs are clear. No pleural effusions or pneumothorax. Mediastinum: Mediastinal contours appear normal. Heart size is normal. Bones and chest wall: No suspicious bony lesions. Overlying soft tissues appear unremarkable. IMPRESSION: No acute cardiopulmonary disease process. Dictated by: Karina Sanabria MD, PhD on 09/18/2019 at 19:00 Approved by: Karina Sanabria MD, PhD on 09/18/2019 at 19:01
--- NOTE | 2019-09-18 18:46 | ED.SOB ---
HPI - SOB/Dyspnea <Liudmila Hope PA-C - Last Filed: 09/18/19 21:07> General Chief Complaint: Shortness of Breath/Dyspnea Stated Complaint: FEVER COUGH SOB Time Seen by Provider: 09/18/19 18:33 Source: patient Mode of arrival: Ambulatory Limitations: no limitations History of Present Illness HPI Narrative: This 39-year-old female comes to ED secondary to upper respiratory symptoms with worsening dyspnea over the last several days. She states that Wednesday morning she had a tickle in her throat, 2 hours later began to have worsening dry cough, then fever up to 102 at home. She states that she has felt gradually more short of breath since then. She has had body aches and feels extremely fatigued. States all of this came on extremely quickly. She states that with coughing fits at home her oxygen saturation was dropping to 92% with pulse of 110. She states that aside from that pulse ox 94 or above. She states that she does not have chest pain, more like the effort of breathing is difficult, no wheeze. She states that she had some leg swelling for a day last week. She denies any lower extremity pain or swelling currently. She denies earache. Mild sinus nasal congestion. 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 She has a history of cervical dystonia and was hospitalized for that last month. She states she is up-to-date on vaccines. She states that she had remote easley virus exposure in the last couple of weeks (exposed to a friend who's relative tested positive). Related Data Home Medications Medication Instructions Recorded Confirmed clonazepam 1 mg PO QID 11/05/17 08/03/19 carbidopa-levodopa 1 tab PO QID 03/17/19 08/03/19 carbidopa-levodopa 1 tab PO TID 03/17/19 08/03/19 omeprazole 60 mg PO QPM 03/17/19 08/03/19 clobetasol 1 applic TOPICAL DIRECTED 07/10/19 08/03/19 Previous Rx's Medication Instructions Recorded docusate sodium 100 mg PO BID #200 ml 04/15/19 triamcinolone acetonide 1 applictn TOP BID #15 gram 04/17/19 lidocaine 1 patch TOP DAILY #15 each 07/10/19 docusate sodium 100 mg PO BID #60 cap 07/28/19 tramadol 50 mg PO Q4H PRN #30 tab 07/28/19 tramadol 50 mg tablet 50 mg PO Q4H PRN #30 tab 08/03/19 Allergies Allergy/AdvReac Type Severity Reaction Status Date / Time Gadolinium-Containing Allergy Unknown Verified 08/03/19 14:42 Contrast Medi Sulfa (Sulfonamide Allergy Unknown Verified 08/03/19 14:42 Antibiotics) [SULFA (SULFONAMIDE ANTIBIOTICS)] chlora Allergy Intermediate Rash Uncoded 08/03/19 14:42 Review of Systems <Liudmila Hope PA-C - Last Filed: 09/18/19 21:07> Review of Systems ROS Unobtainable: All systems reviewed & are unremarkable except as noted in HPI and below Patient History <Liudmila Hope PA-C - Last Filed: 09/18/19 21:07> Medical History Dysphagia (Acute) Gastrostomy tube in place (Acute) GERD (gastroesophageal reflux disease) (Acute) History of gastrostomy tube placement (Inactive) Movement disorder (Chronic) Vocal cord paralysis (Chronic) Social History household members: significant other and children Smoking Status: Former smoker alcohol intake: former Smoking Status: Former smoker alcohol intake frequency: holidays/special occasions only Substance Use Type: does not use and other Exam <Liudmila Hope PA-C - Last Filed: 09/18/19 21:07> Narrative Exam Narrative: GENERAL APPEARANCE: Patient sitting comfortably, appears fatigued, in no acute distressed HEAD: No sinus TTP. EYES: PERRL, EOMI. ORAL CAVITY: Normal oropharynx. THROAT: No erythema or exudate NECK/THYROID: Neck supple, full range of motion, no cervical lymphadenopathy. LUNGS: Clear to auscultation bilaterally, clear to percussion, no cough on exam. Speaks in complete sentences somewhat slowly HEART: RRR without murmur, nl S1, S2, no S3 or S4. ABDOMEN: Soft, nontender, nondistended EXTREMITIES: No edema, no calf tenderness Initial Vital Signs Initial Vital Signs: Vital Signs Temperature 98.3 F 09/18/19 18:15 Pulse Rate 96 H 09/18/19 18:15 Respiratory Rate 16 09/18/19 18:15 Blood Pressure 127/77 09/18/19 18:15 Pulse Oximetry 100 09/18/19 18:15 <Alisha Horton DO - Last Filed: 09/18/19 22:27> Initial Vital Signs Initial Vital Signs: Vital Signs Temperature 98.3 F 09/18/19 18:15 Pulse Rate 96 H 09/18/19 18:15 Respiratory Rate 16 09/18/19 18:15 Blood Pressure 127/77 09/18/19 18:15 Pulse Oximetry 100 09/18/19 18:15 Course <Liudmila Hope PA-C - Last Filed: 09/18/19 21:07> Course Additional Information: Patient is feeling markedly improved following inhaler treatment. X-ray and lab findings reviewed. Influenza negative. Suspicious for easley virus, which has been added. Advised this will not change treatment plan, remain in home isolation and return if any acutely worsening symptoms. Return precautions given, and she is agreeable. Orders Ordered: ED Orders 09/18/19 18:34 XR chest 1V Stat 09/18/19 19:00 C-Reactive Protein Quant Stat Complete Blood Count AUTO DIFF Stat Comprehensive Metabolic Panel Stat Influenza A & B (PCR) Stat Lactate (Lactic Acid) Stat Partial Thromboplastin Time Stat Procalcitonin Stat Prothrombin Time INR Stat 09/18/19 19:43 Blood Culture Stat Discontinued Medications Albuterol (Ventolin Hfa (Vent/Covid R/O)) 2 puff INH NOW ONE Stop: 09/18/19 18:35 Last Admin: 09/18/19 20:06 Dose: Not Given Documented by: DANIEL Albuterol (Ventolin Hfa) 2 puff INH NOW ONE Stop: 09/18/19 18:52 Last Admin: 09/18/19 18:55 Dose: 2 puff Documented by: ELIJAH Sodium Chloride (Normal Saline 0.9%) 1,000 mls @ 1,000 mls/hr IV BOLUS PRN PRN Reason: Fluid replacement Last Admin: 09/18/19 19:09 Dose: 1,000 mls/hr Documented by: MARCY Vital Signs Vital signs: Vital Signs - 8 hr 09/18/19 18:15 09/18/19 19:04 09/18/19 19:14 Temperature 98.3 F Pulse Rate 96 H 91 H Respiratory Rate 16 18 Blood Pressure 127/77 Blood Pressure [Right Arm] 109/59 L Pulse Oximetry 100 100 100 09/18/19 19:30 09/18/19 20:08 09/18/19 20:32 Temperature Pulse Rate 89 89 88 Respiratory Rate Blood Pressure Blood Pressure [Right Arm] 116/58 L 123/63 119/56 L Pulse Oximetry 100 100 100 <Alisha Horton, - Last Filed: 09/18/19 22:27> Orders Ordered: ED Orders 09/18/19 18:34 XR chest 1V Stat 09/18/19 19:00 C-Reactive Protein Quant Stat Complete Blood Count AUTO DIFF Stat Comprehensive Metabolic Panel Stat Influenza A & B (PCR) Stat Lactate (Lactic Acid) Stat Partial Thromboplastin Time Stat Procalcitonin Stat Prothrombin Time INR Stat 09/18/19 19:43 Blood Culture Stat Discontinued Medications Albuterol (Ventolin Hfa (Vent/Covid R/O)) 2 puff INH NOW ONE Stop: 09/18/19 18:35 Last Admin: 09/18/19 20:06 Dose: Not Given Documented by: DANIEL Albuterol (Ventolin Hfa) 2 puff INH NOW ONE Stop: 09/18/19 18:52 Last Admin: 09/18/19 18:55 Dose: 2 puff Documented by: ELIJAH Sodium Chloride (Normal Saline 0.9%) 1,000 mls @ 1,000 mls/hr IV BOLUS PRN PRN Reason: Fluid replacement Last Admin: 09/18/19 19:09 Dose: 1,000 mls/hr Documented by: MARCY Vital Signs Vital signs: Vital Signs - 8 hr 09/18/19 18:15 09/18/19 19:04 09/18/19 19:14 Temperature 98.3 F Pulse Rate 96 H 91 H Respiratory Rate 16 18 Blood Pressure 127/77 Blood Pressure [Right Arm] 109/59 L Pulse Oximetry 100 100 100 09/18/19 19:30 09/18/19 20:08 09/18/19 20:32 Temperature Pulse Rate 89 89 88 Respiratory Rate Blood Pressure Blood Pressure [Right Arm] 116/58 L 123/63 119/56 L Pulse Oximetry 100 100 100 MDM - SOB/Dyspnea <Liudmila Fishfader, PA-C - Last Filed: 09/18/19 21:07> Lab Data Result diagrams: 09/18/19 19:00 09/18/19 19:00 Labs: Lab Results 09/18/19 09/18/19 09/18/19 Range/Units 19:00 19:00 19:00 WBC 9.3 (4.5-11.0) X10^3/uL RBC 4.31 (4.0-5.2) X10^6/uL Hgb 12.5 (12.0-16.0) g/dL Hct 36.3 (36-46) % MCV 84.3 (80-100) fL MCH 29.1 (26-34) PG MCHC 34.5 (30-36) % RDW 15.2 H (11.6-14.8) % Plt Count 398 (150-400) X10^3/uL Neut % (Auto) 66.7 (50-75) % Lymph % (Auto) 26.5 (25-40) % Dickinson % (Auto) 5.8 (3-14) % Eos % (Auto) 0.4 L (2-4) % Baso % (Auto) 0.6 (0-2) % Neut # (Auto) 6200 (3969-1835) /uL Lymph # (Auto) 2500 (1857-7601) /uL Dickinson # (Auto) 500 (0-900) /uL Eos # (Auto) 0 (0-450) /uL Baso # (Auto) 100 (0-100) /uL PT 11.7 (10.1-12.7) SECONDS INR 1.0 (0.9-1.3) APTT 33 D (26.4-36.2) SECONDS Sodium (137-145) mmol/L Potassium (3.4-5.1) mmol/L Chloride (98-107) mmol/L Carbon Dioxide (22-32) mmol/L BUN (7-17) mg/dL Creatinine (0.52-1.04) mg/dL Estimated GFR (>60) mL/min BUN/Creatinine Ratio (6-22) Glucose (70-100) mg/dL Lactate 1.1 (0.7-2.1) mmol/L Calcium (8.4-10.2) mg/dL Total Bilirubin (0.2-1.3) mg/dL AST (14-36) IU/L ALT (<35) IU/L Alkaline Phosphatase (38-126) U/L C-Reactive Protein (<1.0) mg/dL Total Protein (6.3-8.2) g/dL Albumin (3.5-5.0) g/dL Globulin (1.7-4.1) g/dL Albumin/Globulin Ratio (1.0-2.8) Procalcitonin (<0.5) ng/mL Influenza A (RT-PCR) (NEGATIVE) Influenza B (RT-PCR) (NEGATIVE) 09/18/19 09/18/19 09/18/19 Range/Units 19:00 19:00 19:00 WBC (4.5-11.0) X10^3/uL RBC (4.0-5.2) X10^6/uL Hgb (12.0-16.0) g/dL Hct (36-46) % MCV (80-100) fL MCH (26-34) PG MCHC (30-36) % RDW (11.6-14.8) % Plt Count (150-400) X10^3/uL Neut % (Auto) (50-75) % Lymph % (Auto) (25-40) % Dickinson % (Auto) (3-14) % Eos % (Auto) (2-4) % Baso % (Auto) (0-2) % Neut # (Auto) (7223-4119) /uL Lymph # (Auto) (0248-8672) /uL Dickinson # (Auto) (0-900) /uL Eos # (Auto) (0-450) /uL Baso # (Auto) (0-100) /uL PT (10.1-12.7) SECONDS INR (0.9-1.3) APTT (26.4-36.2) SECONDS Sodium 139 (137-145) mmol/L Potassium 3.3 L (3.4-5.1) mmol/L Chloride 107 (98-107) mmol/L Carbon Dioxide 21 L (22-32) mmol/L BUN 9 (7-17) mg/dL Creatinine 0.68 (0.52-1.04) mg/dL Estimated GFR > 60.0 (>60) mL/min BUN/Creatinine Ratio 13.2 (6-22) Glucose 81 (70-100) mg/dL Lactate (0.7-2.1) mmol/L Calcium 9.8 (8.4-10.2) mg/dL Total Bilirubin 0.4 (0.2-1.3) mg/dL AST 18 (14-36) IU/L ALT 5 (<35) IU/L Alkaline Phosphatase 74 (38-126) U/L C-Reactive Protein < 0.5 (<1.0) mg/dL Total Protein 8.5 H (6.3-8.2) g/dL Albumin 4.8 (3.5-5.0) g/dL Globulin 3.7 (1.7-4.1) g/dL Albumin/Globulin Ratio 1.3 (1.0-2.8) Procalcitonin < 0.05 (<0.5) ng/mL Influenza A (RT-PCR) (NEGATIVE) Influenza B (RT-PCR) (NEGATIVE) 09/18/19 Range/Units 19:00 WBC (4.5-11.0) X10^3/uL RBC (4.0-5.2) X10^6/uL Hgb (12.0-16.0) g/dL Hct (36-46) % MCV (80-100) fL MCH (26-34) PG MCHC (30-36) % RDW (11.6-14.8) % Plt Count (150-400) X10^3/uL Neut % (Auto) (50-75) % Lymph % (Auto) (25-40) % Dickinson % (Auto) (3-14) % Eos % (Auto) (2-4) % Baso % (Auto) (0-2) % Neut # (Auto) (4903-1229) /uL Lymph # (Auto) (9020-7987) /uL Dickinson # (Auto) (0-900) /uL Eos # (Auto) (0-450) /uL Baso # (Auto) (0-100) /uL PT (10.1-12.7) SECONDS INR (0.9-1.3) APTT (26.4-36.2) SECONDS Sodium (137-145) mmol/L Potassium (3.4-5.1) mmol/L Chloride (98-107) mmol/L Carbon Dioxide (22-32) mmol/L BUN (7-17) mg/dL Creatinine (0.52-1.04) mg/dL Estimated GFR (>60) mL/min BUN/Creatinine Ratio (6-22) Glucose (70-100) mg/dL Lactate (0.7-2.1) mmol/L Calcium (8.4-10.2) mg/dL Total Bilirubin (0.2-1.3) mg/dL AST (14-36) IU/L ALT (<35) IU/L Alkaline Phosphatase (38-126) U/L C-Reactive Protein (<1.0) mg/dL Total Protein (6.3-8.2) g/dL Albumin (3.5-5.0) g/dL Globulin (1.7-4.1) g/dL Albumin/Globulin Ratio (1.0-2.8) Procalcitonin (<0.5) ng/mL Influenza A (RT-PCR) Flu a negative (NEGATIVE) Influenza B (RT-PCR) Flu b negative (NEGATIVE) <Alisha Horton, DO - Last Filed: 09/18/19 22:27> Lab Data Attestation: I reviewed the patient's lab results. Labs: Lab Results 09/18/19 09/18/19 09/18/19 Range/Units 19:00 19:00 19:00 WBC 9.3 (4.5-11.0) X10^3/uL RBC 4.31 (4.0-5.2) X10^6/uL Hgb 12.5 (12.0-16.0) g/dL Hct 36.3 (36-46) % MCV 84.3 (80-100) fL MCH 29.1 (26-34) PG MCHC 34.5 (30-36) % RDW 15.2 H (11.6-14.8) % Plt Count 398 (150-400) X10^3/uL Neut % (Auto) 66.7 (50-75) % Lymph % (Auto) 26.5 (25-40) % Dickinson % (Auto) 5.8 (3-14) % Eos % (Auto) 0.4 L (2-4) % Baso % (Auto) 0.6 (0-2) % Neut # (Auto) 6200 (4261-0356) /uL Lymph # (Auto) 2500 (4791-9987) /uL Dickinson # (Auto) 500 (0-900) /uL Eos # (Auto) 0 (0-450) /uL Baso # (Auto) 100 (0-100) /uL PT 11.7 (10.1-12.7) SECONDS INR 1.0 (0.9-1.3) APTT 33 D (26.4-36.2) SECONDS Sodium (137-145) mmol/L Potassium (3.4-5.1) mmol/L Chloride (98-107) mmol/L Carbon Dioxide (22-32) mmol/L BUN (7-17) mg/dL Creatinine (0.52-1.04) mg/dL Estimated GFR (>60) mL/min BUN/Creatinine Ratio (6-22) Glucose (70-100) mg/dL Lactate 1.1 (0.7-2.1) mmol/L Calcium (8.4-10.2) mg/dL Total Bilirubin (0.2-1.3) mg/dL AST (14-36) IU/L ALT (<35) IU/L Alkaline Phosphatase (38-126) U/L C-Reactive Protein (<1.0) mg/dL Total Protein (6.3-8.2) g/dL Albumin (3.5-5.0) g/dL Globulin (1.7-4.1) g/dL Albumin/Globulin Ratio (1.0-2.8) Procalcitonin (<0.5) ng/mL Influenza A (RT-PCR) (NEGATIVE) Influenza B (RT-PCR) (NEGATIVE) 09/18/19 09/18/19 09/18/19 Range/Units 19:00 19:00 19:00 WBC (4.5-11.0) X10^3/uL RBC (4.0-5.2) X10^6/uL Hgb (12.0-16.0) g/dL Hct (36-46) % MCV (80-100) fL MCH (26-34) PG MCHC (30-36) % RDW (11.6-14.8) % Plt Count (150-400) X10^3/uL Neut % (Auto) (50-75) % Lymph % (Auto) (25-40) % Dickinson % (Auto) (3-14) % Eos % (Auto) (2-4) % Baso % (Auto) (0-2) % Neut # (Auto) (2447-3027) /uL Lymph # (Auto) (5462-1241) /uL Dickinson # (Auto) (0-900) /uL Eos # (Auto) (0-450) /uL Baso # (Auto) (0-100) /uL PT (10.1-12.7) SECONDS INR (0.9-1.3) APTT (26.4-36.2) SECONDS Sodium 139 (137-145) mmol/L Potassium 3.3 L (3.4-5.1) mmol/L Chloride 107 (98-107) mmol/L Carbon Dioxide 21 L (22-32) mmol/L BUN 9 (7-17) mg/dL Creatinine 0.68 (0.52-1.04) mg/dL Estimated GFR > 60.0 (>60) mL/min BUN/Creatinine Ratio 13.2 (6-22) Glucose 81 (70-100) mg/dL Lactate (0.7-2.1) mmol/L Calcium 9.8 (8.4-10.2) mg/dL Total Bilirubin 0.4 (0.2-1.3) mg/dL AST 18 (14-36) IU/L ALT 5 (<35) IU/L Alkaline Phosphatase 74 (38-126) U/L C-Reactive Protein < 0.5 (<1.0) mg/dL Total Protein 8.5 H (6.3-8.2) g/dL Albumin 4.8 (3.5-5.0) g/dL Globulin 3.7 (1.7-4.1) g/dL Albumin/Globulin Ratio 1.3 (1.0-2.8) Procalcitonin < 0.05 (<0.5) ng/mL Influenza A (RT-PCR) (NEGATIVE) Influenza B (RT-PCR) (NEGATIVE) 09/18/19 Range/Units 19:00 WBC (4.5-11.0) X10^3/uL RBC (4.0-5.2) X10^6/uL Hgb (12.0-16.0) g/dL Hct (36-46) % MCV (80-100) fL MCH (26-34) PG MCHC (30-36) % RDW (11.6-14.8) % Plt Count (150-400) X10^3/uL Neut % (Auto) (50-75) % Lymph % (Auto) (25-40) % Dickinson % (Auto) (3-14) % Eos % (Auto) (2-4) % Baso % (Auto) (0-2) % Neut # (Auto) (4000-8614) /uL Lymph # (Auto) (0489-6937) /uL Dickinson # (Auto) (0-900) /uL Eos # (Auto) (0-450) /uL Baso # (Auto) (0-100) /uL PT (10.1-12.7) SECONDS INR (0.9-1.3) APTT (26.4-36.2) SECONDS Sodium (137-145) mmol/L Potassium (3.4-5.1) mmol/L Chloride (98-107) mmol/L Carbon Dioxide (22-32) mmol/L BUN (7-17) mg/dL Creatinine (0.52-1.04) mg/dL Estimated GFR (>60) mL/min BUN/Creatinine Ratio (6-22) Glucose (70-100) mg/dL Lactate (0.7-2.1) mmol/L Calcium (8.4-10.2) mg/dL Total Bilirubin (0.2-1.3) mg/dL AST (14-36) IU/L ALT (<35) IU/L Alkaline Phosphatase (38-126) U/L C-Reactive Protein (<1.0) mg/dL Total Protein (6.3-8.2) g/dL Albumin (3.5-5.0) g/dL Globulin (1.7-4.1) g/dL Albumin/Globulin Ratio (1.0-2.8) Procalcitonin (<0.5) ng/mL Influenza A (RT-PCR) Flu a negative (NEGATIVE) Influenza B (RT-PCR) Flu b negative (NEGATIVE) Imaging Data Chest x-ray: Radiologist's Impression: [address] [address] XRay Report Signed Patient: Janki Man LMR#: [id number] : 1980Acct:[id number] Age/Sex: 39 / FDate of Service: 09/18/19 Loc: ED Accession Number: [id number] Procedure: XR chest 1V Ordering Provider: Liudmila Hope P.A-C PROCEDURE: XR CHEST 1V INDICATIONS: SOB, cough, fever TECHNIQUE: One view of the chest was acquired. COMPARISON: [facility], CR, XR CHEST 2V, 01/13/2018, 11:04. FINDINGS: Surgical changes and devices: None. Lungs and pleura: Lungs are clear. No pleural effusions or pneumothorax. Mediastinum: Mediastinal contours appear normal. Heart size is normal. Bones and chest wall: No suspicious bony lesions. Overlying soft tissues appear unremarkable. IMPRESSION: No acute cardiopulmonary disease process. Dictated by: Karina Sanabria MD, PhD on 09/18/2019 at 19:00 Approved by: Karina Sanabria MD, PhD on 09/18/2019 at 19:01 [facility] Narrative Medical decision making narrative: Discharge Plan Departure Patient Disposition: Home Clinical Impression: Infection due to 2019 novel coronavirus Mild reactive airways disease Qualifiers: Asthma persistence: intermittent Asthma complication type: with acute exacerbation Qualified Code(s): J45.21 - Mild intermittent asthma with (acute) exacerbation Discharge Date/Time: 09/18/19 20:41 Instructions: DI for Viral Upper Respiratory Infection -- Adult, DI for Reactive Airway Disease-Adult Activity Restrictions/Additional Instructions: You most likely have a viral infection causing or symptoms, quite possibly the novel easley virus (Covid 19) although there could be other viruses that have caused your symptoms. You appear to have some reactive airways, and asthma like reaction, due to inflammation. Since you are feeling better in the inhaler has been helpful, please continue it as often as needed and use the spacer. Your test results may take 5-7 days to come back, and as we talked about, you should return right away should you have any acutely worsening symptoms in the interim. Please follow the recommended [facility] C/department of health guidelines below: * per recommendations from the CDC and the [facility] Department of Health * stay home except to get medical care. Restrict activities outside your home, except for getting medical care. Do not go to work, school, or public areas. Avoid using public transportation, ride sharing, or taxis. * separate yourself from other people in your home. * call ahead before visiting your doctor * Wear a face mask * Cover your coughs and sneezes * Clean your hands often * Avoid sharing household items * Clean all high-touch services every day * Monitor your symptoms and seek prompt medical attention if your illness is worsening, particularly with difficulty in breathing. Discussed continuing home isolation * for individuals with symptoms who are confirmed or suspected cases of COVID-19 and are directed to care for themselves at home, discontinue home isolation under the following conditions: 1. At least 72 hours have passed since recovery, defined as resolution of fever without the use of fever reducing medications, and improvement in respiratory symptoms (cough, shortness of breath) AND, 2. At least 7 days have passed since symptoms 1st appeared Individuals with laboratory confirmed COVID-19 who have not had any symptoms may discontinue home isolation when at least 7 days have passed since the date of their 1st COVID-19 diagnostic test and have had no subsequent illness Prescriptions: No Action tramadol 50 mg tablet 50 mg PO Q4H PRN (Reason: post operative pain) Qty: 30 RF: 0 docusate sodium 50 mg/5 mL Liquid 100 mg PO BID Qty: 200 RF: 0 triamcinolone acetonide 0.025 % cream 1 applictn TOP BID Qty: 15 RF: 1 clonazepam 1 mg Tablet 1 mg PO QID RF: 0 carbidopa-levodopa 50-200 mg tablet extended release 1 tab PO QID RF: 0 carbidopa-levodopa 25-100 mg tablet 1 tab PO TID RF: 0 omeprazole 20 mg Tablet,Delayed Release (Dr/Ec) 60 mg PO QPM RF: 0 clobetasol 0.05 % ointment 1 applic TOPICAL DIRECTED RF: 0 lidocaine 5 % adhesive patch,medicated 1 patch TOP DAILY Qty: 15 RF: 0 tramadol 50 mg tablet 50 mg PO Q4H PRN (Reason: abdominal wall pain) Qty: 30 RF: 0 docusate sodium 100 mg capsule 100 mg PO BID Qty: 60 RF: 0 Referrals: Eliseo Nuñez MD [Primary Care Provider] -
[2019-09-18] MEDS: ALBUTEROL HFA 60 PUFF/8 GM INH INH (18:55)
[2019-09-18 19:04] VITALS: O2SAT 100
[2019-09-18] MEDS: SODIUM CHLORIDE 0.9% 1,000 ML 1000 ML IV (19:09)
[2019-09-18 19:14] VITALS: BP 109/59; PULSE 91; RESP 18; O2SAT 100
[2019-09-18 19:17] LABS: Add Manual Diff / Slide Review NO; Basophils Absolute Auto 100 /uL (0-100); Basophils Percent Auto 0.6 % (0-2); Eosinophils Absolute Auto 0 /uL (0-450); Eosinophils Percent Auto 0.4 % (2-4); Hematocrit 36.3 % (36-46); Hemoglobin 12.5 g/dL (12.0-16.0); Lymphocytes Absolute Auto 2500 /uL (1100-4500); Lymphocytes Percent Auto 26.5 % (25-40); Mean Corpuscular HGB Conc 34.5 % (30-36); Mean Corpuscular Hemoglobin 29.1 PG (26-34); Mean Corpuscular Volume 84.3 fL (80-100); Monocytes Absolute Auto 500 /uL (0-900); Monocytes Percent Auto 5.8 % (3-14); Neutrophils Absolute Auto 6200 /uL (1500-7000); Neutrophils Percent Auto 66.7 % (50-75); Platelet Count 398 X10^3/uL (150-400); Red Blood Cell Count 4.31 X10^6/uL (4.0-5.2); Red Cell Distribution Width 15.2 % (11.6-14.8); White Blood Cell Count 9.3 X10^3/uL (4.5-11.0)
[2019-09-18 19:25] LABS: Prothrombin Time 11.7 SECONDS (10.1-12.7)
[2019-09-18 19:27] LABS: PTT Partial Thromboplastin Tim 33 SECONDS (26.4-36.2)
[2019-09-18 19:30] VITALS: BP 116/58; PULSE 89; O2SAT 100
[2019-09-18 19:31] LABS: Alanine Aminotransferase 5 IU/L (<35); Albumin 4.8 g/dL (3.5-5.0); Albumin Globulin Ratio 1.3 (1.0-2.8); Alkaline Phosphatase 74 U/L (38-126); Aspartate Aminotransferase 18 IU/L (14-36); BUN Creatinine Ratio 13.2 (6-22); Bilirubin Total 0.4 mg/dL (0.2-1.3); Blood Urea Nitrogen 9 mg/dL (7-17); Calcium 9.8 mg/dL (8.4-10.2); Carbon Dioxide 21 mmol/L (22-32); Chloride 107 mmol/L (98-107); Estimated Glomerular Filt Rate > 60.0 mL/min (>60); Globulin 3.7 g/dL (1.7-4.1); Glucose 81 mg/dL (70-100); HEMOLYSIS < 15 (0-50); Potassium 3.3 mmol/L (3.4-5.1); Sodium 139 mmol/L (137-145); Total Protein 8.5 g/dL (6.3-8.2)
[2019-09-18 19:32] LABS: Lactate (Lactic Acid) 1.1 mmol/L (0.7-2.1)
[2019-09-18 19:37] LABS: C-Reactive Protein Quant < 0.5 mg/dL (<1.0)
[2019-09-18 19:46] LABS: Influenza A - CEPHEID Flu A NEGATIVE (NEGATIVE); Influenza B - CEPHEID Flu B NEGATIVE (NEGATIVE)
[2019-09-18 19:53] LABS: Procalcitonin < 0.05 ng/mL (<0.5)
[2019-09-18 20:08] VITALS: BP 123/63; PULSE 89; O2SAT 100
[2019-09-18 20:32] VITALS: BP 119/56; PULSE 88; O2SAT 100
[2019-09-21 05:35] LABS: COVID19 Sendout Not Detected (Not Detected)
--- NOTE | 2019-09-26 15:20 | PC.NURSE ---
Patient started 1LNS on 09/18/19 at 1909 and completed 1L at 2040 prior to DC.
== END 2019-09-18 20:41 | disposition home or self-care (01) ==
PROVIDERS: Emergency Provider Internal Medicine; Family Provider Family Medicine; PCP Family Medicine
DX: Z20.828 Contact with and (suspected) exposure to other viral communicable diseases (principal); J45.21 Mild intermittent asthma with (acute) exacerbation; R05 Cough; R06.00 Dyspnea, unspecified; R06.02 Shortness of breath; R50.9 Fever, unspecified
CPT/HCPCS: 36415; 71045; 80053; 83605; 84145; 85025; 85610; 85730; 86140; 87040; 87502; 87635; 94640; 96360; 96361; 99284

== ENCOUNTER 2019-10-14 16:58 | Emergency (ER) | payer OTHER, MEDICAID, SELFPAY ==
[2019-07-27 17:59] VITALS: BMI 33.3
[2019-10-14 17:03] VITALS: BP 129/62; PULSE 90; RESP 13; TEMP 37.7; O2SAT 98
--- NOTE | 2019-10-14 17:35 | DI.RAD.S_ITS ---
PROCEDURE: XR ACUTE ABDOMEN SERIES INDICATIONS: abd pain TECHNIQUE: One view chest and two views of the abdomen were acquired. COMPARISON: [facility], , XR ACUTE ABDOMEN SERIES, 05/01/2019, 16:54. FINDINGS: Surgical changes and devices: None. Chest: Lungs are clear. Heart size is normal. No pleural effusions. No pneumoperitoneum. Abdomen: Bowel gas pattern is nonobstructive with moderate fecal burden seen in the region of the cecum and ascending colon. No suspicious calcifications. Visualized solid organ contours appear normal. Bones: No suspicious bony lesions. IMPRESSION: 1. Nonobstructive bowel gas pattern with moderate fecal burden in the region of the cecum and ascending colon. 2. Chest without acute cardiopulmonary abnormalities. Dictated by: Reed Yuen M.D. on 10/14/2019 at 17:55 Approved by: Reed Yuen M.D. on 10/14/2019 at 17:56
--- NOTE | 2019-10-14 18:08 | ED_ITS ---
HPI - Abdominal Pain <LORRI Lyles - Last Filed: 10/14/19 20:06> General Chief Complaint: Abdominal Pain Stated Complaint: ABD Pain Time Seen by Provider: 10/14/19 17:04 Source: patient and EMS Mode of arrival: other Limitations: no limitations History of Present Illness HPI narrative: The patient is a 39-year-old female nonsmoker with history of movement disorder and complicated PEG tube placement and removal who presents with a chief complaint of abdominal pain. She states it started earlier today, extending from the left postoperative site extending across her right abdomen. She denies any fevers nausea vomiting or diarrhea. She states she had normal bowel movement yesterday. She denies any dysuria urgency or frequency. She came here by air, was given fentanyl and Zofran during transport. Related Data Home Medications Medication Instructions Recorded Confirmed clonazepam 1 mg PO QID 11/05/17 08/03/19 carbidopa-levodopa 1 tab PO QID 03/17/19 08/03/19 carbidopa-levodopa 1 tab PO TID 03/17/19 08/03/19 omeprazole 60 mg PO QPM 03/17/19 08/03/19 clobetasol 1 applic TOPICAL DIRECTED 07/10/19 08/03/19 Previous Rx's Medication Instructions Recorded docusate sodium 100 mg PO BID #200 ml 04/15/19 triamcinolone acetonide 1 applictn TOP BID #15 gram 04/17/19 lidocaine 1 patch TOP DAILY #15 each 07/10/19 docusate sodium 100 mg PO BID #60 cap 07/28/19 tramadol 50 mg PO Q4H PRN #30 tab 07/28/19 tramadol 50 mg tablet 50 mg PO Q4H PRN #30 tab 08/03/19 Allergies Allergy/AdvReac Type Severity Reaction Status Date / Time Gadolinium-Containing Allergy Unknown Verified 08/03/19 14:42 Contrast Medi Sulfa (Sulfonamide Allergy Unknown Verified 08/03/19 14:42 Antibiotics) [SULFA (SULFONAMIDE ANTIBIOTICS)] chlora Allergy Intermediate Rash Uncoded 08/03/19 14:42 Review of Systems <LORRI Lyles - Last Filed: 10/14/19 20:06> Review of Systems Narrative: GENERAL: Denies chills, fatigue, malaise, fever, sweats. HEENT: Denies sinus pain, ear pain, sore throat, difficulty swallowing, dizziness. RESPIRATORY: Denies dyspnea, cough, wheezing, hemoptysis, sputum. CARDIOVASCULAR: Denies chest pain, palpitations, orthopnea, edema, GASTROINTESTINAL: See HPI : Denies dysuria, frequency, incontinence, hematuria, urinary retention. MUSCULOSKELETAL: denies weakness, joint pain, or bony pain SKIN: Denies rash, skin lesions, or other NEUROLOGIC: Denies weakness, headache, numbness, change in speech, confusion, seizures, incoordination. PSYCHIATRIC: No concerning psychosocial issues. 12 point review of systems is negative except for those stated above Patient History <LORRI Lyles - Last Filed: 10/14/19 20:06> Medical History Dysphagia (Acute) Gastrostomy tube in place (Acute) GERD (gastroesophageal reflux disease) (Acute) History of gastrostomy tube placement (Inactive) Movement disorder (Chronic) Vocal cord paralysis (Chronic) Social History household members: significant other and children Smoking Status: Former smoker alcohol intake: former Smoking Status: Former smoker alcohol intake frequency: holidays/special occasions only Substance Use Type: does not use and other Exam <LORRI Lyles - Last Filed: 10/14/19 20:06> Narrative Exam Narrative: GENERAL: This is a well-nourished, well-developed patient, in no acute distress HEAD: Atraumatic. Normocephalic. No temporal or scalp tenderness. EYES: Pupils equal round and reactive. Extraocular motions intact. No scleral icterus. No injection or drainage. ENT: Nose without bleeding, purulent drainage or septal hematoma. Throat without erythema, tonsillar hypertrophy or exudate. Uvula midline. Airway patent. NECK: Trachea midline. No JVD or lymphadenopathy. Supple, nontender, no meningeal signs. CARDIOVASCULAR: Regular rate and rhythm RESPIRATORY: Clear to auscultation. Breath sounds equal bilaterally. No wheezes, rales, or rhonchi. GASTROINTESTINAL: Abdomen soft, diffusely tender to palpation bilateral upper quadrants, nondistended. No hepato-splenomegaly, or palpable masses. No guarding. Negative Velasquez sign. EXTREMITIES: No clubbing, cyanosis, or edema. No joint tenderness, effusion, or edema noted. BACK: Nontender without deformity or crepitance. No flank tenderness. NEURO: AOx3. SKIN: Surgical scar on left upper abdomen well-healed with no signs of infection. Initial Vital Signs Initial Vital Signs: Vital Signs Temperature 99.8 F H 10/14/19 17:03 Pulse Rate 90 10/14/19 17:03 Respiratory Rate 13 10/14/19 17:03 Blood Pressure 129/62 10/14/19 17:03 Pulse Oximetry 98 10/14/19 17:03 <Arash Zhang DO - Last Filed: 10/15/19 02:49> Initial Vital Signs Initial Vital Signs: Vital Signs Temperature 99.8 F H 10/14/19 17:03 Pulse Rate 90 10/14/19 17:03 Respiratory Rate 13 10/14/19 17:03 Blood Pressure 129/62 10/14/19 17:03 Pulse Oximetry 98 10/14/19 17:03 Course <LORRI Lyles - Last Filed: 10/14/19 20:06> Orders Ordered: ED Orders 10/14/19 18:18 Amylase Stat Complete Blood Count AUTO DIFF Stat Comprehensive Metabolic Panel Stat Lactate (Lactic Acid) Stat Lipase Stat Vital Signs Vital signs: Vital Signs - 8 hr 10/14/19 19:25 10/14/19 19:53 Temperature 98.1 F Pulse Rate 78 Respiratory Rate 15 Blood Pressure 129/62 Pulse Oximetry 100 <DO Silvia Avila Last Filed: 10/15/19 02:49> Orders Ordered: ED Orders 10/14/19 18:18 Amylase Stat Complete Blood Count AUTO DIFF Stat Comprehensive Metabolic Panel Stat Lactate (Lactic Acid) Stat Lipase Stat Vital Signs Vital signs: Vital Signs - 8 hr 10/14/19 19:25 10/14/19 19:53 Temperature 98.1 F Pulse Rate 78 Respiratory Rate 15 Blood Pressure 129/62 Pulse Oximetry 100 MDM - Abdominal Pain <LORRI Lyles - Last Filed: 10/14/19 20:06> Lab Data Result diagrams: 10/14/19 18:18 10/14/19 18:18 Labs: Lab Results 10/14/19 10/14/19 10/14/19 Range/Units 18:18 18:18 18:18 WBC 7.7 (4.5-11.0) X10^3/uL RBC 4.13 (4.0-5.2) X10^6/uL Hgb 11.7 L (12.0-16.0) g/dL Hct 34.4 L (36-46) % MCV 83.2 (80-100) fL MCH 28.3 (26-34) PG MCHC 34.1 (30-36) % RDW 14.4 (11.6-14.8) % Plt Count 324 (150-400) X10^3/uL Neut % (Auto) 72.4 (50-75) % Lymph % (Auto) 21.5 L (25-40) % Adams % (Auto) 5.0 (3-14) % Eos % (Auto) 0.6 L (2-4) % Baso % (Auto) 0.5 (0-2) % Neut # (Auto) 5600 (3402-6222) /uL Lymph # (Auto) 1700 (9565-2331) /uL Adams # (Auto) 400 (0-900) /uL Eos # (Auto) 0 (0-450) /uL Baso # (Auto) 0 (0-100) /uL Sodium 140 (137-145) mmol/L Potassium 3.5 (3.4-5.1) mmol/L Chloride 107 (98-107) mmol/L Carbon Dioxide 25 (22-32) mmol/L BUN 7 (7-17) mg/dL Creatinine 0.64 (0.52-1.04) mg/dL Estimated GFR > 60.0 (>60) mL/min BUN/Creatinine Ratio 10.9 (6-22) Glucose 106 H (70-100) mg/dL Lactate 1.0 (0.7-2.1) mmol/L Calcium 9.2 (8.4-10.2) mg/dL Total Bilirubin 0.2 (0.2-1.3) mg/dL AST 16 (14-36) IU/L ALT 5 (<35) IU/L Alkaline Phosphatase 63 (38-126) U/L Total Protein 7.7 (6.3-8.2) g/dL Albumin 4.3 (3.5-5.0) g/dL Globulin 3.4 (1.7-4.1) g/dL Albumin/Globulin Ratio 1.3 (1.0-2.8) Amylase 77 (30-110) U/L Lipase 73 (23-300) U/L Point of care testing: Point of Care Testing Test Results Negative Urine Dip Bedside Urine Glucose Negative Bedside Urine Bilirubin - Negative Bedside Urine Ketone - Negative Urine Specific [place] 1.015 Bedside Urine Occult Blood - Negative Bedside Urine pH 7.5 Bedside Urine Protein - Negative Bedside Urine Urobilinogen - Negative Bedside Urine Nitrite - Negative Bedside Urine Leukocytes - Negative Esterase Imaging Data Abdominal x-ray: Radiologist's Impression: [address] [place] [id number] XRay Report Signed Patient: Janki Man LMR#: [id number] : 1980Acct:[id number] Age/Sex: 39 / FDate of Service: 10/14/19 Loc: ED Accession Number: [id number] Procedure: XR acute abdomen series Ordering Provider: Alisha Rucker PROCEDURE: XR ACUTE ABDOMEN SERIES INDICATIONS: abd pain TECHNIQUE: One view chest and two views of the abdomen were acquired. COMPARISON: [facility], , XR ACUTE ABDOMEN SERIES, 05/01/2019, 16:54. FINDINGS: Surgical changes and devices: None. Chest: Lungs are clear. Heart size is normal. No pleural effusions. No pneumoperitoneum. Abdomen: Bowel gas pattern is nonobstructive with moderate fecal burden seen in the region of the cecum and ascending colon. No suspicious calcifications. Visualized solid organ contours appear normal. Bones: No suspicious bony lesions. IMPRESSION: 1. Nonobstructive bowel gas pattern with moderate fecal burden in the region of the cecum and ascending colon. 2. Chest without acute cardiopulmonary abnormalities. Dictated by: Reed Yuen M.D. on 10/14/2019 at 17:55 Approved by: Reed Yuen M.D. on 10/14/2019 at 17:56 [facility] Narrative Medical decision making narrative: The patient is a 39-year-old female who presents with a chief complaint of sudden onset abdominal pain. Her labs are grossly normal, no elevation of lactate, no leukocytosis. She is afebrile in the emergency department. The patient felt much improved throughout her stay in the ER. I discussed that her x-ray shows constipation and stool burden. Encouraged increasing fiber constipation medications as needed. The stated that she felt much improved and wanted to leave as long as her urine showed no signs of infection. Urine shows no signs of infection. I offered to call surgery on- call given her history, but the patient stated she did not want further workup and wanted to leave. The patient again confirmed that she did not want further workup and wanted to leave. I discussed at length follow up with primary care provider coming back to the emergency department for any acute concerns such as abdominal pain with fever etcetera. Patient has no questions or concerns upon discharge and states understanding return precautions as well as follow-up care. <Arash Zhang, DO - Last Filed: 10/15/19 02:49> Lab Data Labs: Lab Results 10/14/19 10/14/19 10/14/19 Range/Units 18:18 18:18 18:18 WBC 7.7 (4.5-11.0) X10^3/uL RBC 4.13 (4.0-5.2) X10^6/uL Hgb 11.7 L (12.0-16.0) g/dL Hct 34.4 L (36-46) % MCV 83.2 (80-100) fL MCH 28.3 (26-34) PG MCHC 34.1 (30-36) % RDW 14.4 (11.6-14.8) % Plt Count 324 (150-400) X10^3/uL Neut % (Auto) 72.4 (50-75) % Lymph % (Auto) 21.5 L (25-40) % Adams % (Auto) 5.0 (3-14) % Eos % (Auto) 0.6 L (2-4) % Baso % (Auto) 0.5 (0-2) % Neut # (Auto) 5600 (7737-3707) /uL Lymph # (Auto) 1700 (4271-8679) /uL Adams # (Auto) 400 (0-900) /uL Eos # (Auto) 0 (0-450) /uL Baso # (Auto) 0 (0-100) /uL Sodium 140 (137-145) mmol/L Potassium 3.5 (3.4-5.1) mmol/L Chloride 107 (98-107) mmol/L Carbon Dioxide 25 (22-32) mmol/L BUN 7 (7-17) mg/dL Creatinine 0.64 (0.52-1.04) mg/dL Estimated GFR > 60.0 (>60) mL/min BUN/Creatinine Ratio 10.9 (6-22) Glucose 106 H (70-100) mg/dL Lactate 1.0 (0.7-2.1) mmol/L Calcium 9.2 (8.4-10.2) mg/dL Total Bilirubin 0.2 (0.2-1.3) mg/dL AST 16 (14-36) IU/L ALT 5 (<35) IU/L Alkaline Phosphatase 63 (38-126) U/L Total Protein 7.7 (6.3-8.2) g/dL Albumin 4.3 (3.5-5.0) g/dL Globulin 3.4 (1.7-4.1) g/dL Albumin/Globulin Ratio 1.3 (1.0-2.8) Amylase 77 (30-110) U/L Lipase 73 (23-300) U/L Point of care testing: Point of Care Testing Test Results Negative Urine Dip Bedside Urine Glucose Negative Bedside Urine Bilirubin - Negative Bedside Urine Ketone - Negative Urine Specific [place] 1.015 Bedside Urine Occult Blood - Negative Bedside Urine pH 7.5 Bedside Urine Protein - Negative Bedside Urine Urobilinogen - Negative Bedside Urine Nitrite - Negative Bedside Urine Leukocytes - Negative Esterase Discharge Plan Departure Patient Disposition: Home Clinical Impression: Abdominal pain Qualifiers: Abdominal location: generalized Qualified Code(s): R10.84 - Generalized abdominal pain Constipation Qualifiers: Constipation type: unspecified constipation type Qualified Code(s): K59.00 - Constipation, unspecified Discharge Date/Time: 10/14/19 19:54 Instructions: DI for Abdominal Pain-Adult, DI for Constipation Activity Restrictions/Additional Instructions: Thank you for trusting us with your care today. Your x-ray was concerning for pneumonia. Otherwise your lab work was good in your urine shows no signs of infection. Please follow-up with primary care provider. As discussed please come back to the emergency department for any acute concerns such as abdominal pain with fever etcetera Prescriptions: No Action tramadol 50 mg tablet 50 mg PO Q4H PRN (Reason: post operative pain) Qty: 30 RF: 0 docusate sodium 50 mg/5 mL Liquid 100 mg PO BID Qty: 200 RF: 0 triamcinolone acetonide 0.025 % cream 1 applictn TOP BID Qty: 15 RF: 1 clonazepam 1 mg Tablet 1 mg PO QID RF: 0 carbidopa-levodopa 50-200 mg tablet extended release 1 tab PO QID RF: 0 carbidopa-levodopa 25-100 mg tablet 1 tab PO TID RF: 0 omeprazole 20 mg Tablet,Delayed Release (Dr/Ec) 60 mg PO QPM RF: 0 clobetasol 0.05 % ointment 1 applic TOPICAL DIRECTED RF: 0 lidocaine 5 % adhesive patch,medicated 1 patch TOP DAILY Qty: 15 RF: 0 tramadol 50 mg tablet 50 mg PO Q4H PRN (Reason: abdominal wall pain) Qty: 30 RF: 0 docusate sodium 100 mg capsule 100 mg PO BID Qty: 60 RF: 0 Referrals: Eliseo Nuñez MD [Primary Care Provider] - <Arash Zhang DO - Last Filed: 10/15/19 02:49> Cosign ED Attending Cosignature Attestation: I was immediately available in the department for consultation. This documentat ion has been reviewed and I agree with assessment and plan. Supervised by Arash Zhang DO
[2019-10-14 18:36] LABS: Add Manual Diff / Slide Review NO; Basophils Absolute Auto 0 /uL (0-100); Basophils Percent Auto 0.5 % (0-2); Eosinophils Absolute Auto 0 /uL (0-450); Eosinophils Percent Auto 0.6 % (2-4); Hematocrit 34.4 % (36-46); Hemoglobin 11.7 g/dL (12.0-16.0); Lymphocytes Absolute Auto 1700 /uL (1100-4500); Lymphocytes Percent Auto 21.5 % (25-40); Mean Corpuscular HGB Conc 34.1 % (30-36); Mean Corpuscular Hemoglobin 28.3 PG (26-34); Mean Corpuscular Volume 83.2 fL (80-100); Monocytes Absolute Auto 400 /uL (0-900); Neutrophils Absolute Auto 5600 /uL (1500-7000); Neutrophils Percent Auto 72.4 % (50-75); Platelet Count 324 X10^3/uL (150-400); Red Blood Cell Count 4.13 X10^6/uL (4.0-5.2); Red Cell Distribution Width 14.4 % (11.6-14.8); White Blood Cell Count 7.7 X10^3/uL (4.5-11.0)
[2019-10-14 18:45] LABS: Alanine Aminotransferase 5 IU/L (<35); Albumin 4.3 g/dL (3.5-5.0); Albumin Globulin Ratio 1.3 (1.0-2.8); Alkaline Phosphatase 63 U/L (38-126); Amylase 77 U/L (30-110); Aspartate Aminotransferase 16 IU/L (14-36); BUN Creatinine Ratio 10.9 (6-22); Bilirubin Total 0.2 mg/dL (0.2-1.3); Blood Urea Nitrogen 7 mg/dL (7-17); Calcium 9.2 mg/dL (8.4-10.2); Carbon Dioxide 25 mmol/L (22-32); Chloride 107 mmol/L (98-107); Estimated Glomerular Filt Rate > 60.0 mL/min (>60); Globulin 3.4 g/dL (1.7-4.1); Glucose 106 mg/dL (70-100); HEMOLYSIS < 15 (0-50); Lipase 73 U/L (23-300); Potassium 3.5 mmol/L (3.4-5.1); Sodium 140 mmol/L (137-145); Total Protein 7.7 g/dL (6.3-8.2)
[2019-10-14 19:25] VITALS: TEMP 36.7
[2019-10-14 19:53] VITALS: BP 129/62; PULSE 78; RESP 15; O2SAT 100
== END 2019-10-14 19:54 | disposition home or self-care (01) ==
PROVIDERS: Emergency Provider Nurse Practitioner Family; Family Provider Family Medicine; PCP Family Medicine
DX: R10.84 Generalized abdominal pain (principal); K59.00 Constipation, unspecified
CPT/HCPCS: 36415; 74022; 80053; 81003; 81025; 82150; 83605; 83690; 85025; 99284

== ENCOUNTER 2020-02-02 23:50 | Emergency (ER) | payer OTHER, MEDICAID, SELFPAY ==
[2019-07-27 17:59] VITALS: BMI 33.3
--- NOTE | 2020-02-02 23:56 | ED.FEVER ---
HPI - Fever General Chief Complaint: Fever Stated Complaint: fever, SOB, lethargic, states covid text tues neg Time Seen by Provider: 02/02/20 23:56 Source: patient and family Mode of arrival: Wheelchair Limitations: no limitations History of Present Illness HPI Narrative: 39F non smoker with history of GERD, dehydration, dysphagia, dysphonia presents with her significant other and chief complaint of 10 days of fever, shortness of breath and decreased appetite. She recently had a COVID swab which was negative. She denies any aches or pain. She denies DUNN, neck pain. She denies CP, or cough. She denies N/V/D, or abdominal pain. She's had no dysuria, frequency, urgency nor vaginal bleeding or discharge Related Data Home Medications Medication Instructions Recorded Confirmed clonazepam 1 mg PO QID 11/05/17 08/03/19 carbidopa-levodopa 1 tab PO QID 03/17/19 08/03/19 carbidopa-levodopa 1 tab PO TID 03/17/19 08/03/19 omeprazole 60 mg PO QPM 03/17/19 08/03/19 clobetasol 1 applic TOPICAL DIRECTED 07/10/19 08/03/19 Previous Rx's Medication Instructions Recorded docusate sodium 100 mg PO BID #200 ml 04/15/19 triamcinolone acetonide 1 applictn TOP BID #15 gram 04/17/19 lidocaine 1 patch TOP DAILY #15 each 07/10/19 docusate sodium 100 mg PO BID #60 cap 07/28/19 tramadol 50 mg PO Q4H PRN #30 tab 07/28/19 tramadol 50 mg tablet 50 mg PO Q4H PRN #30 tab 08/03/19 ketorolac 10 mg PO Q6H PRN #14 tab 02/03/20 ondansetron 4 mg PO TID-QID PRN #10 tab 02/03/20 Allergies Allergy/AdvReac Type Severity Reaction Status Date / Time Gadolinium-Containing Allergy Unknown Verified 08/03/19 14:42 Contrast Medi Sulfa (Sulfonamide Allergy Unknown Verified 08/03/19 14:42 Antibiotics) [SULFA (SULFONAMIDE ANTIBIOTICS)] chlora Allergy Intermediate Rash Uncoded 08/03/19 14:42 Review of Systems Constitutional Constitutional: Reports chills, Denies fatigue, Reports fever(s), Denies frequent falls, Denies lethargy and Denies weakness Eyes Eyes: Denies change in vision, Denies eye discharge, Denies irritation and Denies loss of vision ENT Ears, Nose, Mouth, and Throat: Denies change in voice, Denies dizziness, Denies neck pain, Denies sore throat and Denies throat swelling Cardiovascular Cardiovascular: Denies chest pain, Denies irregular heart rhythm, Denies lightheadedness, Denies palpitations, Reports dyspnea, Denies dyspnea on exertion and Denies orthopnea Respiratory Respiratory: Reports cough, Reports dyspnea, Denies dyspnea on exertion and Denies wheezing Gastrointestinal Gastrointestinal: Denies abdominal pain, Denies change in bowel habits, Denies diarrhea, Denies nausea and Denies vomiting Musculoskeletal Musculoskeletal: Denies neck pain and Denies numbness Integumentary/Breasts Skin/Breast: Denies pruritus, Denies erythema, Denies rash and Denies wounds Neurologic Neurologic: Denies behavioral changes, Denies confusion, Denies dizziness, Denies frequent falls, Denies loss of vision, Denies numbness and Denies weakness Psychiatric Psychiatric: Denies anxiety, Denies behavioral changes, Denies confusion, Denies depression, Denies homicidal ideation and Denies suicidal ideation Endocrine Endocrine: Denies fatigue, Denies flushing and Denies palpitations Hematologic/Lymphatic Hematologic/Lymphatic: Denies easy bruising Allergic/Immunologic Allergic/Immunologic: Denies urticaria, Denies throat swelling and Denies wheezing Patient History Medical History Dysphagia (Acute) Gastrostomy tube in place (Acute) GERD (gastroesophageal reflux disease) (Acute) History of gastrostomy tube placement (Inactive) Movement disorder (Chronic) Vocal cord paralysis (Chronic) Social History household members: significant other and children Smoking Status: Former smoker alcohol intake: former Smoking Status: Former smoker alcohol intake frequency: holidays/special occasions only Substance Use Type: does not use and other Exam Narrative Exam Narrative: GENERAL: [39] year old patient appears stated age. Well-nourished, well-developed patient, in mild distress. HEAD: Atraumatic. Normocephalic. EYES: Pupils equal round and reactive. Extraocular motions intact. No scleral icterus. No injection or drainage. ENT: Nose without bleeding, purulent drainage. Throat without erythema, tonsillar hypertrophy or exudate. Airway patent. NECK: Trachea midline. Non tender. No meningeal signs CARDIOVASCULAR: Regular rate and rhythm without murmurs, gallops, or rubs. RESPIRATORY: Clear to auscultation. Breath sounds equal bilaterally. No wheezes, rales, or rhonchi. GASTROINTESTINAL: Abdomen soft, non-tender, nondistended. EXTREMITIES: No edema or joint tenderness. BACK: Nontender without deformity or crepitance. No flank tenderness. NEURO: AOx3. SKIN: No rash or erythema of visible areas Initial Vital Signs Initial Vital Signs: Vital Signs Blood Pressure 134/67 02/02/20 23:58 Course Orders Ordered: ED Orders 02/03/20 00:05 XR chest 1V Stat 02/03/20 00:15 C-Reactive Protein Quant Stat Complete Blood Count AUTO DIFF Stat Comprehensive Metabolic Panel Stat D Dimer Stat Ferritin Stat Lactate (Lactic Acid) Stat Lipase Stat Procalcitonin Stat Troponin & CK Cardiac Panel Stat 02/03/20 00:36 Blood Culture Stat 02/03/20 01:17 CT chest wo con Stat Discontinued Medications Sodium Chloride (Normal Saline 0.9%) 1,000 mls @ 1,000 mls/hr IV BOLUS ONE Stop: 02/03/20 01:02 Last Infusion: 02/03/20 02:17 Dose: 0 mls/hr Documented by: Admin: 02/03/20 00:20 Dose: 1,000 mls/hr Documented by: OKSANA Sodium Chloride (Normal Saline 0.9%) 1,000 mls @ 1,000 mls/hr IV BOLUS ONE Stop: 02/03/20 03:01 Last Infusion: 02/03/20 04:11 Dose: 0 mls/hr Documented by: Admin: 02/03/20 02:17 Dose: 1,000 mls/hr Documented by: JV Ketorolac Tromethamine (Toradol) 15 mg IV NOW ONE Stop: 02/03/20 03:29 Last Admin: 02/03/20 04:05 Dose: 15 mg Documented by: OKSANA Ondansetron HCl (Zofran Odt Prepack) 1 bottle MISC SEEINSTR ONE Stop: 02/03/20 03:29 Last Admin: 02/03/20 04:06 Dose: 1 bottle Documented by: OKSANA Vital Signs Vital signs: Vital Signs - 8 hr 02/02/20 23:58 02/02/20 23:59 02/03/20 00:00 Temperature Pulse Rate 75 77 Respiratory Rate Blood Pressure 134/67 133/72 Pulse Oximetry 98 98 02/03/20 00:02 02/03/20 00:30 02/03/20 00:31 Temperature 98.5 F Pulse Rate 75 68 Respiratory Rate 15 17 Blood Pressure 134/67 112/61 Pulse Oximetry 98 96 02/03/20 01:00 02/03/20 01:34 02/03/20 02:00 Temperature Pulse Rate 72 79 68 Respiratory Rate 21 16 20 Blood Pressure Pulse Oximetry 98 97 99 02/03/20 02:14 02/03/20 02:31 02/03/20 04:30 Temperature 98.9 F 98.4 F Pulse Rate 75 59 L Respiratory Rate 13 18 Blood Pressure 135/80 124/66 Pulse Oximetry 100 98 MDM - Fever Lab Data Result diagrams: 02/03/20 00:15 02/03/20 00:15 Labs: Lab Results 02/03/20 02/03/20 02/03/20 Range/Units 00:15 00:15 00:15 WBC 7.9 (4.5-11.0) X10^3/uL RBC 4.66 (4.0-5.2) X10^6/uL Hgb 12.2 (12.0-16.0) g/dL Hct 37.3 (36-46) % MCV 80.0 (80-100) fL MCH 26.1 (26-34) PG MCHC 32.6 (30-36) % RDW 16.1 H (11.6-14.8) % Plt Count 355 (150-400) X10^3/uL Neut % (Auto) 58.2 (50-75) % Lymph % (Auto) 35.1 (25-40) % Mcintosh % (Auto) 5.6 (3-14) % Eos % (Auto) 0.6 L (2-4) % Baso % (Auto) 0.5 (0-2) % Neut # (Auto) 4600 (4340-0101) /uL Lymph # (Auto) 2800 (9924-9270) /uL Mcintosh # (Auto) 400 (0-900) /uL Eos # (Auto) 0 (0-450) /uL Baso # (Auto) 0 (0-100) /uL D-Dimer < 200 (<230) ng/mL Sodium (137-145) mmol/L Potassium (3.4-5.1) mmol/L Chloride (98-107) mmol/L Carbon Dioxide (22-32) mmol/L BUN (7-17) mg/dL Creatinine (0.52-1.04) mg/dL Estimated GFR (>60) mL/min BUN/Creatinine Ratio (6-22) Glucose (70-100) mg/dL Lactate (0.7-2.1) mmol/L Calcium (8.4-10.2) mg/dL Ferritin (6-137) ng/mL Total Bilirubin (0.2-1.3) mg/dL AST (14-36) IU/L ALT (<35) IU/L Alkaline Phosphatase (38-126) U/L Total Creatine Kinase (30-135) U/L CK-MB (CK-2) CK-MB (CK-2) Rel Index Troponin I (0.01-0.034) ng/mL C-Reactive Protein (<1.0) mg/dL Total Protein (6.3-8.2) g/dL Albumin (3.5-5.0) g/dL Globulin (1.7-4.1) g/dL Albumin/Globulin Ratio (1.0-2.8) Lipase (23-300) U/L Procalcitonin < 0.05 (<0.5) ng/mL COVID-19 PCR (Negative) 02/03/20 02/03/20 02/03/20 Range/Units 00:15 00:15 00:15 WBC (4.5-11.0) X10^3/uL RBC (4.0-5.2) X10^6/uL Hgb (12.0-16.0) g/dL Hct (36-46) % MCV (80-100) fL MCH (26-34) PG MCHC (30-36) % RDW (11.6-14.8) % Plt Count (150-400) X10^3/uL Neut % (Auto) (50-75) % Lymph % (Auto) (25-40) % Mcintosh % (Auto) (3-14) % Eos % (Auto) (2-4) % Baso % (Auto) (0-2) % Neut # (Auto) (3401-6796) /uL Lymph # (Auto) (0130-5073) /uL Mcintosh # (Auto) (0-900) /uL Eos # (Auto) (0-450) /uL Baso # (Auto) (0-100) /uL D-Dimer (<230) ng/mL Sodium 141 (137-145) mmol/L Potassium 3.4 (3.4-5.1) mmol/L Chloride 106 (98-107) mmol/L Carbon Dioxide 25 (22-32) mmol/L BUN 14 (7-17) mg/dL Creatinine 0.73 (0.52-1.04) mg/dL Estimated GFR > 60.0 (>60) mL/min BUN/Creatinine Ratio 19.2 (6-22) Glucose 92 (70-100) mg/dL Lactate 0.8 (0.7-2.1) mmol/L Calcium 10.3 H (8.4-10.2) mg/dL Ferritin 5 L (6-137) ng/mL Total Bilirubin 0.6 (0.2-1.3) mg/dL AST 19 (14-36) IU/L ALT < 4 (<35) IU/L Alkaline Phosphatase 63 (38-126) U/L Total Creatine Kinase 62 (30-135) U/L CK-MB (CK-2) TNP CK-MB (CK-2) Rel Index TNP Troponin I < 0.012 (0.01-0.034) ng/mL C-Reactive Protein < 0.5 (<1.0) mg/dL Total Protein 8.5 H (6.3-8.2) g/dL Albumin 4.8 (3.5-5.0) g/dL Globulin 3.7 (1.7-4.1) g/dL Albumin/Globulin Ratio 1.3 (1.0-2.8) Lipase 106 (23-300) U/L Procalcitonin (<0.5) ng/mL COVID-19 PCR (Negative) 02/03/20 Range/Units 00:15 WBC (4.5-11.0) X10^3/uL RBC (4.0-5.2) X10^6/uL Hgb (12.0-16.0) g/dL Hct (36-46) % MCV (80-100) fL MCH (26-34) PG MCHC (30-36) % RDW (11.6-14.8) % Plt Count (150-400) X10^3/uL Neut % (Auto) (50-75) % Lymph % (Auto) (25-40) % Mcintosh % (Auto) (3-14) % Eos % (Auto) (2-4) % Baso % (Auto) (0-2) % Neut # (Auto) (5328-1719) /uL Lymph # (Auto) (2676-2736) /uL Mcintosh # (Auto) (0-900) /uL Eos # (Auto) (0-450) /uL Baso # (Auto) (0-100) /uL D-Dimer (<230) ng/mL Sodium (137-145) mmol/L Potassium (3.4-5.1) mmol/L Chloride (98-107) mmol/L Carbon Dioxide (22-32) mmol/L BUN (7-17) mg/dL Creatinine (0.52-1.04) mg/dL Estimated GFR (>60) mL/min BUN/Creatinine Ratio (6-22) Glucose (70-100) mg/dL Lactate (0.7-2.1) mmol/L Calcium (8.4-10.2) mg/dL Ferritin (6-137) ng/mL Total Bilirubin (0.2-1.3) mg/dL AST (14-36) IU/L ALT (<35) IU/L Alkaline Phosphatase (38-126) U/L Total Creatine Kinase (30-135) U/L CK-MB (CK-2) CK-MB (CK-2) Rel Index Troponin I (0.01-0.034) ng/mL C-Reactive Protein (<1.0) mg/dL Total Protein (6.3-8.2) g/dL Albumin (3.5-5.0) g/dL Globulin (1.7-4.1) g/dL Albumin/Globulin Ratio (1.0-2.8) Lipase (23-300) U/L Procalcitonin (<0.5) ng/mL COVID-19 PCR Negative (Negative) Point of Care Testing Rapid Strep A Negative Urine Dip Bedside Urine Glucose Negative Bedside Urine Bilirubin + 1 Bedside Urine Ketone + 15 Urine Specific [place] 1.030 Bedside Urine Occult Blood - Negative Bedside Urine pH 5.5 Bedside Urine Protein +/- 15 Bedside Urine Urobilinogen - Negative Bedside Urine Nitrite - Negative Bedside Urine Leukocytes - Negative Esterase Imaging Data Chest x-ray: Attestation: I personally reviewed and interpreted this imaging study as follows: My Impression: JOANA CT scan - chest: Radiologist's Impression: NAP MDM Narrative Medical decision making narrative: Multiple etiologies for patient's symptoms considered including: [COVID-19 versus strep versus viral syndrome] Patient's symptoms improved over duration of stay with above-stated therapies. Findings and discharge diagnosis discussed with patient/family followed by verbalization of understanding Return precautions discussed with patient/family whom verbalize understanding. Discharge Plan Departure Patient Disposition: Home Clinical Impression: Acute dyspnea, Acute viral syndrome Fever Qualifiers: Fever type: unspecified Qualified Code(s): R50.9 - Fever, unspecified Discharge Date/Time: 02/03/20 04:33 Instructions: DI for Fever (Symptom) -- Adult Activity Restrictions/Additional Instructions: *You have been diagnosed with [fever was shortness of breath, likely viral syndrome] *What to do: *Take medications as directed *Follow up with your primary care provider in 2-3 days, call for an appointment. Let them know you were seen in the Emergency Department and that we ask that you be seen in follow up *Return to ER if you should have any new, worsening or concerning symptoms Prescriptions: New ketorolac 10 mg tablet 10 mg PO Q6H PRN (Reason: pain) Qty: 14 RF: 0 ondansetron 4 mg tablet,disintegrating 4 mg PO TID-QID PRN (Reason: nausea and vomiting) Qty: 10 RF: 0 No Action tramadol 50 mg tablet 50 mg PO Q4H PRN (Reason: post operative pain) Qty: 30 RF: 0 docusate sodium 50 mg/5 mL Liquid 100 mg PO BID Qty: 200 RF: 0 triamcinolone acetonide 0.025 % cream 1 applictn TOP BID Qty: 15 RF: 1 clonazepam 1 mg Tablet 1 mg PO QID RF: 0 carbidopa-levodopa 50-200 mg tablet extended release 1 tab PO QID RF: 0 carbidopa-levodopa 25-100 mg tablet 1 tab PO TID RF: 0 omeprazole 20 mg Tablet,Delayed Release (Dr/Ec) 60 mg PO QPM RF: 0 clobetasol 0.05 % ointment 1 applic TOPICAL DIRECTED RF: 0 lidocaine 5 % adhesive patch,medicated 1 patch TOP DAILY Qty: 15 RF: 0 tramadol 50 mg tablet 50 mg PO Q4H PRN (Reason: abdominal wall pain) Qty: 30 RF: 0 docusate sodium 100 mg capsule 100 mg PO BID Qty: 60 RF: 0 Referrals: Eliseo Nuñez MD [Primary Care Provider] -
[2020-02-02 23:58] VITALS: BP 134/67
[2020-02-02 23:59] VITALS: PULSE 75; O2SAT 98
[2020-02-03] VITALS (10 sets, daily range): BP systolic 112–135; BP diastolic 61–80; PULSE 59–79; RESP 13–21; TEMP 36.9–37.2; O2SAT 96–100; BMI 31.7
--- NOTE | 2020-02-03 00:05 | DI.RAD.S_ITS ---
PROCEDURE: XR CHEST 1V INDICATIONS: fever, SOB TECHNIQUE: One view of the chest was acquired. COMPARISON: [facility], CR, XR CHEST 1V, 09/18/2019, 18:44. FINDINGS: Surgical changes and devices: None. Lungs and pleura: Lungs are clear. No pleural effusions or pneumothorax. Mediastinum: Mediastinal contours appear normal. Heart size is normal. Bones and chest wall: No suspicious bony lesions. Overlying soft tissues appear unremarkable. IMPRESSION: No acute consolidations. Dictated by: Aggie Moran M.D. on 02/03/2020 at 6:48 Approved by: Aggie Moran M.D. on 02/03/2020 at 6:49
[2020-02-03] MEDS: SODIUM CHLORIDE 0.9% 1,000 ML 1000 ML IV ×2 (00:20→02:17)
[2020-02-03 00:38] LABS: Add Manual Diff / Slide Review NO; Basophils Absolute Auto 0 /uL (0-100); Basophils Percent Auto 0.5 % (0-2); Eosinophils Absolute Auto 0 /uL (0-450); Eosinophils Percent Auto 0.6 % (2-4); Hematocrit 37.3 % (36-46); Hemoglobin 12.2 g/dL (12.0-16.0); Lymphocytes Absolute Auto 2800 /uL (1100-4500); Lymphocytes Percent Auto 35.1 % (25-40); Mean Corpuscular HGB Conc 32.6 % (30-36); Mean Corpuscular Hemoglobin 26.1 PG (26-34); Monocytes Absolute Auto 400 /uL (0-900); Monocytes Percent Auto 5.6 % (3-14); Neutrophils Absolute Auto 4600 /uL (1500-7000); Neutrophils Percent Auto 58.2 % (50-75); Platelet Count 355 X10^3/uL (150-400); Red Blood Cell Count 4.66 X10^6/uL (4.0-5.2); Red Cell Distribution Width 16.1 % (11.6-14.8); White Blood Cell Count 7.9 X10^3/uL (4.5-11.0)
[2020-02-03 00:46] LABS: Creatine Kinase 62 U/L (30-135)
[2020-02-03 00:48] LABS: Albumin 4.8 g/dL (3.5-5.0); Albumin Globulin Ratio 1.3 (1.0-2.8); Alkaline Phosphatase 63 U/L (38-126); Aspartate Aminotransferase 19 IU/L (14-36); BUN Creatinine Ratio 19.2 (6-22); Bilirubin Total 0.6 mg/dL (0.2-1.3); Blood Urea Nitrogen 14 mg/dL (7-17); Calcium 10.3 mg/dL (8.4-10.2); Carbon Dioxide 25 mmol/L (22-32); Chloride 106 mmol/L (98-107); Estimated Glomerular Filt Rate > 60.0 mL/min (>60); Globulin 3.7 g/dL (1.7-4.1); Glucose 92 mg/dL (70-100); HEMOLYSIS < 15 (0-50); Lipase 106 U/L (23-300); Potassium 3.4 mmol/L (3.4-5.1); Sodium 141 mmol/L (137-145); Total Protein 8.5 g/dL (6.3-8.2)
[2020-02-03 00:51] LABS: Lactate (Lactic Acid) 0.8 mmol/L (0.7-2.1)
[2020-02-03 00:52] LABS: D Dimer < 200 ng/mL (<230)
[2020-02-03 00:53] LABS: C-Reactive Protein Quant < 0.5 mg/dL (<1.0)
[2020-02-03 00:57] LABS: Troponin I < 0.012 ng/mL (0.01-0.034)
[2020-02-03 00:58] LABS: Procalcitonin < 0.05 ng/mL (<0.5)
[2020-02-03 01:04] LABS: Alanine Aminotransferase < 4 IU/L (<35)
--- NOTE | 2020-02-03 01:17 | DI.CT.S_ITS ---
PROCEDURE: CT CHEST WO CON INDICATIONS: cough, fever, SOB TECHNIQUE: Noncontrast 5 mm thick sections acquired from the pulmonary apices to the posterior costophrenic angles. 1 mm lung window, 5 mm thick coronal and sagittal and 7 mm axial MIP reformats were then acquired. For radiation dose reduction, the following was used: automated exposure control, adjustment of mA and/or kV according to patient size. COMPARISON: None. FINDINGS: Image quality: Excellent. Lungs and pleura: 6 mm right lower lobe lung nodule. Smaller nodules in the subpleural lingula, lateral left lower lobe, left costophrenic sulcus, and right subpleural lateral lower lobes. No acute air space opacities. No pleural effusions or pneumothorax. Central and peripheral airways are patent and normal in caliber. Mediastinum: Heart size is normal. No pericardial effusion. No mediastinal adenopathy by size criteria. Thoracic aorta and central pulmonary arteries are normal in size. Esophagus is normal in caliber. No hiatal hernia. Bones and chest wall: No suspicious bony lesions. No vertebral body compression fractures. No axillary or supraclavicular adenopathy by size criteria. Thyroid gland is normal . Abdomen: Visualized upper abdominal solid organs and bowel loops appear normal in the absence of contrast. IMPRESSION: 1. No acute disease. 2. Multiple lower lobe lung nodules, the largest measuring 6 mm in the right lower lobe. In a patient of this age, these are likely post infectious or inflammatory. Follow-up chest CT in 6 months to establish stability is recommended. 3. Concordant with preliminary report. Dictated by: Aggie Moran M.D. on 02/03/2020 at 6:52 Approved by: Aggie Moran M.D. on 02/03/2020 at 6:56
[2020-02-03 01:21] LABS: Ferritin 5 ng/mL (6-137)
[2020-02-03 01:36] LABS: COVID19 -Nasal RAPID Negative (Negative)
[2020-02-03] MEDS: KETOROLAC 60 MG/2 ML VIAL 15 MG IV (04:05)
[2020-02-03] MEDS: ONDANSETRON 4 MG ODT PREPACK 1 BOTTLE MISC (04:06)
== END 2020-02-03 04:33 | disposition home or self-care (01) ==
PROVIDERS: Emergency Provider Emergency Medicine; Family Provider Family Medicine; PCP Family Medicine
DX: R06.00 Dyspnea, unspecified (principal); B34.9 Viral infection, unspecified; R50.9 Fever, unspecified; R05 Cough
CPT/HCPCS: 36415; 71045; 71250; 80053; 81003; 82550; 82728; 83605; 83690; 84145; 84484; 85025; 85379; 86140; 87040; 87635; 87880; 96361; 96374; 99284; 99285; J1885

== ENCOUNTER 2020-02-15 16:37 | Emergency (ER) | payer OTHER, MEDICAID, SELFPAY ==
[2019-07-27 17:59] VITALS: BMI 33.3
[2020-02-15 16:47] VITALS: BP 113/56; PULSE 102; RESP 18; TEMP 36.1; O2SAT 97; BMI 30.9
--- NOTE | 2020-02-15 18:07 | DI.RAD.S_ITS ---
PROCEDURE: XR CHEST 1V INDICATIONS: fever and SOB TECHNIQUE: One view of the chest was acquired. COMPARISON: [facility], CT, CT CHEST WO CON, 02/03/2020, 1:22. [facility], CR, XR CHEST 1V, 02/03/2020, 0:11. FINDINGS: Surgical changes and devices: None. Lungs and pleura: Question right lower lung field pulmonary abscess. There is a question severe coal density with question air-fluid level. No pleural effusions or pneumothorax. Mediastinum: Mediastinal contours appear normal. Heart size is normal. Bones and chest wall: No suspicious bony lesions. Overlying soft tissues appear unremarkable. IMPRESSION: Question possible abscess cavity, right lung base. This is not definite. Comment: Recommend CT chest with contrast Dictated by: Vaughn Lawrence M.D. on 02/15/2020 at 18:37 Approved by: Vaughn Lawrence M.D. on 02/15/2020 at 18:38
--- NOTE | 2020-02-15 20:16 | DI.CT.S_ITS ---
PROCEDURE: CT CHEST W CON INDICATIONS: possible abscess cavity in lungs TECHNIQUE: After the administration of intravenous contrast, 5 mm thick sections acquired from the pulmonary apices to the posterior costophrenic angles. 1 mm axial lung, 5 mm thick coronal and sagittal reformats and 7 mm axial MIP were acquired. For radiation dose reduction, the following was used: automated exposure control, adjustment of mA and/or kV according to patient size. COMPARISON: [facility], CR, XR CHEST 1V, 02/15/2020, 18:10. FINDINGS: Image quality: Excellent. Lungs and pleura: There is no pulmonary abscess identified in the right lung base. Finding on chest x-ray likely represent a confluence of vascular shadows. The lungs are clear. No acute air space opacities. No pleural effusions or pneumothorax. Central and peripheral airways are patent and normal in caliber. Mediastinum: Heart size is normal. No pericardial effusion. No mediastinal or hilar adenopathy by size criteria. Thoracic aorta and central pulmonary arteries are normal in size. Esophagus is normal in caliber. No hiatal hernia. Bones and chest wall: No suspicious bony lesions. No vertebral body compression fractures. No axillary or supraclavicular adenopathy by size criteria. Thyroid gland is unremarkable . Abdomen: Mild hepatic steatosis.. Upper abdominal bowel loops are normal in caliber. IMPRESSION: A questionable abnormality in the right lung base on chest x-ray likely represents a confluence of vascular structures. No pulmonary abscess. Lungs are clear. Dictated by: Vaughn Lawrence M.D. on 02/15/2020 at 21:37 Approved by: Vaughn Lawrence M.D. on 02/15/2020 at 21:40
--- NOTE | 2020-02-15 20:41 | ED_ITS ---
HPI - General Adult General Chief complaint: Upper Respiratory Symptoms Stated complaint: 22 days of fever, SOB Time Seen by Provider: 02/15/20 18:06 Source: patient Mode of arrival: Ambulatory Limitations: no limitations History of Present Illness HPI narrative: Patient is a 39-year-old female without prior lung issues here for evaluation of 3 weeks of shortness of breath and cough and fevers and sore throat. She states she has seen her primary doctor for this. She has not taken any antibiotics up to this point. She states she has been tested for COVID-19 several times during this course with the last 1 being approximately 1.5 weeks ago. She states that she feels like her symptoms are not getting better and potentially worsening. She contact her primary provider who sent her to the emergency department for evaluation. Related Data Home Medications Medication Instructions Recorded Confirmed clonazepam 1 mg PO QID 11/05/17 08/03/19 carbidopa-levodopa 1 tab PO QID 03/17/19 08/03/19 carbidopa-levodopa 1 tab PO TID 03/17/19 08/03/19 omeprazole 60 mg PO QPM 03/17/19 08/03/19 clobetasol 1 applic TOPICAL DIRECTED 07/10/19 08/03/19 Previous Rx's Medication Instructions Recorded docusate sodium 100 mg PO BID #200 ml 04/15/19 triamcinolone acetonide 1 applictn TOP BID #15 gram 04/17/19 lidocaine 1 patch TOP DAILY #15 each 07/10/19 docusate sodium 100 mg PO BID #60 cap 07/28/19 tramadol 50 mg PO Q4H PRN #30 tab 07/28/19 tramadol 50 mg tablet 50 mg PO Q4H PRN #30 tab 08/03/19 ketorolac 10 mg PO Q6H PRN #14 tab 02/03/20 ondansetron 4 mg PO TID-QID PRN #10 tab 02/03/20 azithromycin 250 mg PO DAILY 4 Days #4 tab 02/15/20 Allergies Allergy/AdvReac Type Severity Reaction Status Date / Time Gadolinium-Containing Allergy Unknown Verified 08/03/19 14:42 Contrast Medi Sulfa (Sulfonamide Allergy Unknown Verified 08/03/19 14:42 Antibiotics) [SULFA (SULFONAMIDE ANTIBIOTICS)] chlora Allergy Intermediate Rash Uncoded 08/03/19 14:42 Review of Systems Constitutional Constitutional: Reports chills, Reports difficulty sleeping, Reports fatigue, Reports fever(s), Denies headache(s), Reports lethargy and Reports malaise Eyes Eyes: Denies change in vision ENT Ears, Nose, Mouth, and Throat: Denies headache(s), Reports sinus pain, Reports sinus pressure and Denies sore throat Cardiovascular Cardiovascular: Denies chest pain and Reports dyspnea Respiratory Respiratory: Reports chest congestion, Reports cough and Reports dyspnea Gastrointestinal Gastrointestinal: Denies abdominal pain, Reports nausea and Denies vomiting Genitourinary Genitourinary: Denies dysuria Genitourinary: Denies dysuria Musculoskeletal Musculoskeletal: Denies arthralgias and Denies myalgias Integumentary/Breasts Skin/Breast: Denies lesions and Denies rash Neurologic Neurologic: Denies behavioral changes and Denies headache(s) Psychiatric Psychiatric: Denies behavioral changes Endocrine Endocrine: Reports fatigue Hematologic/Lymphatic Hematologic/Lymphatic: Denies easy bleeding and Denies easy bruising Allergic/Immunologic Allergic/Immunologic: Denies urticaria Patient History Medical History Dysphagia (Acute) Gastrostomy tube in place (Acute) GERD (gastroesophageal reflux disease) (Acute) History of gastrostomy tube placement (Inactive) Movement disorder (Chronic) Vocal cord paralysis (Chronic) Social History household members: significant other and children Smoking Status: Former smoker alcohol intake: former Smoking Status: Former smoker alcohol intake frequency: holidays/special occasions only Substance Use Type: does not use and other Exam Initial Vital Signs Initial Vital Signs: Vital Signs Temperature 97.0 F L 02/15/20 16:47 Pulse Rate 102 H 02/15/20 16:47 Respiratory Rate 18 02/15/20 16:47 Blood Pressure 113/56 L 02/15/20 16:47 Pulse Oximetry 97 02/15/20 16:47 Const General: cooperative and comfortable Limitations: mental status not altered HENIA Head: normal to inspection and normocephalic Ears: hearing grossly normal bilaterally Resp Effort & Inspection: normal respiratory effort Auscultation: clear to auscultation bilaterally Cardio Rate: tachycardic GI Inspection: non-distended Palpation: soft Skin Lesions: no lesions Rashes: no rashes Neuro General: patient alert and patient awake Cognition: normal cognition Speech: speech normal Extrem General: normal to inspection and capillary refill normal Psych Appearance: grossly normal and well kempt Course Orders Ordered: ED Orders 02/15/20 18:07 XR chest 1V Stat 02/15/20 20:16 CT chest w con Stat 02/15/20 21:40 Complete Blood Count AUTO DIFF Stat Comprehensive Metabolic Panel Stat Test Serum,Qual Stat 02/15/20 21:50 Respiratory Panel (Film Array) Stat Discontinued Medications Azithromycin (Zithromax) 500 mg PO NOW ONE Stop: 02/15/20 23:15 Last Admin: 02/15/20 23:44 Dose: 500 mg Documented by: JONELLE Sodium Chloride (Normal Saline 0.9%) 1,000 mls @ 1,000 mls/hr IV BOLUS ONE Stop: 02/15/20 21:15 Last Infusion: 02/15/20 23:15 Dose: 0 mls/hr Documented by: Admin: 02/15/20 22:06 Dose: 1,000 mls/hr Documented by: JONELLE Vital Signs Vital signs: Vital Signs - 8 hr 02/15/20 23:55 Pulse Rate 89 Respiratory Rate 22 Blood Pressure 145/79 H Pulse Oximetry 98 Medical Decision Making Lab Data Lab results reviewed: Yes I reviewed the patient's lab results. Result diagrams: 02/15/20 21:40 02/15/20 21:40 Labs: Lab Results 02/15/20 02/15/20 02/15/20 Range/Units 21:40 21:40 21:40 WBC 6.8 (4.5-11.0) X10^3/uL RBC 4.45 (4.0-5.2) X10^6/uL Hgb 11.6 L (12.0-16.0) g/dL Hct 36.1 (36-46) % MCV 81.2 (80-100) fL MCH 26.1 (26-34) PG MCHC 32.1 (30-36) % RDW 15.7 H (11.6-14.8) % Plt Count 340 (150-400) X10^3/uL Neut % (Auto) 58.5 (50-75) % Lymph % (Auto) 33.0 (25-40) % Rolette % (Auto) 6.5 (3-14) % Eos % (Auto) 1.1 L (2-4) % Baso % (Auto) 0.9 (0-2) % Neut # (Auto) 4000 (1035-4855) /uL Lymph # (Auto) 2300 (5535-4423) /uL Rolette # (Auto) 400 (0-900) /uL Eos # (Auto) 100 (0-450) /uL Baso # (Auto) 100 (0-100) /uL Sodium 137 (137-145) mmol/L Potassium 4.0 (3.4-5.1) mmol/L Chloride 104 (98-107) mmol/L Carbon Dioxide 25 (22-32) mmol/L BUN 10 (7-17) mg/dL Creatinine 0.65 (0.52-1.04) mg/dL Estimated GFR > 60.0 (>60) mL/min BUN/Creatinine Ratio 15.4 (6-22) Glucose 85 (70-100) mg/dL Calcium 9.3 (8.4-10.2) mg/dL Total Bilirubin 0.4 (0.2-1.3) mg/dL AST 21 (14-36) IU/L ALT < 4 (<35) IU/L Alkaline Phosphatase 56 (38-126) U/L Total Protein 7.7 (6.3-8.2) g/dL Albumin 4.3 (3.5-5.0) g/dL Globulin 3.4 (1.7-4.1) g/dL Albumin/Globulin Ratio 1.3 (1.0-2.8) Serum , Qual Negative (Negative) Chlamy pneumoniae PCR (Not Detect) Adenovirus (PCR) (Not Detect) B.parapertussis DNA PCR (Not Detect) Coronavirus OC43 (PCR) (Not Detect) Coronavirus HKU1 (PCR) (Not Detect) Coronavirus 229E (PCR) (Not Detect) COVID-19 PCR (Negative) Coronavirus NL63 (PCR) (Not Detect) Human Metapneumovir PCR (Not Detect) Influenza Type A (PCR) (Not Detect) Influenza Type B (PCR) (Not Detect) M. pneumoniae (PCR) (Not Detect) Parainfluenza 1 (PCR) (Not Detect) Parainfluenza 2 (PCR) (Not Detect) Parainfluenza 3 (PCR) (Not Detect) Parainfluenza 4 (PCR) (Not Detect) RSV (PCR) (Not Detect) Entero/Rhino (PCR) (Not Detect) 02/15/20 Range/Units 21:50 WBC (4.5-11.0) X10^3/uL RBC (4.0-5.2) X10^6/uL Hgb (12.0-16.0) g/dL Hct (36-46) % MCV (80-100) fL MCH (26-34) PG MCHC (30-36) % RDW (11.6-14.8) % Plt Count (150-400) X10^3/uL Neut % (Auto) (50-75) % Lymph % (Auto) (25-40) % Rolette % (Auto) (3-14) % Eos % (Auto) (2-4) % Baso % (Auto) (0-2) % Neut # (Auto) (2574-4894) /uL Lymph # (Auto) (1851-8758) /uL Rolette # (Auto) (0-900) /uL Eos # (Auto) (0-450) /uL Baso # (Auto) (0-100) /uL Sodium (137-145) mmol/L Potassium (3.4-5.1) mmol/L Chloride (98-107) mmol/L Carbon Dioxide (22-32) mmol/L BUN (7-17) mg/dL Creatinine (0.52-1.04) mg/dL Estimated GFR (>60) mL/min BUN/Creatinine Ratio (6-22) Glucose (70-100) mg/dL Calcium (8.4-10.2) mg/dL Total Bilirubin (0.2-1.3) mg/dL AST (14-36) IU/L ALT (<35) IU/L Alkaline Phosphatase (38-126) U/L Total Protein (6.3-8.2) g/dL Albumin (3.5-5.0) g/dL Globulin (1.7-4.1) g/dL Albumin/Globulin Ratio (1.0-2.8) Serum , Qual (Negative) Chlamy pneumoniae PCR Not detected (Not Detect) Adenovirus (PCR) Not detected (Not Detect) B.parapertussis DNA PCR Not detected (Not Detect) Coronavirus OC43 (PCR) Not detected (Not Detect) Coronavirus HKU1 (PCR) Not detected (Not Detect) Coronavirus 229E (PCR) Not detected (Not Detect) COVID-19 PCR Negative (Negative) Coronavirus NL63 (PCR) Not detected (Not Detect) Human Metapneumovir PCR Not detected (Not Detect) Influenza Type A (PCR) Not detected (Not Detect) Influenza Type B (PCR) Not detected (Not Detect) M. pneumoniae (PCR) Not detected (Not Detect) Parainfluenza 1 (PCR) Not detected (Not Detect) Parainfluenza 2 (PCR) Not detected (Not Detect) Parainfluenza 3 (PCR) Not detected (Not Detect) Parainfluenza 4 (PCR) Not detected (Not Detect) RSV (PCR) Not detected (Not Detect) Entero/Rhino (PCR) Not detected (Not Detect) Point of Care Testing Test Results Negative Point of care testing: Point of Care Testing Test Results Negative Imaging Data Chest x-ray: Radiologist's Impression: [address] [address] XRay Report Signed Patient: Janki Man LMR#: [id number] : 1980Acct:[id number] Age/Sex: 39 / FDate of Service: 02/15/20 Loc: ED Accession Number: [id number] Procedure: XR chest 1V Ordering Provider: Chriss Kearns D.O. PROCEDURE: XR CHEST 1V INDICATIONS: fever and SOB TECHNIQUE: One view of the chest was acquired. COMPARISON: [facility], CT, CT CHEST WO CON, 02/03/2020, 1:22. [facility], CR, XR CHEST 1V, 02/03/2020, 0:11. FINDINGS: Surgical changes and devices: None. Lungs and pleura: Question right lower lung field pulmonary abscess. There is a question severe coal density with question air-fluid level. No pleural effusions or pneumothorax. Mediastinum: Mediastinal contours appear normal. Heart size is normal. Bones and chest wall: No suspicious bony lesions. Overlying soft tissues appear unremarkable. IMPRESSION: Question possible abscess cavity, right lung base. This is not definite. Comment: Recommend CT chest with contrast Dictated by: Vaughn Lawrence M.D. on 02/15/2020 at 18:37 Approved by: Vaughn Lawrence M.D. on 02/15/2020 at 18:38 CT scan - chest: Radiologist's Impression: [address] [address] [address] Scan Report Signed Patient: Janki Man LMR#: [id number] : 1980Acct:[id number] Age/Sex: 39 / FDate of Service: 02/15/20 Loc: ED Accession Number: [id number] Procedure: CT chest w con Ordering Provider: Berkley Garvey PROCEDURE: CT CHEST W CON INDICATIONS: possible abscess cavity in lungs TECHNIQUE: After the administration of intravenous contrast, 5 mm thick sections acquired from the pulmonary apices to the posterior costophrenic angles. 1 mm axial lung, 5 mm thick coronal and sagittal reformats and 7 mm axial MIP were acquired. For radiation dose reduction, the following was used: automated exposure control, adjustment of mA and/or kV according to patient size. COMPARISON: [facility], CR, XR CHEST 1V, 02/15/2020, 18:10. FINDINGS: Image quality: Excellent. Lungs and pleura: There is no pulmonary abscess identified in the right lung base. Finding on chest x-ray likely represent a confluence of vascular shadows. The lungs are clear. No acute air space opacities. No pleural effusions or pneumothorax. Central and peripheral airways are patent and normal in caliber. Mediastinum: Heart size is normal. No pericardial effusion. No mediastinal or hilar adenopathy by size criteria. Thoracic aorta and central pulmonary arteries are normal in size. Esophagus is normal in caliber. No hiatal hernia. Bones and chest wall: No suspicious bony lesions. No vertebral body compression fractures. No axillary or supraclavicular adenopathy by size criteria. Thyroid gland is unremarkable . Abdomen: Mild hepatic steatosis.. Upper abdominal bowel loops are normal in caliber. IMPRESSION: A questionable abnormality in the right lung base on chest x-ray likely represents a confluence of vascular structures. No pulmonary abscess. Lungs are clear. Dictated by: Vaughn Lawrence M.D. on 02/15/2020 at 21:37 Approved by: Vaughn Lawrence M.D. on 02/15/2020 at 21:40 MDM Narrative Medical decision making narrative: Chest x-ray concerning for potential cavitary lesion in the right lung base. Recommended CT scan. This was obtained which did did not subsequently show any source of an infection. Her COVID-19 test was negative along with other respiratory viral illnesses. Given the length of time of the patient's symptoms of feel diagnosing her with a atypical pneumonia is not unreasonable and started on antibiotics is not unreasonable. We also discussed the use of decongestants. Patient is not hypoxic. Is not in any respiratory distress. Was given her 1st dose of antibiotics here in the ER was given prescription for the remainder. Will discharge home. Discharge Plan Departure Patient Disposition: Home Clinical Impression: Upper respiratory infection Qualifiers: URI type: unspecified URI Qualified Code(s): J06.9 - Acute upper respiratory infection, unspecified Discharge Date/Time: 02/15/20 23:57 Instructions: DI for Viral Upper Respiratory Infection -- Adult Activity Restrictions/Additional Instructions: Take the antibiotics as directed. Return to the emergency department for any new or worsening symptoms Prescriptions: New azithromycin 250 mg tablet 250 mg PO DAILY 4 Days Qty: 4 RF: 0 No Action tramadol 50 mg tablet 50 mg PO Q4H PRN (Reason: post operative pain) Qty: 30 RF: 0 docusate sodium 50 mg/5 mL Liquid 100 mg PO BID Qty: 200 RF: 0 triamcinolone acetonide 0.025 % cream 1 applictn TOP BID Qty: 15 RF: 1 ketorolac 10 mg tablet 10 mg PO Q6H PRN (Reason: pain) Qty: 14 RF: 0 ondansetron 4 mg tablet,disintegrating 4 mg PO TID-QID PRN (Reason: nausea and vomiting) Qty: 10 RF: 0 clonazepam 1 mg Tablet 1 mg PO QID RF: 0 carbidopa-levodopa 50-200 mg tablet extended release 1 tab PO QID RF: 0 carbidopa-levodopa 25-100 mg tablet 1 tab PO TID RF: 0 omeprazole 20 mg Tablet,Delayed Release (Dr/Ec) 60 mg PO QPM RF: 0 clobetasol 0.05 % ointment 1 applic TOPICAL DIRECTED RF: 0 lidocaine 5 % adhesive patch,medicated 1 patch TOP DAILY Qty: 15 RF: 0 tramadol 50 mg tablet 50 mg PO Q4H PRN (Reason: abdominal wall pain) Qty: 30 RF: 0 docusate sodium 100 mg capsule 100 mg PO BID Qty: 60 RF: 0 Referrals: Eliseo Nuñez MD [Primary Care Provider] -
[2020-02-15 21:51] LABS: Add Manual Diff / Slide Review NO; Basophils Absolute Auto 100 /uL (0-100); Basophils Percent Auto 0.9 % (0-2); Eosinophils Absolute Auto 100 /uL (0-450); Eosinophils Percent Auto 1.1 % (2-4); Hematocrit 36.1 % (36-46); Hemoglobin 11.6 g/dL (12.0-16.0); Lymphocytes Absolute Auto 2300 /uL (1100-4500); Mean Corpuscular HGB Conc 32.1 % (30-36); Mean Corpuscular Hemoglobin 26.1 PG (26-34); Mean Corpuscular Volume 81.2 fL (80-100); Monocytes Absolute Auto 400 /uL (0-900); Monocytes Percent Auto 6.5 % (3-14); Neutrophils Absolute Auto 4000 /uL (1500-7000); Neutrophils Percent Auto 58.5 % (50-75); Platelet Count 340 X10^3/uL (150-400); Red Blood Cell Count 4.45 X10^6/uL (4.0-5.2); Red Cell Distribution Width 15.7 % (11.6-14.8); White Blood Cell Count 6.8 X10^3/uL (4.5-11.0)
[2020-02-15] MEDS: SODIUM CHLORIDE 0.9% 1,000 ML 1000 ML IV (22:06)
[2020-02-15 22:13] LABS: Pregnancy Test Serum,Qual Negative (Negative)
[2020-02-15 22:23] LABS: Albumin 4.3 g/dL (3.5-5.0); Albumin Globulin Ratio 1.3 (1.0-2.8); Alkaline Phosphatase 56 U/L (38-126); Aspartate Aminotransferase 21 IU/L (14-36); BUN Creatinine Ratio 15.4 (6-22); Bilirubin Total 0.4 mg/dL (0.2-1.3); Blood Urea Nitrogen 10 mg/dL (7-17); Calcium 9.3 mg/dL (8.4-10.2); Carbon Dioxide 25 mmol/L (22-32); Chloride 104 mmol/L (98-107); Estimated Glomerular Filt Rate > 60.0 mL/min (>60); Globulin 3.4 g/dL (1.7-4.1); Glucose 85 mg/dL (70-100); HEMOLYSIS < 15 (0-50); Sodium 137 mmol/L (137-145); Total Protein 7.7 g/dL (6.3-8.2)
[2020-02-15 22:24] LABS: Alanine Aminotransferase < 4 IU/L (<35)
[2020-02-15 22:58] LABS: Adenovirus Not Detected (Not Detect); Bordetella pertussis Not Detected (Not Detect); COVID19 -Nasal RAPID Negative (Negative); Chlamydophila pneumoniae Not Detected (Not Detect); Coronavirus 229E Not Detected (Not Detect); Coronavirus HKU1 Not Detected (Not Detect); Coronavirus NL 63 Not Detected (Not Detect); Coronavirus OC43 Not Detected (Not Detect); Human Metapneumovirus Not Detected (Not Detect); Human Rhinovirus/Enterovirus Not Detected (Not Detect); Influenza A Not Detected (Not Detect); Influenza B Not Detected (Not Detect); Mycoplasma pneumoniae Not Detected (Not Detect); Parainfluenza Virus 1 Not Detected (Not Detect); Parainfluenza Virus 2 Not Detected (Not Detect); Parainfluenza Virus 3 Not Detected (Not Detect); Parainfluenza Virus 4 Not Detected (Not Detect); Respiratory Syncytial Virus Not Detected (Not Detect)
[2020-02-15] MEDS: AZITHROMYCIN 250 MG TABLET 500 MG PO (23:44)
[2020-02-15 23:55] VITALS: BP 145/79; PULSE 89; RESP 22; O2SAT 98
== END 2020-02-15 23:57 | disposition home or self-care (01) ==
PROVIDERS: Nurse Practitioner; Emergency Provider Emergency Medicine; Family Provider Family Medicine; PCP Family Medicine
DX: J06.9 Acute upper respiratory infection, unspecified (principal)
CPT/HCPCS: 36415; 71045; 71260; 80053; 81025; 84703; 85025; 87633; 87635; 96360; 99284; Q9967

== ENCOUNTER 2020-02-21 14:52 | Emergency (ER) | payer OTHER, MEDICAID, SELFPAY ==
[2019-07-27 17:59] VITALS: BMI 33.3
[2020-02-21 14:55] VITALS: BP 123/81; PULSE 84; RESP 18; TEMP 36.9; O2SAT 100; BMI 30.9
--- NOTE | 2020-02-21 15:08 | ED.SOB ---
HPI - SOB/Dyspnea General Chief Complaint: Upper Respiratory Symptoms Stated Complaint: SOB AND SICK Time Seen by Provider: 02/21/20 14:58 Source: patient and old records reviewed Mode of arrival: Ambulatory Limitations: no limitations History of Present Illness HPI Narrative: PATIENT IS A 39-YEAR-OLD FEMALE WITH HISTORY OF DYSTONIA PRESENTING WITH SHORTNESS OF BREATH. SHE HAS ACTUALLY BEEN TO THE EMERGENCY DEPARTMENT 3 times this month, the this being her 3rd visit. She has had 2 chest CTs negative COVID-19 test a respiratory panel. Diagnosed with atypical pneumonia last time put on a Z-Beck for 5 days she has been off the Z-Bekc and has had fever return of 102. She has had fevers off and on for the last 29 days and feels short of breath when she walks. She is experiencing orthopnea as well. She denies any peripheral edema chest pain. She has had periods that are fever free however she said yesterday she had a fever of 102. She is currently afebrile. She has a cough but is nonproductive. She has been given inhalers which she says do not help. MD Complaint: shortness of breath and cough Related Data Home Medications Medication Instructions Recorded Confirmed clonazepam 1 mg PO QID 11/05/17 08/03/19 carbidopa-levodopa 1 tab PO QID 03/17/19 08/03/19 carbidopa-levodopa 1 tab PO TID 03/17/19 08/03/19 omeprazole 60 mg PO QPM 03/17/19 08/03/19 clobetasol 1 applic TOPICAL DIRECTED 07/10/19 08/03/19 Previous Rx's Medication Instructions Recorded docusate sodium 100 mg PO BID #200 ml 04/15/19 triamcinolone acetonide 1 applictn TOP BID #15 gram 04/17/19 lidocaine 1 patch TOP DAILY #15 each 07/10/19 docusate sodium 100 mg PO BID #60 cap 07/28/19 tramadol 50 mg PO Q4H PRN #30 tab 07/28/19 tramadol 50 mg tablet 50 mg PO Q4H PRN #30 tab 08/03/19 ketorolac 10 mg PO Q6H PRN #14 tab 02/03/20 ondansetron 4 mg PO TID-QID PRN #10 tab 02/03/20 doxycycline hyclate 100 mg PO BID #14 cap 02/21/20 Allergies Allergy/AdvReac Type Severity Reaction Status Date / Time Gadolinium-Containing Allergy Unknown Verified 08/03/19 14:42 Contrast Medi Sulfa (Sulfonamide Allergy Unknown Verified 08/03/19 14:42 Antibiotics) [SULFA (SULFONAMIDE ANTIBIOTICS)] chlora Allergy Intermediate Rash Uncoded 08/03/19 14:42 Review of Systems Review of Systems ROS Unobtainable: All systems reviewed & are unremarkable except as noted in HPI and below Constitutional Constitutional: Reports body ache(s) and Reports fever(s) Cardiovascular Cardiovascular: Reports as per HPI, Denies chest pain, Denies irregular heart rhythm, Denies lightheadedness, Denies palpitations, Reports dyspnea, Reports dyspnea on exertion and Reports orthopnea Respiratory Respiratory: Reports dyspnea and Reports dyspnea on exertion Gastrointestinal Gastrointestinal: Denies abdominal pain, Denies change in bowel habits, Denies diarrhea, Denies nausea and Denies vomiting Musculoskeletal Musculoskeletal: Denies arthralgias and Denies back pain Integumentary/Breasts Skin/Breast: Denies pruritus, Denies erythema, Denies rash and Denies wounds Endocrine Endocrine: Denies palpitations Patient History Medical History Dysphagia (Acute) Gastrostomy tube in place (Acute) GERD (gastroesophageal reflux disease) (Acute) History of gastrostomy tube placement (Inactive) Movement disorder (Chronic) Vocal cord paralysis (Chronic) Social History household members: significant other and children Smoking Status: Former smoker alcohol intake: former Smoking Status: Former smoker alcohol intake frequency: holidays/special occasions only Substance Use Type: does not use and other Exam Initial Vital Signs Initial Vital Signs: Vital Signs Temperature 98.5 F 02/21/20 14:55 Pulse Rate 84 02/21/20 14:55 Respiratory Rate 18 02/21/20 14:55 Blood Pressure 123/81 02/21/20 14:55 Pulse Oximetry 100 02/21/20 14:55 GENERAL: Well-appearing, well-nourished and in no acute distress. HEENT: Head atraumatic,EOMI, pupils reactive, face symmetric, moist mucous membranes, is coarse voice baseline for patient CARDIOVASCULAR: Regular rate and rhythm without murmurs, rubs or gallops. RESPIRATORY: Breath sounds equal bilaterally, no wheezes rales or rhonchi. ABDOMEN: Soft, nontender. Normoactive bowel sounds all 4 quadrants. No guarding or rebound. EXTREMITIES: Normal range of motion, no clubbing or edema. Neurovascularly intact NEUROLOGICAL: Alert and oriented x4.Normal gait and speech. SKIN: Warm, dry, no laceration, no petechiae, no rashes or lesions. Scores PERC Score Age greater than or equal to 50 years: No Heart rate greater than or equal to 100 bpm: No Room Air O2 Sat less than 95%: No Unilateral leg swelling: No Recent trauma or surgery: No Hemoptysis: No Prior PE or DVT: No Hormone Use: No Total PERC Score: 0 Course Orders Ordered: ED Orders 02/21/20 15:21 XR chest 2V Stat 02/21/20 15:22 EKG-12 Lead Stat 02/21/20 15:26 Complete Blood Count AUTO DIFF Stat Comprehensive Metabolic Panel Stat D Dimer Stat Lactate (Lactic Acid) Stat NT-proBNP (BNP-Adult 18+) Stat Procalcitonin Stat Troponin & CK Cardiac Panel Stat 02/21/20 15:54 Blood Culture Stat Vital Signs Vital signs: Vital Signs - 8 hr 02/21/20 14:55 02/21/20 15:40 02/21/20 15:41 Temperature 98.5 F Pulse Rate 84 85 85 Respiratory Rate 18 Blood Pressure 123/81 117/59 L Pulse Oximetry 100 99 99 02/21/20 16:00 02/21/20 16:30 Temperature Pulse Rate 72 79 Respiratory Rate Blood Pressure 111/67 114/64 Pulse Oximetry 98 97 MDM - SOB/Dyspnea Lab Data Attestation: I reviewed the patient's lab results. Result diagrams: 02/21/20 15:26 02/21/20 15:26 Labs: Lab Results 02/21/20 02/21/20 02/21/20 Range/Units 15:26 15:26 15:26 WBC 6.9 (4.5-11.0) X10^3/uL RBC 4.69 (4.0-5.2) X10^6/uL Hgb 12.8 (12.0-16.0) g/dL Hct 37.3 (36-46) % MCV 79.5 L (80-100) fL MCH 27.2 (26-34) PG MCHC 34.2 (30-36) % RDW 15.5 H (11.6-14.8) % Plt Count 374 (150-400) X10^3/uL Neut % (Auto) 66.1 (50-75) % Lymph % (Auto) 27.6 (25-40) % [place] % (Auto) 4.9 (3-14) % Eos % (Auto) 0.6 L (2-4) % Baso % (Auto) 0.8 (0-2) % Neut # (Auto) 4600 (3388-7395) /uL Lymph # (Auto) 1900 (2435-4019) /uL [place] # (Auto) 300 (0-900) /uL Eos # (Auto) 0 (0-450) /uL Baso # (Auto) 100 (0-100) /uL D-Dimer < 200 (<230) ng/mL Sodium (137-145) mmol/L Potassium (3.4-5.1) mmol/L Chloride (98-107) mmol/L Carbon Dioxide (22-32) mmol/L BUN (7-17) mg/dL Creatinine (0.52-1.04) mg/dL Estimated GFR (>60) mL/min BUN/Creatinine Ratio (6-22) Glucose (70-100) mg/dL Lactate (0.7-2.1) mmol/L Calcium (8.4-10.2) mg/dL Total Bilirubin (0.2-1.3) mg/dL AST (14-36) IU/L ALT (<35) IU/L Alkaline Phosphatase (38-126) U/L Total Creatine Kinase 95 (30-135) U/L CK-MB (CK-2) TNP CK-MB (CK-2) Rel Index TNP Troponin I < 0.012 (0.01-0.034) ng/mL NT-Pro-B Natriuret Pep 16 (<125) pg/mL Total Protein (6.3-8.2) g/dL Albumin (3.5-5.0) g/dL Globulin (1.7-4.1) g/dL Albumin/Globulin Ratio (1.0-2.8) Procalcitonin (<0.5) ng/mL 0802/21/20 02/21/20 Range/Units 15:26 15:26 15:26 WBC (4.5-11.0) X10^3/uL RBC (4.0-5.2) X10^6/uL Hgb (12.0-16.0) g/dL Hct (36-46) % MCV (80-100) fL MCH (26-34) PG MCHC (30-36) % RDW (11.6-14.8) % Plt Count (150-400) X10^3/uL Neut % (Auto) (50-75) % Lymph % (Auto) (25-40) % [place] % (Auto) (3-14) % Eos % (Auto) (2-4) % Baso % (Auto) (0-2) % Neut # (Auto) (9917-4370) /uL Lymph # (Auto) (3632-1220) /uL [place] # (Auto) (0-900) /uL Eos # (Auto) (0-450) /uL Baso # (Auto) (0-100) /uL D-Dimer (<230) ng/mL Sodium 139 (137-145) mmol/L Potassium 3.2 L (3.4-5.1) mmol/L Chloride 102 (98-107) mmol/L Carbon Dioxide 23 (22-32) mmol/L BUN 13 (7-17) mg/dL Creatinine 0.72 (0.52-1.04) mg/dL Estimated GFR > 60.0 (>60) mL/min BUN/Creatinine Ratio 18.1 (6-22) Glucose 87 (70-100) mg/dL Lactate 1.0 (0.7-2.1) mmol/L Calcium 9.8 (8.4-10.2) mg/dL Total Bilirubin 0.6 (0.2-1.3) mg/dL AST 17 (14-36) IU/L ALT < 4 (<35) IU/L Alkaline Phosphatase 73 (38-126) U/L Total Creatine Kinase (30-135) U/L CK-MB (CK-2) CK-MB (CK-2) Rel Index Troponin I (0.01-0.034) ng/mL NT-Pro-B Natriuret Pep (<125) pg/mL Total Protein 8.6 H (6.3-8.2) g/dL Albumin 4.8 (3.5-5.0) g/dL Globulin 3.8 (1.7-4.1) g/dL Albumin/Globulin Ratio 1.3 (1.0-2.8) Procalcitonin < 0.05 (<0.5) ng/mL Urine Dip Bedside Urine Glucose Negative Bedside Urine Bilirubin - Negative Bedside Urine Ketone - Negative Urine Specific [place] 1.010 Bedside Urine Occult Blood - Negative Bedside Urine pH 6.0 Bedside Urine Protein - Negative Bedside Urine Urobilinogen - Negative Bedside Urine Nitrite - Negative Bedside Urine Leukocytes - Negative Esterase Imaging Data Chest x-ray: Radiologist's Impression: PROCEDURE: XR CHEST 2V INDICATIONS: shortness of breath TECHNIQUE: 2 views of the chest were acquired. COMPARISON: [facility], CR, XR CHEST 1V, 02/15/2020, 18:10. [facility], , XR CHEST 1V, 02/03/2020, 0:11. FINDINGS: Surgical changes and devices: None. Lungs and pleura: Lungs are clear. No pleural effusions or pneumothorax. Mediastinum: Mediastinal contours are normal. Heart size is normal. Bones and chest wall: No suspicious bony abnormalities. Soft tissues appear unremarkable. IMPRESSION: Normal for age, source of current shortness of breath symptoms is not seen. Dictated by: Calvin Meehan M.D. on 02/21/2020 at 16:08 ECG Data Attestation: I personally reviewed and interpreted this ECG as follows: Prior ECG tracings: available for review Interpretation: Normal sinus rhythm rate 70 p.r. interval 144 QRS [address] change MDM Narrative Medical decision making narrative: The patient is afebrile in the ED she is not hypoxic or tachycardic no leukocytosis. In fact blood work is overall reassuring. She has had multiple testing done this month already including 2 chest CTs a respiratory panel and a COVID 19 test. He does not appear septic. It has been going on for 29 days unlikely to be COVID-19. She says she got better after azithromycin will put her on doxycycline twice a day for 1 week to see if she improves. However there is no real sign of pneumonia on x-ray or blood work. She has persistent cough. BNP negative, no clinical sign of fluid overload, D-dimer is also negative Discharge Plan Departure Patient Disposition: Home Clinical Impression: Upper respiratory disease Discharge Date/Time: 02/21/20 16:57 Instructions: DI for Viral Upper Respiratory Infection -- Adult Activity Restrictions/Additional Instructions: *You have been diagnosed with upper respiratory infection *What to do: At this time blood work is overall reassuring no obvious infection. You need further workup with her primary care provider *Continue to take medications as directed Doxycycline 100 mg twice a day for 7 days--> SENT TO [facility] *Follow up with your primary care provider in 2-3 days *Return to ER if you should have any new, worsening or concerning symptoms Prescriptions: New doxycycline hyclate 100 mg capsule 100 mg PO BID Qty: 14 RF: 0 No Action tramadol 50 mg tablet 50 mg PO Q4H PRN (Reason: post operative pain) Qty: 30 RF: 0 docusate sodium 50 mg/5 mL Liquid 100 mg PO BID Qty: 200 RF: 0 triamcinolone acetonide 0.025 % cream 1 applictn TOP BID Qty: 15 RF: 1 ketorolac 10 mg tablet 10 mg PO Q6H PRN (Reason: pain) Qty: 14 RF: 0 ondansetron 4 mg tablet,disintegrating 4 mg PO TID-QID PRN (Reason: nausea and vomiting) Qty: 10 RF: 0 clonazepam 1 mg Tablet 1 mg PO QID RF: 0 carbidopa-levodopa 50-200 mg tablet extended release 1 tab PO QID RF: 0 carbidopa-levodopa 25-100 mg tablet 1 tab PO TID RF: 0 omeprazole 20 mg Tablet,Delayed Release (Dr/Ec) 60 mg PO QPM RF: 0 clobetasol 0.05 % ointment 1 applic TOPICAL DIRECTED RF: 0 lidocaine 5 % adhesive patch,medicated 1 patch TOP DAILY Qty: 15 RF: 0 tramadol 50 mg tablet 50 mg PO Q4H PRN (Reason: abdominal wall pain) Qty: 30 RF: 0 docusate sodium 100 mg capsule 100 mg PO BID Qty: 60 RF: 0 Referrals: Eliseo Nuñez MD [Primary Care Provider] -
--- NOTE | 2020-02-21 15:21 | DI.RAD.S_ITS ---
PROCEDURE: XR CHEST 2V INDICATIONS: shortness of breath TECHNIQUE: 2 views of the chest were acquired. COMPARISON: [facility], CR, XR CHEST 1V, 02/15/2020, 18:10. [facility], CR, XR CHEST 1V, 02/03/2020, 0:11. FINDINGS: Surgical changes and devices: None. Lungs and pleura: Lungs are clear. No pleural effusions or pneumothorax. Mediastinum: Mediastinal contours are normal. Heart size is normal. Bones and chest wall: No suspicious bony abnormalities. Soft tissues appear unremarkable. IMPRESSION: Normal for age, source of current shortness of breath symptoms is not seen. Dictated by: Calvin Meehan M.D. on 02/21/2020 at 16:08 Approved by: Calvin Meehan M.D. on 02/21/2020 at 16:08
[2020-02-21 15:40] VITALS: PULSE 85; O2SAT 99
[2020-02-21 15:41] VITALS: BP 117/59; PULSE 85; O2SAT 99
[2020-02-21 15:41] LABS: Add Manual Diff / Slide Review NO; Basophils Absolute Auto 100 /uL (0-100); Basophils Percent Auto 0.8 % (0-2); Eosinophils Absolute Auto 0 /uL (0-450); Eosinophils Percent Auto 0.6 % (2-4); Hematocrit 37.3 % (36-46); Hemoglobin 12.8 g/dL (12.0-16.0); Lymphocytes Absolute Auto 1900 /uL (1100-4500); Lymphocytes Percent Auto 27.6 % (25-40); Mean Corpuscular HGB Conc 34.2 % (30-36); Mean Corpuscular Hemoglobin 27.2 PG (26-34); Mean Corpuscular Volume 79.5 fL (80-100); Monocytes Absolute Auto 300 /uL (0-900); Monocytes Percent Auto 4.9 % (3-14); Neutrophils Absolute Auto 4600 /uL (1500-7000); Neutrophils Percent Auto 66.1 % (50-75); Platelet Count 374 X10^3/uL (150-400); Red Blood Cell Count 4.69 X10^6/uL (4.0-5.2); Red Cell Distribution Width 15.5 % (11.6-14.8); White Blood Cell Count 6.9 X10^3/uL (4.5-11.0)
[2020-02-21 15:53] LABS: D Dimer < 200 ng/mL (<230)
[2020-02-21 15:55] LABS: Creatine Kinase 95 U/L (30-135)
[2020-02-21 15:57] LABS: Albumin 4.8 g/dL (3.5-5.0); Albumin Globulin Ratio 1.3 (1.0-2.8); Alkaline Phosphatase 73 U/L (38-126); Aspartate Aminotransferase 17 IU/L (14-36); BUN Creatinine Ratio 18.1 (6-22); Bilirubin Total 0.6 mg/dL (0.2-1.3); Blood Urea Nitrogen 13 mg/dL (7-17); Calcium 9.8 mg/dL (8.4-10.2); Carbon Dioxide 23 mmol/L (22-32); Chloride 102 mmol/L (98-107); Estimated Glomerular Filt Rate > 60.0 mL/min (>60); Globulin 3.8 g/dL (1.7-4.1); Glucose 87 mg/dL (70-100); HEMOLYSIS < 15 (0-50); Potassium 3.2 mmol/L (3.4-5.1); Sodium 139 mmol/L (137-145); Total Protein 8.6 g/dL (6.3-8.2)
[2020-02-21 16:00] VITALS: BP 111/67; PULSE 72; O2SAT 98
[2020-02-21 16:00] LABS: Alanine Aminotransferase < 4 IU/L (<35)
[2020-02-21 16:08] LABS: NT-proBNP (BNP-Adult 18+) 16 pg/mL (<125); Troponin I < 0.012 ng/mL (0.01-0.034)
[2020-02-21 16:19] LABS: Procalcitonin < 0.05 ng/mL (<0.5)
[2020-02-21 16:30] VITALS: BP 114/64; PULSE 79; O2SAT 97
== END 2020-02-21 16:57 | disposition home or self-care (01) ==
PROVIDERS: Emergency Provider Emergency Medicine; Family Provider Family Medicine; PCP Family Medicine
DX: J06.9 Acute upper respiratory infection, unspecified (principal); R05 Cough; R50.9 Fever, unspecified; R06.02 Shortness of breath
CPT/HCPCS: 36415; 71046; 80053; 81003; 82550; 83605; 83880; 84145; 84484; 85025; 85379; 87040; 93005; 99284

== ENCOUNTER 2020-04-19 15:12 | Emergency (ER) | payer OTHER, MEDICAID, SELFPAY ==
[2019-07-27 17:59] VITALS: BMI 33.3
[2020-04-19] VITALS (11 sets, daily range): BP systolic 113–150; BP diastolic 55–73; PULSE 79–89; RESP 14–18; TEMP 36.3; O2SAT 97–99; BMI 31.7
--- NOTE | 2020-04-19 16:35 | ED.ABDPAIN ---
HPI - Abdominal Pain General Chief Complaint: Abdominal Pain Stated Complaint: thinks ovary cyst rupture Time Seen by Provider: 04/19/20 16:16 Source: patient Mode of arrival: Ambulatory Limitations: no limitations History of Present Illness HPI narrative: Patient is a 40-year-old female with history of PCOS presenting with sudden onset of left lower quadrant pain. She says it started this morning and feels like an ovarian cyst rupture. She denies any vaginal bleeding or discharge. She does have some nausea. She has no fever or chills. [place]. MD complaint: abdominal pain Pain Consistency: constant Location: LLQ Severity: moderate Quality: stabbing Migration to: no migration Relieving factors: nothing Exacerbating factors: nothing Treatments prior to arrival: NSAIDs Related Data Home Medications Medication Instructions Recorded Confirmed clonazepam 1 mg PO QID 11/05/17 08/03/19 carbidopa-levodopa 1 tab PO QID 03/17/19 08/03/19 carbidopa-levodopa 1 tab PO TID 03/17/19 08/03/19 omeprazole 60 mg PO QPM 03/17/19 08/03/19 clobetasol 1 applic TOPICAL DIRECTED 07/10/19 08/03/19 Previous Rx's Medication Instructions Recorded docusate sodium 100 mg PO BID #200 ml 04/15/19 triamcinolone acetonide 1 applictn TOP BID #15 gram 04/17/19 lidocaine 1 patch TOP DAILY #15 each 07/10/19 docusate sodium 100 mg PO BID #60 cap 07/28/19 tramadol 50 mg PO Q4H PRN #30 tab 07/28/19 tramadol 50 mg tablet 50 mg PO Q4H PRN #30 tab 08/03/19 ketorolac 10 mg PO Q6H PRN #14 tab 02/03/20 ondansetron 4 mg PO TID-QID PRN #10 tab 02/03/20 doxycycline hyclate 100 mg PO BID #14 cap 02/21/20 Allergies Allergy/AdvReac Type Severity Reaction Status Date / Time Gadolinium-Containing Allergy Unknown Verified 04/19/20 15:24 Contrast Medi Sulfa (Sulfonamide Allergy Unknown Verified 04/19/20 15:24 Antibiotics) [SULFA (SULFONAMIDE ANTIBIOTICS)] chlora Allergy Intermediate Rash Uncoded 04/19/20 15:24 Review of Systems Review of Systems Narrative: GENERAL: Denies chills, fatigue, malaise, fever, sweats, travel HEENT: Denies sinus pain, ear pain, sore throat, difficulty swallowing, neck pain RESPIRATORY: Denies dyspnea, cough, wheezing, hemoptysis, sputum. CARDIOVASCULAR: Denies chest pain, palpitations, orthopnea, edema GASTROINTESTINAL: See HPI : Denies dysuria, frequency, incontinence, hematuria, urinary retention, flank pain. MUSCULOSKELETAL: Denies weakness, joint pain, or bony pain SKIN: No rash, no erythema, no pruritus NEUROLOGIC: Denies weakness, dizziness, headache, numbness, change in speech, confusion PSYCHIATRIC: No concerning psychosocial issues. 12 point review of systems is negative except for those stated above and HPI Patient History Medical History Dysphagia (Acute) Gastrostomy tube in place (Acute) GERD (gastroesophageal reflux disease) (Acute) History of gastrostomy tube placement (Inactive) Movement disorder (Chronic) Vocal cord paralysis (Chronic) Social History household members: significant other and children Smoking Status: Former smoker alcohol intake: former Smoking Status: Former smoker alcohol intake frequency: holidays/special occasions only Substance Use Type: does not use and other Exam Initial Vital Signs Initial Vital Signs: Vital Signs Temperature 97.4 F L 04/19/20 15:20 Pulse Rate 88 04/19/20 15:20 Respiratory Rate 18 04/19/20 15:20 Blood Pressure 150/72 H 04/19/20 15:20 Pulse Oximetry 99 04/19/20 15:20 GENERAL: Overweight female appears in pain and in no acute distress. HEENT: Head atraumatic,EOMI, pupils reactive, face symmetric, moist mucous membranes CARDIOVASCULAR: Regular rate and rhythm without murmurs, rubs or gallops. RESPIRATORY: Breath sounds equal bilaterally, no wheezes rales or rhonchi. ABDOMEN: Soft, left lower quadrant tenderness no guarding or rebound EXTREMITIES: Normal range of motion, no clubbing or edema. Neurovascularly intact NEUROLOGICAL: Alert and oriented x4.Normal gait and speech SKIN: Warm, dry, no laceration, no petechiae, no rashes or lesions. Course Orders Ordered: Discontinued Medications Morphine Sulfate (Morphine) 2 mg IV NOW ONE Stop: 04/19/20 16:42 Last Admin: 04/19/20 17:01 Dose: 2 mg Documented by: JAVIER Morphine Sulfate (Morphine) 2 mg IV NOW ONE Stop: 04/19/20 18:52 Last Admin: 04/19/20 19:19 Dose: 2 mg Documented by: JAVIER Vital Signs Vital signs: Vital Signs - 8 hr 04/19/20 15:20 04/19/20 16:51 04/19/20 17:00 Temperature 97.4 F L Pulse Rate 88 84 84 Respiratory Rate 18 Blood Pressure 150/72 H Pulse Oximetry 99 99 98 04/19/20 17:01 04/19/20 17:30 04/19/20 18:00 Temperature Pulse Rate 86 81 Respiratory Rate Blood Pressure 116/62 113/73 114/55 L Pulse Oximetry 98 99 04/19/20 18:30 04/19/20 19:00 04/19/20 19:30 Temperature Pulse Rate 87 79 89 Respiratory Rate Blood Pressure 128/67 Pulse Oximetry 97 97 98 MDM - Abdominal Pain Lab Data Attestation: I reviewed the patient's lab results. Result diagrams: 04/19/20 16:23 04/19/20 16:23 Labs: Lab Results 04/19/20 04/19/20 04/19/20 Range/Units 16:23 16:23 16:23 WBC 8.5 (4.5-11.0) X10^3/uL RBC 4.71 (4.0-5.2) X10^6/uL Hgb 12.7 (12.0-16.0) g/dL Hct 38.0 (36-46) % MCV 80.6 (80-100) fL MCH 26.9 (26-34) PG MCHC 33.3 (30-36) % RDW 15.9 H (11.6-14.8) % Plt Count 397 (150-400) X10^3/uL Neut % (Auto) 70.5 (50-75) % Lymph % (Auto) 23.6 L (25-40) % [place] % (Auto) 4.9 (3-14) % Eos % (Auto) 0.5 L (2-4) % Baso % (Auto) 0.5 (0-2) % Neut # (Auto) 6000 (1153-0646) /uL Lymph # (Auto) 2000 (1892-2326) /uL [place] # (Auto) 400 (0-900) /uL Eos # (Auto) 0 (0-450) /uL Baso # (Auto) 0 (0-100) /uL PT 13.2 H (10.1-12.7) SECONDS INR 1.1 (0.9-1.3) APTT 35 D (26.4-36.2) SECONDS Sodium 140 (137-145) mmol/L Potassium 3.6 (3.4-5.1) mmol/L Chloride 105 (98-107) mmol/L Carbon Dioxide 26 (22-32) mmol/L BUN 17 (7-17) mg/dL Creatinine 0.67 (0.52-1.04) mg/dL Estimated GFR > 60.0 (>60) mL/min BUN/Creatinine Ratio 25.4 H (6-22) Glucose 94 (70-100) mg/dL Calcium 9.9 (8.4-10.2) mg/dL Total Bilirubin 0.5 (0.2-1.3) mg/dL AST 22 (14-36) IU/L ALT 4 (<35) IU/L Alkaline Phosphatase 71 (38-126) U/L Total Protein 8.5 H (6.3-8.2) g/dL Albumin 4.8 (3.5-5.0) g/dL Globulin 3.7 (1.7-4.1) g/dL Albumin/Globulin Ratio 1.3 (1.0-2.8) Lipase 211 (23-300) U/L Point of care testing: Point of Care Testing Test Results Negative Urine Dip Bedside Urine Glucose Negative Bedside Urine Bilirubin - Negative Bedside Urine Ketone - Negative Urine Specific [place] 1.015 Bedside Urine Occult Blood - Negative Bedside Urine pH 6.0 Bedside Urine Protein - Negative Bedside Urine Urobilinogen - Negative Bedside Urine Nitrite - Negative Bedside Urine Leukocytes - Negative Esterase Imaging Data US - [employer]: Radiologist's Impression: PROCEDURE: US PELVIC COMPLETE INDICATIONS: LLQ pain hx of PCOS and cyst TECHNIQUE: Real-time scanning was performed of the pelvic organs, with image documentation. Additional endovaginal scanning was necessary due to incomplete visualization of the adnexal and endometrial structures by transabdominal scanning. COMPARISON: None. FINDINGS: Transabdominal scanning: Limited scanning through the kidneys shows no hydronephrosis. No pathologic free abdominal or pelvic fluid. Endovaginal scanning: Uterus: Uterus is normal in size at 3.9 x 4.3 x 7.3 cm, retroverted. The endometrium measures 2.5 mm in combined thickness. Ovaries: Right ovary measures 3.6 x 2.1 x 1.9 cm and the left measures 3.3 x 1.5 x 1.9 cm. There is no evidence of ovarian torsion. Intact venous and arterial flow is maintained. IMPRESSION: Source of pelvic pain is not identified, there is no evidence of ovarian torsion or dominant ovarian cyst. Dictated by: Calvin Meehan M.D. on 04/19/2020 at 18:41 CT scan - abdomen/pelvis: Radiologist's Impression: PROCEDURE: CT ABDOMEN PELVIS W CON INDICATIONS: LLQ pain TECHNIQUE: After the administration of intravenous contrast, 5 mm thick sections acquired from the diaphragm to the symphysis. 5 mm coronal and sagittal reformats were acquired. For radiation dose reduction, the following was used: automated exposure control, adjustment of mA and/or kV according to patient size. COMPARISON: [facility], CT, CT ABDOMEN PELVIS W CON, 05/28/2019, 16:01. FINDINGS: Image quality: Excellent. ABDOMEN: Lung bases: Lung bases are clear. Heart size is normal. Solid organs: Liver is normal in size and enhancement. Gallbladder appears normal. Biliary system is non dilated. Pancreas enhances normally. Spleen is normal in size and enhancement. No adrenal nodules. Kidneys demonstrate normal size and enhancement, without hydronephrosis. Peritoneum and bowel: Bowel loops demonstrate normal wall thickness and caliber. No free fluid or air. Nodes and vessels: No retroperitoneal or mesenteric adenopathy by size criteria. Aorta and inferior vena cava are normal in size. Miscellaneous: No ventral hernias. PELVIS: Genitourinary: Bladder wall thickness is normal. At the lower uterine segment/cervix area there is an unusual slightly low-density rounded structure measuring 3.4 cm in diameter of uncertain etiology and clinical significance. Miscellaneous: No inguinal hernias or adenopathy. Bones: No suspicious bony lesions. No vertebral body compression fractures. IMPRESSION: Within the abdomen and pelvis no infection is found. However, at the lower uterine segment/cervix area a 3.4 cm rounded possible mass is present. This structure is in affectively delineated by CT scanning and for this reason follow-up pelvic ultrasound is recommended which could be performed electively depending on the clinical status. Dictated by: Calvin Meehan M.D. on 04/19/2020 at 19:33 Approved by: Calvin Meehan M.D. on 04/19/2020 at 19:36 MDM Narrative Medical decision making narrative: The patient's ultrasound is negative. Still having lower abdominal pain. Will get CT. CT does not show any cause for abdominal pain. Blood work and imaging overall reassuring. At this time recommend pain control and conservative management at home. Discharge Plan Departure Patient Disposition: Home Clinical Impression: Abdominal pain Discharge Date/Time: 04/19/20 20:13 Instructions: DI for Abdominal Pain-Adult Activity Restrictions/Additional Instructions: *You have been diagnosed with abdominal pain *What to do: *Continue to take medications as directed *Follow up with your primary care provider in 2-3 days *Return to ER if you should have worsening abdominal pain nausea or any new, worsening or concerning symptoms Prescriptions: No Action tramadol 50 mg tablet 50 mg PO Q4H PRN (Reason: post operative pain) Qty: 30 RF: 0 docusate sodium 50 mg/5 mL Liquid 100 mg PO BID Qty: 200 RF: 0 triamcinolone acetonide 0.025 % cream 1 applictn TOP BID Qty: 15 RF: 1 ketorolac 10 mg tablet 10 mg PO Q6H PRN (Reason: pain) Qty: 14 RF: 0 ondansetron 4 mg tablet,disintegrating 4 mg PO TID-QID PRN (Reason: nausea and vomiting) Qty: 10 RF: 0 clonazepam 1 mg Tablet 1 mg PO QID RF: 0 carbidopa-levodopa 50-200 mg tablet extended release 1 tab PO QID RF: 0 carbidopa-levodopa 25-100 mg tablet 1 tab PO TID RF: 0 omeprazole 20 mg Tablet,Delayed Release (Dr/Ec) 60 mg PO QPM RF: 0 clobetasol 0.05 % ointment 1 applic TOPICAL DIRECTED RF: 0 lidocaine 5 % adhesive patch,medicated 1 patch TOP DAILY Qty: 15 RF: 0 tramadol 50 mg tablet 50 mg PO Q4H PRN (Reason: abdominal wall pain) Qty: 30 RF: 0 docusate sodium 100 mg capsule 100 mg PO BID Qty: 60 RF: 0 doxycycline hyclate 100 mg capsule 100 mg PO BID Qty: 14 RF: 0 Referrals: Eliseo Nuñez MD [Primary Care Provider] -
--- NOTE | 2020-04-19 16:42 | DI.US.S_ITS ---
PROCEDURE: US PELVIC COMPLETE INDICATIONS: LLQ pain hx of PCOS and cyst TECHNIQUE: Real-time scanning was performed of the pelvic organs, with image documentation. Additional endovaginal scanning was necessary due to incomplete visualization of the adnexal and endometrial structures by transabdominal scanning. COMPARISON: None. FINDINGS: Transabdominal scanning: Limited scanning through the kidneys shows no hydronephrosis. No pathologic free abdominal or pelvic fluid. Endovaginal scanning: Uterus: Uterus is normal in size at 3.9 x 4.3 x 7.3 cm, retroverted. The endometrium measures 2.5 mm in combined thickness. Ovaries: Right ovary measures 3.6 x 2.1 x 1.9 cm and the left measures 3.3 x 1.5 x 1.9 cm. There is no evidence of ovarian torsion. Intact venous and arterial flow is maintained. IMPRESSION: Source of pelvic pain is not identified, there is no evidence of ovarian torsion or dominant ovarian cyst. Dictated by: Calvin Meehan M.D. on 04/19/2020 at 18:41 Approved by: Calvin Meehan M.D. on 04/19/2020 at 18:42
[2020-04-19] MEDS: MORPHINE 2 MG/ML INJ IV ×2 (17:01→19:19)
[2020-04-19 17:22] LABS: Add Manual Diff / Slide Review NO; Basophils Absolute Auto 0 /uL (0-100); Basophils Percent Auto 0.5 % (0-2); Eosinophils Absolute Auto 0 /uL (0-450); Eosinophils Percent Auto 0.5 % (2-4); Hemoglobin 12.7 g/dL (12.0-16.0); Lymphocytes Absolute Auto 2000 /uL (1100-4500); Lymphocytes Percent Auto 23.6 % (25-40); Mean Corpuscular HGB Conc 33.3 % (30-36); Mean Corpuscular Hemoglobin 26.9 PG (26-34); Mean Corpuscular Volume 80.6 fL (80-100); Monocytes Absolute Auto 400 /uL (0-900); Monocytes Percent Auto 4.9 % (3-14); Neutrophils Absolute Auto 6000 /uL (1500-7000); Neutrophils Percent Auto 70.5 % (50-75); Platelet Count 397 X10^3/uL (150-400); Red Blood Cell Count 4.71 X10^6/uL (4.0-5.2); Red Cell Distribution Width 15.9 % (11.6-14.8); White Blood Cell Count 8.5 X10^3/uL (4.5-11.0)
[2020-04-19 17:23] LABS: INR 1.1 (0.9-1.3); Prothrombin Time 13.2 SECONDS (10.1-12.7)
[2020-04-19 17:26] LABS: PTT Partial Thromboplastin Tim 35 SECONDS (26.4-36.2)
[2020-04-19 17:27] LABS: Alanine Aminotransferase 4 IU/L (<35); Albumin 4.8 g/dL (3.5-5.0); Albumin Globulin Ratio 1.3 (1.0-2.8); Alkaline Phosphatase 71 U/L (38-126); Aspartate Aminotransferase 22 IU/L (14-36); BUN Creatinine Ratio 25.4 (6-22); Bilirubin Total 0.5 mg/dL (0.2-1.3); Blood Urea Nitrogen 17 mg/dL (7-17); Calcium 9.9 mg/dL (8.4-10.2); Carbon Dioxide 26 mmol/L (22-32); Chloride 105 mmol/L (98-107); Estimated Glomerular Filt Rate > 60.0 mL/min (>60); Globulin 3.7 g/dL (1.7-4.1); Glucose 94 mg/dL (70-100); HEMOLYSIS < 15 (0-50); Lipase 211 U/L (23-300); Potassium 3.6 mmol/L (3.4-5.1); Sodium 140 mmol/L (137-145); Total Protein 8.5 g/dL (6.3-8.2)
--- NOTE | 2020-04-19 18:51 | DI.CT.S_ITS ---
PROCEDURE: CT ABDOMEN PELVIS W CON INDICATIONS: LLQ pain TECHNIQUE: After the administration of intravenous contrast, 5 mm thick sections acquired from the diaphragm to the symphysis. 5 mm coronal and sagittal reformats were acquired. For radiation dose reduction, the following was used: automated exposure control, adjustment of mA and/or kV according to patient size. COMPARISON: [facility], CT, CT ABDOMEN PELVIS W CON, 05/28/2019, 16:01. FINDINGS: Image quality: Excellent. ABDOMEN: Lung bases: Lung bases are clear. Heart size is normal. Solid organs: Liver is normal in size and enhancement. Gallbladder appears normal. Biliary system is non dilated. Pancreas enhances normally. Spleen is normal in size and enhancement. No adrenal nodules. Kidneys demonstrate normal size and enhancement, without hydronephrosis. Peritoneum and bowel: Bowel loops demonstrate normal wall thickness and caliber. No free fluid or air. Nodes and vessels: No retroperitoneal or mesenteric adenopathy by size criteria. Aorta and inferior vena cava are normal in size. Miscellaneous: No ventral hernias. PELVIS: Genitourinary: Bladder wall thickness is normal. At the lower uterine segment/cervix area there is an unusual slightly low-density rounded structure measuring 3.4 cm in diameter of uncertain etiology and clinical significance. Miscellaneous: No inguinal hernias or adenopathy. Bones: No suspicious bony lesions. No vertebral body compression fractures. IMPRESSION: Within the abdomen and pelvis no infection is found. However, at the lower uterine segment/cervix area a 3.4 cm rounded possible mass is present. This structure is in affectively delineated by CT scanning and for this reason follow-up pelvic ultrasound is recommended which could be performed electively depending on the clinical status. Dictated by: Calvin Meehan M.D. on 04/19/2020 at 19:33 Approved by: Calvin Meehan M.D. on 04/19/2020 at 19:36
== END 2020-04-19 20:13 | disposition home or self-care (01) ==
PROVIDERS: Emergency Provider Emergency Medicine; Family Provider Family Medicine; PCP Family Medicine
DX: R10.32 Left lower quadrant pain (principal); R11.0 Nausea
CPT/HCPCS: 36415; 74177; 76856; 80053; 81003; 81025; 83690; 85025; 85610; 85730; 96374; 96376; 99284; J2270

== ENCOUNTER 2020-05-12 19:17 | Emergency (ER) | payer OTHER, MEDICAID, SELFPAY ==
[2020-04-24 11:12] VITALS: BMI 33.3
[2020-05-12] VITALS (12 sets, daily range): BP systolic 101–171; BP diastolic 61–106; PULSE 78–93; RESP 17–45; TEMP 36.7; O2SAT 95–99; BMI 32.5
--- NOTE | 2020-05-12 19:30 | ED.GENADULT ---
HPI - General Adult General Chief complaint: Vaginal Bleeding Stated complaint: Vaginal Bleeding Time Seen by Provider: 05/12/20 19:23 Source: patient and EMS Mode of arrival: EMS Limitations: no limitations History of Present Illness HPI narrative: Patient is a 40-year-old female who arrived by air from [facility] for vaginal bleeding and lower pelvic pain. Patient states that she was recently diagnosed with cancer. Is scheduled to have a hysterectomy done on June 06 by alumni secretary at this facility. She had Depo shot within the past 3 months. Reports pelvic cramping and pain. Received fentanyl and Toradol by EMS prior to arrival. States that her symptoms started earlier this afternoon with quite a bit of abdominal discomfort. States she was taking a bath and then passed multiple very large clots. States that the pain is continued. No fevers. Related Data Home Medications Medication Instructions Recorded Confirmed clonazepam 1 mg PO QID 11/05/17 04/25/20 carbidopa-levodopa 1 tab PO QID 03/17/19 04/25/20 carbidopa-levodopa 1 tab PO TID 03/17/19 04/25/20 Previous Rx's Medication Instructions Recorded ondansetron 4 mg PO TID-QID PRN #10 tab 02/03/20 oxycodone-acetaminophen 5 mg-325 1 tab PO Q4-6H PRN #20 tab 05/01/20 mg tablet Allergies Allergy/AdvReac Type Severity Reaction Status Date / Time Gadolinium-Containing Allergy Unknown Verified 04/25/20 14:38 Contrast Medi Sulfa (Sulfonamide Allergy Unknown Verified 04/25/20 14:38 Antibiotics) [SULFA (SULFONAMIDE ANTIBIOTICS)] chlora Allergy Intermediate Rash Uncoded 04/25/20 14:38 Review of Systems Constitutional Constitutional: Denies fever(s) and Denies headache(s) ENT Ears, Nose, Mouth, and Throat: Denies headache(s) Cardiovascular Cardiovascular: Denies chest pain and Denies dyspnea Respiratory Respiratory: Denies dyspnea Gastrointestinal Gastrointestinal: Reports abdominal pain, Reports nausea and Denies vomiting Genitourinary Genitourinary: Reports vaginal discharge Musculoskeletal Musculoskeletal: Denies arthralgias and Denies myalgias Integumentary/Breasts Skin/Breast: Denies rash Neurologic Neurologic: Denies behavioral changes and Denies headache(s) Psychiatric Psychiatric: Denies behavioral changes Hematologic/Lymphatic Hematologic/Lymphatic: Denies easy bleeding and Denies easy bruising Allergic/Immunologic Allergic/Immunologic: Denies urticaria Patient History Medical History Dysphagia (Acute) Gastrostomy tube in place (Acute) GERD (gastroesophageal reflux disease) (Acute) History of gastrostomy tube placement (Inactive) Movement disorder (Chronic) Vocal cord paralysis (Chronic) Social History household members: significant other and children Smoking Status: Former smoker alcohol intake: former Smoking Status: Former smoker alcohol intake frequency: holidays/special occasions only Substance Use Type: does not use and other Exam Initial Vital Signs Initial Vital Signs: Vital Signs Pulse Rate 85 05/12/20 19:19 Pulse Oximetry 97 05/12/20 19:19 Const General: cooperative, No comfortable (Uncomfortable) and well developed Limitations: mental status not altered HENMT Head: normal to inspection and normocephalic Resp Effort & Inspection: normal respiratory effort Auscultation: clear to auscultation bilaterally Cardio Rate: regular rate Rhythm: regular rhythm GI Inspection: non-distended Palpation: soft and tender (Lower abdomen) Skin Lesions: no lesions Rashes: no rashes Neuro General: patient alert, patient awake and patient oriented x3 Cognition: normal cognition Speech: speech normal Extrem General: normal to inspection and capillary refill normal Psych Appearance: grossly normal and well kempt Course Orders Ordered: ED Orders 05/12/20 19:25 Basic Metabolic Panel Stat Complete Blood Count AUTO DIFF Stat Partial Thromboplastin Time Stat Prothrombin Time INR Stat 05/12/20 19:30 US pelvic complete Stat 05/12/20 21:54 Hemoglobin and Hematocrit Stat Discontinued Medications Hydrocodone Bitart/Acetaminophen (Vicodin 5/325 Prepack) 1 bottle MISC SEEINSTR ONE Stop: 05/12/20 22:28 Last Admin: 05/12/20 22:31 Dose: 1 bottle Documented by: KGALLAG Hydromorphone HCl (Dilaudid) 1 mg IV NOW ONE Stop: 05/12/20 19:49 Last Admin: 05/12/20 20:03 Dose: 1 mg Documented by: KGALLAG Hydromorphone HCl (Dilaudid) 1 mg IM NOW ONE Stop: 05/12/20 19:53 Last Admin: 05/12/20 20:05 Dose: Not Given Documented by: KGUMUAG Vital Signs Vital signs: Vital Signs - 8 hr 05/12/20 19:19 05/12/20 19:20 05/12/20 19:25 Temperature 98.0 F Pulse Rate 85 86 84 Respiratory Rate 18 18 Blood Pressure 170/72 H 170/72 H Pulse Oximetry 97 99 98 05/12/20 19:30 05/12/20 20:00 05/12/20 20:01 Temperature Pulse Rate 86 93 H Respiratory Rate 32 H 45 H Blood Pressure 171/70 H Pulse Oximetry 98 98 05/12/20 20:31 05/12/20 21:01 05/12/20 21:30 Temperature Pulse Rate 88 91 H 87 Respiratory Rate 19 18 18 Blood Pressure 144/106 H 116/61 101/66 Pulse Oximetry 98 97 05/12/20 22:00 05/12/20 22:30 05/12/20 22:41 Temperature Pulse Rate 83 83 78 Respiratory Rate 19 17 Blood Pressure 119/69 Pulse Oximetry 95 97 98 Medical Decision Making Lab Data Lab results reviewed: Yes I reviewed the patient's lab results. Result diagrams: 05/12/20 21:54 05/12/20 19:25 Labs: Lab Results 05/12/20 05/12/20 05/12/20 Range/Units 19:25 19:25 19:25 WBC 8.2 (4.5-11.0) X10^3/uL RBC 4.34 (4.0-5.2) X10^6/uL Hgb 11.5 L (12.0-16.0) g/dL Hct 35.0 L (36-46) % MCV 80.6 (80-100) fL MCH 26.5 (26-34) PG MCHC 32.8 (30-36) % RDW 15.4 H (11.6-14.8) % Plt Count 310 (150-400) X10^3/uL Neut % (Auto) 66.2 (50-75) % Lymph % (Auto) 26.7 (25-40) % [place] % (Auto) 5.7 (3-14) % Eos % (Auto) 0.5 L (2-4) % Baso % (Auto) 0.9 (0-2) % Neut # (Auto) 5400 (9742-0293) /uL Lymph # (Auto) 2200 (7471-8720) /uL [place] # (Auto) 500 (0-900) /uL Eos # (Auto) 0 (0-450) /uL Baso # (Auto) 100 (0-100) /uL PT 13.3 H (10.1-12.7) SECONDS INR 1.2 (0.9-1.3) APTT 29 D (26.4-36.2) SECONDS Sodium 138 (137-145) mmol/L Potassium 3.3 L (3.4-5.1) mmol/L Chloride 109 H (98-107) mmol/L Carbon Dioxide 25 (22-32) mmol/L BUN 8 (7-17) mg/dL Creatinine 0.63 (0.52-1.04) mg/dL Estimated GFR > 60.0 (>60) mL/min BUN/Creatinine Ratio 12.7 (6-22) Glucose 90 (70-100) mg/dL Calcium 9.1 (8.4-10.2) mg/dL 11/15/20 Range/Units 21:54 WBC (4.5-11.0) X10^3/uL RBC (4.0-5.2) X10^6/uL Hgb 11.1 L (12.0-16.0) g/dL Hct 33.7 L (36-46) % MCV (80-100) fL MCH (26-34) PG MCHC (30-36) % RDW (11.6-14.8) % Plt Count (150-400) X10^3/uL Neut % (Auto) (50-75) % Lymph % (Auto) (25-40) % [place] % (Auto) (3-14) % Eos % (Auto) (2-4) % Baso % (Auto) (0-2) % Neut # (Auto) (9980-2537) /uL Lymph # (Auto) (3949-0298) /uL [place] # (Auto) (0-900) /uL Eos # (Auto) (0-450) /uL Baso # (Auto) (0-100) /uL PT (10.1-12.7) SECONDS INR (0.9-1.3) APTT (26.4-36.2) SECONDS Sodium (137-145) mmol/L Potassium (3.4-5.1) mmol/L Chloride (98-107) mmol/L Carbon Dioxide (22-32) mmol/L BUN (7-17) mg/dL Creatinine (0.52-1.04) mg/dL Estimated GFR (>60) mL/min BUN/Creatinine Ratio (6-22) Glucose (70-100) mg/dL Calcium (8.4-10.2) mg/dL Point of Care Testing Test Results Negative Urine Dip Bedside Urine Glucose Negative Bedside Urine Bilirubin - Negative Bedside Urine Ketone - Negative Urine Specific Arnold 1.010 Bedside Urine Occult Blood - Negative Bedside Urine pH 7.5 Bedside Urine Protein - Negative Bedside Urine Urobilinogen - Negative Bedside Urine Nitrite - Negative Bedside Urine Leukocytes - Negative Esterase Point of care testing: Point of Care Testing Test Results Negative Urine Dip Bedside Urine Glucose Negative Bedside Urine Bilirubin - Negative Bedside Urine Ketone - Negative Urine Specific Arnold 1.010 Bedside Urine Occult Blood - Negative Bedside Urine pH 7.5 Bedside Urine Protein - Negative Bedside Urine Urobilinogen - Negative Bedside Urine Nitrite - Negative Bedside Urine Leukocytes - Negative Esterase Imaging Data US - CT SCAN TECH: Radiologist's Impression: [place] [address] Ultrasound Report Signed Patient: Janki Man LMR#: [id number] : 1980Acct:[id number] Age/Sex: 40 / FDate of Service: 05/12/20 Loc: ED Accession Number: [id number] Procedure: US pelvic complete Ordering Provider: Chriss Kearns D.O. PROCEDURE: US PELVIC COMPLETE INDICATIONS: VAGINAL BLEEDING TECHNIQUE: Real-time scanning was performed of the pelvic organs, with image documentation. Additional endovaginal scanning was necessary due to incomplete visualization of the adnexal and endometrial structures by transabdominal scanning. COMPARISON: [facility], , US PELVIC COMPLETE, 04/25/2020, 15:07. FINDINGS: Transabdominal scanning: Limited scanning through the kidneys shows no hydronephrosis. No pathologic free abdominal or pelvic fluid. Endovaginal scanning: Uterus: Uterus is retroverted and normal in size at 8.2 x 5.0 x 4.6 cm. There is a right anterior myometrial fibroid measuring 1.7 cm. The endometrium measures two mm in combined thickness. Ovaries: The right ovary measures 3.7 x 1.3 x 2.0 cm. The left ovary measures 3.2 x 1.9 x 1.4 cm. Both ovaries demonstrate normal follicular echotexture and vascularity. Physiologic fluid present in the pelvis. No suspicious adnexal mass. IMPRESSION: 1. Small myometrial uterine fibroid, otherwise normal appearing uterus. 2. Normal ovaries. Dictated by: Aggie Moran M.D. on 05/12/2020 at 21:39 Approved by: Aggie Moran M.D. on 05/12/2020 at 21:42 [facility] Narrative Medical decision making narrative: A review of her record shows that she has fibroids and did have an abnormal Pap smear but there has been no diagnosis of cervical cancer that I can find in her record. Patient was not hypotensive, not tachycardic, not anemic, her hemoglobin hematocrit or unremarkable after several hours here in the ER. The ultrasound is unremarkable. No indication for surgical intervention. Informed her that she needed talk with her alumni secretary about moving of the surgery if she felt that this was needed. Patient was discharged home. Discharge Plan Departure Patient Disposition: Home Clinical Impression: Abnormal vaginal bleeding, Pelvic pain Discharge Date/Time: 05/12/20 23:10 Instructions: DI for Dysmenorrhea Activity Restrictions/Additional Instructions: Recommend that tomorrow you contact your alumni secretary provider to see if they can move your surgery up. Continue all of your medications as directed. Return to the emergency department for any new or worsening symptoms Prescriptions: No Action oxycodone-acetaminophen 5-325 mg tablet 1 tab PO Q4-6H PRN (Reason: pain) Qty: 20 RF: 0 ondansetron 4 mg tablet,disintegrating 4 mg PO TID-QID PRN (Reason: nausea and vomiting) Qty: 10 RF: 0 clonazepam 1 mg Tablet 1 mg PO QID RF: 0 carbidopa-levodopa 50-200 mg tablet extended release 1 tab PO QID RF: 0 carbidopa-levodopa 25-100 mg tablet 1 tab PO TID RF: 0 Referrals: Eliseo Nuñez MD [Primary Care Provider] -
[2020-05-12 19:36] LABS: Add Manual Diff / Slide Review NO; Basophils Absolute Auto 100 /uL (0-100); Basophils Percent Auto 0.9 % (0-2); Eosinophils Absolute Auto 0 /uL (0-450); Eosinophils Percent Auto 0.5 % (2-4); Hemoglobin 11.5 g/dL (12.0-16.0); Lymphocytes Absolute Auto 2200 /uL (1100-4500); Lymphocytes Percent Auto 26.7 % (25-40); Mean Corpuscular HGB Conc 32.8 % (30-36); Mean Corpuscular Hemoglobin 26.5 PG (26-34); Mean Corpuscular Volume 80.6 fL (80-100); Monocytes Absolute Auto 500 /uL (0-900); Monocytes Percent Auto 5.7 % (3-14); Neutrophils Absolute Auto 5400 /uL (1500-7000); Neutrophils Percent Auto 66.2 % (50-75); Platelet Count 310 X10^3/uL (150-400); Red Blood Cell Count 4.34 X10^6/uL (4.0-5.2); Red Cell Distribution Width 15.4 % (11.6-14.8); White Blood Cell Count 8.2 X10^3/uL (4.5-11.0)
[2020-05-12 19:42] LABS: INR 1.2 (0.9-1.3); Prothrombin Time 13.3 SECONDS (10.1-12.7)
[2020-05-12 19:45] LABS: PTT Partial Thromboplastin Tim 29 SECONDS (26.4-36.2)
[2020-05-12 19:46] LABS: BUN Creatinine Ratio 12.7 (6-22); Blood Urea Nitrogen 8 mg/dL (7-17); Calcium 9.1 mg/dL (8.4-10.2); Carbon Dioxide 25 mmol/L (22-32); Chloride 109 mmol/L (98-107); Estimated Glomerular Filt Rate > 60.0 mL/min (>60); Glucose 90 mg/dL (70-100); HEMOLYSIS < 15 (0-50); Potassium 3.3 mmol/L (3.4-5.1); Sodium 138 mmol/L (137-145)
[2020-05-12] MEDS: HYDROMORPHONE 1 MG INJ IV (20:03)
[2020-05-12 22:07] LABS: Hematocrit 33.7 % (36-46); Hemoglobin 11.1 g/dL (12.0-16.0)
[2020-05-12] MEDS: HYDROCODONE/ACET 5/325 PREPACK 1 BOTTLE MISC (22:31)
== END 2020-05-12 23:10 | disposition home or self-care (01) ==
PROVIDERS: Emergency Provider Emergency Medicine; Family Provider Family Medicine; PCP Family Medicine
DX: N93.9 Abnormal uterine and vaginal bleeding, unspecified (principal); R10.2 Pelvic and perineal pain; R11.0 Nausea
CPT/HCPCS: 36415; 76830; 76856; 80048; 81003; 81025; 85014; 85018; 85025; 85610; 85730; 96374; 99284; J1170

== ENCOUNTER → 2020-05-16 10:55 | Outpatient (CLI) | payer OTHER, MEDICAID, SELFPAY ==
[2020-04-24 11:12] VITALS: BMI 33.3
[2020-05-16 11:32] LABS: COVID19 -Nasal RAPID Negative (Negative)
== END ==
PROVIDERS: Family Provider Family Medicine; PCP Family Medicine; Visit Provider Obstetrics & Gynecology
DX: Z01.812 Encounter for preprocedural laboratory examination (principal); Z20.828 Contact with and (suspected) exposure to other viral communicable diseases
CPT/HCPCS: 87635

== ENCOUNTER 2020-05-20 07:27 | Day surgery (SDC) | payer OTHER, MEDICAID, SELFPAY ==
[2020-04-24 11:12] VITALS: BMI 33.3
[2020-05-14 13:47] VITALS: BMI 36.5
[2020-05-20] VITALS (16 sets, daily range): BP systolic 101–128; BP diastolic 54–75; PULSE 70–91; RESP 13–24; TEMP 36.1–36.7; O2SAT 95–100; BMI 34.3
--- NOTE | 2020-05-20 | PATH_ITS ---
[facility] Accession Number: [id number] . 01 Material submitted: . uterus - BILATERAL TUBES AND OVARIES, UTERUS . 02 Diagnosis: Bilateral Fallopian Tubes and Ovaries, Uterus, Laparoscopic Supracervical Hysterctomy with Bilateral Salpingo-oophorectomy (Disrupted Specimen, Weight 76 grams): Weakly proliferative endometrium; negative for glandular hyperplasia, cytologic atypia, or malignancy. Myometrium with one intramural leiomyoma (6 mm in greatest dimension). Uterine serosa with no significant histomorphologic abnormality. Attached and detached ovaries with numerous benign cortical cysts (1-9 mm in greatest dimension); negative for atypia or malignancy. Detached ovary with a benign nodular stromal proliferation (8 mm). Attached and detached fallopian tubes with multiple benign paratubal cysts (1-2 mm in greatest dimension); negative for epithelial atypia or malignancy. [facility] 05/22/2020 1456 Local . 02 Electronically signed: . Anais Siddiqui MD, Pathologist NPI- [id number] . 01 Gross description: . Received in formalin, labeled bilateral tubes, ovaries with uterus, and consist of a 76-gram supracervically resected uterus with one attached ovary and fallopian tube and one detached ovary and fallopian tube. The specimen has been previously sectioned and disrupted. Sectioning reveals a glez-pink glistening endometrium measuring 0.1 cm in thickness. The myometrium is glez-pink and trabeculated measuring 2.4 cm in thickness. There is a 0.6 x 0.6 x 0.5 glez-white whorled leiomyoma with no areas of hemorrhage, necrosis or cystic degeneration. The attached ovary measures 3.5 x 2.4 x 2.2 cm and the detached ovary measures 3.6 x 2.0 x 2.0 cm. The external surface is glez-pink and cerebriform. Sectioning reveals multiple unilocular smooth-walled cysts within both ovaries, ranging from 0.1 to 0.9 cm. No papillary excrescences are identified. The attached fallopian tube measures 5.0 cm in length by 0.5 cm in diameter and the detached fallopian tube measures 3.5 cm in length by 0.6 cm in diameter. The serosa is pink-purple and smooth with multiple paratubal cysts ranging from 0.1 to 0.2 cm. Sectioning reveals a glez mucosa and a pinpoint to stellate lumen measuring 0.2 cm in diameter. [employer] Machine Operator sections are submitted. . A1 - lower uterine segment and leiomyoma. A2-A3 - endometrium and serosa. A4-A5 - guest relations representative attached ovary. A6 - guest relations representative cross-sections and bisected fimbria of attached fallopian tube. A7-A8 - guest relations representative detached ovary. A9 - guest relations representative cross-sections and bisected fimbria of detached fallopian tube. ([id number]) /MRV 05/21/2020 [facility] Local . 02 Pathologist provided ICD-10: N92.0, E28.2, N94.6 . 02 CPT . 938997 Performed at: 01 [facility] [address] [id number] MD Frankie Chaparro MD Phone: [phone] Performed at: 02 [facility] [place] [id number] [place], [place] [id number] MD Vanessa Arevalo MD Phone: [phone]
[2020-05-20] MEDS: LACTATED RINGERS 1,000 ML 100 ML IV ×4 (08:11→21:24)
--- NOTE | 2020-05-20 09:31 | PM.PREOP ---
Pre-operative Note COVID-19 COVID-19 status: Negative Result date/Date tested (Pos, Neg/Pending): 05/16/20 Interval Note History & Physical reviewed/Exam performed by Physician: Yes Changes to H&P: No H&P completed within 30 days and has changed as indicated here:: 05/16/20
[2020-05-20] MEDS: CEFAZOLIN 2 GM/100 ML FROZ.PIGGY IV (09:53)
[2020-05-20] MEDS: ACETAMINOPHEN IV 1,000 MG/100 ML VIAL 400 MG IV (10:05)
--- NOTE | 2020-05-20 10:30 | SUR.OPER ---
Lithotomy on padded OR bed. [place] Pad Positioner under torso. Head on pillow, arms padded and tucked at sides. Legs secured in padded yellow fins stirrups.
[2020-05-20] MEDS: ROPIVACAINE 0.2% PF 2 MG/ML 10ML AMP 20 ML INJ (10:41)
[2020-05-20] MEDS: BUPIVACAINE 0.5% W/ EPI (PF) 30 ML VIAL INJ (10:41)
--- NOTE | 2020-05-20 11:29 | P.OP_ITS ---
Operative Date/Time/Diagnoses Date of procedure: 05/20/20 Time of procedure: 11:29 Pre-op diagnosis: Fibroids Menorrhagia Dysmenorrhea PCOS Post-op diagnosis: same Procedure & Clinicians Procedure: Procedures Operation Date: 05/20/20 09:45 Actual Procedures Side Surgeon p Laparoscopic Supracervical Hysterectomy W/ Bilateral Sapingo-oophorectomy Lisseth Cox MD Indications: PCOS Fibroids Menorrhagia Dysmenorrhea Surgeon: Lisseth Cox Construction Management Instructor: Princess Tipton Anesthesia Type: General Operative Notes Findings: Nine week size multi fibroid uterus Normal tubes and ovaries Normal liver and gallbladder Closure Type: primary Specimen(s): left tube & ovary, right tube & ovary and uterus Applied: catheter (Removed at the end of the case) Estimated blood loss (mL): 75 Blood products transfused: none Procedure in detail: The patient was taken to the operating room where she was placed in the dorsal supine position. After adequate general endotracheal anesthesia was achieved, she was placed in the dorsal lithotomy position, and prepped and draped in the usual sterile fashion. A timeout was performed. A bivalve speculum was placed into the vagina and the anterior lip of the cervix grasped with a single-tooth tenaculum. The cervical os was sequentially dilated until the ZUMI uterine manipulator could pass easily into the endometrial cavity. The single-tooth tenaculum was removed from the anterior lip of the cervix, and the bivalve speculum was removed from the vagina. Attention was then turned to the abdomen where 6 mL of half percent Marcaine with epinephrine were injected in the umbilical fold. A 5 mm incision was made. The veress needle was placed into the peritoneal cavity, and its placement confirmed by aspiration and drop test. The veress needle was removed. A 5 mm trocar was placed without difficulty. 2 other incisions were made midway between the pubic symphysis and umbilicus after 5 mL of half percent Marcaine with epinephrine were injected. These were 5 mm incisions. Two, 5 mm trochars were placed under direct visualization. The right tube and ovary were grasped with an atraumatic grasper. Using the plasma kinetic with settings of 40 W the infundibulopelvic ligament was cauterized and cut. The cornua of the uterus was then grasped with an atraumatic grasper. The round ligament and broad ligament were cauterized and cut with plasma kinetic. Hemostasis was achieved. The bladder flap was created using the plasma kinetic with cautery and cut senior living across. The uterine arteries on the right side were extensively cauterized with plasma kinetic. All of this was repeated on the left side. The remainder of the bladder flap was created using the plasma kinetic, and the bladder taken down off the lower uterine segment and cervix. Using the [place], the cervix was amputated from the uterus 2 cm above the uterosacral ligaments, after the ZUMI uterine manipulator was removed from the uterus and a moistened sponge stick was placed in the vagina. There was a small amount of bleeding noted from the posterior edge of the cervix, and this was cauterized with the PlasmaKinetic for hemostasis. 6 mL of half percent Marcaine with epinephrine were injected above the pubic symphysis. A 12mm incision was made. A 12 mm trocar was placed under direct visualization. An Endobag was placed through the suprapubic trocar and the uterus, tubes, and ovaries were placed into the Endobag. An Bishnu was placed into the endobag. The uterus was morcellated in approximately 4 pieces. The tubes and ovaries were also removed from the Endobag. The Endobag was removed from the peritoneal cavity along with the Bishnu. The pelvis was copiously irrigated with warm normal saline. No bleeding was noted. 20 mL of 0.2% ropivacaine were placed over the pelvic pedicles. The instruments were removed from the abdomen. The CO2 was allowed to escape. The suprapubic incision was closed on the fascia with 0 Vicryl. Two simple interrupted sutures with 3-0 Vicryl were placed to reapproximate the subcutaneous layer. All of the incisions were closed with 4-0 Biosyn in a subcuticular fashion. Steri strips, and combination gauze dressings were placed over all the incisions. The moistened sponge stick was removed from the vagina. Sponge, lap, and instrument counts were correct x 2. The patient tolerated the procedure well, was taken to PACU in stable condition. Complications: none Post-operative Condition: stable Disposition: PACU Plan for aftercare: To Acute Care after Recovery
[2020-05-20] MEDS: HYDROMORPHONE 2 MG INJ IV (11:30)
[2020-05-20] MEDS: ONDANSETRON 4 MG/2 ML INJ IV (11:47)
[2020-05-20] MEDS: OXYCODONE IR 5 MG TABLET PO ×3 (11:48→21:29)
[2020-05-20] MEDS: KETOROLAC 30 MG/ML VIAL IV ×2 (13:39→23:27)
[2020-05-20] MEDS: CARBIDOPA-LEVODOPA 25/100 TABLET 1 EACH PO ×2 (16:15→21:18)
[2020-05-20] MEDS: ACETAMINOPHEN 325 MG TABLET 650 MG PO ×2 (16:15→22:27)
--- NOTE | 2020-05-20 16:36 | PC.NURSE ---
Addendum entered by Lisseth Collazo R.N. 05/20/20 22:13: Relatively uneventful evening. Med @ 2120 for discomfort w/ relief. Abdomen tender, dsg CDI. IVF continue as per orders. Using BSC 1PA. Satisfactory post op course. Call light w/in reach, bed alarm on fopr pt safety. Continue w/plan of care. Original Note: Pt watching TV. Lungs josé miguel SpO2 99% RA Four lap site dsg on abdomen CDI. Med @ 1620 w/ oxycodone for discomfort. Assisted to BSC 2PA to void, Voided 300cc. IVF of LR infusing @ 100cc/hr via pump into right hand w/o incidence. Stable post op course. Call light w/in reach, pt calls appropriately for needs.
[2020-05-20] MEDS: CARBIDOPA-LEVODOPA ER 50/200 TABLET 1.5 EACH PO ×2 (17:09→21:18)
[2020-05-20] MEDS: DOCUSATE 250 MG CAPSULE PO (21:18)
[2020-05-21] MEDS: OXYCODONE IR 5 MG TABLET PO ×3 (00:40→08:06)
--- NOTE | 2020-05-21 01:30 | PC.NURSE ---
Addendum entered by Winter Rico R.N. 05/21/20 06:08: States pain is back up to 7/10 so medicated with IV Toradol Addendum entered by Winter Rico R.N. 05/21/20 04:45: Complains of incisional pain with 8/10 severity; medicated with scheduled Tylenol + Oxycodone and ice applied Original Note: 2333 Patient seen and assessed; is alert and oriented. Breath sounds CTA with RA sat of 98%. HRR. Denies nausea. BT hypoactive; abdomen is soft but tender especially over LLQ. Does state she has passed flatus. Denies dysuria, frequency or urgency with urination. Is able to move herself in bed. When up is assisted for safety. Lap sites covered with Allevyn dressings are all CDI. Medicated with Toradol for 6/10 sharp/crampy incisional pain which helped the cramping but the sharp pain remained so medicated with Oxycodone at 0040 and is now asleep; also using ice pack to abdomen. Wearing bilateral calf SCD's. Fall risk score is low.
[2020-05-21 04:30] VITALS: BP 128/62; PULSE 89; RESP 16; TEMP 36.3; O2SAT 98
[2020-05-21] MEDS: ACETAMINOPHEN 325 MG TABLET 650 MG PO (04:39)
[2020-05-21] MEDS: CARBIDOPA-LEVODOPA ER 50/200 TABLET 1.5 EACH PO (05:56)
[2020-05-21] MEDS: CARBIDOPA-LEVODOPA 25/100 TABLET 1 EACH PO (05:56)
[2020-05-21] MEDS: KETOROLAC 30 MG/ML VIAL IV (06:04)
[2020-05-21 08:00] VITALS: BP 129/74; PULSE 78; RESP 16; TEMP 36.4; O2SAT 100
[2020-05-21] MEDS: DOCUSATE 250 MG CAPSULE PO (08:05)
[2020-05-21] MEDS: estradioL 1 MG TABLET PO (08:05)
[2020-05-21] MEDS: INFLUENZA VACCINE 0.5 ML SYRINGE IM (08:10)
--- NOTE | 2020-05-21 12:08 | PC.NURSE ---
Girma stockton to lap sites c/d/i; BTs positive, passing gas, voiding, sba to bathroom; pt reports mild to moderate pain, PRN pain meds administered; pt received d/c instructions, including s/p hysterectomy education, f/u appt, rx medications and s/sx of infection; pt escorted via wheelchair to private vehicle at 1040.
--- NOTE | 2020-05-21 13:41 | CM.DANOTE ---
Discharge Planning/Care Management Case received, EMR reviewed. Discussed in Team Rounds. A d/c to home order was noted and RN in Rounds reported pt was planning on leaving early to catch the ferry back to [place]. A check in after Rounds showed that she had already left for home. Payer: [facility] Pt here for a scheduled gynecological procedure. No d/c concerns were noted by the care team members. CM Discharge Assessment Start: 05/21/20 13:40 Freq: Status: Active Protocol: Document 05/21/20 13:41 ITV (Rec: 05/21/20 13:41 ITV [id number]) Discharge Planning Assessment Advance Directives? No Advance Directives on File No History Provided By Medical Record Household Members significant other,children Discharge Plan Home Pre-Anesthesia Assessment Start: 05/14/20 13:47 Freq: Status: Complete Protocol: Document 05/14/20 13:47 CAB (Rec: 05/14/20 13:55 CAB [id number]) Pre-Anesthesia Assessment Patient Information Reviewed Via Chart Review Comment COVID screen not identified Primary Care Provider Eliseo Zapien Seen Specialist in Last 12 Months Yes Specialist Seen General surgeon,[employer] Primary Language Russian Preferred Language Russian Child Care Teacher Required No Height 163.83 cm Weight 97.976 kg Body Mass Index (BMI) 36.5 Barriers to Learning None Hx Anesthesia Reactions Yes: Nausea Hx Family Anesthesia Reaction Yes: father wakes up early Hx Malignant Hyperthermia No Hx Blood Transfusion Reaction No Comment Hx of vocal cord paralysis Anesthesia Review Requested No Jewel Sawyer No alcohol intake current alcohol intake frequency holidays/special occasions only Smoking Status Former smoker Tobacco type cigarettes how long ago did patient quit smoking 16 yrs ago Substance Use Type other,does not use Pain Present Pain Reported Patient is completely paralyzed or No completely immobile Mental Status Oriented to own ability Is patient on oxygen? No Hx Sleep Apnea No CPAP/BIPAP use not prescribed Currently Taking a Beta Ajmes No Anti-Coagulant Therapy No Has a Director Of Physiotherapy Services No Cardiac Testing No Hx Pacemaker/ICD No Pacemaker Rep Required? No dysphagia Yes Gastrointestinal Symptoms Abdominal Pain Genitourinary Symptoms Abdominal Discomfort,Pelvic Pain Urinary Catheter Present No Hx Urinary Self Catheterization No Diabetes No Patient No Lactating No Presence of External or Internal Medical Yes: pins in left ankle Devices Have you had any close contact with Unknown someone diagnosed with COVID-19? Marital Status Unknown Lives With significant other,children Patient Discharge Plan Description Return Home Comment Lives on [facility] Do You Have Any Spiritual Beliefs That No May Affect Your HC Choices? Do You Have Any Cultural Practices That No May Affect Your HC Choices? Emergency Contact Name Diaz Man Emergency Contact Advance Directives? No Advance Directives on File No Power of Dog Pound Attendant No
== END 2020-05-21 10:45 | disposition home or self-care (01) ==
LOC: OR 07:30 → AC 12:15
PROVIDERS: Family Provider Family Medicine; PCP Family Medicine; Referring Provider Family Medicine; Visit Provider Obstetrics & Gynecology
PROC: 0UT94ZL Resection of Uterus, Supracervical, Percutaneous Endoscopic Approach (ICD-10-PCS; CPT 58542; principal; 2020-05-20 09:45)
DX: D25.1 Intramural leiomyoma of uterus (principal); K21.9 Gastro-esophageal reflux disease without esophagitis; Z23 Encounter for immunization; N83.8 Other noninflammatory disorders of ovary, fallopian tube and broad ligament; E28.2 Polycystic ovarian syndrome
CPT/HCPCS: 58542; 90471; 90656; J0131; J0690; J1100; J1170; J1885; J2250; J2405; J2704; J2795; J3010; Q2038

== ENCOUNTER 2020-08-28 14:16 | Emergency (ER) | payer OTHER, MEDICAID, SELFPAY ==
[2020-05-20 12:23] VITALS: BMI 34.3
--- NOTE | 2020-08-28 14:18 | DI.RAD.S_ITS ---
PROCEDURE: XR CHEST 1V INDICATIONS: chest pain TECHNIQUE: One view of the chest was acquired. COMPARISON: [facility], CR, XR CHEST 2V, 02/21/2020, 15:19. [facility], CR, XR CHEST 1V, 02/15/2020, 18:10. FINDINGS: Surgical changes and devices: None. Lungs and pleura: Lungs are clear. No pleural effusions or pneumothorax. Mediastinum: Mediastinal contours appear normal. Heart size is normal. Bones and chest wall: No suspicious bony lesions. Overlying soft tissues appear unremarkable. IMPRESSION: Normal for age, source of current chest pain symptoms is not seen. Dictated by: Calvin Meehan M.D. on 08/28/2020 at 14:44 Approved by: Calvin Meehan M.D. on 08/28/2020 at 14:44
[2020-08-28 14:23] VITALS: BP 133/78; PULSE 93; RESP 22; TEMP 36.6; O2SAT 99
[2020-08-28 14:36] LABS: Add Manual Diff / Slide Review NO; Basophils Absolute Auto 0 /uL (0-100); Basophils Percent Auto 0.4 % (0-2); Eosinophils Absolute Auto 0 /uL (0-450); Eosinophils Percent Auto 0.4 % (2-4); Hematocrit 37.9 % (36-46); Hemoglobin 12.6 g/dL (12.0-16.0); Lymphocytes Absolute Auto 1700 /uL (1100-4500); Lymphocytes Percent Auto 22.4 % (25-40); Mean Corpuscular HGB Conc 33.1 % (30-36); Mean Corpuscular Hemoglobin 26.1 PG (26-34); Mean Corpuscular Volume 78.7 fL (80-100); Monocytes Absolute Auto 300 /uL (0-900); Monocytes Percent Auto 4.5 % (3-14); Neutrophils Absolute Auto 5500 /uL (1500-7000); Neutrophils Percent Auto 72.3 % (50-75); Platelet Count 344 X10^3/uL (150-400); Red Blood Cell Count 4.82 X10^6/uL (4.0-5.2); White Blood Cell Count 7.6 X10^3/uL (4.5-11.0)
[2020-08-28 14:47] LABS: INR 1.1 (0.9-1.3); Prothrombin Time 12.2 SECONDS (10.1-12.7)
[2020-08-28 14:49] LABS: PTT Partial Thromboplastin Tim 35 SECONDS (26.4-36.2)
[2020-08-28 14:52] LABS: Albumin 4.8 g/dL (3.5-5.0); Albumin Globulin Ratio 1.5 (1.0-2.8); Alkaline Phosphatase 79 U/L (38-126); Aspartate Aminotransferase 19 IU/L (14-36); BUN Creatinine Ratio 25.4 (6-22); Bilirubin Total 0.4 mg/dL (0.2-1.3); Blood Urea Nitrogen 17 mg/dL (7-17); Calcium 9.4 mg/dL (8.4-10.2); Carbon Dioxide 24 mmol/L (22-32); Chloride 104 mmol/L (98-107); Creatine Kinase 69 U/L (30-135); Estimated Glomerular Filt Rate > 60.0 mL/min (>60); Globulin 3.2 g/dL (1.7-4.1); Glucose 99 mg/dL (70-100); HEMOLYSIS < 15 (0-50); Lipase 205 U/L (23-300); Potassium 3.5 mmol/L (3.4-5.1); Sodium 138 mmol/L (137-145)
[2020-08-28 15:01] LABS: Alanine Aminotransferase < 4 IU/L (<35)
[2020-08-28 15:03] LABS: Troponin I < 0.012 ng/mL (0.01-0.034)
--- NOTE | 2020-08-28 15:38 | ED_ITS ---
HPI - Chest Pain General Chief Complaint: Chest Pain Stated Complaint: chest pain, SOB, pain arms, neck, jaw Time Seen by Provider: 08/28/20 14:28 Source: patient Mode of arrival: Ambulatory History of Present Illness HPI narrative: Patient is a 40-year-old female who presents with chest pain nausea vomiting which started yesterday. She says she has some sharp as sudden chest pain she got sweaty and was vomiting. She did not pass out she denies any diarrhea fever. Pain does not radiate she denies any shortness of breath. She says it continued today as well and she came to the ER for further evaluation. She still feels a little nauseous but has not vomited. MD complaint: chest pain Related Data Home Medications Medication Instructions Recorded Confirmed clonazepam 1 mg PO QID 11/05/17 05/20/20 carbidopa-levodopa 1 tab PO TID 03/17/19 05/20/20 carbidopa-levodopa 1.5 tab PO QID 03/17/19 05/20/20 Previous Rx's Medication Instructions Recorded ondansetron 4 mg PO TID-QID PRN #10 tab 02/03/20 estradiol 0.5 mg PO DAILY #30 tab 05/21/20 oxycodone 5 mg tablet 5 mg PO Q4H PRN #20 tab 06/06/20 ondansetron 4 mg PO Q8H PRN #10 tab 08/28/20 Allergies Allergy/AdvReac Type Severity Reaction Status Date / Time adhesive tape Allergy Intermediate rash, Verified 05/20/20 08:00 blisters Gadolinium-Containing Allergy Intermediate itchy Verified 05/20/20 08:00 Contrast Medi throat Sulfa (Sulfonamide Allergy Mild Vomiting Verified 05/20/20 08:00 Antibiotics) [SULFA (SULFONAMIDE ANTIBIOTICS)] chlorhexidine Allergy Rash, Verified 05/20/20 08:00 blisters chlora Allergy Intermediate Rash Uncoded 05/20/20 08:00 Review of Systems Review of Systems ROS Unobtainable: All systems reviewed & are unremarkable except as noted in HPI and below Constitutional Constitutional: Denies chills, Denies fever(s), Denies lethargy and Denies weakness ENT Ears, Nose, Mouth, and Throat: Denies abnormal hearing, Denies change in voice, Denies neck pain and Denies sore throat Cardiovascular Cardiovascular: Reports chest pain, Denies syncope, Denies rapid heart rate, Denies dyspnea and Denies dyspnea on exertion Respiratory Respiratory: Denies cough, Denies dyspnea, Denies dyspnea on exertion and Denies wheezing Gastrointestinal Gastrointestinal: Reports abdominal pain, Reports nausea and Reports vomiting Musculoskeletal Musculoskeletal: Denies back pain and Denies neck pain Integumentary/Breasts Skin/Breast: Denies pruritus, Denies erythema, Denies rash and Denies wounds Neurologic Neurologic: Denies abnormal hearing, Denies syncope and Denies weakness Allergic/Immunologic Allergic/Immunologic: Denies wheezing Patient History Medical History Dysphagia Gastrostomy tube in place GERD (gastroesophageal reflux disease) History of gastrostomy tube placement History of gastrostomy tube placement (04/12/19) Movement disorder Vocal cord paralysis Surgical History History of ankle surgery History of surgery (07/27/18) Social History household members: significant other and children Smoking Status: Former smoker alcohol intake: former Smoking Status: Former smoker alcohol intake frequency: holidays/special occasions only Substance Use Type: does not use and other Exam Initial Vital Signs Initial Vital Signs: Vital Signs Temperature 97.8 F 08/28/20 14:23 Pulse Rate 93 H 08/28/20 14:23 Respiratory Rate 22 08/28/20 14:23 Blood Pressure 133/78 08/28/20 14:23 Pulse Oximetry 99 08/28/20 14:23 GENERAL: Well-appearing, well-nourished and in no acute distress. HEENT: Head atraumatic,EOMI, pupils reactive, face symmetric, moist mucous membranes CARDIOVASCULAR: Regular rate and rhythm without murmurs, rubs or gallops. RESPIRATORY: Breath sounds equal bilaterally, no wheezes rales or rhonchi. ABDOMEN: Soft, nontender negative Velasquez sign minimal epigastric pain no guarding no rebound EXTREMITIES: Normal range of motion, no clubbing or edema. Neurovascularly i ntact NEUROLOGICAL: Alert and oriented x4.Normal gait and speech. SKIN: Warm, dry, no laceration, no petechiae, no rashes or lesions. Course Orders Ordered: ED Orders 08/28/20 14:18 XR chest 1V Stat EKG-12 Lead Stat 08/28/20 14:30 Complete Blood Count AUTO DIFF Stat Comprehensive Metabolic Panel Stat Lipase Stat Partial Thromboplastin Time Stat Prothrombin Time INR Stat Troponin & CK Cardiac Panel Stat 08/28/20 17:35 US abdomen limited Stat Discontinued Medications Al Hydrox/Mg Hydrox/Simethicone 20 ml/ Lidocaine HCl 15 ml 0 ml PO NOW ONE Stop: 08/28/20 17:36 Last Admin: 08/28/20 18:04 Dose: 35 ml Documented by: MILENA Ketorolac Tromethamine (Ketorolac 60 Mg/2 Ml Vial) 30 mg IV NOW ONE Stop: 08/28/20 16:11 Last Admin: 08/28/20 16:37 Dose: 30 mg Documented by: DEBBIE Morphine Sulfate (Morphine 4 Mg/Ml Inj) 4 mg IV NOW ONE Stop: 08/28/20 17:36 Last Admin: 08/28/20 18:05 Dose: 4 mg Documented by: MILENA Ondansetron HCl (Ondansetron 4 Mg Odt Prepack) 1 bottle MISC SEEINSTR ONE Stop: 08/28/20 18:43 Last Admin: 08/28/20 18:56 Dose: 1 bottle Documented by: MILENA Pantoprazole Sodium (Pantoprazole 40 Mg Vial) 40 mg IV NOW ONE Stop: 08/28/20 16:11 Last Admin: 08/28/20 16:37 Dose: 40 mg Documented by: DEBBIE Vital Signs Vital signs: Vital Signs - 8 hr 08/28/20 14:23 08/28/20 17:15 08/28/20 18:00 Temperature 97.8 F Pulse Rate 93 H 88 101 H Respiratory Rate 22 15 14 Blood Pressure 133/78 120/67 137/87 Pulse Oximetry 99 99 99 08/28/20 19:02 Temperature Pulse Rate 100 H Respiratory Rate 12 Blood Pressure 125/84 Pulse Oximetry 97 MDM - Chest Pain Lab Data Attestation: I reviewed the patient's lab results. Result diagrams: 08/28/20 14:30 08/28/20 14:30 Labs: Lab Results 08/28/20 08/28/20 08/28/20 Range/Units 14:30 14:30 14:30 WBC 7.6 (4.5-11.0) X10^3/uL RBC 4.82 (4.0-5.2) X10^6/uL Hgb 12.6 (12.0-16.0) g/dL Hct 37.9 (36-46) % MCV 78.7 L (80-100) fL MCH 26.1 (26-34) PG MCHC 33.1 (30-36) % RDW 16.0 H (11.6-14.8) % Plt Count 344 (150-400) X10^3/uL Neut % (Auto) 72.3 (50-75) % Lymph % (Auto) 22.4 L (25-40) % Cottle % (Auto) 4.5 (3-14) % Eos % (Auto) 0.4 L (2-4) % Baso % (Auto) 0.4 (0-2) % Neut # (Auto) 5500 (5065-7737) /uL Lymph # (Auto) 1700 (4830-7554) /uL Cottle # (Auto) 300 (0-900) /uL Eos # (Auto) 0 (0-450) /uL Baso # (Auto) 0 (0-100) /uL PT 12.2 (10.1-12.7) SECONDS INR 1.1 (0.9-1.3) APTT 35 D (26.4-36.2) SECONDS Sodium 138 (137-145) mmol/L Potassium 3.5 (3.4-5.1) mmol/L Chloride 104 (98-107) mmol/L Carbon Dioxide 24 (22-32) mmol/L BUN 17 (7-17) mg/dL Creatinine 0.67 (0.52-1.04) mg/dL Estimated GFR > 60.0 (>60) mL/min BUN/Creatinine Ratio 25.4 H (6-22) Glucose 99 (70-100) mg/dL Calcium 9.4 (8.4-10.2) mg/dL Total Bilirubin 0.4 (0.2-1.3) mg/dL AST 19 (14-36) IU/L ALT < 4 (<35) IU/L Alkaline Phosphatase 79 (38-126) U/L Total Creatine Kinase 69 (30-135) U/L CK-MB (CK-2) TNP CK-MB (CK-2) Rel Index TNP Troponin I < 0.012 (0.01-0.034) ng/mL Total Protein 8.0 (6.3-8.2) g/dL Albumin 4.8 (3.5-5.0) g/dL Globulin 3.2 (1.7-4.1) g/dL Albumin/Globulin Ratio 1.5 (1.0-2.8) Lipase 205 (23-300) U/L Imaging Data Chest x-ray: Radiologist's Impression: PROCEDURE: XR CHEST 1V INDICATIONS: chest pain TECHNIQUE: One view of the chest was acquired. COMPARISON: [facility], CR, XR CHEST 2V, 02/21/2020, 15:19. [facility], CR, XR CHEST 1V, 02/15/2020, 18:10. FINDINGS: Surgical changes and devices: None. Lungs and pleura: Lungs are clear. No pleural effusions or pneumothorax. Mediastinum: Mediastinal contours appear normal. Heart size is normal. Bones and chest wall: No suspicious bony lesions. Overlying soft tissues appear unremarkable. IMPRESSION: Normal for age, source of current chest pain symptoms is not seen. Dictated by: Calvin Meehan M.D. on 08/28/2020 at 14:44 Approved by: Calvin Meehan M.D. on 08/28/2020 at 14:4 US - abdomen: Radiologist's Impression: PROCEDURE: US ABDOMEN LIMITED INDICATIONS: ruq TECHNIQUE: Real-time focused scanning was performed of the abdomen, with image documentation. COMPARISON: [facility], , US ABDOMEN LIMITED, 07/10/2019, 15:01. FINDINGS: Targeted right upper quadrant ultrasound at clinician request. The liver is normal, the gallbladder shows no evidence of stones or inflammation. The common duct measures normal at 4.3 mm. The pancreas was relatively poorly seen due to overlying bowel gas. IMPRESSION: No evidence for acute cholecystitis or common duct stone, no biliary distention seen. Please note that MR cholangiogram provides a better visualization of the distal common duct if clinically warranted. Dictated by: Calvin Meehan M.D. on 08/28/2020 at 18:23 ECG Data Attestation: I personally reviewed and interpreted this ECG as follows: Prior ECG tracings: available for review Interpretation: Normal sinus rhythm rate 86 MS interval 148 QRS [address] changes or T-wave inversions MDM Narrative Medical decision making narrative: The patient is having burning sensation in her chest and nose which then caused vomiting. She has history of acid reflux. She is given Protonix and Zofran which do seem to help. EKG troponin chest x- ray your negative. Attempted oral challenge however after drinking water she had immediate pain in her stomach and pain in her right shoulder. I have re- evaluated her she has some mild tenderness in the right upper quadrant but lipase bilirubin liver enzymes negative. Ultrasound does not show any abnormality. At this time I do not think that she needs any further abdominal testing or imaging. Pain is better after morphine and GI cocktail. Recommend increasing her omeprazole to 40 mg twice a day and Zofran. Discharge Plan Departure Patient Disposition: Home Clinical Impression: GERD (gastroesophageal reflux disease) Qualifiers: Esophagitis presence: without esophagitis Qualified Code(s): K21.9 - Gastro- esophageal reflux disease without esophagitis Instructions: DI for Gastroesophageal Reflux Disease (GERD), GERD Diet Activity Restrictions/Additional Instructions: *You have been diagnosed with GERD *What to do: Your symptoms today I believe are related to worsening acid reflux. *Continue to take medications as directed Omeprazole 40 mg twice a day for 2 weeks, take 30 minutes prior to meal Zofran 4 mg every 8 hours if needed for nausea or vomiting--> SENT TO [facility] *Follow up with your primary care provider in 2-3 days *Return to ER if you should have increasing chest pain, persistent vomiting, worsening abdominal pain or any new, worsening or concerning symptoms Prescriptions: New ondansetron 4 mg tablet,disintegrating 4 mg PO Q8H PRN (Reason: nausea and vomiting) Qty: 10 RF: 0 No Action oxycodone 5 mg tablet 5 mg PO Q4H PRN (Reason: pain) Qty: 20 RF: 0 ondansetron 4 mg tablet,disintegrating 4 mg PO TID-QID PRN (Reason: nausea and vomiting) Qty: 10 RF: 0 clonazepam 1 mg Tablet 1 mg PO QID RF: 0 carbidopa-levodopa 50-200 mg tablet extended release 1.5 tab PO QID RF: 0 carbidopa-levodopa 25-100 mg tablet 1 tab PO TID RF: 0 estradiol 1 mg tablet 0.5 mg PO DAILY Qty: 30 RF: 11 Referrals: Eliseo Nuñez MD [Primary Care Provider] -
[2020-08-28] MEDS: ONDANSETRON 4 MG/2 ML INJ (15:41)
[2020-08-28] MEDS: KETOROLAC 60 MG/2 ML VIAL 30 MG IV (16:37)
[2020-08-28] MEDS: PANTOPRAZOLE 40 MG VIAL IV (16:37)
[2020-08-28 17:15] VITALS: BP 120/67; PULSE 88; RESP 15; O2SAT 99
--- NOTE | 2020-08-28 17:35 | DI.US.S_ITS ---
PROCEDURE: US ABDOMEN LIMITED INDICATIONS: ruq TECHNIQUE: Real-time focused scanning was performed of the abdomen, with image documentation. COMPARISON: [facility], , US ABDOMEN LIMITED, 07/10/2019, 15:01. FINDINGS: Targeted right upper quadrant ultrasound at clinician request. The liver is normal, the gallbladder shows no evidence of stones or inflammation. The common duct measures normal at 4.3 mm. The pancreas was relatively poorly seen due to overlying bowel gas. IMPRESSION: No evidence for acute cholecystitis or common duct stone, no biliary distention seen. Please note that MR cholangiogram provides a better visualization of the distal common duct if clinically warranted. Dictated by: Calvin Meehan M.D. on 08/28/2020 at 18:23 Approved by: Calvin Meehan M.D. on 08/28/2020 at 18:25
[2020-08-28 18:00] VITALS: BP 137/87; PULSE 101; RESP 14; O2SAT 99
[2020-08-28] MEDS: MAG HYDROX/ALUMINUM/SIMETH SUS 20 ML, LIDOCAINE VISCOUS 2% 15 ML PO (18:04)
[2020-08-28] MEDS: MORPHINE 4 MG/ML INJ IV (18:05)
[2020-08-28] MEDS: ONDANSETRON 4 MG ODT PREPACK 1 BOTTLE MISC (18:56)
[2020-08-28 19:02] VITALS: BP 125/84; PULSE 100; RESP 12; O2SAT 97
== END 2020-08-28 19:02 | disposition home or self-care (01) ==
PROVIDERS: Emergency Provider Emergency Medicine; Family Provider Family Medicine; PCP Family Medicine
DX: K21.9 Gastro-esophageal reflux disease without esophagitis (principal); R11.2 Nausea with vomiting, unspecified; R07.9 Chest pain, unspecified
CPT/HCPCS: 36415; 71045; 76705; 80053; 82550; 83690; 84484; 85025; 85610; 85730; 93005; 96374; 96375; 99283; 99284; C9113; J1885; J2270; J2405

== ENCOUNTER 2020-09-03 22:05 | Emergency (ER) | payer OTHER, MEDICAID, SELFPAY ==
[2020-05-20 12:23] VITALS: BMI 34.3
[2020-09-03 22:12] VITALS: PULSE 91; O2SAT 99
[2020-09-03 22:14] VITALS: BP 123/78; PULSE 88; RESP 18; TEMP 36.5; O2SAT 99; BMI 31.2
--- NOTE | 2020-09-03 22:19 | ED.GENADULT ---
HPI - General Adult General Chief complaint: Abdominal Pain Stated complaint: INTESTINES NOT WORKING THROWING UP Time Seen by Provider: 09/03/20 22:08 Source: patient Mode of arrival: Ambulatory Limitations: no limitations History of Present Illness HPI narrative: Patient is a 40 year old female who arrived to the emergency department today for continued upper abdominal discomfort. She was seen here in this department approximately 1 week ago where she had labs performed and also right upper quadrant ultrasound. Both of which were reassuring. She was discharged home. The next day she was seen at a outside facility where she had labs and a CT scan performed. She states that she was told that she had swelling along her stomach and her small intestine and was told to follow-up with GI. She states that she contacted the GI providers and could not get in to be seen and so she states she was told by them to come to this emergency department to be admitted for a urgent endoscopy. She has been having vomiting and upper abdominal discomfort. Related Data Home Medications Medication Instructions Recorded Confirmed clonazepam 1 mg PO QID 11/05/17 05/20/20 carbidopa-levodopa 1 tab PO TID 03/17/19 05/20/20 carbidopa-levodopa 1.5 tab PO QID 03/17/19 05/20/20 Previous Rx's Medication Instructions Recorded ondansetron 4 mg PO TID-QID PRN #10 tab 02/03/20 estradiol 0.5 mg PO DAILY #30 tab 05/21/20 oxycodone 5 mg tablet 5 mg PO Q4H PRN #20 tab 06/06/20 ondansetron 4 mg PO Q8H PRN #10 tab 08/28/20 Allergies Allergy/AdvReac Type Severity Reaction Status Date / Time adhesive tape Allergy Intermediate rash, Verified 09/03/20 22:14 blisters Gadolinium-Containing Allergy Intermediate itchy Verified 09/03/20 22:14 Contrast Medi throat Sulfa (Sulfonamide Allergy Mild Vomiting Verified 09/03/20 22:14 Antibiotics) [SULFA (SULFONAMIDE ANTIBIOTICS)] chlorhexidine Allergy Rash, Verified 09/03/20 22:14 blisters chlora Allergy Intermediate Rash Uncoded 09/03/20 22:14 Review of Systems Constitutional Constitutional: Denies fever(s) Cardiovascular Cardiovascular: Denies chest pain and Denies dyspnea Respiratory Respiratory: Denies dyspnea Gastrointestinal Gastrointestinal: Reports abdominal pain, Reports nausea and Reports vomiting Musculoskeletal Musculoskeletal: Denies myalgias Integumentary/Breasts Skin/Breast: Denies rash Hematologic/Lymphatic On Anticoagulants: No Allergic/Immunologic Allergic/Immunologic: Denies urticaria Patient History Medical History Dysphagia Gastrostomy tube in place GERD (gastroesophageal reflux disease) History of gastrostomy tube placement History of gastrostomy tube placement (04/12/19) Movement disorder Vocal cord paralysis Surgical History History of ankle surgery History of surgery (07/27/18) Social History household members: significant other and children Smoking Status: Former smoker alcohol intake: former Smoking Status: Former smoker alcohol intake frequency: holidays/special occasions only Substance Use Type: does not use and other Exam Initial Vital Signs Initial Vital Signs: Vital Signs Pulse Rate 91 H 09/03/20 22:12 Pulse Oximetry 99 09/03/20 22:12 Const General: cooperative and comfortable Limitations: mental status not altered HENNJ Head: normal to inspection and normocephalic Resp Effort & Inspection: normal respiratory effort Cardio Rate: regular rate GI Inspection: non-distended Palpation: soft and tender (Epigastric left upper quadrant) Skin Lesions: no lesions Rashes: no rashes Neuro General: patient alert and patient awake Cognition: normal cognition Speech: speech normal Extrem General: normal to inspection and capillary refill normal Psych Appearance: grossly normal and well kempt Course Orders Ordered: ED Orders 09/03/20 22:20 Complete Blood Count AUTO DIFF Stat Comprehensive Metabolic Panel Stat Lipase Stat Discontinued Medications Sodium Chloride (Normal Saline 0.9%) 1,000 mls @ 1,000 mls/hr IV BOLUS ONE Stop: 09/03/20 23:17 Last Infusion: 09/03/20 23:17 Dose: 0 mls/hr Documented by: Admin: 09/03/20 22:24 Dose: 1,000 mls/hr Documented by: DALE Vital Signs Vital signs: Vital Signs - 8 hr 09/03/20 22:12 09/03/20 22:14 09/03/20 22:30 Temperature 97.7 F Pulse Rate 91 H 88 83 Respiratory Rate 18 Blood Pressure 123/78 104/74 Pulse Oximetry 99 99 97 09/03/20 23:00 Temperature Pulse Rate 75 Respiratory Rate Blood Pressure 110/68 Pulse Oximetry 100 Medical Decision Making Medical Records Medical records reviewed: Yes I reviewed the patient's medical records. Lab Data Lab results reviewed: Yes I reviewed the patient's lab results. Result diagrams: 09/03/20 22:20 09/03/20 22:20 Labs: Lab Results 09/03/20 09/03/20 Range/Units 22:20 22:20 WBC 6.8 (4.5-11.0) X10^3/uL RBC 4.78 (4.0-5.2) X10^6/uL Hgb 12.2 (12.0-16.0) g/dL Hct 37.9 (36-46) % MCV 79.2 L (80-100) fL MCH 25.6 L (26-34) PG MCHC 32.3 (30-36) % RDW 16.1 H (11.6-14.8) % Plt Count 350 (150-400) X10^3/uL Neut % (Auto) 58.9 (50-75) % Lymph % (Auto) 33.9 (25-40) % Dougherty % (Auto) 6.0 (3-14) % Eos % (Auto) 0.7 L (2-4) % Baso % (Auto) 0.5 (0-2) % Neut # (Auto) 4000 (5660-2662) /uL Lymph # (Auto) 2300 (8459-6582) /uL Dougherty # (Auto) 400 (0-900) /uL Eos # (Auto) 0 (0-450) /uL Baso # (Auto) 0 (0-100) /uL Sodium 138 (137-145) mmol/L Potassium 3.6 (3.4-5.1) mmol/L Chloride 105 (98-107) mmol/L Carbon Dioxide 25 (22-32) mmol/L BUN 17 (7-17) mg/dL Creatinine 0.68 (0.52-1.04) mg/dL Estimated GFR > 60.0 (>60) mL/min BUN/Creatinine Ratio 25.0 H (6-22) Glucose 98 (70-100) mg/dL Calcium 9.7 (8.4-10.2) mg/dL Total Bilirubin 0.4 (0.2-1.3) mg/dL AST 19 (14-36) IU/L ALT 7 (<35) IU/L Alkaline Phosphatase 70 (38-126) U/L Total Protein 7.9 (6.3-8.2) g/dL Albumin 4.6 (3.5-5.0) g/dL Globulin 3.3 (1.7-4.1) g/dL Albumin/Globulin Ratio 1.4 (1.0-2.8) Lipase 186 (23-300) U/L MDM Narrative Medical decision making narrative: Patient's labs today are unremarkable. I was able to review the note from her last visit here in this emergency department and it was relatively unremarkable. I was also able to obtain records from [facility] where she was seen the day after. Those results show unremarkable labs but she does have a suggestion of distal gastric wall thickening involving the gastric pylorus and antrum as well as the proximal portion of the duodenum concerning for low-grade gastroenteritis. There were no other surgical abnormalities seen. I discussed with the patient that there is no indication based on her workup up to this point or labs today that she needs admitted for an emergent endoscopy. She has Carafate and Prilosec at home already. She was given the phone number for the General surgery Clinic here at the hospital or she can call and schedule a outpatient appointment if her symptoms do not improve. Patient could be safely discharged home without further workup. She was given return precautions. She expressed understanding and agreement. Discharge Plan Departure Patient Disposition: Home Clinical Impression: Abdominal pain Instructions: DI for Abdominal Pain-Adult Activity Restrictions/Additional Instructions: I was able to review your visit from this emergency department last week and also the visit from [facility] the day later. I was also able to see the ultrasound report and the CT reports from those visits. The CT from [facility] showed a mild gastritis. Your labs today are reassuring. I recommend you contact the [facility] at [phone] for a follow-up to discuss an upper endoscopy. Continue with the Carafate and the Prilosec as directed. Return to the emergency department for any new symptoms. Prescriptions: No Action oxycodone 5 mg tablet 5 mg PO Q4H PRN (Reason: pain) Qty: 20 RF: 0 ondansetron 4 mg tablet,disintegrating 4 mg PO TID-QID PRN (Reason: nausea and vomiting) Qty: 10 RF: 0 clonazepam 1 mg Tablet 1 mg PO QID RF: 0 carbidopa-levodopa 50-200 mg tablet extended release 1.5 tab PO QID RF: 0 carbidopa-levodopa 25-100 mg tablet 1 tab PO TID RF: 0 estradiol 1 mg tablet 0.5 mg PO DAILY Qty: 30 RF: 11 ondansetron 4 mg tablet,disintegrating 4 mg PO Q8H PRN (Reason: nausea and vomiting) Qty: 10 RF: 0 Referrals: Eliseo Nuñez MD [Primary Care Provider] -
[2020-09-03] MEDS: SODIUM CHLORIDE 0.9% 1,000 ML 1000 ML IV (22:24)
[2020-09-03 22:30] VITALS: BP 104/74; PULSE 83; O2SAT 97
[2020-09-03 22:35] LABS: Add Manual Diff / Slide Review NO; Basophils Absolute Auto 0 /uL (0-100); Basophils Percent Auto 0.5 % (0-2); Eosinophils Absolute Auto 0 /uL (0-450); Eosinophils Percent Auto 0.7 % (2-4); Hematocrit 37.9 % (36-46); Hemoglobin 12.2 g/dL (12.0-16.0); Lymphocytes Absolute Auto 2300 /uL (1100-4500); Lymphocytes Percent Auto 33.9 % (25-40); Mean Corpuscular HGB Conc 32.3 % (30-36); Mean Corpuscular Hemoglobin 25.6 PG (26-34); Mean Corpuscular Volume 79.2 fL (80-100); Monocytes Absolute Auto 400 /uL (0-900); Neutrophils Absolute Auto 4000 /uL (1500-7000); Neutrophils Percent Auto 58.9 % (50-75); Platelet Count 350 X10^3/uL (150-400); Red Blood Cell Count 4.78 X10^6/uL (4.0-5.2); Red Cell Distribution Width 16.1 % (11.6-14.8); White Blood Cell Count 6.8 X10^3/uL (4.5-11.0)
[2020-09-03 22:43] LABS: Alanine Aminotransferase 7 IU/L (<35); Albumin 4.6 g/dL (3.5-5.0); Albumin Globulin Ratio 1.4 (1.0-2.8); Alkaline Phosphatase 70 U/L (38-126); Aspartate Aminotransferase 19 IU/L (14-36); Bilirubin Total 0.4 mg/dL (0.2-1.3); Blood Urea Nitrogen 17 mg/dL (7-17); Calcium 9.7 mg/dL (8.4-10.2); Carbon Dioxide 25 mmol/L (22-32); Chloride 105 mmol/L (98-107); Estimated Glomerular Filt Rate > 60.0 mL/min (>60); Globulin 3.3 g/dL (1.7-4.1); Glucose 98 mg/dL (70-100); HEMOLYSIS 17 (0-50); Lipase 186 U/L (23-300); Potassium 3.6 mmol/L (3.4-5.1); Sodium 138 mmol/L (137-145); Total Protein 7.9 g/dL (6.3-8.2)
[2020-09-03 23:00] VITALS: BP 110/68; PULSE 75; O2SAT 100
== END 2020-09-03 23:32 | disposition home or self-care (01) ==
PROVIDERS: Emergency Provider Emergency Medicine; Family Provider Family Medicine; PCP Family Medicine
DX: R11.2 Nausea with vomiting, unspecified (principal); R10.10 Upper abdominal pain, unspecified
CPT/HCPCS: 36415; 80053; 83690; 85025; 96360; 99281; 99284

== ENCOUNTER 2020-09-18 14:59 | Emergency (ER) | payer OTHER, MEDICAID, SELFPAY ==
[2020-05-20 12:23] VITALS: BMI 34.3
[2020-09-18] VITALS (9 sets, daily range): BP systolic 105–125; BP diastolic 72–79; PULSE 78–103; RESP 16; TEMP 36.6; O2SAT 97–100; BMI 36.1
--- NOTE | 2020-09-18 15:43 | DI.CT.S_ITS ---
PROCEDURE: CT HEAD/BRAIN WO CON INDICATIONS: fall TECHNIQUE: Noncontrast 4.5 mm thick angled axial sections acquired from the foramen magnum to the vertex, with coronal and sagittal reformats. For radiation dose reduction, the following was used: automated exposure control, adjustment of mA and/or kV according to patient size. COMPARISON: [facility], CT, CT HEAD TPA, 03/14/2020, 0:10. [facility], CT, HEAD WITHOUT CONTRAST, 10/07/2017, 19:07. FINDINGS: Image quality: Excellent. CSF spaces: Basal cisterns are patent. No extra-axial fluid collections. Ventricles are normal in size and shape. Brain: No intracranial hemorrhage, mass, or mass effect. Ruiz-white matter interface appears preserved. Skull and face: Calvarium and visualized facial bones are intact, without suspicious lesions. Sinuses: Visualized sinuses and mastoids are clear. IMPRESSION: 1. No acute intracranial abnormality. Dictated by: Frankie Hudson M.D. on 09/18/2020 at 16:21 Approved by: Frankie Hudson M.D. on 09/18/2020 at 16:23
--- NOTE | 2020-09-18 15:43 | DI.CT.S_ITS ---
PROCEDURE: CT CHEST ABD PEL W CON INDICATIONS: fall, pain left post illiac and t4-5, left ant ribs TECHNIQUE: After the administration of intravenous contrast, 5 mm thick sections acquired from the lung apices to the symphysis. 2.5 mm thick coronal and sagittal reformats were acquired. Additional 7 mm thick coronal maximum intensity projection (MIP) reformats acquired through the lungs. Optional 10-minute delayed imaging may be performed from the kidneys to the bladder. For radiation dose reduction, the following was used: automated exposure control, adjustment of mA and/or kV according to patient size. COMPARISON: [facility], CT, CT ANGIO CHEST PE PROTOCOL, 11/05/2017, 21:19. [facility], CT, CT CHEST W CON, 02/15/2020, 21:01. [facility], CT, CT ABDOMEN PELVIS WITH CONTRAST, 08/29/2020, 19:17. FINDINGS: Image quality: Excellent. CHEST: Lungs: No pulmonary contusions or lacerations. No acute measuring up to 0.6 cm on series 3, image 160 which appears stable compared to the prior studies. In the left lingula, there is a pleural-based nodule measuring 0.3 cm on image 206 also stable in size. 0.3 cm subpleural left lower lobe nodule on image 214 also stable in size. A pleural-based 0.3 cm nodule in the right lower lobe on image 182 is also stable in size compared to prior studies given differences in technique. No new suspicious nodules. Mild dependent atelectasis is present bilaterally. No pneumothorax or hemothorax. Central and peripheral airways appear patent and normal in caliber. Mediastinum: No mediastinal hematomas. Heart size is normal. No pericardial effusion. Thoracic aorta and pulmonary arteries demonstrate normal size and enhancement. No mediastinal or hilar adenopathy. Esophagus is normal in caliber. No hiatal hernia. Chest wall: No rib fractures. No subcutaneous emphysema. No axillary or supraclavicular adenopathy. Thyroid gland is mildly heterogeneous without a focal dominant nodule ABDOMEN: Solid organs: Liver is normal in size and enhancement, without lacerations. Gallbladder appears within normal limits without calcified gallstones. Biliary system is non-dilated. Pancreas enhances normally, without transection. Spleen is normal in size and enhancement, without lacerations. No adrenal hematomas. Both kidneys enhance normally, without hydronephrosis or lacerations. Peritoneum and bowel: No free fluid or air. Unenhanced bowel loops demonstrate normal wall thickness and caliber. The appendix is normal in appearance. There is colonic diverticulosis without acute diverticulitis. Nodes and vessels: No retroperitoneal or mesenteric adenopathy. Aorta and inferior vena cava are normal in size and enhancement. Miscellaneous: No ventral hernias. PELVIS: Genitourinary: Bladder wall thickness is normal. Miscellaneous: No inguinal hernias or adenopathy. Bones: No acute fractures identified. Specifically, no displaced rib fracture visualized. Pelvic ring and hip joints appear intact. No vertebral compression fractures. There is moderate degenerative disc disease at L4-5. IMPRESSION: 1. No definite acute traumatic abnormality within the chest, abdomen, or pelvis. 2. Small bilateral pulmonary nodules appears stable compared to prior studies dating back to 2018. Dictated by: Frankie Hudson M.D. on 09/18/2020 at 16:27 Approved by: Frankie Hudson M.D. on 09/18/2020 at 16:35
--- NOTE | 2020-09-18 15:43 | DI.CT.S_ITS ---
PROCEDURE: CT CERVICAL SPINE WO CON INDICATIONS: fall, pain TECHNIQUE: Noncontrast 3 mm thick sections acquired from the skull base to the T4 level. Sagittal and coronal reformats were then constructed. For radiation dose reduction, the following was used: automated exposure control, adjustment of mA and/or kV according to patient size. COMPARISON: [facility], CT, CT CERVICAL SPINE WITHOUT CONTRAST, 08/24/2019, 13:41. FINDINGS: Image quality: Excellent. Bones: No fractures or subluxation. There is straightening of the cervical lordosis. Multilevel disc space narrowing is present including moderate narrowing in the lower lumbar spine at C6-C7 and C5-C6 with endplate sclerosis and osteophytosis. Mild multilevel facet arthropathy is also present. Visualized superior ribs are intact. Soft tissues: Prevertebral soft tissues are normal in thickness. No paravertebral hematomas. No apical pneumothoraces. There is heterogeneous appearance of the thyroid gland bilaterally. IMPRESSION: 1. No fracture or subluxation. 2. Degenerative changes in the cervical spine including moderate disc degeneration at C6-C7 and C5-C6. 3. Heterogeneous appearance of the thyroid. Further evaluation may be obtained with ultrasound if clinically indicated. Dictated by: Frankie Hudson M.D. on 09/18/2020 at 16:23 Approved by: Frankie Hudson M.D. on 09/18/2020 at 16:26
[2020-09-18] MEDS: OXYCODONE/ACETAMINOPHEN 5/325 TABLET 2 TAB PO (15:47)
[2020-09-18 16:04] LABS: Add Manual Diff / Slide Review NO; Basophils Absolute Auto 100 /uL (0-100); Basophils Percent Auto 1.1 % (0-2); Eosinophils Absolute Auto 0 /uL (0-450); Eosinophils Percent Auto 0.5 % (2-4); Hematocrit 36.9 % (36-46); Hemoglobin 12.3 g/dL (12.0-16.0); Lymphocytes Absolute Auto 2100 /uL (1100-4500); Lymphocytes Percent Auto 31.1 % (25-40); Mean Corpuscular HGB Conc 33.4 % (30-36); Mean Corpuscular Hemoglobin 26.2 PG (26-34); Mean Corpuscular Volume 78.6 fL (80-100); Monocytes Absolute Auto 400 /uL (0-900); Monocytes Percent Auto 5.8 % (3-14); Neutrophils Absolute Auto 4100 /uL (1500-7000); Neutrophils Percent Auto 61.5 % (50-75); Platelet Count 318 X10^3/uL (150-400); Red Cell Distribution Width 16.3 % (11.6-14.8); White Blood Cell Count 6.7 X10^3/uL (4.5-11.0)
[2020-09-18 16:16] LABS: Alanine Aminotransferase < 4 IU/L (<35); Albumin 4.6 g/dL (3.5-5.0); Albumin Globulin Ratio 1.5 (1.0-2.8); Alkaline Phosphatase 76 U/L (38-126); Aspartate Aminotransferase 18 IU/L (14-36); BUN Creatinine Ratio 15.3 (6-22); Bilirubin Total 0.4 mg/dL (0.2-1.3); Blood Urea Nitrogen 9 mg/dL (7-17); Calcium 9.8 mg/dL (8.4-10.2); Carbon Dioxide 25 mmol/L (22-32); Chloride 104 mmol/L (98-107); Estimated Glomerular Filt Rate > 60.0 mL/min (>60); Globulin 3.1 g/dL (1.7-4.1); Glucose 96 mg/dL (70-100); HEMOLYSIS < 15 (0-50); Potassium 3.7 mmol/L (3.4-5.1); Sodium 139 mmol/L (137-145); Total Protein 7.7 g/dL (6.3-8.2)
--- NOTE | 2020-09-18 16:50 | ED_ITS ---
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 She states she landed with the maximum impact at approximately T5 and is complaining of pain there as well as her neck. It is getting progressively worse. Because of her dysphonia and additional medications and been recommended that she not take any nonsteroidals. She is in a significant amount of pain on arrival is placed in a hard collar for her safety and 2 Percocet are administered with moderate relief of overall pain. Related Data Home Medications Medication Instructions Recorded Confirmed clonazepam 1 mg PO QID 11/05/17 05/20/20 carbidopa-levodopa 1 tab PO TID 03/17/19 05/20/20 carbidopa-levodopa 1.5 tab PO QID 03/17/19 05/20/20 Previous Rx's Medication Instructions Recorded ondansetron 4 mg PO TID-QID PRN #10 tab 02/03/20 estradiol 0.5 mg PO DAILY #30 tab 05/21/20 oxycodone 5 mg tablet 5 mg PO Q4H PRN #20 tab 06/06/20 ondansetron 4 mg PO Q8H PRN #10 tab 08/28/20 oxycodone-acetaminophen 2 tab PO Q6H PRN #20 tab 09/18/20 Allergies Allergy/AdvReac Type Severity Reaction Status Date / Time adhesive tape Allergy Intermediate rash, Verified 09/18/20 15:10 blisters Gadolinium-Containing Allergy Intermediate itchy Verified 09/18/20 15:10 Contrast Medi throat Sulfa (Sulfonamide Allergy Mild Vomiting Verified 09/18/20 15:10 Antibiotics) [SULFA (SULFONAMIDE ANTIBIOTICS)] chlorhexidine Allergy Rash, Verified 09/18/20 15:10 blisters chlora Allergy Intermediate Rash Uncoded 09/18/20 15:10 Review of Systems Review of Systems Narrative: Pertinent positive and negative findings as per HPI Remainder of review of systems is otherwise unremarkable for Constitutional: Fevers, chills, weakness ENT: No sore throat, neck pain, ear pain CV: Chest pain, palpitations, dyspnea on exertion Respiratory: Cough, wheeze, dyspnea GI: Nausea, vomiting, diarrhea, : Dysuria, hematuria, flank pain MS: Muscle weakness, numbness, joint swelling or warmth Skin: Rashes, nonhealing lesions Neuro: Syncope, dizziness, Patient History Medical History Dysphagia Gastrostomy tube in place GERD (gastroesophageal reflux disease) History of gastrostomy tube placement History of gastrostomy tube placement (04/12/19) Movement disorder Vocal cord paralysis Surgical History History of ankle surgery History of surgery (07/27/18) Social History household members: significant other and children Smoking Status: Former smoker alcohol intake: former Smoking Status: Former smoker alcohol intake frequency: holidays/special occasions only Substance Use Type: does not use and other Exam Narrative Exam Narrative: General: Healthy appearing, in significant distress. Able to give a complete and coherent history. Well-nourished well-developed HEENT: Moist mucous membranes, normal sclera with reactive pupils, Neck: Tender at C3-C4. Chest: Tender at T5 with no significant bruising or contusion. Some minor tenderness over left anterior ribs Respiratory: Lungs are clear to auscultation, no wheezing no rales no rhonchi. Full and symmetrical air movement Cardiac: Regular rate and rhythm no murmurs no bruits Abdomen: Soft, nontender, good bowel tones, no flank pain Skin: Warm and dry, no rashes Spine: No lumbar spine tenderness. Some minor tenderness with pelvic manipulation and left SI joint pain. Neurologic: Grossly neurologically intact with no obvious asymmetries or abnormalities Extremities: No trauma, well perfused Psych: Cooperative, appropriate insight and affect Initial Vital Signs Initial Vital Signs: Vital Signs Temperature 97.8 F 09/18/20 15:08 Pulse Rate 103 H 09/18/20 15:08 Respiratory Rate 16 09/18/20 15:08 Blood Pressure 110/75 09/18/20 15:08 Pulse Oximetry 98 09/18/20 15:08 Course Orders Ordered: ED Orders 09/18/20 15:43 CT cervical spine wo con Stat CT chest abd pel w con Stat CT head/brain wo con Stat 09/18/20 15:50 Complete Blood Count AUTO DIFF Stat Comprehensive Metabolic Panel Stat Discontinued Medications Oxycodone/Acetaminophen (Oxycodone/Acetaminophen 5/325 Tablet) 2 tab PO NOW ONE Stop: 09/18/20 15:36 Last Admin: 09/18/20 15:47 Dose: 2 tab Documented by: DALE Vital Signs Vital signs: Vital Signs - 8 hr 09/18/20 15:08 09/18/20 15:17 09/18/20 15:18 Temperature 97.8 F Pulse Rate 103 H 94 H 97 H Respiratory Rate 16 Blood Pressure 110/75 125/79 Pulse Oximetry 98 98 97 09/18/20 15:30 09/18/20 16:36 09/18/20 16:37 Temperature Pulse Rate 100 H 90 88 Respiratory Rate Blood Pressure 120/74 119/74 Pulse Oximetry 98 97 97 09/18/20 17:00 09/18/20 17:30 09/18/20 17:44 Temperature Pulse Rate 83 85 78 Respiratory Rate Blood Pressure 105/72 Pulse Oximetry 98 100 100 MDM - Neck Pain/Injury Medical Records Attestation: I reviewed the patient's medical records. Lab Data Attestation: I reviewed the patient's lab results. Result diagrams: 09/18/20 15:50 09/18/20 15:50 Labs: Lab Results 09/18/20 09/18/20 Range/Units 15:50 15:50 WBC 6.7 (4.5-11.0) X10^3/uL RBC 4.70 (4.0-5.2) X10^6/uL Hgb 12.3 (12.0-16.0) g/dL Hct 36.9 (36-46) % MCV 78.6 L (80-100) fL MCH 26.2 (26-34) PG MCHC 33.4 (30-36) % RDW 16.3 H (11.6-14.8) % Plt Count 318 (150-400) X10^3/uL Neut % (Auto) 61.5 (50-75) % Lymph % (Auto) 31.1 (25-40) % [place] % (Auto) 5.8 (3-14) % Eos % (Auto) 0.5 L (2-4) % Baso % (Auto) 1.1 (0-2) % Neut # (Auto) 4100 (4593-9485) /uL Lymph # (Auto) 2100 (8451-6509) /uL [place] # (Auto) 400 (0-900) /uL Eos # (Auto) 0 (0-450) /uL Baso # (Auto) 100 (0-100) /uL Sodium 139 (137-145) mmol/L Potassium 3.7 (3.4-5.1) mmol/L Chloride 104 (98-107) mmol/L Carbon Dioxide 25 (22-32) mmol/L BUN 9 (7-17) mg/dL Creatinine 0.59 (0.52-1.04) mg/dL Estimated GFR > 60.0 (>60) mL/min BUN/Creatinine Ratio 15.3 (6-22) Glucose 96 (70-100) mg/dL Calcium 9.8 (8.4-10.2) mg/dL Total Bilirubin 0.4 (0.2-1.3) mg/dL AST 18 (14-36) IU/L ALT < 4 (<35) IU/L Alkaline Phosphatase 76 (38-126) U/L Total Protein 7.7 (6.3-8.2) g/dL Albumin 4.6 (3.5-5.0) g/dL Globulin 3.1 (1.7-4.1) g/dL Albumin/Globulin Ratio 1.5 (1.0-2.8) Imaging Data CT - cervical spine: Radiologist's Impression: FINDINGS: Image quality: Excellent. Bones: No fractures or subluxation. There is straightening of the cervical lordosis. Multilevel disc space narrowing is present including moderate narrowing in the lower lumbar spine at C6-C7 and C5-C6 with endplate sclerosis and osteophytosis. Mild multilevel facet arthropathy is also present. Visualized superior ribs are intact. Soft tissues: Prevertebral soft tissues are normal in thickness. No paravertebral hematomas. No apical pneumothoraces. There is heterogeneous appearance of the thyroid gland bilaterally. IMPRESSION: 1. No fracture or subluxation. 2. Degenerative changes in the cervical spine including moderate disc degen eration at C6-C7 and C5-C6. 3. Heterogeneous appearance of the thyroid. Further evaluation may be obtained with ultrasound if clinically indicated. Dictated by: Frankie Hudson M.D. on 09/18/2020 at 16:23 CT scan - head: Radiologist's Impression: FINDINGS: Image quality: Excellent. CSF spaces: Basal cisterns are patent. No extra-axial fluid collections. Ventricles are normal in size and shape. Brain: No intracranial hemorrhage, mass, or mass effect. Ruiz-white matter interface appears preserved. Skull and face: Calvarium and visualized facial bones are intact, without suspicious lesions. Sinuses: Visualized sinuses and mastoids are clear. IMPRESSION: 1. No acute intracranial abnormality. Dictated by: Frankie Hudson M.D. on 09/18/2020 at 16:21 CT scan - abdomen/pelvis: Radiologist's Impression: FINDINGS: Image quality: Excellent. CHEST: Lungs: No pulmonary contusions or lacerations. No acute measuring up to 0.6 cm on series 3, image 160 which appears stable compared to the prior studies. In the left lingula, there is a pleural-based nodule measuring 0.3 cm on image 206 also stable in size. 0.3 cm subpleural left lower lobe nodule on image 214 also stable in size. A pleural-based 0.3 cm nodule in the right lower lobe on image 182 is also stable in size compared to prior studies given differences in technique. No new suspicious nodules. Mild dependent atelectasis is present bilaterally. No pneumothorax or hemothorax. Central and peripheral airways appear patent and normal in caliber. Mediastinum: No mediastinal hematomas. Heart size is normal. No pericardial effusion. Thoracic aorta and pulmonary arteries demonstrate normal size and enhancement. No mediastinal or hilar adenopathy. Esophagus is normal in caliber. No hiatal hernia. Chest wall: No rib fractures. No subcutaneous emphysema. No axillary or supraclavicular adenopathy. Thyroid gland is mildly heterogeneous without a focal dominant nodule ABDOMEN: Solid organs: Liver is normal in size and enhancement, without lacerations. Gallbladder appears within normal limits without calcified gallstones. Biliary system is non-dilated. Pancreas enhances normally, without transection. Spleen is normal in size and enhancement, without lacerations. No adrenal hematomas. Both kidneys enhance normally, without hydronephrosis or lacerations. Peritoneum and bowel: No free fluid or air. Unenhanced bowel loops demonstrate normal wall thickness and caliber. The appendix is normal in appearance. There is colonic diverticulosis without acute diverticulitis. Nodes and vessels: No retroperitoneal or mesenteric adenopathy. Aorta and inferior vena cava are normal in size and enhancement. Miscellaneous: No ventral hernias. PELVIS: Genitourinary: Bladder wall thickness is normal. Miscellaneous: No inguinal hernias or adenopathy. Bones: No acute fractures identified. Specifically, no displaced rib fracture visualized. Pelvic ring and hip joints appear intact. No vertebral compression fractures. There is moderate degenerative disc disease at L4-5. IMPRESSION: 1. No definite acute traumatic abnormality within the chest, abdomen, or pelvis. 2. Small bilateral pulmonary nodules appears stable compared to prior studies dating back to 2018. Dictated by: Frankie Hudson M.D. on 09/18/2020 at 16:27 MDM Narrative Medical decision making narrative: 40-year-old woman with a history dystonia presents after falling down steps yesterday hitting herself having increasing pain. CT scans of the brain, skull, cervical spine, thoracic and lumbar spine, chest abdomen pelvis are all unremarkable. She has no acute neurologic findings and no other obvious injuries. Mechanism seems exactly as described with no suspicion around the fall itself. She is given a single dose of Toradol in the emergency department along with 2 Percocet and discharged home with Percocet to help with pain control along with anticipatory guidance of expected pain levels increasing likely over the next 24 hours. There is no evidence of any pulmonary contusion solid organ injury or internal bleeding. She is safe for home discharge Discharge Plan Departure Patient Disposition: Home Clinical Impression: Thoracic spine pain Fall Qualifiers: Encounter type: initial encounter Qualified Code(s): W19.XXXA - Unspecified fall, initial encounter Cervical strain, acute Qualifiers: Encounter type: initial encounter Qualified Code(s): S16.1XXA - Strain of muscle, fascia and tendon at neck level, initial encounter Concussion Qualifiers: Encounter type: initial encounter Loss of consciousness presence/duration: without LOC Qualified Code(s): S06.0X0A - Concussion without loss of consciousness, initial encounter Instructions: DI for Concussion, DI for Neck Pain Activity Restrictions/Additional Instructions: Thank you for coming in today I am sorry that your hurting so much. Your workup today shows that you do not have any bleeding in your head, you did not have a skull fracture, no fractures along your cervical spine or your upper back. You have no rib fractures and no fractures into your pelvis or lower spine. There is no evidence of internal bleeding. You can use the soft collar to help with your neck pain. If it is not helpful, you do not need it. You can use 1-2 Percocet to help with the acute pain. Please note that tomorrow may actually be worse than today. Any day that you end up using narcotic, please make sure that use using a stool softener to avoid constipation. He if you find new symptoms that need further evaluation, please return to the ER Prescriptions: New oxycodone-acetaminophen 5-325 mg tablet 2 tab PO Q6H PRN (Reason: pain) Qty: 20 RF: 0 No Action oxycodone 5 mg tablet 5 mg PO Q4H PRN (Reason: pain) Qty: 20 RF: 0 ondansetron 4 mg tablet,disintegrating 4 mg PO TID-QID PRN (Reason: nausea and vomiting) Qty: 10 RF: 0 clonazepam 1 mg Tablet 1 mg PO QID RF: 0 carbidopa-levodopa 50-200 mg tablet extended release 1.5 tab PO QID RF: 0 carbidopa-levodopa 25-100 mg tablet 1 tab PO TID RF: 0 estradiol 1 mg tablet 0.5 mg PO DAILY Qty: 30 RF: 11 ondansetron 4 mg tablet,disintegrating 4 mg PO Q8H PRN (Reason: nausea and vomiting) Qty: 10 RF: 0 Referrals: Eliseo Nuñez MD [Primary Care Provider] -
== END 2020-09-18 18:33 | disposition home or self-care (01) ==
PROVIDERS: Emergency Provider Emergency Medicine; Family Provider Family Medicine; PCP Family Medicine; Referring Provider Family Medicine
DX: S06.0X0A Concussion without loss of consciousness, initial encounter (principal); S16.1XXA Strain of muscle, fascia and tendon at neck level, initial encounter; W10.9XXA Fall (on) (from) unspecified stairs and steps, initial encounter; J38.3 Other diseases of vocal cords
CPT/HCPCS: 36415; 70450; 71260; 72125; 74177; 80053; 85025; 99284; 99285; Q9967

== ENCOUNTER → 2020-09-19 09:04 | Outpatient (CLI) | payer OTHER, MEDICAID, SELFPAY ==
[2020-05-20 12:23] VITALS: BMI 34.3
--- NOTE | 2020-09-19 | DI.US.S_ITS ---
PROCEDURE: US THYROID INDICATIONS: ENLARGED THYROID TECHNIQUE: Real-time scanning was performed of the thyroid gland, with image documentation. COMPARISON: None. FINDINGS: Right: Thyroid lobe measures 4.7 x 1.9 x 1.2 cm, and is homogeneous in echotexture. Left: Thyroid lobe measures 5.6 x 2.0 x 1.4 cm, and is homogenous in echotexture. Isthmus: 3 mm thick. Nodule number: 1 Location: Mid right lobe Size: 1.4 x 1.1 x 0.7 cm. Composition: Predominantly solid Echogenicity: Hyperechoic Shape: wider than tall. Margins: Smooth Echogenic foci: None Total points: 3 ACR TI-RADS category: Mildly suspicious Nodule number: 2 Location: Inferior pole of the right lobe Size: 0.7 x 0.7 x 0.5 cm. Composition: Predominately solid Echogenicity: Mixed echogenicity including hypoechoic appearance Shape: wider than tall. Margins: Smooth Echogenic foci: None Total points: 4 ACR TI-RADS category: Moderately suspicious IMPRESSION: Multiple right thyroid nodules as above. Technically, no further ultrasound surveillance necessary per guidelines below. ACR TI-RADS definitions and recommendations: TI-RADS 1 (benign): 0 points. FNA not needed. TI-RADS 2 (not suspicious): 2 points. FNA not needed. TI-RADS 3 (mildly suspicious): 3 points. * FNA if 2.5 cm or larger, follow up if 1.5 cm or larger (at 1, 3, and 5 years). TI-RADS 4 (moderately suspicious): 4-6 points. * FNA if 1.5 cm or larger, follow up if 1 cm or larger (at 1, 2, 3, and 5 years). TI-RADS 5 (highly suspicious): 7 points or more. * FNA if 1 cm or larger, follow up if 0.5 cm or larger (every year for 5 years). Dictated by: Cody Patten M.D. on 09/19/2020 at 16:04 Approved by: Cody Patten M.D. on 09/19/2020 at 16:07
[2020-09-19 11:06] LABS: Free T4, Direct Thyroxine 0.95 ng/dL (0.78-2.19)
== END ==
PROVIDERS: Family Provider Family Medicine; PCP Family Medicine; Referring Provider Family Medicine; Visit Provider Family Medicine
DX: E04.2 Nontoxic multinodular goiter (principal)
CPT/HCPCS: 36415; 76536; 84439; 84443

== ENCOUNTER 2020-12-08 23:43 | Emergency (ER) | payer OTHER, MEDICAID, SELFPAY ==
[2020-05-20 12:23] VITALS: BMI 34.3
[2020-12-08 23:50] VITALS: BP 150/87; PULSE 70; RESP 14; TEMP 36.9; O2SAT 100
--- NOTE | 2020-12-08 23:51 | ED.GENADULT ---
HPI - General Adult General Chief complaint: Neuro Symptoms/Deficit Stated complaint: Weakness Time Seen by Provider: 12/08/20 23:47 Source: patient and EMS Mode of arrival: EMS Limitations: no limitations History of Present Illness HPI narrative: Patient is a 40-year-old female. Has had multiple neurologic issues in the past to include dystonia. She is on medications for this. According to prior notes there is concern that her symptoms are psychologic. Patient arrived by EMS for evaluation of generalized weakness and unable to move. According to the reports from EMS and the patient approximately 530 on the day of arrival which was greater than 4-1/2 hours after her presentation she started to have issues moving her arms and legs. She is also describing headache and slurred speech. She has not tried anything for her symptoms prior to arrival. She has been seen for the symptoms in the past Related Data Home Medications Medication Instructions Recorded Confirmed clonazepam 1 mg PO QID 11/05/17 05/20/20 carbidopa-levodopa 1 tab PO TID 03/17/19 05/20/20 carbidopa-levodopa 1.5 tab PO QID 03/17/19 05/20/20 Previous Rx's Medication Instructions Recorded ondansetron 4 mg PO TID-QID PRN #10 tab 02/03/20 estradiol 0.5 mg PO DAILY #30 tab 05/21/20 oxycodone 5 mg tablet 5 mg PO Q4H PRN #20 tab 06/06/20 ondansetron 4 mg PO Q8H PRN #10 tab 08/28/20 oxycodone-acetaminophen 2 tab PO Q6H PRN #20 tab 09/18/20 Allergies Allergy/AdvReac Type Severity Reaction Status Date / Time adhesive tape Allergy Intermediate rash, Verified 09/18/20 15:10 blisters Gadolinium-Containing Allergy Intermediate itchy Verified 09/18/20 15:10 Contrast Medi throat Sulfa (Sulfonamide Allergy Mild Vomiting Verified 09/18/20 15:10 Antibiotics) [SULFA (SULFONAMIDE ANTIBIOTICS)] chlorhexidine Allergy Rash, Verified 09/18/20 15:10 blisters chlora Allergy Intermediate Rash Uncoded 09/18/20 15:10 Review of Systems Constitutional Constitutional: Reports headache(s) Eyes Eyes: Reports blurry vision ENT Ears, Nose, Mouth, and Throat: Reports vertigo, Reports dizziness and Reports headache(s) Comments: Slurred speech Cardiovascular Cardiovascular: Denies chest pain and Denies dyspnea Respiratory Respiratory: Denies dyspnea Gastrointestinal Gastrointestinal: Reports nausea Musculoskeletal Comments: Can not move arms or legs Integumentary/Breasts Skin/Breast: Denies rash Neurologic Neurologic: Reports abnormal speech, Reports vertigo, Reports dizziness, Reports headache(s) and Denies seizure-like activity Comments: Cannot move arms or legs Hematologic/Lymphatic On Anticoagulants: No Patient History Medical History Dysphagia Gastrostomy tube in place GERD (gastroesophageal reflux disease) History of gastrostomy tube placement History of gastrostomy tube placement (04/12/19) Movement disorder Vocal cord paralysis Surgical History History of ankle surgery History of surgery (07/27/18) Social History household members: significant other and children Smoking Status: Former smoker alcohol intake: former Smoking Status: Former smoker alcohol intake frequency: holidays/special occasions only Substance Use Type: does not use and other Exam Initial Vital Signs Initial Vital Signs: Vital Signs Temperature 98.4 F 12/08/20 23:50 Pulse Rate 70 12/08/20 23:50 Respiratory Rate 14 12/08/20 23:50 Blood Pressure 150/87 H 12/08/20 23:50 Pulse Oximetry 100 12/08/20 23:50 Const General: healthy appearing Limitations: mental status not altered [facility] Head: normal to inspection and normocephalic Mouth: oral mucosae normal Eyes General: appearance normal, both eyes and all related structures Resp Effort & Inspection: normal respiratory effort Auscultation: clear to auscultation bilaterally Cardio Rate: regular rate Rhythm: regular rhythm GI Inspection: non-distended Skin Lesions: no lesions Rashes: no rashes Neuro General: patient alert, patient awake and patient oriented x3 Speech: other (Can speak clearly but has her teeth clenched) Other: Patient states she cannot move her arms and legs and is equal bilateral. She also reports decreased sensation to light touch bilateral Extrem General: normal to inspection, capillary refill normal and No edema Psych Appearance: well kempt Scores GCS Ariel coma scale eye opening: Spontaneous Ariel coma scale verbal response: Orientated Ariel coma scale motor response: Obey commands Ariel coma scale total score: 15 Course Orders Ordered: ED Orders 12/08/20 23:48 Basic Metabolic Panel Stat Complete Blood Count AUTO DIFF Stat Ethanol (ETOH) Stat Discontinued Medications POTASSIUM CHLORIDE IN WATER (Potassium Cl 10 Meq/100 Ml Di) 10 meq in 100 mls @ 100 mls/hr IV Q1H ADE Stop: 12/09/20 04:44 Last Admin: 12/09/20 05:08 Dose: 100 mls/hr Documented by: Infusion: 12/09/20 04:28 Dose: 100 mls/hr Documented by: Admin: 12/09/20 03:28 Dose: 100 mls/hr Documented by: Infusion: 12/09/20 02:47 Dose: 100 mls/hr Documented by: Admin: 12/09/20 01:47 Dose: 100 mls/hr Documented by: Infusion: 12/09/20 01:39 Dose: 100 mls/hr Documented by: Admin: 12/09/20 00:39 Dose: 100 mls/hr Documented by: COLTEN Lorazepam (Lorazepam 2 Mg/Ml Inj) 1 mg IV NOW ONE Stop: 12/08/20 23:48 Last Admin: 12/09/20 00:07 Dose: 1 mg Documented by: COLTEN Vital Signs Vital signs: Vital Signs - 8 hr 12/08/20 23:50 12/09/20 00:22 12/09/20 00:30 Temperature 98.4 F Pulse Rate 70 66 70 Respiratory Rate 14 Blood Pressure 150/87 H Pulse Oximetry 100 95 96 12/09/20 01:00 12/09/20 01:30 12/09/20 01:40 Temperature Pulse Rate 63 65 58 L Respiratory Rate Blood Pressure 107/63 Pulse Oximetry 100 98 99 12/09/20 02:00 12/09/20 02:30 12/09/20 03:00 Temperature Pulse Rate 72 70 65 Respiratory Rate 20 13 16 Blood Pressure Pulse Oximetry 98 99 99 12/09/20 03:30 12/09/20 03:32 Temperature Pulse Rate 73 69 Respiratory Rate 19 15 Blood Pressure 123/67 Pulse Oximetry 99 99 Medical Decision Making Lab Data Lab results reviewed: Yes I reviewed the patient's lab results. Result diagrams: 12/09/20 00:00 12/09/20 00:00 Labs: Lab Results 12/09/20 12/09/20 Range/Units 00:00 00:00 WBC 5.8 (4.5-11.0) X10^3/uL RBC 4.45 (4.0-5.2) X10^6/uL Hgb 11.8 L (12.0-16.0) g/dL Hct 36.1 (36-46) % MCV 81.1 (80-100) fL MCH 26.6 (26-34) PG MCHC 32.8 (30-36) % RDW 16.1 H (11.6-14.8) % Plt Count 275 (150-400) X10^3/uL Neut % (Auto) 68.4 (50-75) % Lymph % (Auto) 22.7 L (25-40) % [place] % (Auto) 6.3 (3-14) % Eos % (Auto) 1.6 L (2-4) % Baso % (Auto) 1.0 (0-2) % Neut # (Auto) 3900 (7714-7242) /uL Lymph # (Auto) 1300 (7635-2089) /uL [place] # (Auto) 400 (0-900) /uL Eos # (Auto) 100 (0-450) /uL Baso # (Auto) 100 (0-100) /uL Sodium 140 (137-145) mmol/L Potassium 2.9 L (3.4-5.1) mmol/L Chloride 107 (98-107) mmol/L Carbon Dioxide 23 (22-32) mmol/L BUN 7 (7-17) mg/dL Creatinine 0.64 (0.52-1.04) mg/dL Estimated GFR > 60.0 (>60) mL/min BUN/Creatinine Ratio 10.9 (6-22) Glucose 100 (70-100) mg/dL Calcium 9.8 (8.4-10.2) mg/dL Ethyl Alcohol < 10 ( - 10) mg/dL MDM Narrative Medical decision making narrative: Given her known history and her presentation today I have a very low suspicion that her symptoms are CVA. Code stroke was called by nursing staff however I feel though he should hold on a head CT is I feel that this is more likely a psychologic issue. She does not have any lateralizing signs. Her symptoms are bilateral in upper and lower extremities. She has clear speech. She was given Ativan and this did improve her symptoms tremendously. Labs are unremarkable except for a low potassium which will be repleted. After the patient's potassium was repleted she stated that she was feeling much better and would like to be discharged home. Discharge Plan Departure Patient Disposition: Home Clinical Impression: Hypokalemia Instructions: DI for Hypokalemia Activity Restrictions/Additional Instructions: Recommend you continue all of your medications as directed and contact your primary provider for follow-up. Return to the emergency department for any new or worsening symptoms Prescriptions: No Action oxycodone 5 mg tablet 5 mg PO Q4H PRN (Reason: pain) Qty: 20 RF: 0 ondansetron 4 mg tablet,disintegrating 4 mg PO TID-QID PRN (Reason: nausea and vomiting) Qty: 10 RF: 0 oxycodone-acetaminophen 5-325 mg tablet 2 tab PO Q6H PRN (Reason: pain) Qty: 20 RF: 0 clonazepam 1 mg Tablet 1 mg PO QID RF: 0 carbidopa-levodopa 50-200 mg tablet extended release 1.5 tab PO QID RF: 0 carbidopa-levodopa 25-100 mg tablet 1 tab PO TID RF: 0 estradiol 1 mg tablet 0.5 mg PO DAILY Qty: 30 RF: 11 ondansetron 4 mg tablet,disintegrating 4 mg PO Q8H PRN (Reason: nausea and vomiting) Qty: 10 RF: 0 Referrals: Cata Keita MD [Primary Care Provider] -
[2020-12-09] VITALS (17 sets, daily range): BP systolic 107–123; BP diastolic 63–67; PULSE 58–86; RESP 13–20; O2SAT 95–100
[2020-12-09] MEDS: LORazepam 2 MG/ML INJ 1 MG IV (00:07)
[2020-12-09 00:11] LABS: Add Manual Diff / Slide Review NO; Basophils Absolute Auto 100 /uL (0-100); Eosinophils Absolute Auto 100 /uL (0-450); Eosinophils Percent Auto 1.6 % (2-4); Hematocrit 36.1 % (36-46); Hemoglobin 11.8 g/dL (12.0-16.0); Lymphocytes Absolute Auto 1300 /uL (1100-4500); Lymphocytes Percent Auto 22.7 % (25-40); Mean Corpuscular HGB Conc 32.8 % (30-36); Mean Corpuscular Hemoglobin 26.6 PG (26-34); Mean Corpuscular Volume 81.1 fL (80-100); Monocytes Absolute Auto 400 /uL (0-900); Monocytes Percent Auto 6.3 % (3-14); Neutrophils Absolute Auto 3900 /uL (1500-7000); Neutrophils Percent Auto 68.4 % (50-75); Platelet Count 275 X10^3/uL (150-400); Red Blood Cell Count 4.45 X10^6/uL (4.0-5.2); Red Cell Distribution Width 16.1 % (11.6-14.8); White Blood Cell Count 5.8 X10^3/uL (4.5-11.0)
[2020-12-09 00:19] LABS: BUN Creatinine Ratio 10.9 (6-22); Blood Urea Nitrogen 7 mg/dL (7-17); Calcium 9.8 mg/dL (8.4-10.2); Carbon Dioxide 23 mmol/L (22-32); Chloride 107 mmol/L (98-107); Estimated Glomerular Filt Rate > 60.0 mL/min (>60); Ethanol (ETOH) < 10 mg/dL; Glucose 100 mg/dL (70-100); HEMOLYSIS < 15 (0-50); Potassium 2.9 mmol/L (3.4-5.1); Sodium 140 mmol/L (137-145)
[2020-12-09] MEDS: POTASSIUM CHLORIDE IN WATER 10 MEQ/100 ML PIGGYBACK 100 MEQ IV ×4 (00:39→05:08)
--- NOTE | 2020-12-09 01:08 | PC.NURSE ---
0100 pt reports feeling improved, moving rt upper ext, speech improved, I can feel my body again
== END 2020-12-09 07:20 | disposition home or self-care (01) ==
PROVIDERS: Emergency Provider Emergency Medicine; Family Provider Family Medicine; PCP Family Medicine
DX: E87.6 Hypokalemia (principal)
CPT/HCPCS: 80048; 80320; 85025; 96365; 96366; 96375; 99283; 99284; J2060

== ENCOUNTER → 2021-02-28 08:35 | Outpatient (CLI) | payer OTHER, MEDICAID, SELFPAY ==
[2020-05-20 12:23] VITALS: BMI 34.3
[2021-02-28 21:26] LABS: COVID19 - ORCAS (NP or Nasal) Negative (Negative)
== END ==
PROVIDERS: Family Provider Family Medicine; PCP Family Medicine; Referring Provider Family Medicine; Visit Provider Family Medicine
DX: Z20.822 Contact with and (suspected) exposure to COVID-19 (principal)
CPT/HCPCS: C9803; U0003

== ENCOUNTER 2021-06-24 12:41 | Emergency (ER) | payer OTHER, MEDICAID, SELFPAY ==
[2020-05-20 12:23] VITALS: BMI 34.3
[2021-06-24] VITALS (7 sets, daily range): BP systolic 107–118; BP diastolic 61–67; PULSE 58–85; RESP 14–16; TEMP 36.3; O2SAT 97–100; BMI 29.2
[2021-06-24 14:45] LABS: Add Manual Diff / Slide Review NO; Basophils Absolute Auto 0 /uL (0-100); Basophils Percent Auto 0.5 % (0-2); Eosinophils Absolute Auto 100 /uL (0-450); Hematocrit 39.1 % (36-46); Hemoglobin 13.4 g/dL (12.0-16.0); Lymphocytes Absolute Auto 1900 /uL (1100-4500); Lymphocytes Percent Auto 29.9 % (25-40); Mean Corpuscular HGB Conc 34.2 % (30-36); Mean Corpuscular Hemoglobin 29.5 PG (26-34); Mean Corpuscular Volume 86.3 fL (80-100); Monocytes Absolute Auto 400 /uL (0-900); Monocytes Percent Auto 5.7 % (3-14); Neutrophils Absolute Auto 3900 /uL (1500-7000); Neutrophils Percent Auto 62.9 % (50-75); Platelet Count 299 X10^3/uL (150-400); Red Blood Cell Count 4.53 X10^6/uL (4.0-5.2); Red Cell Distribution Width 16.1 % (11.6-14.8); White Blood Cell Count 6.2 X10^3/uL (4.5-11.0)
[2021-06-24 14:54] LABS: Lactate (Lactic Acid) 0.9 mmol/L (0.7-2.1)
[2021-06-24 14:54] LABS: Alanine Aminotransferase < 4 IU/L (<35); Albumin 4.5 g/dL (3.5-5.0); Albumin Globulin Ratio 1.3 (1.0-2.8); Alkaline Phosphatase 81 U/L (38-126); Aspartate Aminotransferase 23 IU/L (14-36); BUN Creatinine Ratio 18.5 (6-22); Bilirubin Total 0.5 mg/dL (0.2-1.3); Blood Urea Nitrogen 12 mg/dL (7-17); Calcium 9.6 mg/dL (8.4-10.2); Carbon Dioxide 32 mmol/L (22-32); Chloride 102 mmol/L (98-107); Estimated Glomerular Filt Rate > 60.0 mL/min (>60); Globulin 3.6 g/dL (1.7-4.1); Glucose 92 mg/dL (70-100); HEMOLYSIS < 15 (0-50); Potassium 3.7 mmol/L (3.4-5.1); Sodium 140 mmol/L (137-145); Total Protein 8.1 g/dL (6.3-8.2)
[2021-06-24] MEDS: SODIUM CHLORIDE 0.9% 1,000 ML 1000 ML IV ×2 (15:24→16:58)
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
[2021-06-24] MEDS: LORazepam 2 MG/ML INJ 0.5 MG IV (16:58)
[2021-06-24] MEDS: LORazepam 2 MG/ML INJ 1 MG IV (18:02)
[2021-06-24] MEDS: PANTOPRAZOLE 40 MG VIAL IV (18:02)
== END 2021-06-24 19:00 | disposition home or self-care (01) ==
PROVIDERS: Emergency Provider Emergency Medicine; Family Provider Family Medicine; PCP Family Medicine
DX: K22.4 Dyskinesia of esophagus (principal)
CPT/HCPCS: 80053; 83605; 85025; 93005; 96361; 96374; 96375; 96376; 99283; 99284; C9113; J2060

== ENCOUNTER → 2021-12-09 13:42 | Outpatient (CLI) | payer OTHER, MEDICAID, SELFPAY ==
[2020-05-20 12:23] VITALS: BMI 34.3
== END ==
PROVIDERS: Family Provider Family Medicine; PCP Physician Assistant; Visit Provider Physician Assistant
DX: G24.8 Other dystonia (principal); G81.92 Hemiplegia, unspecified affecting left dominant side; J38.5 Laryngeal spasm; R13.10 Dysphagia, unspecified; R49.0 Dysphonia
CPT/HCPCS: 83519

== ENCOUNTER 2021-12-10 14:41 | Emergency (ER) | payer OTHER, MEDICAID, SELFPAY ==
[2020-05-20 12:23] VITALS: BMI 34.3
[2021-12-10] VITALS (25 sets, daily range): BP systolic 105–143; BP diastolic 57–83; PULSE 67–84; RESP 17–18; TEMP 36.8; O2SAT 96–100
--- NOTE | 2021-12-10 16:01 | ED_ITS ---
HPI - General Adult <Mildred Suarez MD - Last Filed: 12/14/21 08:53> General Chief complaint: Nausea/Vomiting/Diarrhea Stated complaint: NOT EATING AND DRINKING Time Seen by Provider: 12/10/21 16:00 Source: patient Mode of arrival: Ambulatory History of Present Illness HPI narrative: 41-year-old woman with a history of dysphonia, dystonia and history of severe dysphagia to the point she has needed TPN and feeding tube placement. 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 Had recommended a trial of amantadine 100 mg b.i.d. and it is not clear that she actually tried this. She is not currently on carbidopa levodopa. She notes that over the last 5 days she has had progressively worsening dystonia and progressively worsening dysphagia to the point where she is unable to even swallow water at this point. There have been previous episodes were she has been able to survive on protein drinks and the dysphagia has resolved. She does not describe fevers, cough, chills. No abdominal pain. No vomiting or diarrhea. No dysuria or flank pain. She did have an upper endoscopy at [facility] August 2020 that was relatively benign with mild nonerosive gastritis appreciated only. Related Data Home Medications Medication Instructions Recorded Confirmed clonazepam 1 mg tablet 1 mg PO QID 11/05/17 09/22/21 carbidopa ER 50 mg-levodopa 200 mg 1.5 tab PO QID 03/17/19 12/10/21 tablet,extended release carbidopa 25 mg-levodopa 100 mg 1 tab PO QID 01/07/21 12/10/21 tablet Previous Rx's Medication Instructions Recorded estradiol 1 mg tablet See Rx Instructions .Route 06/09/21 .COMPLEX #30 tabs fluticasone propionate 50 1 spray intranasal DAILY #16 grams 11/18/21 mcg/actuation nasal spray,suspension (Flonase Allergy Relief) Allergies Allergy/AdvReac Type Severity Reaction Status Date / Time avocado Allergy Severe Anaphylaxis Verified 09/22/21 16:23 banana Allergy Severe Anaphylaxis Verified 09/22/21 16:23 adhesive tape Allergy Intermediate rash, Verified 09/22/21 16:23 blisters Gadolinium-Containing Allergy Intermediate itchy Verified 09/22/21 16:23 Contrast Medi throat adhesive Allergy Mild SKIN: RASH Verified 09/22/21 16:23 Sulfa (Sulfonamide Allergy Mild Vomiting Verified 09/22/21 16:23 Antibiotics) [SULFA (SULFONAMIDE ANTIBIOTICS)] Phenothiazines Allergy Unknown Verified 09/22/21 16:23 chlorhexidine Allergy Rash, Verified 09/22/21 16:23 blisters haloperidol AdvReac Unknown Verified 09/22/21 16:23 metoclopramide AdvReac Unknown Verified 09/22/21 16:23 KIWI EXTRACT Allergy Severe Anaphylaxis Uncoded 09/22/21 16:23 chlora Allergy Intermediate Rash Uncoded 09/22/21 16:23 Review of Systems <Mildred Suarez MD - Last Filed: 12/14/21 08:53> Review of Systems Narrative: Remainder of complete review of systems is otherwise unremarkable except for that included in the HPI. Patient History <Mildred Suarez MD - Last Filed: 12/14/21 08:53> Medical History (Updated 12/10/21 @ 17:15 by Mildred Suarez MD) Dysphagia Family history of malignant neoplasm of digestive organs Gastrostomy tube in place GERD (gastroesophageal reflux disease) Movement disorder Sinusitis Vocal cord paralysis Surgical History H/O jejunostomy (~05/16/19) H/O: hysterectomy (~05/22/20) History of ankle surgery History of surgery (07/27/18) Hx of tonsillectomy (~06/28/98) Family History Other Family history of colon cancer Social History household members: significant other and children Smoking Status: Former smoker alcohol intake: former Smoking Status: Former smoker alcohol intake frequency: holidays/special occasions only Substance Use Type: does not use and other Exam <Mildred Suarez MD - Last Filed: 12/14/21 08:53> Initial Vital Signs Initial Vital Signs: Vital Signs Temperature 98.2 F 12/10/21 14:45 Pulse Rate 83 12/10/21 14:45 Respiratory Rate 18 12/10/21 14:45 Blood Pressure 134/83 12/10/21 14:45 Pulse Oximetry 98 12/10/21 14:45 Oxygen Delivery Method 12/10/21 14:45 General: Healthy appearing, in no acute distress. Significant dysphonia but is able to speak in complete sentences HEENT: Moist mucous membranes, normal sclera with reactive pupils, Neck: No JVD, supple Respiratory: Lungs are clear to auscultation, no wheezing no rales no rhonchi. Full and symmetrical air movement Cardiac: Regular rate and rhythm no murmurs no bruits Abdomen: Soft, nontender, good bowel tones, no flank pain Skin: Warm and dry, no rashes Neurologic: Vocal cord spasm, moving all extremities, no paresthesias, normal bilateral facial movement. Symmetrical movement of the soft palate, tongue protrudes midline Extremities: No trauma, well perfused Psych: Cooperative, appropriate insight and affect <Chriss Kearns DO - Last Filed: 12/12/21 04:09> Initial Vital Signs Initial Vital Signs: Vital Signs Temperature 98.2 F 12/10/21 14:45 Pulse Rate 83 12/10/21 14:45 Respiratory Rate 18 12/10/21 14:45 Blood Pressure 134/83 12/10/21 14:45 Pulse Oximetry 98 12/10/21 14:45 Oxygen Delivery Method 12/10/21 14:45 <Arash Zhang DO - Last Filed: 12/19/21 20:24> Initial Vital Signs Initial Vital Signs: Vital Signs Temperature 98.2 F 12/10/21 14:45 Pulse Rate 83 12/10/21 14:45 Respiratory Rate 18 12/10/21 14:45 Blood Pressure 134/83 12/10/21 14:45 Pulse Oximetry 98 12/10/21 14:45 Oxygen Delivery Method 12/10/21 14:45 Course <Mildred Suarez MD - Last Filed: 12/14/21 08:53> Orders Ordered: Discontinued Medications Acetaminophen (Acetaminophen 325 Mg Tablet) 650 mg PO NOW ONE Stop: 12/11/21 07:33 Last Admin: 12/11/21 07:50 Dose: 650 mg Documented By: LOLIS Acetaminophen (Acetaminophen 325 Mg Tablet) 650 mg PO NOW ONE Stop: 12/11/21 18:17 Last Admin: 12/11/21 18:45 Dose: 650 mg Documented By: AT Sodium Chloride (Normal Saline 0.9%) 1,000 mls @ 1,000 mls/hr IV BOLUS ONE Stop: 12/10/21 17:17 Last Infusion: 12/10/21 18:07 Dose: 0 mls/hr Documented By: Admin: 12/10/21 16:29 Dose: 1,000 mls/hr Documented By: LOLIS Sodium Chloride (Normal Saline 0.9%) 1,000 mls @ 125 mls/hr IV CONT ADE Last Infusion: 12/12/21 04:13 Dose: 0 mls/hr Documented By: MARY ANNE Admin: 12/11/21 23:05 Dose: 125 mls/hr Documented By: Infusion: 12/11/21 19:25 Dose: 0 mls/hr Documented By: LOLIS(2) Infusion: 12/11/21 09:05 Dose: 125 mls/hr Documented By: Admin: 12/11/21 03:13 Dose: 125 mls/hr Documented By: Infusion: 12/11/21 03:11 Dose: 0 mls/hr Documented By: MARY ANNE Admin: 12/10/21 18:54 Dose: 125 mls/hr Documented By: LOLIS Ondansetron HCl (Ondansetron 4 Mg/2 Ml Inj) 4 mg IV NOW ONE Stop: 12/11/21 18:17 Last Admin: 12/11/21 18:25 Dose: 4 mg Documented By: SUNSHINE Ondansetron HCl (Ondansetron 4 Mg/2 Ml Inj) 4 mg IV Q4HR PRN PRN Reason: Nausea And Vomiting Last Admin: 12/11/21 23:04 Dose: 4 mg Documented By: AT Vital Signs Vital signs: Vital Signs - 8 hr 12/11/21 20:30 12/11/21 21:00 12/11/21 21:30 Pulse Rate 81 80 80 Blood Pressure Pulse Oximetry 97 97 97 Oxygen Delivery Method Room Air 12/11/21 22:00 12/11/21 22:30 12/11/21 23:00 Pulse Rate 79 74 74 Blood Pressure Pulse Oximetry 97 97 96 Oxygen Delivery Method Room Air 12/11/21 23:05 12/11/21 23:05 Pulse Rate 86 Blood Pressure 121/59 L Pulse Oximetry 98 Oxygen Delivery Method Room Air <Chriss Kearns, DO - Last Filed: 12/12/21 04:09> Orders Ordered: Discontinued Medications Acetaminophen (Acetaminophen 325 Mg Tablet) 650 mg PO NOW ONE Stop: 12/11/21 07:33 Last Admin: 12/11/21 07:50 Dose: 650 mg Documented By: LOLIS Acetaminophen (Acetaminophen 325 Mg Tablet) 650 mg PO NOW ONE Stop: 12/11/21 18:17 Last Admin: 12/11/21 18:45 Dose: 650 mg Documented By: HUMBERTO Sodium Chloride (Normal Saline 0.9%) 1,000 mls @ 1,000 mls/hr IV BOLUS ONE Stop: 12/10/21 17:17 Last Infusion: 12/10/21 18:07 Dose: 0 mls/hr Documented By: Admin: 12/10/21 16:29 Dose: 1,000 mls/hr Documented By: LOLIS Sodium Chloride (Normal Saline 0.9%) 1,000 mls @ 125 mls/hr IV CONT ADE Last Infusion: 12/12/21 04:13 Dose: 0 mls/hr Documented By: MARY ANNE Admin: 12/11/21 23:05 Dose: 125 mls/hr Documented By: Infusion: 12/11/21 19:25 Dose: 0 mls/hr Documented By: LOLIS(2) Infusion: 12/11/21 09:05 Dose: 125 mls/hr Documented By: Admin: 12/11/21 03:13 Dose: 125 mls/hr Documented By: Infusion: 12/11/21 03:11 Dose: 0 mls/hr Documented By: MARY ANNE Admin: 12/10/21 18:54 Dose: 125 mls/hr Documented By: LOLIS Ondansetron HCl (Ondansetron 4 Mg/2 Ml Inj) 4 mg IV NOW ONE Stop: 12/11/21 18:17 Last Admin: 12/11/21 18:25 Dose: 4 mg Documented By: SUNSHINE Ondansetron HCl (Ondansetron 4 Mg/2 Ml Inj) 4 mg IV Q4HR PRN PRN Reason: Nausea And Vomiting Last Admin: 12/11/21 23:04 Dose: 4 mg Documented By: AT Vital Signs Vital signs: Vital Signs - 8 hr 12/11/21 20:30 12/11/21 21:00 12/11/21 21:30 Pulse Rate 81 80 80 Blood Pressure Pulse Oximetry 97 97 97 Oxygen Delivery Method Room Air 12/11/21 22:00 12/11/21 22:30 12/11/21 23:00 Pulse Rate 79 74 74 Blood Pressure Pulse Oximetry 97 97 96 Oxygen Delivery Method Room Air 12/11/21 23:05 12/11/21 23:05 Pulse Rate 86 Blood Pressure 121/59 L Pulse Oximetry 98 Oxygen Delivery Method Room Air <Arash Zhang DO - Last Filed: 12/19/21 20:24> Orders Ordered: Discontinued Medications Acetaminophen (Acetaminophen 325 Mg Tablet) 650 mg PO NOW ONE Stop: 12/11/21 07:33 Last Admin: 12/11/21 07:50 Dose: 650 mg Documented By: LOILS Acetaminophen (Acetaminophen 325 Mg Tablet) 650 mg PO NOW ONE Stop: 12/11/21 18:17 Last Admin: 12/11/21 18:45 Dose: 650 mg Documented By: HUMBERTO Sodium Chloride (Normal Saline 0.9%) 1,000 mls @ 1,000 mls/hr IV BOLUS ONE Stop: 12/10/21 17:17 Last Infusion: 12/10/21 18:07 Dose: 0 mls/hr Documented By: Admin: 12/10/21 16:29 Dose: 1,000 mls/hr Documented By: LOLIS Sodium Chloride (Normal Saline 0.9%) 1,000 mls @ 125 mls/hr IV CONT ADE Last Infusion: 12/12/21 04:13 Dose: 0 mls/hr Documented By: MARY ANNE Admin: 12/11/21 23:05 Dose: 125 mls/hr Documented By: Infusion: 12/11/21 19:25 Dose: 0 mls/hr Documented By: LOLIS(2) Infusion: 12/11/21 09:05 Dose: 125 mls/hr Documented By: Admin: 12/11/21 03:13 Dose: 125 mls/hr Documented By: Infusion: 12/11/21 03:11 Dose: 0 mls/hr Documented By: MARY ANNE Admin: 12/10/21 18:54 Dose: 125 mls/hr Documented By: LOLIS Ondansetron HCl (Ondansetron 4 Mg/2 Ml Inj) 4 mg IV NOW ONE Stop: 12/11/21 18:17 Last Admin: 12/11/21 18:25 Dose: 4 mg Documented By: EB Ondansetron HCl (Ondansetron 4 Mg/2 Ml Inj) 4 mg IV Q4HR PRN PRN Reason: Nausea And Vomiting Last Admin: 12/11/21 23:04 Dose: 4 mg Documented By: AT Vital Signs Vital signs: Vital Signs - 8 hr 12/11/21 20:30 12/11/21 21:00 12/11/21 21:30 Pulse Rate 81 80 80 Blood Pressure Pulse Oximetry 97 97 97 Oxygen Delivery Method Room Air 12/11/21 22:00 12/11/21 22:30 12/11/21 23:00 Pulse Rate 79 74 74 Blood Pressure Pulse Oximetry 97 97 96 Oxygen Delivery Method Room Air 12/11/21 23:05 12/11/21 23:05 Pulse Rate 86 Blood Pressure 121/59 L Pulse Oximetry 98 Oxygen Delivery Method Room Air Medical Decision Making <Mildred Suarez MD - Last Filed: 12/14/21 08:53> Lab Data Result diagrams: 12/10/21 15:05 12/10/21 15:05 Labs: Lab Results 12/10/21 12/10/21 12/10/21 Range/Units 15:05 15:05 15:05 WBC 6.1 (4.5-11.0) X10^3/uL RBC 4.46 (4.0-5.2) X10^6/uL Hgb 13.2 (12.0-16.0) g/dL Hct 38.0 (36-46) % MCV 85.3 (80-100) fL MCH 29.6 (26-34) PG MCHC 34.7 (30-36) % RDW 16.9 H (11.6-14.8) % Plt Count 293 (150-400) X10^3/uL Neut % (Auto) 66.1 (50-75) % Lymph % (Auto) 28.0 (25-40) % [place] % (Auto) 4.8 (3-14) % Eos % (Auto) 0.7 L (2-4) % Baso % (Auto) 0.4 (0-2) % Neut # (Auto) 4100 (2520-0465) /uL Lymph # (Auto) 1700 (8098-4209) /uL [place] # (Auto) 300 (0-900) /uL Eos # (Auto) 0 (0-450) /uL Baso # (Auto) 0 (0-100) /uL Sodium 141 (137-145) mmol/L Potassium 3.8 (3.4-5.1) mmol/L Chloride 107 (98-107) mmol/L Carbon Dioxide 28 (22-32) mmol/L BUN 13 (7-17) mg/dL Creatinine 0.62 (0.52-1.04) mg/dL Estimated GFR > 60 (>60) mL/min BUN/Creatinine Ratio 21.0 (6-22) Glucose 92 (70-100) mg/dL Calcium 9.4 (8.4-10.2) mg/dL Phosphorus 3.1 (2.5-4.5) mg/dL Magnesium 2.0 (1.6-2.3) mg/dL Total Bilirubin 0.5 (0.2-1.3) mg/dL AST 27 (14-36) IU/L ALT 8 (<35) IU/L Alkaline Phosphatase 74 (38-126) U/L Total Protein 7.9 (6.3-8.2) g/dL Albumin 4.6 (3.5-5.0) g/dL Globulin 3.3 (1.7-4.1) g/dL Albumin/Globulin Ratio 1.4 (1.0-2.8) SARS-CoV-2 (PCR) (Negative) 12/10/21 Range/Units 18:02 WBC (4.5-11.0) X10^3/uL RBC (4.0-5.2) X10^6/uL Hgb (12.0-16.0) g/dL Hct (36-46) % MCV (80-100) fL MCH (26-34) PG MCHC (30-36) % RDW (11.6-14.8) % Plt Count (150-400) X10^3/uL Neut % (Auto) (50-75) % Lymph % (Auto) (25-40) % [place] % (Auto) (3-14) % Eos % (Auto) (2-4) % Baso % (Auto) (0-2) % Neut # (Auto) (8451-7981) /uL Lymph # (Auto) (5030-7758) /uL [place] # (Auto) (0-900) /uL Eos # (Auto) (0-450) /uL Baso # (Auto) (0-100) /uL Sodium (137-145) mmol/L Potassium (3.4-5.1) mmol/L Chloride (98-107) mmol/L Carbon Dioxide (22-32) mmol/L BUN (7-17) mg/dL Creatinine (0.52-1.04) mg/dL Estimated GFR (>60) mL/min BUN/Creatinine Ratio (6-22) Glucose (70-100) mg/dL Calcium (8.4-10.2) mg/dL Phosphorus (2.5-4.5) mg/dL Magnesium (1.6-2.3) mg/dL Total Bilirubin (0.2-1.3) mg/dL AST (14-36) IU/L ALT (<35) IU/L Alkaline Phosphatase (38-126) U/L Total Protein (6.3-8.2) g/dL Albumin (3.5-5.0) g/dL Globulin (1.7-4.1) g/dL Albumin/Globulin Ratio (1.0-2.8) SARS-CoV-2 (PCR) Negative (Negative) MDM Narrative Medical decision making narrative: 41-year-old woman with what sounds like a complex both neurologic and psychiatric story. She has had difficulties with both dysphagia and dysphonia previously to the point she has needed TPN and feeding tubes. At this point she is not able to swallow even water. Her exam does not suggest significant dehydration or poor overall perfusion. Blood work is initiated and will review care with her neurologist at [facility]. 512pm care is reviewed with Dr Jeffrey, neurology on-call [facility]. In reviewing notes from Dr. Varghese that [facility] there is no diagnosis of Parkinson's disease, his impression of her issues is functional disorder. Apparently there had been a trial of carbidopa levodopa at 1 point with no benefit in this was not continued. He had recommended amantadine and it is not clear that this has been tried. With prior neurologic workup pointing to a functional disorder and GI workup showing no acute abnormalities the fact remains that she has significant dysphonia and is unable to swallow. She will need hospital admission for supportive care and will benefit from admission at hospital where neurology and Gastroenterology can at least consult to suggest next steps in treatment and he lp with the acute episode and her inability to currently swallow. Will begin calling hospitals to look for bed availability. After talking with Neurology at [facility], they do not have bed availability at this time. Will begin IV hydration labs including magnesium and phosphorus have been or dered without obvious abnormalities. No evidence of acute kidney injury. <Chriss Kearns, DO - Last Filed: 12/12/21 04:09> Lab Data Labs: Lab Results 12/10/21 12/10/21 12/10/21 Range/Units 15:05 15:05 15:05 WBC 6.1 (4.5-11.0) X10^3/uL RBC 4.46 (4.0-5.2) X10^6/uL Hgb 13.2 (12.0-16.0) g/dL Hct 38.0 (36-46) % MCV 85.3 (80-100) fL MCH 29.6 (26-34) PG MCHC 34.7 (30-36) % RDW 16.9 H (11.6-14.8) % Plt Count 293 (150-400) X10^3/uL Neut % (Auto) 66.1 (50-75) % Lymph % (Auto) 28.0 (25-40) % [place] % (Auto) 4.8 (3-14) % Eos % (Auto) 0.7 L (2-4) % Baso % (Auto) 0.4 (0-2) % Neut # (Auto) 4100 (4549-3653) /uL Lymph # (Auto) 1700 (9959-2832) /uL [place] # (Auto) 300 (0-900) /uL Eos # (Auto) 0 (0-450) /uL Baso # (Auto) 0 (0-100) /uL Sodium 141 (137-145) mmol/L Potassium 3.8 (3.4-5.1) mmol/L Chloride 107 (98-107) mmol/L Carbon Dioxide 28 (22-32) mmol/L BUN 13 (7-17) mg/dL Creatinine 0.62 (0.52-1.04) mg/dL Estimated GFR > 60 (>60) mL/min BUN/Creatinine Ratio 21.0 (6-22) Glucose 92 (70-100) mg/dL Calcium 9.4 (8.4-10.2) mg/dL Phosphorus 3.1 (2.5-4.5) mg/dL Magnesium 2.0 (1.6-2.3) mg/dL Total Bilirubin 0.5 (0.2-1.3) mg/dL AST 27 (14-36) IU/L ALT 8 (<35) IU/L Alkaline Phosphatase 74 (38-126) U/L Total Protein 7.9 (6.3-8.2) g/dL Albumin 4.6 (3.5-5.0) g/dL Globulin 3.3 (1.7-4.1) g/dL Albumin/Globulin Ratio 1.4 (1.0-2.8) SARS-CoV-2 (PCR) (Negative) 12/10/21 Range/Units 18:02 WBC (4.5-11.0) X10^3/uL RBC (4.0-5.2) X10^6/uL Hgb (12.0-16.0) g/dL Hct (36-46) % MCV (80-100) fL MCH (26-34) PG MCHC (30-36) % RDW (11.6-14.8) % Plt Count (150-400) X10^3/uL Neut % (Auto) (50-75) % Lymph % (Auto) (25-40) % [place] % (Auto) (3-14) % Eos % (Auto) (2-4) % Baso % (Auto) (0-2) % Neut # (Auto) (0921-9229) /uL Lymph # (Auto) (2416-8311) /uL [place] # (Auto) (0-900) /uL Eos # (Auto) (0-450) /uL Baso # (Auto) (0-100) /uL Sodium (137-145) mmol/L Potassium (3.4-5.1) mmol/L Chloride (98-107) mmol/L Carbon Dioxide (22-32) mmol/L BUN (7-17) mg/dL Creatinine (0.52-1.04) mg/dL Estimated GFR (>60) mL/min BUN/Creatinine Ratio (6-22) Glucose (70-100) mg/dL Calcium (8.4-10.2) mg/dL Phosphorus (2.5-4.5) mg/dL Magnesium (1.6-2.3) mg/dL Total Bilirubin (0.2-1.3) mg/dL AST (14-36) IU/L ALT (<35) IU/L Alkaline Phosphatase (38-126) U/L Total Protein (6.3-8.2) g/dL Albumin (3.5-5.0) g/dL Globulin (1.7-4.1) g/dL Albumin/Globulin Ratio (1.0-2.8) SARS-CoV-2 (PCR) Negative (Negative) MDM Narrative Medical decision making narrative: 41-year-old woman with what sounds like a complex both neurologic and psychiatric story. She has had difficulties with both dysphagia and dysphonia previously to the point she has needed TPN and feeding tubes. At this point she is not able to swallow even water. Her exam does not suggest significant dehydration or poor overall perfusion. Blood work is initiated and will review care with her neurologist at [facility]. 512pm care is reviewed with Dr Jeffrey, neurology on-call [facility]. In reviewing notes from Dr. 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 Apparently there had been a trial of carbidopa levodopa at 1 point with no benefit in this was not continued. He had recommended amantadine and it is not clear that this has been tried. With prior neurologic workup pointing to a functional disorder and GI workup showing no acute abnormalities the fact remains that she has significant dysphonia and is unable to swallow. She will need hospital admission for supportive care and will benefit from admission at hospital where neurology and Gastroenterology can at least consult to suggest next steps in treatment and help with the acute episode and her inability to currently swallow. Will begin calling hospitals to look for bed availability. After talking with Neurology at [facility], they do not have bed availability at this time. Will begin IV hydration labs including magnesium and phosphorus have been ordered without obvious abnormalities. No evidence of acute kidney injury. Dr kearns: Received turnover. Reviewed patient's history and physical exam. Patient has remained stable overnight. There continues to be no bed availability. Care turned over to Dr. Zhang at change of shift to follow up and disposition. [0700] (Vicente) Patient received in sign out from Dr. Barrera]. I have reviewed the clinical course and performed an independent history and physical exam. She is resting comfortably, a very weak and strained voice, no new or worsening neurologic symptoms. Apparently had an uneventful night. Still on waiting list at [facility] and [facility], all others declined. Dr kearns: Received turned over. Reviewed the past several hours of note. P atient has been stable. At approximately 0400 hours patient requested to be discharged home. She states that she has her voice back now. She has been tolerating putting and her pills crushed up in putting. She states she feels like she can be discharged home. Will follow up with her neurologist. <Arashradha Zhang, DO - Last Filed: 12/19/21 20:24> Lab Data Labs: Lab Results 12/10/21 12/10/21 12/10/21 Range/Units 15:05 15:05 15:05 WBC 6.1 (4.5-11.0) X10^3/uL RBC 4.46 (4.0-5.2) X10^6/uL Hgb 13.2 (12.0-16.0) g/dL Hct 38.0 (36-46) % MCV 85.3 (80-100) fL MCH 29.6 (26-34) PG MCHC 34.7 (30-36) % RDW 16.9 H (11.6-14.8) % Plt Count 293 (150-400) X10^3/uL Neut % (Auto) 66.1 (50-75) % Lymph % (Auto) 28.0 (25-40) % [place] % (Auto) 4.8 (3-14) % Eos % (Auto) 0.7 L (2-4) % Baso % (Auto) 0.4 (0-2) % Neut # (Auto) 4100 (6754-5432) /uL Lymph # (Auto) 1700 (6740-8279) /uL [place] # (Auto) 300 (0-900) /uL Eos # (Auto) 0 (0-450) /uL Baso # (Auto) 0 (0-100) /uL Sodium 141 (137-145) mmol/L Potassium 3.8 (3.4-5.1) mmol/L Chloride 107 (98-107) mmol/L Carbon Dioxide 28 (22-32) mmol/L BUN 13 (7-17) mg/dL Creatinine 0.62 (0.52-1.04) mg/dL Estimated GFR > 60 (>60) mL/min BUN/Creatinine Ratio 21.0 (6-22) Glucose 92 (70-100) mg/dL Calcium 9.4 (8.4-10.2) mg/dL Phosphorus 3.1 (2.5-4.5) mg/dL Magnesium 2.0 (1.6-2.3) mg/dL Total Bilirubin 0.5 (0.2-1.3) mg/dL AST 27 (14-36) IU/L ALT 8 (<35) IU/L Alkaline Phosphatase 74 (38-126) U/L Total Protein 7.9 (6.3-8.2) g/dL Albumin 4.6 (3.5-5.0) g/dL Globulin 3.3 (1.7-4.1) g/dL Albumin/Globulin Ratio 1.4 (1.0-2.8) SARS-CoV-2 (PCR) (Negative) 12/10/21 Range/Units 18:02 WBC (4.5-11.0) X10^3/uL RBC (4.0-5.2) X10^6/uL Hgb (12.0-16.0) g/dL Hct (36-46) % MCV (80-100) fL MCH (26-34) PG MCHC (30-36) % RDW (11.6-14.8) % Plt Count (150-400) X10^3/uL Neut % (Auto) (50-75) % Lymph % (Auto) (25-40) % [place] % (Auto) (3-14) % Eos % (Auto) (2-4) % Baso % (Auto) (0-2) % Neut # (Auto) (1974-2957) /uL Lymph # (Auto) (2533-7814) /uL [place] # (Auto) (0-900) /uL Eos # (Auto) (0-450) /uL Baso # (Auto) (0-100) /uL Sodium (137-145) mmol/L Potassium (3.4-5.1) mmol/L Chloride (98-107) mmol/L Carbon Dioxide (22-32) mmol/L BUN (7-17) mg/dL Creatinine (0.52-1.04) mg/dL Estimated GFR (>60) mL/min BUN/Creatinine Ratio (6-22) Glucose (70-100) mg/dL Calcium (8.4-10.2) mg/dL Phosphorus (2.5-4.5) mg/dL Magnesium (1.6-2.3) mg/dL Total Bilirubin (0.2-1.3) mg/dL AST (14-36) IU/L ALT (<35) IU/L Alkaline Phosphatase (38-126) U/L Total Protein (6.3-8.2) g/dL Albumin (3.5-5.0) g/dL Globulin (1.7-4.1) g/dL Albumin/Globulin Ratio (1.0-2.8) SARS-CoV-2 (PCR) Negative (Negative) MDM Narrative Medical decision making narrative: 41-year-old woman with what sounds like a complex both neurologic and psychiatric story. She has had difficulties with both dysphagia and dysphonia previously to the point she has needed TPN and feeding tubes. At this point she is not able to swallow even water. Her exam does not suggest significant dehydration or poor overall perfusion. Blood work is initiated and will review care with her neurologist at [facility]. 512pm care is reviewed with Dr Jeffrey, neurology on-call [facility]. In reviewing notes from Dr. 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 Genna arently there had been a trial of carbidopa levodopa at 1 point with no benefit in this was not continued. He had recommended amantadine and it is not clear that this has been tried. With prior neurologic workup pointing to a functional disorder and GI workup showing no acute abnormalities the fact remains that she has significant dysphonia and is unable to swallow. She will need hospital admission for supportive care and will benefit from admission at hospital where neurology and Gastroenterology can at least consult to suggest next steps in treatment and help with the acute episode and her inability to currently swallow. Will begin calling hospitals to look for bed availability. After talking with Neurology at [facility], they do not have bed availability at this time. Will begin IV hydration labs including magnesium and phosphorus have been ordered without obvious abnormalities. No evidence of acute kidney injury. Dr kearns: Received turnover. Reviewed patient's history and physical exam. Patient has remained stable overnight. There continues to be no bed availabil ity. Care turned over to Dr. Zhang at change of shift to follow up and disposition. [0700] (Vicente) Patient received in sign out from [Urmila]. I have reviewed the clinical course and performed an independent history and physical exam. She is resting comfortably, a very weak and strained voice, no new or worsening neurologic symptoms. Apparently had an uneventful night. Still on waiting list at [facility] and [facility], all others declined. Discharge Plan Departure Patient Disposition: Home Clinical Impression: Dysphagia, Dysphonia Activity Restrictions/Additional Instructions: I do recommend that you continue to take all of your medications as directed. Be sure you contact your primary doctor and also your neurologist for follow-up. Return to the emergency department for any new or worsening symptoms. Prescriptions: No Action estradiol 1 mg tablet See Rx Instructions .ROUTE .COMPLEX Qty: 30 5RF Dose Instruction: TAKE (1/2) TABLET BY MOUTH ONCE DAILY Rx Instructions: TAKE (1/2) TABLET BY MOUTH ONCE DAILY clonazepam 1 mg Tablet 1 mg PO QID Rx Instructions: 0500 1100 1700 2100 carbidopa-levodopa 50-200 mg tablet extended release 1.5 tab PO QID Rx Instructions: 0500 1100 1900 2100 fluticasone propionate [Flonase Allergy Relief] 50 mcg/actuation spray,suspension 1 spray intranasal DAILY Qty: 16 0RF Rx Instructions: administer into each nostril carbidopa-levodopa 25-100 mg tablet 1 tab PO QID Referrals: Elvia Garcia PA-C [Primary Care Provider] - Visit Report Forms: Patient Portal/API
[2021-12-10 16:28] LABS: Add Manual Diff / Slide Review NO; Basophils Absolute Auto 0 /uL (0-100); Basophils Percent Auto 0.4 % (0-2); Eosinophils Absolute Auto 0 /uL (0-450); Eosinophils Percent Auto 0.7 % (2-4); Hemoglobin 13.2 g/dL (12.0-16.0); Lymphocytes Absolute Auto 1700 /uL (1100-4500); Mean Corpuscular HGB Conc 34.7 % (30-36); Mean Corpuscular Hemoglobin 29.6 PG (26-34); Mean Corpuscular Volume 85.3 fL (80-100); Monocytes Absolute Auto 300 /uL (0-900); Monocytes Percent Auto 4.8 % (3-14); Neutrophils Absolute Auto 4100 /uL (1500-7000); Neutrophils Percent Auto 66.1 % (50-75); Platelet Count 293 X10^3/uL (150-400); Red Blood Cell Count 4.46 X10^6/uL (4.0-5.2); Red Cell Distribution Width 16.9 % (11.6-14.8); White Blood Cell Count 6.1 X10^3/uL (4.5-11.0)
[2021-12-10] MEDS: SODIUM CHLORIDE 0.9% 1,000 ML 1000 ML IV (16:29)
[2021-12-10 16:37] LABS: Alanine Aminotransferase 8 IU/L (<35); Albumin 4.6 g/dL (3.5-5.0); Albumin Globulin Ratio 1.4 (1.0-2.8); Alkaline Phosphatase 74 U/L (38-126); Aspartate Aminotransferase 27 IU/L (14-36); Bilirubin Total 0.5 mg/dL (0.2-1.3); Blood Urea Nitrogen 13 mg/dL (7-17); Calcium 9.4 mg/dL (8.4-10.2); Carbon Dioxide 28 mmol/L (22-32); Chloride 107 mmol/L (98-107); Estimated Glomerular Filt Rate > 60 mL/min (>60); Globulin 3.3 g/dL (1.7-4.1); Glucose 92 mg/dL (70-100); HEMOLYSIS < 15 (0-50); Potassium 3.8 mmol/L (3.4-5.1); Sodium 141 mmol/L (137-145); Total Protein 7.9 g/dL (6.3-8.2)
[2021-12-10 16:38] LABS: Phosphorous 3.1 mg/dL (2.5-4.5)
--- NOTE | 2021-12-10 17:53 | PC.NURSE ---
Addendum entered by Dinora Velasquez CNA 12/10/21 22:29: 2230 F/u with mary to confirm her spot on the wait list, they confirmed she is on their list and that they would not have placement tonight.- Original Note: I was asked to try and place this patient on transfer lists for hospitals that would have neurology as a speciality. I called [facility] at 1730 and placed this patient on the transfer list. I called [facility] at 1735 and placed this patient on the transfer list. I called [facility] at 1740 and they declined to place anyone on their list at this time as they were full. I called [facility] at 1750 and they stated they are on full divert. Patient already declined placement on list from [facility] during consult do to no space on their transfer list.
[2021-12-10] MEDS: SODIUM CHLORIDE 0.9% 1,000 ML 125 ML IV (18:54)
--- NOTE | 2021-12-10 18:59 | PC.NURSE ---
pt requested drink to dissolve home meds that were due at 1700. pt given gingerale and states she let pills dissolve in her mouth with a very small amount of gingerale and that is how shes been taking home meds. pt states she cant swallow pills or gingerale otherwise but swallowed secretions and what dissolved. pt managing oral secretions and airway remains patent. home meds pt states she took are carbidopa levodopa extended release 50/200 (1.5 pill) carbidopa levodopa immediate release 25/100 (1 pill) clonazepam 1 mg (1 pill) meds taken by patient at 1730
[2021-12-10 19:05] LABS: COVID19 -Nasal RAPID Negative (Negative)
[2021-12-11] VITALS (53 sets, daily range): BP systolic 86–145; BP diastolic 54–98; PULSE 65–99; RESP 18; O2SAT 96–100
[2021-12-11] MEDS: SODIUM CHLORIDE 0.9% 1,000 ML 125 ML IV ×2 (03:13→23:05)
--- NOTE | 2021-12-11 03:16 | PC.NURSE ---
Pt IVF bag finished. Bag replaced and pt provided with warm blankets per request. Pt denies other needs at this time.
[2021-12-11] MEDS: ACETAMINOPHEN 325 MG TABLET 650 MG PO ×2 (07:50→18:45)
--- NOTE | 2021-12-11 07:52 | PC.NURSE ---
tylenol crushed and dissolved in 10 cc gingerale pt trying to let dissolve in meds.
--- NOTE | 2021-12-11 08:17 | PC.NURSE ---
I called the [facility] transfer cutler at 7:43am and was able to add this patient to their waitlist.
--- NOTE | 2021-12-11 15:55 | PC.NURSE ---
Provider notified of pt request for pain and nausea meds. Pt reports gradually worsening LUQ pain.
--- NOTE | 2021-12-11 16:12 | DI.RAD.S_ITS ---
PROCEDURE: XR ACUTE ABDOMEN SERIES INDICATIONS: worsening left sided pain TECHNIQUE: One view chest and two views of the abdomen were acquired. COMPARISON: [facility], CR, XR ACUTE ABDOMEN SERIES, 10/14/2019, 17:41. FINDINGS: Surgical changes and devices: None. Chest: Lungs are clear. Heart size is normal. No pleural effusions. No pneumoperitoneum. Abdomen: Bowel gas pattern is normal. No suspicious calcifications. Visualized solid organ contours appear normal. Bones: No suspicious bony lesions. IMPRESSION: No acute process. Dictated by: Raymon Washington M.D. on 12/11/2021 at 16:49 Approved by: Raymon Washington M.D. on 12/11/2021 at 16:56
[2021-12-11] MEDS: ONDANSETRON 4 MG/2 ML INJ IV ×2 (18:25→23:04)
--- NOTE | 2021-12-11 18:56 | PC.NURSE ---
Pt requested pudding to take crushed pills with, tolerated well.
[2021-12-12 04:11] VITALS: BP 129/69; PULSE 80; RESP 18; O2SAT 97
== END 2021-12-12 04:15 | disposition home or self-care (01) ==
PROVIDERS: Emergency Medicine; Emergency Provider Emergency Medicine; Family Provider Family Medicine; PCP Physician Assistant
DX: R13.10 Dysphagia, unspecified (principal); R49.0 Dysphonia; Z20.822 Contact with and (suspected) exposure to COVID-19
CPT/HCPCS: 36415; 74022; 80053; 83735; 84100; 85025; 87635; 96361; 96374; 96376; 99284; C9803; J2405

== ENCOUNTER 2021-12-31 13:47 | Emergency (ER) | payer OTHER, MEDICAID, SELFPAY ==
[2020-05-20 12:23] VITALS: BMI 34.3
[2021-12-31 13:51] VITALS: BP 115/66; PULSE 80; RESP 16; TEMP 36.4; O2SAT 97; BMI 31.7
--- NOTE | 2021-12-31 18:24 | ED.NEUROSD ---
HPI - Neuro Symptoms/Deficit General Chief Complaint: Neuro Symptoms/Deficit Stated Complaint: Numbness in left side- ref by Neurologist Time Seen by Provider: 12/31/21 18:21 Source: patient Mode of arrival: Ambulatory History of Present Illness HPI Narrative: 41-year-old woman with a difficult neurologic history with thorough neurologic workup. 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 She has come in with interesting neurologic complaints previously most recently December 10 with significant dysphagia that eventually resolved spontaneously and she was discharged from the emergency department. The neurologist thinks that the majority of her symptoms are functional. Today she complains of weakness starting on her left side on the . She notes that this has happened before. On Wednesday she noticed that the left upper weakness was worse now including the left lower extremity. She was having trouble walking and dropped a cup of coffee due to the weakness. She describes intermittent numbness with a sensation of feeling cold. This morning her chronic neck pain has been significantly worse and the weakness seems to be radiating across her upper shoulders through the area of chronic neck pain into the deltoid portion of the right arm. She describes no headaches. She states that she talked with the nurse at [facility] and was told to come to the emergency department with anticipation that she would be transferred to [facility]. She does note that since the she has been having increasing overall muscle spasm and has been using methocarbamol with little effect. She describes no fever, cough, chills, abdominal pain, vomiting, diarrhea. On Anticoagulants: No Related Data Home Medications Medication Instructions Recorded Confirmed clonazepam 1 mg tablet 1 mg PO QID 11/05/17 09/22/21 carbidopa ER 50 mg-levodopa 200 mg 1.5 tab PO QID 03/17/19 12/10/21 tablet,extended release carbidopa 25 mg-levodopa 100 mg 1 tab PO QID 01/07/21 12/10/21 tablet Previous Rx's Medication Instructions Recorded estradiol 1 mg tablet See Rx Instructions .Route 06/09/21 .COMPLEX #30 tabs fluticasone propionate 50 1 spray intranasal DAILY #16 grams 11/18/21 mcg/actuation nasal spray,suspension (Flonase Allergy Relief) Allergies Allergy/AdvReac Type Severity Reaction Status Date / Time avocado Allergy Severe Anaphylaxis Verified 09/22/21 16:23 banana Allergy Severe Anaphylaxis Verified 09/22/21 16:23 adhesive tape Allergy Intermediate rash, Verified 09/22/21 16:23 blisters Gadolinium-Containing Allergy Intermediate itchy Verified 09/22/21 16:23 Contrast Medi throat adhesive Allergy Mild SKIN: RASH Verified 09/22/21 16:23 Sulfa (Sulfonamide Allergy Mild Vomiting Verified 09/22/21 16:23 Antibiotics) [SULFA (SULFONAMIDE ANTIBIOTICS)] Phenothiazines Allergy Unknown Verified 09/22/21 16:23 chlorhexidine Allergy Rash, Verified 09/22/21 16:23 blisters haloperidol AdvReac Unknown Verified 09/22/21 16:23 metoclopramide AdvReac Unknown Verified 09/22/21 16:23 KIWI EXTRACT Allergy Severe Anaphylaxis Uncoded 09/22/21 16:23 chlora Allergy Intermediate Rash Uncoded 09/22/21 16:23 Review of Systems Review of Systems Narrative: Remainder of complete review of systems is otherwise unremarkable except for that included in the HPI. Hematologic/Lymphatic On Anticoagulants: No Patient History Medical History Dysphagia Family history of malignant neoplasm of digestive organs Gastrostomy tube in place GERD (gastroesophageal reflux disease) Movement disorder Sinusitis Vocal cord paralysis Surgical History H/O jejunostomy (~05/16/19) H/O: hysterectomy (~05/22/20) History of ankle surgery History of surgery (07/27/18) Hx of tonsillectomy (~06/28/98) Family History Other Family history of colon cancer Social History household members: significant other and children Smoking Status: Former smoker alcohol intake: former Smoking Status: Former smoker alcohol intake frequency: holidays/special occasions only Substance Use Type: does not use and other Exam Initial Vital Signs Initial Vital Signs: Vital Signs Temperature 97.6 F 12/31/21 13:51 Pulse Rate 80 12/31/21 13:51 Respiratory Rate 16 12/31/21 13:51 Blood Pressure 115/66 12/31/21 13:51 Pulse Oximetry 97 12/31/21 13:51 Oxygen Delivery Method 12/31/21 13:51 General: Chronically ill-appearing but in no acute distress. Able to give a complete and coherent history. Well-nourished well-developed HEENT: Moist mucous membranes, normal sclera with reactive pupils, Neck: No JVD, supple Respiratory: Lungs are clear to auscultation, no wheezing no rales no rhonchi. Full and symmetrical air movement Cardiac: Regular rate and rhythm no murmurs no bruits Abdomen: Soft, nontender, good bowel tones, no flank pain Skin: Warm and dry, no rashes Neurologic: Slight weakness in the upper extremity and lower extremity, 4/5. She describes decreased sensation in both. There are no facial abnormalities, no cognitive, expressive or receptive aphasias and no visual abnormalities appreciated Extremities: No trauma, well perfused Psych: Cooperative, appropriate insight and affect NIH Stroke Scale/Score ( RESULT SUMMARY: 5 points NIH Stroke Scale INPUTS: 1A: Level of consciousness ?> 0 = Alert; keenly responsive 1B: Ask month and age ?> 0 = Both questions right 1C: 'Blink eyes' & 'squeeze hands' ?> 0 = Performs both tasks 2: Horizontal extraocular movements ?> 0 = Normal 3: Visual gurrola ?> 0 = No visual loss 4: Facial palsy ?> 0 = Normal symmetry 5A: Left arm motor drift ?> 1 = Drift, but doesn't hit bed 5B: Right arm motor drift ?> 0 = No drift for 10 seconds 6A: Left leg motor drift ?> 1 = Drift, but doesn't hit bed 6B: Right leg motor drift ?> 0 = No drift for 5 seconds 7: Limb Ataxia ?> 2 = Ataxia in 2 Limbs 8: Sensation ?> 1 = Mild-moderate loss: less sharp/more dull 9: Language/aphasia ?> 0 = Normal; no aphasia 10: Dysarthria ?> 0 = Normal 11: Extinction/inattention ?> 0 = No abnormality Course Orders Ordered: Discontinued Medications Diazepam (Diazepam 5 Mg Tablet) 5 mg PO NOW ONE Stop: 12/31/21 18:44 Last Admin: 12/31/21 18:53 Dose: 5 mg Documented By: CTS Vital Signs Vital signs: Vital Signs - 8 hr 12/31/21 21:44 Temperature 97.9 F Pulse Rate 66 Respiratory Rate 16 Blood Pressure 129/73 Pulse Oximetry 97 Oxygen Delivery Method Room Air MDM - Neuro Symptoms/Deficit Lab Data Result diagrams: 12/31/21 21:37 12/31/21 21:38 Labs: Lab Results 12/31/21 12/31/21 Range/Units 21:37 21:38 WBC 5.6 (4.5-11.0) X10^3/uL RBC 4.29 (4.0-5.2) X10^6/uL Hgb 13.0 (12.0-16.0) g/dL Hct 36.8 (36-46) % MCV 85.8 (80-100) fL MCH 30.2 (26-34) PG MCHC 35.3 (30-36) % RDW 16.1 H (11.6-14.8) % Plt Count 282 (150-400) X10^3/uL Neut % (Auto) 59.0 (50-75) % Lymph % (Auto) 32.8 (25-40) % [place] % (Auto) 6.3 (3-14) % Eos % (Auto) 1.4 L (2-4) % Baso % (Auto) 0.5 (0-2) % Neut # (Auto) 3300 (9477-1163) /uL Lymph # (Auto) 1800 (5771-9291) /uL [place] # (Auto) 400 (0-900) /uL Eos # (Auto) 100 (0-450) /uL Baso # (Auto) 0 (0-100) /uL Sodium 138 (137-145) mmol/L Potassium 3.8 (3.4-5.1) mmol/L Chloride 104 (98-107) mmol/L Carbon Dioxide 26 (22-32) mmol/L BUN 12 (7-17) mg/dL Creatinine 0.50 L (0.52-1.04) mg/dL Estimated GFR > 60 (>60) mL/min BUN/Creatinine Ratio 24.0 H (6-22) Glucose 85 (70-100) mg/dL Calcium 9.1 (8.4-10.2) mg/dL Total Bilirubin 0.8 (0.2-1.3) mg/dL AST 23 (14-36) IU/L ALT 5 (<35) IU/L Alkaline Phosphatase 64 (38-126) U/L Total Protein 7.7 (6.3-8.2) g/dL Albumin 4.4 (3.5-5.0) g/dL Globulin 3.3 (1.7-4.1) g/dL Albumin/Globulin Ratio 1.3 (1.0-2.8) Imaging Data MR brain and c spine : My Impression: No contrast is ordered as patient describes a MRI contrast allergy that caused her throat to feel hot like it was closing and increased sneezing the last time it was given. Radiologist's Impression: FINDINGS:? Image quality:? Excellent.? ? CSF Spaces:? Basal cisterns are patent.? No extra-axial fluid collections.? Ventricles are normal in size and shape.? ? Brain:? Diffusion-weighted images demonstrate no acute or subacute infarcts.? No intracranial hemorrhage, mass, or mass effect.? Ruiz/white matter interface appears preserved.? Brainstem appears normal.? Normal intravascular flow voids are present.? ? Skull and face:? Calvarium has normal marrow signal.? Orbits appear normal.? ? Sinuses:? Sinuses and mastoids are clear.? ? IMPRESSION:? ? 1. No evidence of acute or subacute infarct. ? ? Dictated by: Frankie Hudson M.D. on 12/31/2021 at 20:16 ? FINDINGS:? Image quality:? Excellent.? ? Alignment and Curvature:? There is straightening of the cervical lordosis. ? Bone Marrow:? Marrow demonstrates normal overall signal.? There is mild reactive endplate bone marrow edema at C6-C7.? ? Spinal Cord:? Visualized spinal cord has normal size and signal.? No cerebellar tonsillar herniation.? ? Paraspinous Soft Tissues:? No paravertebral masses.? Prevertebral soft tissues are normal in thickness.? ? C2-C3:? Normal appearance.? ? C3-C4:? Minimal disc bulge.? Minimal spinal canal narrowing.? No neural foraminal narrowing. ? C4-C5:? Minimal disc bulge with associated minimal spinal canal narrowing.? No neural foraminal narrowing. ? C5-C6:? Minimal disc bulge with minimal spinal canal narrowing.? There is a minimal right uncovertebral joint arthropathy.? No significant neural foraminal narrowing. ? C6-C7:? Moderate loss of disc height with a small broad-based disc osteophyte complex.? There is mild spinal canal narrowing.? Uncovertebral joint arthropathy is present contributing to mild bilateral neural foraminal narrowing, right greater than left. ? C7-T1:? Normal appearance.? ? IMPRESSION:? ? 1. No high-grade spinal canal or neural foraminal narrowing. ? 2. Mild multilevel degenerative changes as described including mild spinal canal and bilateral neural foraminal narrowing at C6-C7. ? ? Dictated by: Frankie Hudson M.D. on 12/31/2021 at 20:20 ? ?? MDM Narrative Medical decision making narrative: 41-year-old woman with puzzling neurologic symptoms. MRI of the brain and cervical spine do not suggest acute infarct, spinal cord compression or significant cervical spine abscess or diskitis. Labs are reassuring. In the past with her dramatically perplexing neurologic complaints symptoms have eventually resolved and she has been discharged home. With a normal brain MRI and no other explanation for her upper and lower extremity weakness I believe she is safe for home discharge. Will ask her to follow-up, again, with her neurologist. At this time I do not think this is a stroke, there is no evidence of multiple sclerosis, brain tumor, swelling or alternate significant pathology that would require hospitalization or further workup. Discharge Plan Departure Patient Disposition: Home Clinical Impression: Left arm weakness, Weakness of left leg Activity Restrictions/Additional Instructions: Thank you for coming in today I am sorry that it is so frustrating to be experiencing such odd neurologic findings without obvious explanation. Fortunately, your MRI of your brain and your cervical spine did not show significant pathology. There is no evidence of a stroke, tumor, masses, bleeding or infection. At this time, I do not have a full explanation for the weakness you are noting in your left arm and leg however it does not appear to be something will require hospitalization or further workup at this time. I have given you a disc including all of your MRI images obtained today. I would encourage you to should use with your neurologist with your follow-up appointment that will need to be scheduled. Prescriptions: No Action estradiol 1 mg tablet See Rx Instructions .ROUTE .COMPLEX Qty: 30 5RF Dose Instruction: TAKE (1/2) TABLET BY MOUTH ONCE DAILY Rx Instructions: TAKE (1/2) TABLET BY MOUTH ONCE DAILY clonazepam 1 mg Tablet 1 mg PO QID Rx Instructions: 0500 1100 1700 2100 carbidopa-levodopa 50-200 mg tablet extended release 1.5 tab PO QID Rx Instructions: 0500 1100 1900 2100 fluticasone propionate [Flonase Allergy Relief] 50 mcg/actuation spray,suspension 1 spray intranasal DAILY Qty: 16 0RF Rx Instructions: administer into each nostril carbidopa-levodopa 25-100 mg tablet 1 tab PO QID Referrals: Elvia Garcia PA-C [Primary Care Provider] - Visit Report Forms: Patient Portal/API
--- NOTE | 2021-12-31 18:39 | DI.MRI.S_ITS ---
PROCEDURE: MR HEAD/BRAIN WO CON INDICATIONS: left side weakness, onset 12/29 TECHNIQUE: Noncontrast axial T1 spin echo, axial T2 fast spin echo, sagittal and axial FLAIR, coronal T2 fast spin echo, axial gradient echo, axial diffusion and ADC through the brain. COMPARISON: [facility], CT, CT HEAD/BRAIN WO CON, 09/18/2020, 15:58. FINDINGS: Image quality: Excellent. CSF Spaces: Basal cisterns are patent. No extra-axial fluid collections. Ventricles are normal in size and shape. Brain: Diffusion-weighted images demonstrate no acute or subacute infarcts. No intracranial hemorrhage, mass, or mass effect. Ruiz/white matter interface appears preserved. Brainstem appears normal. Normal intravascular flow voids are present. Skull and face: Calvarium has normal marrow signal. Orbits appear normal. Sinuses: Sinuses and mastoids are clear. IMPRESSION: 1. No evidence of acute or subacute infarct. Dictated by: Frankie Hudson M.D. on 12/31/2021 at 20:16 Approved by: Frankie Hudson M.D. on 12/31/2021 at 20:19
--- NOTE | 2021-12-31 18:39 | DI.MRI.S_ITS ---
PROCEDURE: MR CERVICAL SPINE WO CON INDICATIONS: acute cervical pain and Left side weakness. MR constrast al TECHNIQUE: Noncontrast sagittal T1 spin echo and T2 fast spin echo, sagittal STIR, foraminal oblique sagittal T2 fast spin echo, and axial gradient echo or T2 fast spin echo through the cervical spine. COMPARISON: None. FINDINGS: Image quality: Excellent. Alignment and Curvature: There is straightening of the cervical lordosis. Bone Marrow: Marrow demonstrates normal overall signal. There is mild reactive endplate bone marrow edema at C6-C7. Spinal Cord: Visualized spinal cord has normal size and signal. No cerebellar tonsillar herniation. Paraspinous Soft Tissues: No paravertebral masses. Prevertebral soft tissues are normal in thickness. C2-C3: Normal appearance. C3-C4: Minimal disc bulge. Minimal spinal canal narrowing. No neural foraminal narrowing. C4-C5: Minimal disc bulge with associated minimal spinal canal narrowing. No neural foraminal narrowing. C5-C6: Minimal disc bulge with minimal spinal canal narrowing. There is a minimal right uncovertebral joint arthropathy. No significant neural foraminal narrowing. C6-C7: Moderate loss of disc height with a small broad-based disc osteophyte complex. There is mild spinal canal narrowing. Uncovertebral joint arthropathy is present contributing to mild bilateral neural foraminal narrowing, right greater than left. C7-T1: Normal appearance. IMPRESSION: 1. No high-grade spinal canal or neural foraminal narrowing. 2. Mild multilevel degenerative changes as described including mild spinal canal and bilateral neural foraminal narrowing at C6-C7. Dictated by: Frankie Hudson M.D. on 12/31/2021 at 20:20 Approved by: Frankie Hudson M.D. on 12/31/2021 at 20:24
[2021-12-31] MEDS: diazePAM 5 MG TABLET PO (18:53)
[2021-12-31 21:44] VITALS: BP 129/73; PULSE 66; RESP 16; TEMP 36.6; O2SAT 97
[2021-12-31 21:48] LABS: Add Manual Diff / Slide Review NO; Basophils Absolute Auto 0 /uL (0-100); Basophils Percent Auto 0.5 % (0-2); Eosinophils Absolute Auto 100 /uL (0-450); Eosinophils Percent Auto 1.4 % (2-4); Hematocrit 36.8 % (36-46); Lymphocytes Absolute Auto 1800 /uL (1100-4500); Lymphocytes Percent Auto 32.8 % (25-40); Mean Corpuscular HGB Conc 35.3 % (30-36); Mean Corpuscular Hemoglobin 30.2 PG (26-34); Mean Corpuscular Volume 85.8 fL (80-100); Monocytes Absolute Auto 400 /uL (0-900); Monocytes Percent Auto 6.3 % (3-14); Neutrophils Absolute Auto 3300 /uL (1500-7000); Platelet Count 282 X10^3/uL (150-400); Red Blood Cell Count 4.29 X10^6/uL (4.0-5.2); Red Cell Distribution Width 16.1 % (11.6-14.8); White Blood Cell Count 5.6 X10^3/uL (4.5-11.0)
[2021-12-31 21:54] LABS: Alanine Aminotransferase 5 IU/L (<35); Albumin 4.4 g/dL (3.5-5.0); Albumin Globulin Ratio 1.3 (1.0-2.8); Alkaline Phosphatase 64 U/L (38-126); Aspartate Aminotransferase 23 IU/L (14-36); Bilirubin Total 0.8 mg/dL (0.2-1.3); Blood Urea Nitrogen 12 mg/dL (7-17); Calcium 9.1 mg/dL (8.4-10.2); Carbon Dioxide 26 mmol/L (22-32); Chloride 104 mmol/L (98-107); Estimated Glomerular Filt Rate > 60 mL/min (>60); Globulin 3.3 g/dL (1.7-4.1); Glucose 85 mg/dL (70-100); HEMOLYSIS 28 (0-50); Potassium 3.8 mmol/L (3.4-5.1); Sodium 138 mmol/L (137-145); Total Protein 7.7 g/dL (6.3-8.2)
[2022-01-01 06:06] VITALS: BP 100/53; PULSE 65; RESP 20; O2SAT 98
== END 2022-01-01 06:08 | disposition home or self-care (01) ==
PROVIDERS: Emergency Provider Emergency Medicine; Family Provider Family Medicine; PCP Physician Assistant; Referring Provider Psychiatry & Neurology Neurology
DX: R53.1 Weakness (principal); R29.898 Other symptoms and signs involving the musculoskeletal system
CPT/HCPCS: 36415; 70551; 72141; 80053; 85025; 99284

== ENCOUNTER → 2022-08-03 13:57 | Outpatient (CLI) | payer OTHER, MEDICAID, SELFPAY ==
[2020-05-20 12:23] VITALS: BMI 34.3
== END ==
PROVIDERS: Family Provider Family Medicine; PCP Physician Assistant; Visit Provider Family Medicine
DX: R30.0 Dysuria (principal); N89.8 Other specified noninflammatory disorders of vagina
CPT/HCPCS: 81002; 87077; 87086; 87186; 87798; 87801

== ENCOUNTER → 2022-08-05 10:28 | Outpatient (CLI) | payer OTHER, MEDICAID, SELFPAY ==
[2020-05-20 12:23] VITALS: BMI 34.3
[2022-08-05 19:44] LABS: Alanine Aminotransferase 11 IU/L (<35); Albumin 4.6 g/dL (3.5-5.0); Albumin Globulin Ratio 1.4 (1.0-2.8); Alkaline Phosphatase 90 U/L (38-126); Aspartate Aminotransferase 23 IU/L (14-36); BUN Creatinine Ratio 15.2 (6-22); Bilirubin Total 0.9 mg/dL (0.2-1.3); Blood Urea Nitrogen 10 mg/dL (7-17); Calcium 9.5 mg/dL (8.4-10.2); Carbon Dioxide 30 mmol/L (22-32); Chloride 99 mmol/L (98-107); Estimated Glomerular Filt Rate > 60 mL/min (>60); Globulin 3.3 g/dL (1.7-4.1); Glucose 94 mg/dL (70-100); HEMOLYSIS < 15 (0-50); Sodium 141 mmol/L (137-145); Total Protein 7.9 g/dL (6.3-8.2)
[2022-08-05 19:45] LABS: Add Manual Diff / Slide Review NO; Basophils Absolute Auto 0 /uL (0-100); Basophils Percent Auto 0.6 % (0-2); Eosinophils Absolute Auto 100 /uL (0-450); Eosinophils Percent Auto 1.1 % (2-4); Hematocrit 42.3 % (36-46); Lymphocytes Absolute Auto 900 /uL (1100-4500); Lymphocytes Percent Auto 17.5 % (25-40); Mean Corpuscular Hemoglobin 29.3 PG (26-34); Mean Corpuscular Volume 88.7 fL (80-100); Monocytes Absolute Auto 300 /uL (0-900); Monocytes Percent Auto 5.4 % (3-14); Neutrophils Absolute Auto 4000 /uL (1500-7000); Neutrophils Percent Auto 75.4 % (50-75); Platelet Count 319 X10^3/uL (150-400); Red Blood Cell Count 4.77 X10^6/uL (4.0-5.2); Red Cell Distribution Width 15.6 % (11.6-14.8); White Blood Cell Count 5.3 X10^3/uL (4.5-11.0)
[2022-08-05 19:56] LABS: Free T4, Direct Thyroxine 0.94 ng/dL (0.78-2.19)
[2022-08-05 19:57] LABS: Vitamin D 25 Hydroxy (D3) 27.2 ng/mL (30.0-100.0)
[2022-08-05 20:10] LABS: Thyroid Stimulating Hormone 1.97 uIU/mL (0.47-4.68)
== END ==
PROVIDERS: Family Provider Family Medicine; PCP Physician Assistant; Visit Provider Physician Assistant
DX: R53.83 Other fatigue (principal)
CPT/HCPCS: 80053; 82306; 84439; 84443; 85025

== ENCOUNTER → 2022-08-13 11:30 | Outpatient (CLI) | payer OTHER, MEDICAID, SELFPAY ==
[2020-05-20 12:23] VITALS: BMI 34.3
== END ==
PROVIDERS: Family Provider Family Medicine; PCP Physician Assistant; Visit Provider Family Medicine
DX: N89.8 Other specified noninflammatory disorders of vagina (principal); R30.0 Dysuria
CPT/HCPCS: 87491; 87591; 87661; 87798; 87801

== ENCOUNTER → 2022-09-03 11:14 | Outpatient (CLI) | payer OTHER, MEDICAID, SELFPAY ==
[2020-05-20 12:23] VITALS: BMI 34.3
[2022-09-03 19:37] LABS: BUN Creatinine Ratio 21.1 (6-22); Blood Urea Nitrogen 12 mg/dL (7-17); Calcium 9.6 mg/dL (8.4-10.2); Carbon Dioxide 31 mmol/L (22-32); Chloride 100 mmol/L (98-107); Estimated Glomerular Filt Rate > 60 mL/min (>60); Glucose 85 mg/dL (70-100); HEMOLYSIS 16 (0-50); Sodium 138 mmol/L (137-145)
== END ==
PROVIDERS: Family Provider Family Medicine; PCP Physician Assistant; Visit Provider Physician Assistant
DX: E87.6 Hypokalemia (principal)
CPT/HCPCS: 80048

== ENCOUNTER 2023-03-17 10:39 | Emergency (ER) | payer OTHER, MEDICAID, SELFPAY ==
[2022-10-22 08:14] VITALS: BMI 34.3
[2023-03-17] VITALS (12 sets, daily range): BP systolic 111–139; BP diastolic 58–77; PULSE 81–94; RESP 14; TEMP 36.9; O2SAT 96–100; BMI 30.9
--- NOTE | 2023-03-17 10:50 | DI.RAD.S_ITS ---
PROCEDURE: XR SOFT TISSUE NECK INDICATIONS: Problem swallowing TECHNIQUE: 2 views of the neck were acquired. COMPARISON: None. FINDINGS: Airway: The airway appears patent. Soft tissues: Prevertebral soft tissues are normal in thickness. The epiglottis and aryepiglottic folds appear normal. No soft tissue gas. Bones: No suspicious bony lesions. Visualized cervical spine is normally aligned. Moderate degenerative disc disease in cervical spine. Trace anterolisthesis of C2 on C3. IMPRESSION: Normal soft tissue neck. Consider modified barium swallow with speech pathology for further evaluation. Dictated by: Sarah Kirby M.D. on 03/17/2023 at 13:28 Approved by: Sarah Kirby M.D. on 03/17/2023 at 13:28
--- NOTE | 2023-03-17 10:51 | ED_ITS ---
HPI - General Adult General Chief complaint: Abdominal Pain Stated complaint: sent by provider can't eat t-3w Time Seen by Provider: 03/17/23 10:40 Source: patient Mode of arrival: Ambulatory History of Present Illness HPI narrative: Patient is a 42-year-old female. He is being followed by Neurology for an issue with dystonia and problems swallowing. She is on carbidopa/levodopa. She states that she is not been able to eat for the past 3 weeks and has had problems swallowing fluids for the past couple days. She stated that she con tact her neurologist who told her to take some Benadryl but that was a couple weeks ago. She contacted her primary doctor today and was told to come to the emergency department. Related Data Home Medications Medication Instructions Recorded Confirmed clonazepam 1 mg tablet 1 mg PO QID 11/05/17 09/03/22 carbidopa ER 50 mg-levodopa 200 mg 1.5 tab PO QID 03/17/19 09/03/22 tablet,extended release carbidopa 25 mg-levodopa 100 mg 1 tab PO QID 01/07/21 09/03/22 tablet duloxetine 40 mg capsule,delayed 40 mg PO BID 08/03/22 09/03/22 release Previous Rx's Medication Instructions Recorded estradiol 1 mg tablet See Rx Instructions .Route 06/24/22 .COMPLEX #30 tabs albendazole 200 mg tablet 400 mg PO Q2W 2 doses #4 tabs 01/02/23 Allergies Allergy/AdvReac Type Severity Reaction Status Date / Time avocado Allergy Severe Anaphylaxis Verified 03/17/23 10:45 banana Allergy Severe Anaphylaxis Verified 03/17/23 10:45 adhesive tape Allergy Intermediate rash, Verified 03/17/23 10:45 blisters Gadolinium-Containing Allergy Intermediate itchy Verified 03/17/23 10:45 Contrast Medi throat adhesive Allergy Mild SKIN: RASH Verified 03/17/23 10:45 Sulfa (Sulfonamide Allergy Mild Vomiting Verified 03/17/23 10:45 Antibiotics) [SULFA (SULFONAMIDE ANTIBIOTICS)] Phenothiazines Allergy Unknown Verified 03/17/23 10:45 chlorhexidine Allergy Rash, Verified 03/17/23 10:45 blisters haloperidol AdvReac Unknown Verified 03/17/23 10:45 metoclopramide AdvReac Unknown Verified 03/17/23 10:45 KIWI EXTRACT Allergy Severe Anaphylaxis Uncoded 09/03/22 10:51 chlora Allergy Intermediate Rash Uncoded 09/03/22 10:51 Review of Systems Constitutional Constitutional: Reports system reviewed and no additional complaints, except as documented ENT Ears, Nose, Mouth, and Throat: Reports system reviewed and no additional complaints, except as documented Musculoskeletal Musculoskeletal: Reports system reviewed and no additional complaints, except as documented Integumentary/Breasts Skin/Breast: Reports system reviewed and no additional complaints, except as documented Neurologic Neurologic: Reports system reviewed and no additional complaints, except as documented Patient History Medical History (Updated 03/17/23 @ 13:24 by Chriss Kearns DO) Dysphagia Family history of malignant neoplasm of digestive organs Gastrostomy tube in place GERD (gastroesophageal reflux disease) Movement disorder Vocal cord paralysis Surgical History (Updated 08/03/22 @ 15:05 by Vanessa Howe MD) H/O jejunostomy (~05/16/19) History of ankle surgery History of hysterectomy, supracervical abdominal (subtotal) History of surgery (07/27/18) Hx of tonsillectomy (~06/28/98) Family History Other Family history of colon cancer Social History details: has new BF household members: significant other and children Smoking Status: Former smoker alcohol intake: former Smoking Status: Former smoker alcohol intake frequency: holidays/special occasions only Substance Use Type: does not use and other Exam Initial Vital Signs Initial Vital Signs: Vital Signs Temperature 98.5 F 03/17/23 10:40 Pulse Rate 84 03/17/23 10:40 Respiratory Rate 14 03/17/23 10:40 Blood Pressure 139/77 03/17/23 10:40 Pulse Oximetry 98 03/17/23 10:40 Oxygen Delivery Method Room Air 03/17/23 10:40 HENMT Head: normal to inspection and normocephalic Resp Effort & Inspection: normal respiratory effort Auscultation: clear to auscultation bilaterally Cardio Rate: regular rate Rhythm: regular rhythm Neuro General: patient alert, patient awake and moves all extremities Extrem General: normal to inspection and capillary refill normal Course Orders Ordered: ED Orders 03/17/23 10:48 Complete Blood Count AUTO DIFF Stat Comprehensive Metabolic Panel Stat 03/17/23 10:50 XR soft tissue neck Stat Discontinued Medications Acetaminophen (Acetaminophen 325 Mg Tablet) 650 mg PO NOW ONE Stop: 03/17/23 12:03 Last Admin: 03/17/23 12:15 Dose: Not Given Documented By: AMV Sodium Chloride (Normal Saline 0.9%) 1,000 mls @ 1,000 mls/hr IV BOLUS ONE Stop: 03/17/23 11:49 Last Infusion: 03/17/23 11:57 Dose: 0 mls/hr Documented By: Admin: 03/17/23 10:53 Dose: 1,000 mls/hr Documented By: AMV Acetaminophen (Ofirmev) 1,000 mg in 100 mls @ 400 mls/hr IV NOW ONE Stop: 03/17/23 12:22 Last Infusion: 03/17/23 12:33 Dose: 0 mls/hr Documented By: Admin: 03/17/23 12:15 Dose: 400 mls/hr Documented By: AMV Ondansetron HCl (Ondansetron 4 Mg/2 Ml Inj) 4 mg IV NOW ONE Stop: 03/17/23 11:44 Last Admin: 03/17/23 11:48 Dose: 4 mg Documented By: AMAaron Vital Signs Vital signs: Vital Signs - 8 hr 03/17/23 10:40 03/17/23 10:43 03/17/23 10:44 Temperature 98.5 F Pulse Rate 84 93 H Respiratory Rate 14 Blood Pressure 139/77 139/77 Pulse Oximetry 98 97 Oxygen Delivery Method Room Air 03/17/23 11:00 03/17/23 11:00 03/17/23 11:25 Temperature Pulse Rate 94 H 88 Respiratory Rate Blood Pressure 117/69 Pulse Oximetry 96 96 Oxygen Delivery Method 03/17/23 11:25 03/17/23 11:30 03/17/23 11:30 Temperature Pulse Rate 91 H Respiratory Rate Blood Pressure 111/64 112/62 Pulse Oximetry 98 Oxygen Delivery Method 03/17/23 12:00 03/17/23 12:01 03/17/23 12:01 Temperature Pulse Rate 91 H 88 Respiratory Rate Blood Pressure 137/77 Pulse Oximetry 100 96 Oxygen Delivery Method 03/17/23 12:30 03/17/23 12:31 03/17/23 12:31 Temperature Pulse Rate 85 85 Respiratory Rate Blood Pressure 114/71 Pulse Oximetry 100 100 Oxygen Delivery Method 03/17/23 13:00 03/17/23 13:01 03/17/23 13:01 Temperature Pulse Rate 81 87 Respiratory Rate Blood Pressure 113/58 L Pulse Oximetry 98 100 Oxygen Delivery Method Medical Decision Making Lab Data 03/17/23 10:48 03/17/23 10:48 Labs: Lab Results 03/17/23 03/17/23 Range/Units 10:48 10:48 WBC 8.2 (4.5-11.0) X10^3/uL RBC 4.69 (4.0-5.2) X10^6/uL Hgb 14.1 (12.0-16.0) g/dL Hct 40.9 (36-46) % MCV 87.2 (80-100) fL MCH 30.2 (26-34) PG MCHC 34.6 (30-36) % RDW 14.5 (11.6-14.8) % Plt Count 319 (150-400) X10^3/uL Neut % (Auto) 74.3 (50-75) % Lymph % (Auto) 18.7 L (25-40) % [place] % (Auto) 5.4 (3-14) % Eos % (Auto) 1.0 L (2-4) % Baso % (Auto) 0.6 (0-2) % Neut # (Auto) 6100 (6284-8542) /uL Lymph # (Auto) 1500 (2285-3581) /uL [place] # (Auto) 400 (0-900) /uL Eos # (Auto) 100 (0-450) /uL Baso # (Auto) 0 (0-100) /uL Sodium 139 (137-145) mmol/L Potassium 3.7 (3.4-5.1) mmol/L Chloride 105 (98-107) mmol/L Carbon Dioxide 24 (22-32) mmol/L BUN 10 (7-17) mg/dL Creatinine 0.62 (0.52-1.04) mg/dL Estimated GFR > 60 (>60) mL/min BUN/Creatinine Ratio 16.1 (6-22) Glucose 103 H (70-100) mg/dL Calcium 10.1 (8.4-10.2) mg/dL Total Bilirubin 0.8 (0.2-1.3) mg/dL AST 24 (14-36) IU/L ALT 10 (<35) IU/L Alkaline Phosphatase 74 (38-126) U/L Total Protein 8.4 H (6.3-8.2) g/dL Albumin 4.7 (3.5-5.0) g/dL Globulin 3.7 (1.7-4.1) g/dL Albumin/Globulin Ratio 1.3 (1.0-2.8) MDM Narrative Medical decision making narrative: Patient is clinically not dehydrated. Has moist mucous membranes, not tachycardic, not hypotensive, normal skin turgor. If she really has not had anything to eat in 3 weeks it certainly is not causing any issues with her electrolytes. She is not acidotic. When I discuss this with her she stated that she actually is able to drink some milk and also ensure while at home. I had a discussion with her neurologist who states that this is most likely a psychiatric illness. Then discuss the case with Dr. Anaya who is on-call for the patient's primary doctor who stated that they were quite a few mental health diagnoses in the past. I suspect that that is what is going on today as well. There was no indication for a PICC line or a G-tube. No indication for admission to the hospital. Will have patient follow-up with her primary doctor. Discharge Plan Departure Patient Disposition: Home Clinical Impression: Dysphagia Activity Restrictions/Additional Instructions: Recommend that you continue to take all of your medications as directed. I also recommend that you talk with your primary doctor when you return home to discuss further evaluation. I recommend small amounts of fluid. You can have a liquid diet to include milk and ensure. Prescriptions: No Action estradiol 1 mg tablet See Rx Instructions .ROUTE .COMPLEX Qty: 30 5RF Dose Instruction: TAKE (1/2) TABLET BY MOUTH ONCE DAILY Rx Instructions: TAKE (1/2) TABLET BY MOUTH ONCE DAILY clonazepam 1 mg Tablet 1 mg PO QID Rx Instructions: 0500 1100 1700 2100 carbidopa-levodopa 50-200 mg tablet extended release 1.5 tab PO QID Rx Instructions: 0500 1100 1900 2100 albendazole 200 mg tablet 400 mg PO Q2W Qty: 4 0RF Rx Instructions: must administer with food, preferably a high-fat meal carbidopa-levodopa 25-100 mg tablet 1 tab PO QID duloxetine 40 mg capsule,delayed release(DR/EC) 40 mg PO BID Referrals: Elvia Garcia PA-C [Primary Care Provider] - Stand Alone Forms: Patient Portal/API
[2023-03-17] MEDS: SODIUM CHLORIDE 0.9% 1,000 ML 1000 ML IV (10:53)
[2023-03-17 10:59] LABS: Add Manual Diff / Slide Review NO; Basophils Absolute Auto 0 /uL (0-100); Basophils Percent Auto 0.6 % (0-2); Eosinophils Absolute Auto 100 /uL (0-450); Hematocrit 40.9 % (36-46); Hemoglobin 14.1 g/dL (12.0-16.0); Lymphocytes Absolute Auto 1500 /uL (1100-4500); Lymphocytes Percent Auto 18.7 % (25-40); Mean Corpuscular HGB Conc 34.6 % (30-36); Mean Corpuscular Hemoglobin 30.2 PG (26-34); Mean Corpuscular Volume 87.2 fL (80-100); Monocytes Absolute Auto 400 /uL (0-900); Monocytes Percent Auto 5.4 % (3-14); Neutrophils Absolute Auto 6100 /uL (1500-7000); Neutrophils Percent Auto 74.3 % (50-75); Platelet Count 319 X10^3/uL (150-400); Red Blood Cell Count 4.69 X10^6/uL (4.0-5.2); Red Cell Distribution Width 14.5 % (11.6-14.8); White Blood Cell Count 8.2 X10^3/uL (4.5-11.0)
[2023-03-17 11:21] LABS: Alanine Aminotransferase 10 IU/L (<35); Albumin 4.7 g/dL (3.5-5.0); Albumin Globulin Ratio 1.3 (1.0-2.8); Alkaline Phosphatase 74 U/L (38-126); Aspartate Aminotransferase 24 IU/L (14-36); BUN Creatinine Ratio 16.1 (6-22); Bilirubin Total 0.8 mg/dL (0.2-1.3); Blood Urea Nitrogen 10 mg/dL (7-17); Calcium 10.1 mg/dL (8.4-10.2); Carbon Dioxide 24 mmol/L (22-32); Chloride 105 mmol/L (98-107); Estimated Glomerular Filt Rate > 60 mL/min (>60); Globulin 3.7 g/dL (1.7-4.1); Glucose 103 mg/dL (70-100); HEMOLYSIS 20 (0-50); Potassium 3.7 mmol/L (3.4-5.1); Sodium 139 mmol/L (137-145); Total Protein 8.4 g/dL (6.3-8.2)
[2023-03-17] MEDS: ONDANSETRON 4 MG/2 ML INJ IV (11:48)
--- NOTE | 2023-03-17 11:57 | PC.NURSE ---
Pt reports abd aching. Dr. Kearns informed and that the pt states that she can not take NSAIDs per her GI doc
[2023-03-17] MEDS: ACETAMINOPHEN IV 1,000 MG/100 ML VIAL 400 MG IV (12:15)
== END 2023-03-17 13:38 | disposition home or self-care (01) ==
PROVIDERS: Emergency Provider Emergency Medicine; Family Provider Family Medicine; PCP Physician Assistant
DX: R13.10 Dysphagia, unspecified (principal)
CPT/HCPCS: 36415; 70360; 80053; 85025; 96361; 96365; 96375; 99284; J0131; J2405